=== PATIENT | male | born 1945 | race Caucasian/White ===

== ENCOUNTER 2019-10-07 12:24 | Inpatient (IN) | payer OTHER ==
--- NOTE | 2019-10-07 15:45 | R.PREADM ---
PRE-ADMISSION SCREENING FORM SCREENING DATE AND TIME 10/07/2019 13:30 (CDT) ANTICIPATED REHAB ADMISSION DATE 10/09/2019 REFERRING FACILITY [facility] REFERRAL DATE AND TIME 10/07/2019 13:30 (CDT) REFERRAL OFFICE PHONE [phone] REFERRAL ROOM# [id number] ACUTE ADMIT DATE 10/03/2019 Previous Rehabilitation(s): No. ACUTE COAT AGENT/DC COMMERCIAL FRONT LOAD OPERATOR SHANNA ATTENDING PHYSICIAN REFERRING PHYSICIAN PRIMARY CARE PHYSICIAN REHAB FACILITY [facility] CLINICAL LIAISON Yuliana Mckeon PHYSICIAN REVIEWER Dr. Miguel Angel Frazier M.D. MR# [id number] NAME SHERWIN BANG ADDRESS [address] [place] [address] PHONE [facility] [id number] DATE OF 1945 AGE 74 SSN# [id number] GENDER male MARITAL STATUS RACE unknown race ADMIT FROM 02 - [facility] PRE-HOSPITAL LIVING SETTING 01 - Home (private home/apt. board/care, assisted living, assisted, transitional living) HOME TYPE AND DETAILS Type of home: single family house # of levels in the residence: 1 # of steps within the residence: 3 # of steps to enter the residence: 1 PRE-HOSPITAL LIVING WITH Family/Relatives FAMILY SUPPORT Yes PRIMARY FAMILY CONTACT NAME DC BANG PRIMARY FAMILY CONTACT PHONE PRIMARY FAMILY CONTACT RELATIONSHIP Spouse PHONE PRIMARY FAMILY CONTACT ON ADM.? no IS PRIMARY FAMILY CONTACT AUTH. REP.? no 1ST EMERGENCY CONTACT DC BANG 1ST CONTACT PHONE 1ST CONTACT RELATIONSHIP Spouse PHONE 1ST CONTACT ON ADM. no IS 1ST CONTACT AUTH. REP.? no PHONE 2ND CONTACT ON ADM.? no PATIENT EMPLOYMENT STATUS Retired (for age) PATIENT EMPLOYER No Employer PAYOR INFORMATION: 1ST PAYOR NAME Medicare 1ST PAYOR PHONE 1ST PAYOR INJURY/ILLNESS DUE TO ACCIDENT? No ANOTHER GREEN PARTY RESPONSIBLE? No PRIMARY REHAB/ACUTE DIAGNOSIS: CHRONIC A FIB,CHF,CAD,HTN,HLD,COPD, ONSET DATE 10/03/2019 REHAB IMPAIRMENT CATEGORY (ANNETTE): 14 Cardiac does NOT meet 60% rule PRIMARY DIAGNOSIS-RELATED SURGERIES: No surgeries related to the primary diagnosis were performed. SUMMARY OF ACUTE HOSPITALIZATION: Pt. is a 74 yo Right-handed male of unknown race. On 10/03/2019 he was admitted to [facility] with diagnosis CHRONIC A FIB,CHF,CAD,HTN,HLD,COPD ,. His impairment category is Cardiac 09 - Cardiac Disorders (09). Pre-morbidly, Pt. was independent/mod-I in Locomotion, Transfers Control, Communication, and Sphincte r Control; and he had good Social Cognition, Transfers Control, and Endurance. Currently, he has deficits of Locomotion, Safety Awareness, Transfers Control, Sphincter Control, Stacy f-Care, Communication, and Endurance. Pt. is now referred to [facility] for acute in-patient rehabilitation in order to maximize patient's functional independence in activities of daily living, strength, ROM, and mobi lity. Patient has realistic goal of being discharged at assistance level 3-modA to reside at Home with Fam vanesa/Relatives. PAST MEDICAL HISTORY ESRD ON DIALYSIS COPD ESRD ATRIAL FIBRILLATION ANEMLA DYSPHAGIA,PHARYNGEAL PHASE DIASTOLIC CHF, ACUTE ON CHRONIC CHF CAD HTN HLD ARTHRITIS GOUT PAST SURGICAL HISTORY: HISTORY DIALYSIS CATHETER PLACEMENT PACEMAKER MEDICATION ALLERGIES: No Known Drug Allergies (NKDA) ENVIRONMENTAL ALLERGIES: - Substance Allergies None Known - Other Allergies None Known CODE STATUS: Full code WEIGHT/HEIGHT/BMI: WEIGHT 197 lbs HEIGHT 6 lbs BMI 26.7 DIET: - Diet Type Regular - Diet - Solid Texture Regular - Diet - Liquid Texture Regular - Tube Feed N/A [id number] [id number]].pdf REVIEW OF SYSTEMS: - Gen Alert and awake Lying in bed No apparent distress Oriented to: person, time, and place - Vital Signs Temperature: 98.7 F SBP/DBP: 118/72 Pulse: 87 Resp: 20 Vital signs stable, afebrile - CVS RRR VITAL SIGNS Temperature: 98.7 F SBP/DBP: 118/72 Pulse: 87 Resp: 20 Vital signs stable, afebrile MEDICATIONS/TREATMENT: Other- See attached MAR (Medication Administration Record). CURRENT SPHINCTER CONTROL: Pre-hospital bladder status: continent # of bladder accidents in the last 7 days prior to screenin Pre-hospital bowel status: continent # of bowel accidents in the last 7 days prior to screenin Last Bowel Movement Date: 10/07/2019 CURRENT LOCOMOTION STATUS: distance walked 15 f with rolling walker DETAILED CURRENT FUNCTIONAL STATUS: - Bladder accident frequency: Ind - No accidents in the past 7 days - Bowel accident frequency: Ind - No accidents in the past 7 days - Walking score based on distance walked: 0(N/A) - Wheelchair score based on distance traveled: 0(N/A) QI SCORES: - Self-Care A. Eating 03-Partial/moderate assistance B. Oral hygiene 03-Partial/moderate assistance C. Toileting hygiene 02-Substantial/maximal assistance E. Shower/bathe self 02-Substantial/maximal assistance F. Upper body dressing 03-Partial/moderate assistance G. Lower body dressing 03-Partial/moderate assistance H. Putting on/taking off footwear 88-Not attempted due to medical condition or safety concerns - Mobility A. Roll left and right 03-Partial/moderate assistance B. Sit to lying 03-Partial/moderate assistance C. Lying to sitting on side of bed 03-Partial/moderate assistance D. Sit to stand 02-Substantial/maximal assistance E. Chair/oxh-hd-mnikl transfer 02-Substantial/maximal assistance F. Toilet transfer 02-Substantial/maximal assistance G. Car transfer 88-Not attempted due to medical condition or safety concerns I. Walk 10 feet 02-Substantial/maximal assistance J. Walk 50 feet with two turns 88-Not attempted due to medical condition or safety concerns K. Walk 150 feet 88-Not attempted due to medical condition or safety concerns L. Walking 10 feet on uneven surfaces 88-Not attempted due to medical condition or safety concerns M. 1 step (curb) 88-Not attempted due to medical condition or safety concerns N. 4 steps 88-Not attempted due to medical condition or safety concerns O. 12 steps 88-Not attempted due to medical condition or safety concerns P. Picking up object 88-Not attempted due to medical condition or safety concerns R. Wheel 50 feet with two turns 88-Not attempted due to medical condition or safety concerns S. Wheel 150 feet 88-Not attempted due to medical condition or safety concerns - Bladder and Bowel Bladder continence Bowel continence 0-Always continent - Endurance Poor - Balance Poor - Safety Awareness Poor CURRENT FUNC. DEFICITS: Balance, Safety Awareness, Mobility, Endurance, and Self-Care CURRENT / PREVIOUS ASSISTIVE DEVICES: 3-in-1 [facility] Bed Raised Toilet Rolling Walker HISTORY OF FALLS. HAS THE PATIENT HAD TWO OR MORE FALLS IN THE PAST YEAR OR ANY FALL WITH INJURY IN T HE PAST YEAR?: No PRIOR SURGERY. DID THE PATIENT HAVE MAJOR SURGERY DURING THE 100 DAYS PRIOR TO ADMISSION?: No THERAPY NOTES FROM ACUTE CARE: Attached. SPECIAL NEEDS: - Safety Concerns Skin breakdown precautions needed due to skin breakdown risk PATIENT NEEDS ACTIVE AND ONGOING THERAPEUTIC INTERVENTION OF MULTIPLE THERAPY DISCIPLINES, INCLUDING: - Dietary and Nutrition Adequate Nutrition. Nutritional Education. Nutritional Supplements. PATIENT NEEDS CLOSE MEDICAL SUPERVISION BY A REHABILITATION PHYSICIAN FOR: Coordination of Treatment Team Wound Care PATIENT REQUIRES 24X7 REHAB NURSING FOR MEDICAL AND FUNCTIONAL MGT. OF THE FOLLOWING DEFICITS: Disease Management Medication Management Patient/Family Education Providing Safe Environment Skin Integrity PATIENT REQUIRES INTENSIVE, COORDINATED INTERDISCIPLINARY APPROACH TO REHAB: Arranging Home Equipment/Services Discharge Planning Family Intervention/Training Microfilmer/Case Management PATIENT REHAB POTENTIAL: Cale BANG is able and expected to receive 3 hours of individualized therapy daily on at least 5 o f every 7 days Cale BANG's prognosis for significant practical improvement within a reasonable period of time ap pears Good Expected level of measurable improvement will be of a practical value to Cale BANG's functional c apacity or adaptations to impairments Has a viable Discharge Plan Medically appropriate; condition is sufficiently stable to participate in intensive rehab program DISCHARGE PLAN: - Estimated Length of Stay (days) 10. - Consensus on plan Discharge plan has been discussed with primary caregiver. Patient/Family is in agreement with the nader n. Primary caregiver is in agreement with the plan. - Patient/Family Goals Return home independently. - Planned Living Setting Upon Discharge Home, to live with Family/Relatives. Transitional Living. RECOMMENDED CARE LEVEL: IRF RECOMMENDATION DETAILS: Recommended Admission to Comprehensive Rehabilitation Program to Increase Functional [place] SCREENER'S COMPLETENESS CONFIRMATION: - Screening Confirmation The patient data collection on this preadmission screening form is finished PHYSICIANS REVIEW AND ADMISSION DETERMINATION Admit - Based on my review of the Pre-Admission Screening results, in my medical judgment and experie nce, I concur with the findings and recommend admission to [facility], as this patient requires an IRF level of care. SIGNATURE PANEL: Seismic Prospecting Observer - [electronically] signed by Yuliana Mckeon on 10/07/2019 at 15:37 (CDT) Physician Reviewer - [electronically] signed by Dr. Miguel Angel Frazier M.D. on 10/07/2019 at 15:43 (CDT )
--- OUTSIDE RECORDS SUMMARY | 2019-10-08 20:49 | XMS REPORT | Clinical Summary ---
:1945 Author Organization [facility] Address [address] [place] [address] Care Team Providers Name Role Phone Valdes Otis MUNOZ Primary Care Provider Allergies Active Allergy Reactions Severity Noted Date Comments Heparin 2018 Medications Medication Sig Dispensed Refills Start End Date Status Date warfarin Take 4 mg by 0 Active (COUMADIN) 4 MG mouth daily. tablet metoprolol Take 25 mg by 0 Activ e tartrate mouth 2 (two) (LOPRESSOR) 25 mg times a day. tablet levothyroxine Take 25 mcg by 0 A ctive (SYNTHROID) 25 mcg mouth daily. tablet torsemide Take 20 mg by 0 Active (DEMADEX) 20 MG mouth 2 (two) tablet times a day. latanoprost Administer 1 0 Activ e (XALATAN) 0.005 % drop to both ophthalmic eyes nightly. solution vitamin B complex Take 500 mg by 0 Active (B COMPLEX-VITAMIN mouth. B12 ORAL) digOXIN (LANOXIN) Take 125 mcg by 0 Active 125 mcg (0.125 mg) mouth daily. PRN tablet predniSONE prednisone 10 mg 0 Ac tive (DELTASONE) 10 mg tablet tablet albuterol sulfate Ventolin 0 Ac tive (VENTOLIN HFA INHL) fluticasone/vilant Inhale. 0 A ctive lien (BREO ELLIPTA INHL) warfarin Take 1 tablet 0 05/13/19 Discon tinued (COUMADIN) 2.5 MG (2.5 mg total) 9 20 (Dose tablet by mouth daily. adju stment) Take with 3 mg tablet for total 5.5 mg roflumilast Take 500 mcg by 0 08/26/19 Di scontinued (Daliresp) 500 mcg mouth daily. 20 tablet NON FORMULARY 2 (two) times a 0 10/02/19 Discontinued day. Viteyes 20 AREDS 2 umeclidinium Inhale. 0 08/26/19 Discont inued (Incruse Ellipta) 20 62.5 mcg/actuation blister with device fluticasone Inhale 1 0 08/26/19 Disconti nued furoate-vilanteroL inhalations once 20 (Breo Ellipta) daily. 100-25 mcg/dose blister with device powder for inhalation colchicine 0.6 mg Take 0.6 mg by 0 0 Discontinued tablet mouth daily. PRN 20 albuterol Take 2.5 mg by 0 08/26/19 Disco ntinued (ACCUNEB) 2.5 mg nebulization 20 /3 mL (0.083 %) every 6 (six) nebulizer solution hours as needed for wheezing. PRN acetaminophen-code Take 1 tablet by 20 tablet 0 0503/10 ine (TYLENOL WITH mouth every 6 0 20 CODEINE #3) 300-30 (six) hours as mg per needed for tabletIndications: moderate pain acute pain for up to 5 days .acute pain. fluticasone-umecli Trelegy Ellipta 0 10/01 Discontinued din-vilanter 100 mcg-62.5 20 (TRELEGY ELLIPTA) mcg-25 mcg 100-62.5-25 mcg powder for blister with inhalation device powder for inhalation Active Problems Problem Noted Date Dialysis AV fistula malfunction 10/02/2019 Overview: Added automatically from request for alysia trivedi [id number] Clotted dialysis access 08/26/2019 Overview: Added automatically from request for alysia arnoldy [id number] ESRD (end stage renal disease) 07/01/2019 Overview: Added automatically from request for alysia trivedi [id number] Respiratory failure 2018 Encounters Date Type Specialty Care Team Description 10/07/2019 Hospital Encounter General Surgery Ervin Wilson MD 10/06/2019 Telephone Cardiovascular Luz Page RN 10/03/2019 Anesthesia Event General Surgery Omega Wakefield NP 10/02/2019 Pre-Admit Testing Pre-Admission Testing Ervin Wilson ESRD (end stage renal disease) ([facility]); Appointment MD Gurwinder Malfunction of arteriovenous dialysis fistula, initial encounter ([facility]) 10/02/2019 Office Visit Cardiovascular Ervin Wilson Encounter r egarding vascular access for dialysis for ESRD ([facility]) (Primary Dx); MD Gurwinder Dialysis AV fi stula malfunction, initial encounter ([facility]) 10/02/2019 Telephone Cardiovascular Luz Page RN 10/02/2019 Prep for Surgery Cardiovascular Camilo, ESRD (end stage renal disease) ([facility]) (Primary Dx); CASSIE Escobar Malfunction of arteriovenous dialysis fistula, initial encounter (HCC) 10/02/2019 Travel 09/11/2019 Office Visit Cardiovascular Ervin Wilson Encounter r egarding vascular access for dialysis for ESRD ([facility]) (Primary Dx); MD Gurwinder ESRD (end stag e renal disease) ([facility]) 09/11/2019 Travel 09/01/2019 Travel 08/27/2019 Anesthesia Event General Surgery Adrian Packer MD Gonzalez, Adriana, CRNA 08/27/2019 Surgery General Surgery Ervin Wilson INTRACATHE TER MD Gurwinder INJECTION OF T PA RIGHT TDC ., R IGHT UPPER EXTREMITY SUTURE REMOVAL 08/27/2019 Hospital Encounter General Surgery Ervin Wilson ESRD (end stage renal disease) ([facility]); MD Gurwinder Clotted dialys is access, initial encounter ([facility]) 08/26/2019 Pre-Admit Testing Pre-Admission Testing Ervin Wilson Preop testing (Primary Dx); Appointment MD Gurwinder ESRD (end stag e renal disease) ([facility]); Clotted dialysi s access, initial encounter (HCC) 08/26/2019 Office Visit Cardiovascular Ervin Wilson Encounter r egarding vascular access for dialysis for ESRD ([facility]) (Primary Dx); MD Gurwinder Palpitation 08/26/2019 Prep for Surgery Cardiovascular Page, ESRD (end stage renal disease) ([facility]) (Primary Dx); CASSIE Escobar Clotted dialysi s access, initial encounter ([facility]) 08/26/2019 Telephone Cardiovascular Mary Rollins MA 08/26/2019 Travel 08/19/2019 Travel 08/18/2019 Telephone Cardiovascular Braxton Waite MA 08/07/2019 Office Visit Cardiovascular Ervin Wilson Encounter r suleiman Purdy MD vascular acces s for dialysis for end-stage renal disease (HCC) (Primary Dx) 08/07/2019 Travel 07/17/2019 Office Visit Cardiovascular Ervin Wilson Encounter r suleiman Purdy MD vascular acces s for dialysis for end-stage renal disease (HCC) (Primary Dx) 07/16/2019 Telephone Cardiovascular Luz Page RN 07/15/2019 Anesthesia Event General Surgery Michelle Bajwa MD Sardina, Maydee, NP 07/15/2019 Surgery General Surgery Ervin Wilson RIGHT ARM MD Gurwinder ARTERIOVENOUS FISTULA CREATIO N AND ANY OTHER INDIC ATED PROCEDURES 07/15/2019 Hospital Encounter General Surgery Ervin Wilson ESRD (end stage MD Gurwinder renal disease) (HCC) 07/15/2019 Travel 07/09/2019 Prep for Surgery Cardiovascular Camilo ESRD (end stage CASSIE Escobar renal disease) (HCC) (Primary Dx) 07/01/2019 Prep for Surgery Cardiovascular Camilo ESRD (end stage CASSIE Escobar renal disease) (HCC) (Primary Dx) 05/13/2019 Office Visit Cardiovascular Louisa Yeung Encounter re DELICIA Amanda vascular acce ss for dialysis for end-stage renal disease (HCC) (Primary Dx) 05/13/2019 Telephone Cardiovascular Luz Page RN 05/13/2019 Travel 05/08/2019 Orders Only Cardiovascular Mariann, ESRD (end sta ge renal disease) on dialysis (HCC) (Primary Dx); RIGO Limon 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 Travel 05/07/2019 Telephone Cardiovascular Luz Page RN 04/25/2019 Telephone Cardiovascular Amanda Mueller 04/25/2019 Travel after 10/07/2018 Family History Medical History Relation Name Comments No Known Problems Father No Known Problems Mother Cancer Neg Hx Thrombocytopenia Neg Hx Relation Name Status Comments Father Mother Social History Tobacco Use Types Packs/Day Years Used Date Former Smoker Cigarettes 2 16 Quit: 1980 Smokeless Tobacco: Never Used Tobacco Cessation: Counseling Given: No Alcohol Use Drinks/Week oz/Week Comments Yes 2X WEEK TOTAL 4 Sex Assigned at Date Recorded Not on file Job Start Date Occupation Industry Not on file Not on file Not on file Travel History Travel Start Travel End No recent travel history available. COVID-19 Exposure Response Date Recorded In the last month, have you been in contact with No / Unsure 10/02/2019 8:32 AM CDT someone who was confirmed or suspected to have Coronavirus / COVID-19? Last Filed Vital Signs Vital Sign Reading Time Taken Comments Blood Pressure 120/77 10/02/2019 10:41 AM CDT Pulse 92 10/02/2019 10:41 AM CDT Temperature 36.3 C (97.3 F) 10/02/2019 10:41 AM CDT Respiratory Rate 18 10/02/2019 10:41 AM CDT Oxygen Saturation 100% 10/02/2019 10:41 AM CDT Inhaled Oxygen Concentration - - Weight 90.7 kg (200 lb) 10/02/2019 10:41 AM CDT Height 182.9 cm (6') 10/02/2019 10:41 AM CDT Body Mass Index 27.12 10/02/2019 10:41 AM CDT Plan of Treatment Health Maintenance Due Date Last Done Comments COLONOSCOPY SCREENING 06/01/1995 SHINGLES VACCINES (#1) 06/01/1995 65+ PNEUMOCOCCAL VACCINE (2 of 2 - PPSV23) 05/31/201005/31 INFLUENZA VACCINE 10/21/2019 Implants Implanted Type Area [employer] Device Shelf Model / Identifier Expiration Serial / Date Lot Pacemaker-05/05/2018 Pacemaker Left: Implanted: 05/05/2018 (Quantity not on file) Chest Procedures Procedure Name Priority Date/Time Associated Diagnosis Comme nts ANTIBODY Routine 10/02/2019 11:41 Results for this IDENTIFICATION AM CDT procedure are in the results section. HEPATIC FUNCTION PANEL Routine 10/02/2019 11:41 R esults for this AM CDT procedure are i n the results section. TYPE AND SCREEN Routine 10/02/2019 11:41 ESRD (end stage renal Results for this AM CDT disease) (HCC) procedure are in Malfunction of the results arteriovenous section. dialysis fistula, initial encounter ([facility]) HEMOGLOBIN A1C Routine 10/02/2019 11:41 ESRD (end stage renal Results for this AM CDT disease) (HCC) procedure are in Malfunction of the results arteriovenous section. dialysis fistula, initial encounter ([facility]) ESTIMATED GFR Routine 10/02/2019 11:41 Results fo r this AM CDT procedure are i n the results section. HC COMPLETE BLD COUNT Routine 10/02/2019 11:41 ESRD (end stage renal Results for this W/AUTO DIFF AM CDT disease) ([facility]) procedure are in Malfunction of the results arteriovenous section. dialysis fistula, initial encounter ([facility]) BASIC METABOLIC PANEL Routine 10/02/2019 11:41 ESRD (end stage renal Results for this AM CDT disease) ([facility]) procedure are in Malfunction of the results arteriovenous section. dialysis fistula, initial encounter ([facility]) PROTHROMBIN TIME WITH Routine 10/02/2019 11:41 ESRD (end stage renal Results for this INR AM CDT disease) ([facility]) procedure are in Malfunction of the results arteriovenous section. dialysis fistula, initial encounter ([facility]) PARTIAL THROMBOPLASTIN Routine 10/02/2019 11:41 ESRD (end stag e renal Results for this TIME (PTT) AM CDT disease) ([facility]) procedure are in Malfunction of the results arteriovenous section. dialysis fistula, initial encounter ([facility]) COVID-19 QUALITATIVE Routine 10/02/2019 10:17 ESRD (end stage renal Results for this PCR AM CDT disease) ([facility]) procedure are in Malfunction of the results arteriovenous section. dialysis fistula, initial encounter ([facility]) POC PANEL 4 Routine 08/27/2019 11:03 Results for this AM CDT procedure are i n the results section. PROTHROMBIN TIME WITH STAT 08/27/2019 10:50 Re sults for this INR AM CDT procedure are i n the results section. PARTIAL THROMBOPLASTIN STAT 08/27/2019 10:50 R esults for this TIME (PTT) AM CDT procedure are i n the results section. ESTIMATED GFR STAT 08/27/2019 10:50 Results fo r this AM CDT procedure are i n the results section. COMPREHENSIVE STAT 08/27/2019 10:50 Results fo r this METABOLIC PANEL AM CDT procedure ar e in the results section. ECG PRE/POST OP Routine 08/26/2019 2:56 Preop testing Results for this PM CDT procedure are i n the results section. ESTIMATED GFR Routine 08/26/2019 2:50 Results fo r this PM CDT procedure are i n the results section. HC COMPLETE BLD COUNT Routine 08/26/2019 2:50 ESRD (end stage renal Results for this W/AUTO DIFF PM CDT disease) ([facility]) procedure are in Clotted dialysis the results access, initial section. encounter ([facility]) BASIC METABOLIC PANEL Routine 08/26/2019 2:50 ESRD (end stage renal Results for this PM CDT disease) ([facility]) procedure are in Clotted dialysis the results access, initial section. encounter (HCC) PROTHROMBIN TIME WITH Routine 08/26/2019 2:50 ESRD (end stage renal Results for this INR PM CDT disease) ([facility]) procedure are in Clotted dialysis the results access, initial section. encounter (HCC) PARTIAL THROMBOPLASTIN Routine 08/26/2019 2:50 ESRD (end stag e renal Results for this TIME (PTT) PM CDT disease) ([facility]) procedure are in Clotted dialysis the results access, initial section. encounter ([facility]) ANTIBODY Routine 08/26/2019 2:21 Results for this IDENTIFICATION PM CDT procedure are in the results section. TYPE AND SCREEN Routine 08/26/2019 2:21 Preop testing Results for this PM CDT procedure are i n the results section. COVID-19 QUALITATIVE Routine 08/26/2019 2:21 ESRD (end stage renal Results for this PCR PM CDT disease) ([facility]) procedure are in Clotted dialysis the results access, initial section. encounter ([facility]) XR CHEST 1 VW PORTABLE Routine 07/15/2019 8:48 R esults for this AM CDT procedure are i n the results section. ECG 12-LEAD Routine 07/15/2019 7:31 ESRD (end stage renal Re sults for this AM CDT disease) ([facility]) procedure are in the results section. POC PANEL 4 Routine 07/15/2019 7:31 Results for this AM CDT procedure are i n the results section. ANTIBODY Routine 07/15/2019 7:24 Results for this IDENTIFICATION AM CDT procedure are in the results section. ESTIMATED GFR Routine 07/15/2019 7:24 Results fo r this AM CDT procedure are i n the results section. PARTIAL THROMBOPLASTIN Routine 07/15/2019 7:24 R esults for this TIME (PTT) AM CDT procedure are i n the results section. PROTHROMBIN TIME WITH Routine 07/15/2019 7:24 Re sults for this INR AM CDT procedure are i n the results section. HC COMPLETE BLD COUNT Routine 07/15/2019 7:24 Re sults for this W/AUTO DIFF AM CDT procedure are i n the results section. BASIC METABOLIC PANEL Routine 07/15/2019 7:24 Re sults for this AM CDT procedure are i n the results section. TYPE AND SCREEN Routine 07/15/2019 7:24 Results for this AM CDT procedure are i n the results section. COVID-19 QUALITATIVE STAT 07/15/2019 6:22 Res ults for this PCR AM CDT procedure are i n the results section. US VEIN MAPPING UPPER Routine 05/13/2019 11:50 Arteriovenous R esults for this EXTREMITY RIGHT AM CDT malformation of procedure are in vessel of upper limb the results ESRD (end stage renal sectio n. disease) on dialysis (HCC) after 10/07/2018 Results Estimated GFR (10/02/2019 11:41 AM CDT)Only the most recent of4 resultswithin the time period is included. Estimated GFR 4 (A) mL/min/1.73 [facility] Comment: m2 [place] Catergory Units Interpretation HOS PITAL G1 >=90 Normal or high G2 60-89 Mildly decreased G3a 45-59 Mildly to moderately decreas ed G3b 30-44 Moderately to severely decre ased G4 15-29 Severely decreased G5 <15 Kidney failure The eGFR was calculated using the Chronic Kidney Disea se Epidemiology Collaboration (CKD-EPI) equation. Interpretation is based on recommendations of the National Kidney Foundation-Kidney Disease Outcomes Octavio lity Initiative (NKF-KDOQI) published in 2014. Specimen Performing Organization Address City/State/Zipcode Phone Number [facility] DEPARTMENT OF PATHOLOGY [address] [facility] [address] AND [facility] [id number] [place] [address], [place] [phone] HOSPITAL Antibody identification (10/02/2019 11:41 AM CDT)Only the most recent of3 resultswithin the time period is included. Pathologist Sig nature Antibody ID POS, Anti-D [facility] Specimen Performing Organization Address City/State/Zipcode Phone Number [facility] DEPARTMENT OF PATHOLOGY AND [address] [place], [place] [address] [facility] [address] [place] [address] Partial thromboplastin time, activated (10/02/2019 11:41 AM CDT)Only the most recent of4 resultswithin the time period is included. PTT 64.9 (H) 23.0 - 36.0 [facility] Comment: [facility] PTT therapeutic range for unfractionated heparin is HOSPITAL 61.0-112.0 seconds which corresponds to Anti-Xa 0.3-0.7 U/ml. Specimen Blood Performing Organization Address City/[facility]/Zipcode Phone Number [facility] DEPARTMENT OF PATHOLOGY [id number] [place] [phone] AND [facility] [id number] [place] [address] Prothrombin time with INR (10/02/2019 11:41 AM CDT)Only the most recent of4 resultswithin the time period is included. Prothrombin time 61.8 (H) 11.5 - 14.5 [facility] INR 7.0 (HH) [place] Comment: [facility] International Normalized Ratio (INR) is a therapeu [facility] monitoring tool for patients who are stable on oral anticoagulant therapy. An INR of 2.0-3.0 is suggested for deep vein thrombosis/pulmonary embolism. Final results called to and read back by cassie williamson 10/02/2019 12:47 c.u Specimen Blood Performing Organization Address City/[facility]/Zipcode Phone Number [facility] DEPARTMENT OF PATHOLOGY [address] [place] [address] CBC with platelet and differential (10/02/2019 11:41 AM CDT)Only the most recent of3 resultswithin the time period is included. WBC 9.2 4.5 - 11.0 k/uL [facility] RBC 3.51 (L) 4.40 - 6.00 [facility] m/uL [facility] HGB 11.3 (L) 14.0 - 18.0 [facility] g/dL [facility] HCT 35.4 (L) 41.0 - 51.0 % [facility] MCV 100.9 (H) 82.0 - 100.0 fL [facility] MCH 32.2 27.0 - 34.0 pg [facility] MCHC 31.9 31.0 - 37.0 [facility] g/dL [facility] RDW - SD 63.0 (H) 37.0 - 55.0 fL [facility] MPV 11.4 (H) 6.9 - 11.0 fL [facility] Platelet count 140 (L) 150 - 400 K/uL [facility] Nucleated RBC 0.20 /100 WBC [facility] Neutrophils 89.3 (H) 39.0 - 69.0 % [facility] Lymphocytes 4.2 (L) 25.0 - 45.0 % [facility] Monocytes 5.8 0.0 - 10.0 % [facility] Eosinophils 0.2 0.0 - 5.0 % [facility] Basophils 0.1 0.0 - 1.0 % [facility] Immature granulocytes 0.4 0.0 - 1.0 % [facility] Specimen Blood Performing Organization Address City/State/Zipcode Phone Number [facility] DEPARTMENT OF PATHOLOGY [address] [place] [address] AND [place] [phone] HOSPITAL Type and screen (10/02/2019 11:41 AM CDT)Only the most recent of3 resultswithin the time period is included. ABO grouping A [facility] Rh type NEG [facility] Antibody screen POS [facility] (gel) Comment: [place] Results called to TREVA MORSE RN at 10/02/19 1 3:28 with readback. HOSPITAL Specimen sent to [facility] Blood Bank for anti body identification. Allow 4-6 hours for compatible blood if needed. [facility] Specimen Nasopharyngeal Performing Organization Address City/State/Zipcode Phone Number [facility] DEPARTMENT OF PATHOLOGY [address] [place] [address] Hemoglobin A1c (10/02/2019 11:41 AM CDT) Hemoglobin A1C 4.9 4.0 - 5.6 % [facility] Comment: [place] HbA1c cutoffs for diagnosing diabetes: HO SPITAL 4.0% - 5.6% = normal 5.7% - 6.4% = increased risk for diabetes (prediabetes )9 >=6.5% = diabetes9 Goals for glycemic control (ADA 2016) < 7.0% Target for non adults with diabetes. More or less stringent targets may be appropriate for individual patients. <7.5% Target for Children and adolescents with type 1 diabetes. Specimen Blood Performing Organization Address City/State/Zipcode Phone Number [facility] DEPARTMENT OF PATHOLOGY [phone] [place] [address] Hepatic function panel (10/02/2019 11:41 AM CDT) Pathologist Sig nature Albumin 3.7 3.5 - 5.0 g/dL [facility] Total bilirubin 0.9 0.2 - 1.2 mg/dL [facility] Bilirubin direct 0.5 (H) 0.0 - 0.3 mg/dL [facility] Alkaline phosphatase 108 40 - 129 U/L [facility] Protein 6.7 6.3 - 8.3 g/dL [facility] ALT 19 5 - 50 U/L [facility] AST 14 10 - 50 U/L [facility] Specimen Performing Organization Address City/[facility]/Zipcode Phone Number [facility] DEPARTMENT OF PATHOLOGY [address] [place] [address] Basic metabolic panel (10/02/2019 11:41 AM CDT)Only the most recent of3 results within the time period is included. Pathologist Sig nature Sodium 136 135 - 148 mEq/L [facility] Potassium 4.6 3.5 - 5.0 mEq/L [facility] Chloride 94 (L) 98 - 112 mEq/L [facility] CO2 19 (L) 24 - 31 mEq/L [facility] Anion gap 23@ANIO (H) 7 - 15 mEq/L [facility] BUN 119 (H) 8 - 23 mg/dL [facility] Creatinine 10.24 (H) 0.70 - 1.20 mg/dL [facility] Glucose 119 (H) 65 - 99 mg/dL [facility] Calcium 9.2 8.8 - 10.2 mg/dL [facility] Specimen Blood Performing Organization Address City/[facility]/Zipcode Phone Number [facility] DEPARTMENT OF PATHOLOGY [phone] [place] [phone] [address] [place] [address] [facility] COVID-19 qualitative PCR (10/02/2019 10:17 AM CDT)Only the most recent of3 resultswithin the time period is included. Pathologist [facility] Interpretation Negative results do not prec lude 2019-nCoV infection and should not be used as the sole basis for treatment or other patient management decisions. Negative results must be combined with clinical observations, patient history, and epidemiological [place] information. [facility] COVID19 qualitative Not-Detected Not-Detecte [place] PCR result d [facility] See link below for [place] PCR PDF Lab [facility] ReportComment: Case HOSPITAL Number: [id number] Specimen Nasopharyngeal swab Performing Organization Address City/[facility]/Zipcode Phone Number [facility] DEPARTMENT OF PATHOLOGY AND [address] [place], [place] [address] [address] [facility] POC panel 4 (08/27/2019 11:03 AM CDT)Only the most recent of2 resultswithin the time period is included. POC sodium 140 135 - 148 [facility] mmol/L [facility] POC potassium 4.0 3.5 - 5.0 [facility] mmol/L [facility] POC hematocrit 33 (L) 41 - 51 % [facility] POC glucose 91 65 - 99 mg/dL [facility] Comment: [place] Order Processor Name: [facility] Device ID: [id number] POC hemoglobin 11.2 (L) 14.0 - 18.0 [facility] g/dL [facility] Specimen Blood Performing Organization Address City/[facility]/Zipcode Phone Number [facility] DEPARTMENT OF PATHOLOGY [phone] [place] [phone] AND [facility] [phone] [place] [phone] [facility] Comprehensive metabolic panel (08/27/2019 10:50 AM CDT) Sodium 142 135 - 148 [facility] mEq/L [facility] Potassium 4.2 3.5 - 5.0 [facility] mEq/L [facility] Chloride 105 98 - 112 mEq/L [facility] CO2 20 (L) 24 - 31 mEq/L [facility] Anion gap 17@ANIO (H) 7 - 15 mEq/L [facility] BUN 89 (H) 8 - 23 mg/dL [facility] Creatinine 7.68 (H) 0.70 - 1.20 [facility] mg/dL [facility] Glucose 92 65 - 99 mg/dL [facility] Calcium 8.8 8.8 - 10.2 [facility] mg/dL [facility] Protein 7.0 6.3 - 8.3 g/dL [facility] Albumin 4.0 3.5 - 5.0 g/dL [facility] A/G ratio 1.3 0.7 - 3.8 [facility] Alkaline phosphatase 75 40 - 129 U/L [facility] AST 12 10 - 50 U/L [facility] ALT 18 5 - 50 U/L [facility] Total bilirubin 0.4 0.2 - 1.2 [facility] mg/dL [facility] Specimen Blood Performing Organization Address City/[facility]/Zipcode Phone Number [facility] DEPARTMENT OF PATHOLOGY [address] [facility], [place] [address] AND GENOMIC MEDICINE [facility] [address] [facility] [place] [address] [facility] ECG Pre/Post Op (08/26/2019 2:56 PM CDT) Pathologist Sig nature Ventricular rate 90 [facility] Atrial rate 58 [facility] QRSD interval 176 [facility] QT interval 478 [facility] QTC interval 584 [facility] QRS axis 1 -87 [facility] T wave axis 91 [facility] EKG impression AV sequential or dual [facility] chamber electronic pacemaker-Electronicall y Signed By Junior Natarajan MD ([id number]) on 08/26/2019 3:24:11 PM Specimen Narrative Performed At This result has an attachment that is no t available. Performing Organization Address City/State/[facility] Phone Number [facility] MUSE [address] [place] [address] XR Chest 1 Vw Portable (07/15/2019 8:48 AM CDT) Specimen Narrative Performed At EXAMINATION: XR CHEST 1 VW PORTABLE [facility] CLINICAL HISTORY: Pre-Op COMPARISON: June 26, 2018 IMPRESSION: 1.Prior sternotomy and valve replacement. There is a c ardiac regulating device. 2.Right jugular catheter extends into th e right atrium. 3.Increased density in the right perihilar region is p robably related to some fluid in the fissure on the right s christian. 4.Diffuse interstitial prominence in lungs may be rela jes to fibrosis with or without superimposed edema. [id number] Procedure Note Hm Interface, Radiology Results Incoming - 07/15/2019 9:01 AM CDT EXAMINATION: XR CHEST 1 VW PORTABLE CLINICAL HISTORY: Pre-Op COMPARISON: June 26, 2018 IMPRESSION: 1.Prior sternotomy and valve replacement . There is a cardiac regulating device. 2.Right jugular catheter extends into th e right atrium. 3.Increased density in the right perihil ar region is probably related to some fluid in the fissure on the right side. 4.Diffuse interstitial prominence in fernanda gs may be related to fibrosis with or without superimposed edema. [id number] Performing Organization Address [facility] Phone Number [facility] [address] [place] [address] ECG 12 lead (07/15/2019 7:31 AM CDT) Pathologist Sig nature Ventricular rate 91 [facility] Atrial rate 97 [facility] QRSD interval 170 [facility] QT interval 470 [facility] QTC interval 578 [facility] QRS axis 1 -83 [facility] T wave axis 97 [facility] EKG impression Electronic ventricular [facility] pacemaker-In automated comparison with ECG of 15-JUL-2019 07:29,-Electronic ventricular pacemaker has replaced Wide QRS rhythm- Specimen Narrative Performed At This result has an attachment that is no t available. Performing Organization Address [facility] Phone Number [facility] MUSE [address] [place] [address] Us vein mapping upper extremity (05/13/2019 11:50 AM CDT) Specimen Narrative Performed At [facility] ty Vein Mapping Report [id number] [facility], [address] Office [address], [place] [address], [place] [address] Pat.Name: SHERWIN ALEXANDER Pat.ID: [id number] .Date: 05/13/2019 Refer.MD: ERVIN WILSON MD Exam Time: 11:13:00 AM Study Type:UE Vein Mapping Height: 72in Weight: 166lb BSA: 1.97 m2 Ag e: 1945,73Y Sex: MALE Sonogrphr: Basia Riley, ELPIDIO, RVT Pat. Stat.:Outpatient Room: [facility] Vol: ED, CPT - 4: 43359 Echo Event ID:[id number] Order ID: [id number] Reason for Study:New dialysis access nader nning History / Clinical:Chronic respiratory f ailure, COPD, ESRD/ on HD, Former smoker, Right upper chest dialysi s catheter w/bandage Procedures: Colorflow, Grayscale/2D, Pul sed wave Doppler SUMMARY: DUPLEX SCAN OBSERVATIONS Right IJ Patent Subclavian Not Visualized Axillary Patent Brachial Patent Cephalic, arm Patent Cephalic, forearm Patent Basilic, arm Patent Basilic, forearm Patent RIGHT: There is normal compressibility and no evidence of echogenic material noted within the lumen of the v isualized veins. Colorflow and Doppler signals demonstrate patency. The pinedo of the radial and ulnar arteries are brightly echogenic. PRELIMINARY FINDINGS 1. No evidence of acute venous thrombo sis, right upper extremity. 2. The basilic vein has several branches at the antecubital fossa level. 3. The radial and ulnar arteries are den sely calcified with triphasic Doppler signals in the distal forearm. 4. Patent palmar arch on the right; watkins joel, when the right radial artery is compressed and the ulnar arter y is the source, the PPG waveforms' amplitude is moderately reduc ed (left palmar arch was not evaluated due to the patient's pain wi th compression). 5. See diagram for vein measurements PHYSICIAN INTERPRETATION 1. No evidence of acute venous thrombo sis, right upper extremity. 2. The basilic vein has several branches at the antecubital fossa level. 3. The radial and ulnar arteries are den sely calcified with triphasic Doppler signals in the distal forearm. 4. Patent palmar arch on the right; watkins joel, when the right radial artery is compressed and the ulnar arter y is the source, the PPG waveforms' amplitude is moderately reduc ed . 5. Pulsatile venous waveforms suggest ri ght sided cardiac dysfunction or pulmonary hypertension FINDINGS: MEASUREMENTS: UEVEINS Right Cephalic Upper Arm Prox Cephalic Upper 0.25 cm Cephalic Upper 0.24 cm Right Cephalic Upper Arm Mid Cephalic Upper 0.54 cm Cephalic Upper 0.16 cm Right Cephalic Upper Arm Dist Cephalic Upper 0.45 cm Cephalic Upper 0.18 cm Right Cephalic Antecubital Fossa Cephalic Antecu 0.51 cm Cephalic Antecu 0.27 cm Right Cephalic Forearm Prox Cephalic Forear 0.49 cm Cephalic Forear 0.31 cm Right Cephalic Forearm Mid Cephalic Forear 0.39 cm Cephalic Forear 0.25 cm Right Cephalic Wrist Cephalic Wrist 0.36 cm Cephalic Wrist 0.15 cm Right Basilic Upper Arm Prox Basilic Upper A 0.62 cm Basilic Upper A 0.57 cm Right Basilic Upper Arm Mid Basilic Upper A 0.51 cm Basilic Upper A 0.63 cm Right Basilic Upper Arm Dist Basilic Upper A 0.49 cm Basilic Upper A 0.59 cm Right Drop Hammer Mechanic Drop Hammer Mechanic AP 0.39 cm Drop Hammer Mechanic Dept 0.99 cm Right Basilic Antecubital Fossa Basilic Antecub 0.55 cm Basilic Antecub 0.47 cm Right Basilic Forearm Prox Basilic Forearm 0.22 cm Basilic Forearm 0.4 cm Right Basilic Forearm Mid Basilic Forearm 0.22 cm Basilic Forearm 0.14 cm Right Basilic Wrist Basilic Wrist A 0.21 cm Basilic Wrist D 0.3 cm Right Brachial Vein Antecube Brachial Vein A 0.44 cm Brachial Vein A 1.22 cm Right Brachial Artery Brachial Artery 0.51 cm Brachial Artery 0.81 cm Right Radial Artery Radial Artery A 0.23 cm Radial Artery D 0.25 cm Right Ulnar Artery Ulnar Artery AP 0.19 cm Ulnar Artery De 0.58 cm Signed 05/13/2019 03:43 PM Preez Ventura MD, FACS, RPVI Procedure Note Interface, Radiology Results In - 2019 3:44 PM CDT [facility] Upper Extremity Vein M apping Report [id number] [facility], [address], [place] [id number] Pat.Name: SHERWIN ALEXANDER Pat.I D: [id number] St.Date: 05/13/2019 Refer .MD: ERVIN WILSON MD Exam Time: 11:13:00 AM Study Type:UE Vein Mapping Height: 72in Weigh t: 166lb BSA: 1.97 m2 Age: 4 1945,73Y Sex: MALE Sonogrphr: Basia Riley RDCS, RVT Pat. Stat.:Outpatient Room: [facility] Vol: ED, CPT - 4: 32328 Echo Event ID:[id number] Order ID: [id number] Reason for Study:New dialysis access nader nning History / Clinical:Chronic respiratory f ailure, COPD, ESRD/ on HD, Former smoker, Right upper chest dialysi s catheter w/bandage Procedures: Colorflow, Grayscale/2D, Pul sed wave Doppler SUMMARY: DUPLEX SCAN OBSERVATIONS Right IJ Patent Subclavian Not Visualized Axillary Patent Brachial Patent Cephalic, arm Patent Cephalic, forearm Patent Basilic, arm Patent Basilic, forearm Patent RIGHT: There is normal compressibility and no evidence of echogenic material noted within the lumen of the v isualized veins. Colorflow and Doppler signals demonstrate patency. T he pinedo of the radial and ulnar arteries are brightly echogenic. PRELIMINARY FINDINGS 1. No evidence of acute venous thrombos is, right upper extremity. 2. The basilic vein has several branches at the antecubital fossa level. 3. The radial and ulnar arteries are den sely calcified with triphasic Doppler signals in the distal forearm. 4. Patent palmar arch on the right; watkins joel, when the right radial artery is compressed and the ulnar arter y is the source, the PPG waveforms' amplitude is moderately reduc ed (left palmar arch was not evaluated due to the patient's pain wit h compression). 5. See diagram for vein measurements PHYSICIAN INTERPRETATION 1. No evidence of acute venous thrombos is, right upper extremity. 2. The basilic vein has several branches at the antecubital fossa level. 3. The radial and ulnar arteries are den sely calcified with triphasic Doppler signals in the distal forearm. 4. Patent palmar arch on the right; watkins joel, when the right radial artery is compressed and the ulnar arter y is the source, the PPG waveforms' amplitude is moderately reduc ed . 5. Pulsatile venous waveforms suggest ri ght sided cardiac dysfunction or pulmonary hypertension FINDINGS: MEASUREMENTS: UEVEINS Right Cephalic Upper Arm Prox Cephalic Upper 0.25 cm Ceph alic Upper 0.24 cm Right Cephalic Upper Arm Mid Cephalic Upper 0.54 cm Ceph alic Upper 0.16 cm Right Cephalic Upper Arm Dist Cephalic Upper 0.45 cm Ceph alic Upper 0.18 cm Right Cephalic Antecubital Fossa Cephalic Antecu 0.51 cm Ceph alic Antecu 0.27 cm Right Cephalic Forearm Prox Cephalic Forear 0.49 cm Ceph alic Forear 0.31 cm Right Cephalic Forearm Mid Cephalic Forear 0.39 cm Ceph alic Forear 0.25 cm Right Cephalic Wrist Cephalic Wrist 0.36 cm Ceph alic Wrist 0.15 cm Right Basilic Upper Arm Prox Basilic Upper A 0.62 cm Basi lic Upper A 0.57 cm Right Basilic Upper Arm Mid Basilic Upper A 0.51 cm Basi lic Upper A 0.63 cm Right Basilic Upper Arm Dist Basilic Upper A 0.49 cm Basi lic Upper A 0.59 cm Right Drop Hammer Mechanic Drop Hammer Mechanic AP 0.39 cm Perf orator Dept 0.99 cm Right Basilic Antecubital Fossa Basilic Antecub 0.55 cm Basi lic Antecub 0.47 cm Right Basilic Forearm Prox Basilic Forearm 0.22 cm Basi lic Forearm 0.4 cm Right Basilic Forearm Mid Basilic Forearm 0.22 cm Basi lic Forearm 0.14 cm Right Basilic Wrist Basilic Wrist A 0.21 cm Basi lic Wrist D 0.3 cm Right Brachial Vein Antecube Brachial Vein A 0.44 cm Brac hial Vein A 1.22 cm Right Brachial Artery Brachial Artery 0.51 cm Brac hial Artery 0.81 cm Right Radial Artery Radial Artery A 0.23 cm Radi al Artery D 0.25 cm Right Ulnar Artery Ulnar Artery AP 0.19 cm Ulna r Artery De 0.58 cm Signed 05/13/2019 03:43 PM Perez Ventura MD, FACS, RPVI Performing Organization Address City/State/Zipcode Phone Number [facility] [address] [place] [address] after 10/07/2018 Insurance Payer Benefit Plan / Subscriber ID Effective Dates Phone Addre ss Type Group MEDICARE MEDICARE PART A xxxxxxxxxxx 2010-Present [facility] [place] Medicare AND B AARP AARP SUPPLEMENT xxxxxxxxxxx 2019-Present [id number] (Home) CARI NICKERSON [phone] (Work) Advance Directives For more information, please contact: [phone] Type Date Recorded Patient Oncology Physician Assistant Explanati on Advance Directives, Living Will 08/26/2019 1:34 PM and Medical Power of Thermostat Repairer
--- OUTSIDE RECORDS SUMMARY | 2019-10-08 20:51 | XMS REPORT | Continuity of Care Document ---
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) Medical Center Hypertensive Active Problem 06/02/2018 [place] disorder, Medical systemic Center arterial (disorder) Moderate protein Active Problem 06/02/2018 [facility] energy Medical malnutrition Center (disorder) Respiratory Active Problem 06/02/2018 [place] Medical (disorder) Center Medications Medication Details Route Status Patient Ordering Order Source Instructions Provider Date Insulin Lispro 6 unit, SUB-Q, Active [facility] 100 UNT/ML TID-Before Meals, 2018 Med ical Injectable PRN Blood Glucose Yamil ter Solution Results, 0 Refill(s) Glucagon 1 mg, IM, PRN, Active [place] PRN Blood Glucose 2019 Medica l Results, 0 Center Refill(s) fentaNYL 0.05 25 microgram = Active [place] mg/mL injectable 0.5 mL, IV, Q2H, 2019 Medical solution PRN Pain Score Center 4-6, 0 Refill(s) docusate sodium 100 mg = 10 mL, Active [place] 150 mg/15 mL PO, Q12H, 0 2018 Medical oral liquid Refill(s) Center cyanocobalamin 500 microgram = 1 Active [place] 500 mcg tab, PO, Daily, 0 2018 Medica l sublingual Refill(s) Center tablet ampicillin 2 g 2 gm, IVPB, [place] injection [id number], 0 2018 Medical Refill(s) Center bisacodyl 10 mg 10 mg = 1 supp, Active [facility] rectal DE, Daily, PRN 2019 Medical suppository Constipation, 0 Cent er Refill(s) allopurinol 300 300 mg = 1 tab, Active [facility] mg oral tablet PO, Daily, 0 2018 [facility] tamia Refill(s) [place] Albuterol 0.833 3 mL, NEB, RQ6H, Active [place] MG/ML / PRN as needed for 2019 Medica l Ipratropium shortness of Center [place] 0.167 breath or MG/ML Inhalant wheezing, 0 Solution Refill(s) [DuoNeb] albumin human 12.5 gm = 50 mL, Active H [place] 25% intravenous DIALYSIS, During 2019 Medical solution Dialysis, PRN Center Hypotension, 0 Refill(s) Acetaminophen 100.4 F, 0 Active [place] 325 MG Oral Refill(s) 2019 [facility] Tablet [place] latanoprost 0.05 1 drp, OPTH, Active [facility] MG/ML Ophthalmic Bedtime, 0 2018 [facility] Solution Refill(s) [place] [Xalatan] sodium citrate 2 mL, DIALYSIS, Active H [place] intravenous ONCE, 0 Refill(s) 2019 Ks dical solution [place] sodium citrate 5 mL, DIALYSIS, Active H [place] PRN, PRN 2019 Medical Dialysis, 0 Center Refill(s) Sodium Chloride 0.09 gm = 10 mL, Active [facility] IVP, PRN, PRN 2019 Medical Line Flush, 0 Center Refill(s) sennosides, [facility]CI 8.6 mg = 1 tab, Active [place] 8.6 MG Oral PO, Daily, 0 2018 Medical Tablet Refill(s) [place] roflumilast 500 500 microgram = 1 Active [facility] mcg oral tablet tab, PO, Daily, 0 2019 Medical Refill(s) [place] POLYETHYLENE PO, Daily, 0 Active [place] GLYCOL 3350 Refill(s) 2019 [facility] Oxycodone 5 mg = 5 mL, JT, [place] Hydrochloride 1 Q6H, PRN Pain 2019 Ks dical MG/ML Oral Score 4-6, 0 [place] Solution Refill(s) ocular lubricant 1 appl, BOTH Active [place] EYES, Q6H, PRN 2019 Medical Dry Eyes, 0 Center Refill(s) Mupirocin 0.02 1 appl, TOP, Active [place] MG/MG Topical Q12H, 0 Refill(s) 2019 Medical Ointment Center [Bactroban] multivitamin 1 tab, PO, Daily, Active H [place] with minerals 0 Refill(s) 2019 Medica l [place] levothyroxine 25 25 microgram = 1 Active [place] mcg (0.025 mg) tab, PO, Q630AM, 2019 Medical oral tablet 0 Refill(s) [place] Lanolin 0.157 1 appl, TOP, BID, Active [place] MG/MG / Menthol 0 Refill(s) 2019 [facility] tamia 0.0044 MG/MG / [place] Petrolatum 0.24 MG/MG / Zinc Oxide 0.206 MG/MG Topical Ointment [Calmoseptine] Ipratropium 0.5 mg = 2.5 mL, Active [place] 0.2 NEB, RQ6H, 0 2019 Medical MG/ML Inhalant Refill(s) [place] Solution sodium citrate Notes: (Same as: Inactive [place] Sodium Citrate, 2019 Medical anticoagulant) . Center argatroban 100 Notes: (Same as: Inactive [place] MG/ML Injectable Acova) 2019 Ks dical Solution MEDICATION WASTE Center Product Size: 250 mg Product Wasted: ___ mg WASTE: F/P - Black; E - Municipal Trash Bin bivalirudin Notes: IV only. No Longer [place] Not for IM use. Active 2018 Medical I.V. infusion: Center 250 mg in 500 mL (0.5 mg/mL) or 250 mg in 50 mL (5 mg/mL) of D5W or NS bivalirudin 100 mg, 100 mL, Inactive [place] Rate: Start at 2019 Medical 0.05 mg/kg/hr, Center Dosing Weight 93.636, kg, Route: IV, Total Volume: 100, Start Date: 05/30/18 21:24:00 CDT, Duration: 30 day, Stop date: 06/29/18 21:23:00 CDT, Replace Every: 24 hr Warfarin Notes: Nurse to Inactive 05/29[facility] [place] as ensure 2019 Medical documentation of Center patient education per anticoagulation policy. Avoid large intake of vitamin-K containing foods diet. (Same As: Coumadin) WASTE: F/P - P Waste Black; E - P Waste Black Warfarin Notes: Nurse to Inactive 05/28[facility] [place] as ensure 2019 Medical documentation of Center patient education per anticoagulation policy. Avoid large intake of vitamin-K containing foods diet. (Same As: Coumadin) WASTE: F/P - P Waste Black; E - P Waste Black Mupirocin 0.02 1 appl, Route: No Longer [facility] MG/MG Topical TOP, Q12H, Drug Active 2018 Me dical Ointment form: OINT, Start Cente r [Bactroban] date: 05/28/18 9:00:00 CDT, Duration: 30 day, Stop date: 06/26/18 21:00:00 CDT ampicillin Notes: (Same as: No Longer [facility] Principen) Active 2019 Medical MEDICATION WASTE Center Product Size: 2000 mg Product Wasted: ___ mg sodium citrate Notes: (Same as: Inactive [facility] Sodium Citrate, 2019 Medical anticoagulant) . Center sodium citrate Notes: (Same as: Inactive 05/27[facility] Sodium Citrate, 2019 Medical anticoagulant) . Center Midazolam Notes: (Same as: Inactive [place] Versed) 2019 Medical MEDICATION WASTE Center Product Size: 2 mg Product Wasted: ___ mg Fentanyl Notes: (Same as: Inactive 05/27[facility] [place] Sublimaze) 2019 Medical Preservative Center free. desmopressin Notes: (Same As: Inactive [facility] DDAVP) 2019 Medical MEDICATION WASTE Center Product Size: 4 microgram Product Wasted: ___ microgram fentaNYL (ANES) Route: IV, Drug Inactive [place] form: INJ, ONCE, 2018 Medical Stop date: [place] 05/27/18 8:49:00 CDT vasopressin Route: IV, Drug Inactive 05/27[facility] [place] (ANES) form: INJ, ONCE, 2018 Medical Stop date: [place] 05/27/18 8:49:00 CDT cisatracurium Route: IV, Drug Inactive [place] (ANES) form: INJ, ONCE, 2018 Medical Stop date: Center 05/27/18 8:39:00 CDT propofol (ANES) Route: IV, Drug Inactive [facility] form: INJ, ONCE, 2018 Medical Stop date: [place] 05/27/18 8:39:00 CDT Fentanyl Notes: (Same as: No Longer [facility] exas Sublimaze) Active 2019 Medical Preservative [place] free. Roxicodone Notes: (Same as: No Longer [facility] 'Roxicodone) Active 2019 Medical Center Fentanyl 12.5 microgram, Inactive [place] Route: IV, ONCE, 2019 Medical Dosing Weight Center 93.636, kg, Start date: 05/26/18 2:04:00 CDT, Stop date: 05/26/18 2:04:00 CDT Vancomycin 2001 mg: infuse Inactive [facility] over 2.5 hours 2019 Medical For adult Center patients only: Round to nearest 250 mg per Medical Staff approval MEDICATION WASTE Product Size: 1000 mg Product Wasted: ___ mg acetaminophen-co Notes: Do not No Longer [facility] deine #3 exceed 4gm/day of Active 2019 Medic al acetaminophen. Center (Same as: Tylenol with Codeine # 3) Fentanyl Notes: (Same as: No Longer [place] Sublimaze) Active 2019 [facility] Preservative [place] free. Dextrose 5% in 1,000 mL, Rate: No Longer [facility] Water IV 1,000 75 ml/hr, Infuse Active 2019 Medical mL over: 13.3 hr, Center Route: IV, Dosing Weight 93.636 kg, Total Volume: 1,000, Start date: 05/25/18 9:13:00 CDT, Duration: 30 day, Stop date: 06/24/18 9:12:00 CDT, 2.19, m2 Rocuronium Notes: (Same as: Inactive [place] Zemeron) 2019 Medical Center Etomidate Notes: (Same as: Inactive [place] [facility] Amidate). Per 2019 Medical state nursing law Center etomidate can only be given by a nurse if patient is intubated or being intubated (unless the nurse is a FINISHED GOODS PLANNER). Versed Notes: (Same as: Inactive [place] Versed) 2019 Medical MEDICATION WASTE Center Product Size: 2 mg Product Wasted: ___ mg Fentanyl Notes: (Same as: [place] Sublimaze) 2019 Medical Preservative Center free. chlorhexidine Notes: (Same As: No Longer [place] gluconate 1.2 Peridex) Active 2018 Medical MG/ML Mouthwash Center ocular lubricant Notes: (Same as: No Longer [place] Lacri-Lube, Active 2018 [facility] Puralube, Center Duratears Naturale, Artificial Tears, and Tears Again ) NS (Bolus) IV 500 mL, 500 Inactive [place] ml/hr, Infuse 2019 Medical Over: 1 hr, Center Route: IV, 500, Drug form: INJ, ONCE, Priority: STAT, Dosing Weight 93.636 kg, Start date: 05/22/18 17:01:00 CDT, Stop date: 05/22/18 17:01:00 CDT Versed Notes: (Same as: Inactive [place] Versed) 2019 Medical MEDICATION WASTE Center Product Size: 2 mg Product Wasted: ___ mg Norepinephrine Notes: Not for No Longer [place] direct Active 2018 Medical administration - Center DILUTE. Protect from light. (Same as:Levophed). Administer by either central venous catheter or peripherally-inse rted central catheter (PICC) line. sodium Notes: (sodium Inactive [place] bicarbonate 8.4% bicarb 8.4% (1 2018 Medical mEq/ml) 50 ml VL) Center 10 ML Notes: Luer lock Inactive [place] as Epinephrine 0.1 syringe 2019 Medical MG/ML Prefilled Center Syringe Fentanyl 1,000 microgram, No Longer [place] 20 mL, Rate: Active 2018 Medical Titrate, Start Center Dose: 50 microgram/hr, Titration: 25 microgram/hour every 15 minutes, Goal(s): rass -2, Max Dose: 300 microgram/hr, Route: IV, Dosing Weight 93.636 kg, Total Volume: 20, Start date: 05/22/18 16:02:00 CDTCale.. chlorhexidine Notes: (Same As: No Longer [facility] gluconate 1.2 Peridex) Active 2018 [facility] MG/ML Mouthwash Center Magnesium Notes: WASTE: F/P Inactive [facility] Sulfate - Sink; E - 2019 [facility] Trash Center Bin albumin human 5% Notes: LOT#: Inactive [facility] intravenous 2019 Medica l solution Mfg: Cente r ___ WASTE: F/P - Red; E -Red (Same as: Albuminar) "blood product derivative" albumin human 5% Notes: LOT#: Inactive [facility] intravenous 2019 Medica l solution Mfg: Cente r ___ WASTE: F/P - Red; E -Red (Same as: Albuminar) "blood product derivative" Beneprotein 7 gm Notes: (Same as: No Longer [facility] pkt Beneprotein) Active 2018 Medical Center Versed Notes: (Same as: Inactive [place] Versed) 2019 Medical MEDICATION WASTE Center Product Size: 2 mg Product Wasted: ___ mg albumin human Notes: LOT#: No Longer [facility] 25% intravenous Active 2018 Ks dical solution Mfg: Cente r ___ WASTE: F/P - Red; E -Red (Same as: Albuminar) "blood product derivative" Fentanyl 1,000 microgram, No Longer [place] 20 mL, Rate: Active 2018 Medical Titrate, Start Center Dose: 50 microgram/hr, Titration: 25 microgram/hour every 15 minutes, Goal(s): RASS -1, Max Dose: 300 microgram/hr, Route: IV, Dosing Weight 93.636 kg, Total Volume: 20, Start date: 05/19/18 16:04:00 Cale MARIEE.. ocular lubricant Notes: (Same as: No Longer 04/21 [place] Lacri-Lube, Active 2018 [facility] Puralube, Center Duratears Naturale, Artificial Tears, and Tears Again ) heparin additive Notes: Total No Longer [place] 25,000 unit [14 Concentration = Active 2018 Medical unit/kg/hr] + 50 unit/ ml Center Premix Diluent Total volume = Sodium Chloride 500 ml Send Med 0.45% 500 mL Request 2 hours prior to next bag iodixanol Notes: (Same as: No Longer [place] Visipaque). Active 2019 Medical WASTE: F/P - Center Black; E - Municipal Trash Bin Norvasc Notes: (Same as: No Longer [facility] [place] Norvasc) Active 2019 Medical Center chlorhexidine Notes: (Same As: No Longer [place] gluconate 1.2 Peridex) Active 2018 Medical MG/ML Mouthwash Center Etomidate Notes: (Same as: Inactive [facility] ex[place] Amidate). Per 2019 [facility] state nursing law Center etomidate can only be given by a nurse if patient is intubated or being intubated (unless the nurse is a FINISHED GOODS PLANNER). Fentanyl Notes: (Same as: Inactive [facility] Sublimaze) 2019 Medical Preservative Center free. chlorhexidine Notes: (Same As: No Longer [place] gluconate 1.2 Peridex) Active 2018 Medical MG/ML Mouthwash Center albumin human 5% Notes: LOT#: Inactive [facility] intravenous Mf Ks dical solution Center (Same as: Albuminar) "blood product derivative" WASTE: F/P - Red; E -Red MEDICATION WASTE Product Size: 25 gm Product Wasted: ___ gm Potassium Notes: (Same as: Inactive [facility] [place] Chloride Potassium 2018 [facility] Chloride) Center hydrALAZINE Notes: (Same as: No Longer [facility] Apresoline) June Medical interfere Center w/enteral feedings Take With Food Hydralazine Notes: (Same as: No Longer 05/18/ H [place] Apresoline) Push Active 2019 Medical over 5 minutes Center Norvasc Notes: (Same as: Inactive [place] Norvas) 2019 Medical Center Norvasc Notes: (Same as: Inactive [place] Norvas) 2019 Medical [place] lansoprazole Notes: Take 1 No Longer [facility] hour before or 2 Active 2018 Medical hours after meal; Center Expires in 14 days. Shake well before use. (Same as:Prevacid) Compounded Product - formulation not commercially available Hydralazine Notes: (Same as: Inactive [facility] Apresoline) Push 2019 Medical over 5 minutes Center potassium Notes: (Same as: No Longer [place] phosphate K Phosphate.) Do Active 2019 [facility] tamia not infuse Center phosphorous concurrently in the same line as TPN or IVF that contains calcium. For double lumen central lines, phosphorous may be infused in a separate lumen from TPN. 1 mMol phoshate has 1.47 mEq potassium Infuse over 4 hours Potassium Notes: (Same as: Inactive [place] Chloride Potassium 2018 [facility] Chloride) Center Eliquis Notes: Same as: No Longer [place] as Eliquis Active 2019 [facility] Bisacodyl Notes: (Same As: No Longer [place] Dulcolax, Active 2019 [facility] Bisco-Lax) Center sennosides, FCI Notes: (Same as: No Longer 05/17 [place] 8.6 MG Oral Senokot) Active 2019 Medical Tablet Center Miralax Notes: Dissolve No Longer [place] as in 8 oz of water Active 2019 Medical or juice. (Same Center as: Miralax) albumin human Notes: LOT#: Inactive [place] 25% intravenous 2019 Me dical solution Mfg: Cente r ___ WASTE: F/P - Red; E -Red (Same as: Albuminar) "blood product derivative" Ampicillin Notes: (Same as: No Longer [facility] Principen) Active 2019 Medical MEDICATION WASTE Center Product Size: 2000 mg Product Wasted: ___ mg Furosemide Notes: (Same as: Inactive [facility] Lasix) 2019 Medical MEDICATION WASTE Center Product Size: 40 mg Product Wasted: ___ mg Ampicillin Notes: (Same as: Inactive [facility] Principen) 2019 Medical MEDICATION WASTE Center Product Size: 2000 mg Product Wasted: ___ mg Insulin Lispro Notes: (Same as: No Longer [facility] Humalog ) Roll in Active 2019 Medica l palms of hands Center gently; Do not shake `vigorously. "Single Patient Use Only " WASTE: F/P - Black; E - Municipal Trash Bin Stable for 28 days at room temperature. Expires in days from Dat e Dextrose 50% 25 gm, 50 mL, No Longer [facility] Syringe Route: IVP, Drug Active 2018 Medical Form: INJ, Dosing Center Weight 93.636, kg, PRN, PRN Blood Glucose Results, Start date: 05/15/18 8:16:00 CDT, Duration: 30 day, Stop date: 06/14/18 8:15:00 CDT Glucagon 1 mg, Route: IM, No Longer [place] Drug form: Active 2018 Medical PDR/INJ, PRN, Center Dosing Weight 93.636, kg, PRN Blood Glucose Results, Start date: 05/15/18 8:16:00 CDT, Duration: 30 day, Stop date: 06/14/18 8:15:00 CDT chlorhexidine Notes: (Same As: No Longer [facility] gluconate 1.2 Peridex) Active 2019 Medical MG/ML Mouthwash Center potassium Notes: (Same as: No Longer [facility] phosphate-sodium Phos-NaK) Each Active 2018 Medical phosphate 250 1.5 [address]m pkt has [address] mg-280 mg-160 mg 250mg oral powder for phosphorous. Mix reconstitution w/2.5oz water and stir. sodium phosphate Notes: Infuse No Longer 03/26[facility] over 4 hour. Do Active 2019 Medical not infuse Center phosphorous concurrently in the same line as TPN or IVF that contains calcium. For double lumen central lines, phosphorous may be infused in a separate lumen from TPN. potassium Notes: (Same as: No Longer [place] phosphate K Phosphate.) Do Active 2019 [facility] tamia not infuse Center phosphorous concurrently in the same line as TPN or IVF that contains calcium. For double lumen central lines, phosphorous may be infused in a separate lumen from TPN. 1 mMol phoshate has 1.47 mEq potassium Infuse over 4 hours Calcium Chloride Notes: WASTE: F/P No Longer [place] - Sink; E - [facility] [place] Bin Potassium Notes: (Same as: No Longer [facility] Chloride KCL) Infuse no Active 2018 Medical faster than 10 Center mEq/hr if given peripherally. Magnesium Oxide Notes: (Same as: No Longer 05/14 [facility] Mag-Ox 400) Active 2019 [facility] Magnesium oxide Center [id number] elemental magnesium Dose=____mg magnesium oxide (___mg elemental magnesium) Magnesium Notes: WASTE: F/P No Longer [facility] Sulfate - Sink; E - Active [facility] [place] Bin Fentanyl 1,000 microgram, No Longer [place] 20 mL, Rate: Active 2019 Medical Titrate, Start Center Dose: 50 microgram/hr, Titration: 25 microgram/hour every 15 minutes, Goal(s): rass -2, Max Dose: 300 microgram/hr, Route: IV, Dosing Weight 93.636 kg, Total Volume: 20, Start date: 05/14/18 18:09:00 CDT, D... Sodium Chloride 1,000 mL, 1,000 Inactive [facility] 0.9% (Bolus) IV ml/hr, Infuse 2019 Ks dical Over: 1 hr, Center Route: IV, 1,000, Drug form: INJ, ONCE, Priority: STAT, Dosing Weight 93.636 kg, Start date: 05/14/18 18:07:00 CDT, Stop date: 05/14/18 18:07:00 CDT albumin human 5% Notes: LOT#: Inactive [facility] intravenous 2019 Medica l solution Mfg: Cente r ___ WASTE: F/P - Red; E -Red (Same as: Albuminar) "blood product derivative" sodium Notes: (sodium Inactive [place] bicarbonate 8.4% bicarb 8.4% (2018 Medical mEq/ml) 50 ml VL) Center Vasopressin Notes: (Same As: No Longer [place] (FCI) Vasostrict) Active 2019 [facility] ocular lubricant Notes: (Same as: No Longer 04/20 [place] Lacri-Lube, Active 2019 [facility] Puralube, [place] Duratears Naturale, Artificial Tears, and Tears Again ) NS (Bolus) IV 500 mL, 500 Inactive [place] ml/hr, Infuse 2019 Medical Over: 1 hr, Center Route: IV, 500, Drug form: INJ, ONCE, Priority: STAT, Dosing Weight 93.636 kg, Start date: 05/14/18 17:12:00 CDT, Stop date: 05/14/18 17:12:00 CDT Fentanyl Notes: (Same as: No Longer [place] Sublimaze) Active 2019 [facility] Preservative [place] free. tramadol Notes: Not to [place] Longer [place] hydrochloride 50 exceed 400mg/day. Active 2019 Medical MG Oral Tablet (Same As: Ultram) [place] Mupirocin 0.02 1 appl, Route: No Longer [place] MG/MG Topical NASAL, BID, Drug Active 2018 edical Ointment form: OINT, Start Cente r date: 05/14/18 17:00:00 CDT, Duration: 5 day, Stop date: 05/19/18 9:00:00 CDT Acetaminophen Notes: Infuse Inactive [facility] over 15 minutes 2019 Medical Do not exceed Center 4gm/day of acetaminophen MEDICATION WASTE Product Size: 1000 mg Product Wasted: ___ mg NS (Bolus) IV 1,000 mL, 1,000 Inactive [place] ml/hr, Infuse 2019 Medical Over: 1 hr, Center Route: IV, 1,000, Drug form: INJ, ONCE, Priority: STAT, Dosing Weight 93.636 kg, Start date: 05/14/18 14:09:00 CDT, Stop date: 05/14/18 14:09:00 CDT chlorhexidine Notes: (Same As: No Longer [place] gluconate 1.2 Peridex) Active 2019 Medical MG/ML Mouthwash Center Norepinephrine Notes: Not for No Longer [place] direct Active 2019 Medical administration - Center DILUTE. Protect from light. (Same as:Levophed). Administer by either central venous catheter or peripherally-inse rted central catheter (PICC) line. Epinephrine Notes: [place] Longer [place] MEDICATION WASTE Active 2019 Medical Product Size: Center 1 mg Product Wasted: ___ mg Calcium 1 gm, Route: Inactive [place] Gluconate IVPB, PRN, Dosing 2019 Medi tamia Weight 93.636, Center kg, PRN Abnormal Lab Result, Start date: 05/14/18 13:07:00 CDT, Duration: 30 day, Stop date: 06/13/18 13:06:00 CDT, FOR ICU USE ONLY Magnesium Oxide 800 mg, Route: Inactive [place] PO, PRN, Dosing 2019 Medical Weight 93.636, Center kg, PRN Abnormal Lab Result, FOR ICU USE ONLY, Start date: 05/14/18 13:07:00 CDT, Duration: 30 day, Stop date: 06/13/18 13:06:00 CDT Calcium 1,000 mg, Route: Inactive [place] as Carbonate 500 MG PO, PRN, Dosing 2019 Medical Chewable Tablet Weight 93.636, C enter kg, PRN Abnormal Lab Result, FOR ICU USE ONLY, Start date: 05/14/18 13:07:00 CDT, Duration: 30 day, Stop date: 06/13/18 13:06:00 CDT Magnesium 2 gm, Route: Inactive [place] Sulfate IVPB, PRN, Dosing 2019 Medica l Weight 93.636, Center kg, PRN Abnormal Lab Result, Start date: 05/14/18 13:07:00 CDT, Duration: 30 day, Stop date: 06/13/18 13:06:00 CDT, FOR ICU USE ONLY Insulin regular Notes: Final No Longer 05/14/ [facility] 100 unit + Concentration Active 2019 Medical 1unit/1ml WASTE: Center F/P - Black; E - Municipal Trash Bin Dextrose 50% 25 gm, 50 mL, No Longer [place] Syringe Route: IVP, Drug Active 2018 Medical Form: INJ, Dosing Center Weight 93.636, kg, PRN, PRN Blood Glucose Results, Start date: 05/14/18 13:07:00 CDT, Duration: 30 day, Stop date: 06/13/18 13:06:00 CDT Potassium 20 mEq, Route: Inactive [place] as Chloride PO, Drug form: 2019 Medical ERTAB, PRN, Center Dosing Weight 93.636, kg, PRN Abnormal Lab Result, Start date: 05/14/18 13:07:00 CDT, Duration: 30 day, Stop date: 06/13/18 13:06:00 CDT, FOR ICU USE ONLY sodium phosphate 30 mmol, Route: Inactive [facility] IVPB, PRN, Dosing 2019 Medica l Weight 93.636, Center kg, PRN Abnormal Lab Result, Start date: 05/14/18 13:07:00 CDT, Duration: 30 day, Stop date: 06/13/18 13:06:00 CDT, FOR ICU USE ONLY potassium 30 mmol, Route: Inactive [place] phosphate IVPB, PRN, Dosing 2019 Medi tamia Weight 93.636, Center kg, PRN Abnormal Lab Result, Start date: 05/14/18 13:07:00 CDT, Duration: 30 day, Stop date: 06/13/18 13:06:00 CDT, FOR ICU USE ONLY potassium 2 pkt, Route: PO, Inactive [facility] phosphate-sodium Dosing Weight 2019 M edical phosphate 250 93.636, kg, PRN, C enter mg-280 mg-160 mg PRN Abnormal Lab oral powder for Result, FOR ICU reconstitution USE ONLY, Start date: 05/14/18 13:07:00 CDT, Duration: 30 day, Stop date: 06/13/18 13:06:00 CDT calcium Route: IV, Drug Inactive [place] gluconate (ANES) form: INJ, ONCE, 2019 Medical Stop date: Center 05/14/18 12:13:00 CDT Sodium Chloride Route: IV, Drug Inactive [facility] 0.9% IV (ANES) form: INJ, Start 2018 Medical 70 mL + date: 05/14/18 [place] protamine (ANES) 11:41:00 CDT, 300 mg Stop date: 05/14/18 12:41:00 CDT Sodium Chloride Route: IV, Drug Inactive [facility] 0.9% IV (ANES) form: INJ, Start 2018 Medical 250 mL + date: 05/14/18 [place] EPINEPHrine 11:30:00 CDT, (ANES) 32 Stop date: microgram 05/14/18 12:30:00 CDT Insulin regular Notes: Final Inactive [facility] 100 unit + Concentration 2018 Medical Sodium Chloride 1unit/1ml WASTE: Center 0.9% (titrate) F/P - Black; E - 99 mL Municipal Trash [facility] Norepinephrine Notes: Not for Inactive [facility] direct 2018 Medical administration - Center DILUTE. Protect from light. (Same as:Levophed). Administer by either central venous catheter or peripherally-inse rted central catheter (PICC) line. Epinephrine = 65 mmHg, Max Inactive [place] Dose: 0.5 2018 Medical microgram/kg/min, [place] Route: IV, Dosing Weight 93.636 kg, Total Volume: 250, Start date: 05/14/18 10:29:00 C... heparin (ANES) Route: IV, Drug Inactive [facility] form: INJ, ONCE, 2018 Medical Stop date: [place] 05/14/18 9:43:00 CDT propofol (ANES) Route: IV, Drug Inactive [facility] form: INJ, ONCE, 2018 Medical Stop date: [place] 05/14/18 9:23:00 CDT fentaNYL (ANES) Route: IV, Drug Inactive [facility] form: INJ, ONCE, 2018 Medical Stop date: [place] 05/14/18 9:23:00 CDT lidocaine (ANES) Route: IV, Drug Inactive [facility] form: INJ, ONCE, 2018 Medical Stop date: [place] 05/14/18 9:23:00 CDT rocuronium Route: IV, Drug Inactive [place] (ANES) form: INJ, ONCE, 2018 Medical Stop date: [place] 05/14/18 9:23:00 CDT midazolam (ANES) Route: IV, Drug Inactive [place] form: SOLN, ONCE, 2019 Medica l Stop date: [place] 05/14/18 9:23:00 CDT ceFAZolin (ANES) Route: IV, Drug Inactive [place] form: INJ, ONCE, 2018 Medical Stop date: [place] 05/14/18 9:03:00 CDT vancomycin Route: IV, Drug Inactive [place] (ANES) 1000 mg form: INJ, Start 2018 Medical date: 05/14/18 [place] 8:30:00 CDT, Stop date: 05/14/18 9:30:00 CDT Sodium Chloride Route: IV, Total Inactive [place] 0.9% IV (ANES) Volume: 1,000, 2018 Me dical 1000 mL Start date: [place] 05/14/18 8:30:00 CDT, Stop date: 05/14/18 9:30:00 CDT Sodium Chloride Route: IV, Drug Inactive [place] 0.9% IV (ANES) form: INJ, Start 2018 [facility] 500 mL + date: 05/14/18 [place] tranexamic acid 8:30:00 CDT, Stop (ANES) 2000 mg date: 05/14/18 9:30:00 CDT Isolyte S PH 7.4 Route: IV, Total Inactive 05/14 [place] (ANES) 1000 mL Volume: 1,000, 2018 Me dical Start date: [place] 05/14/18 7:40:00 CDT, Stop date: 05/14/18 8:40:00 CDT hydrALAZINE Notes: (Same as: No Longer H [place] Apresoline) May Active [facility] Center w/enteral feedings Take With Food. Lanolin 0.157 Notes: (Same as: No Longer [place] MG/MG / Menthol Calmoseptine) Active 2018 Ks dical 0.0044 MG/MG / Center Petrolatum 0.24 MG/MG / Zinc Oxide 0.206 MG/MG Topical Ointment [Calmoseptine] Potassium Notes: (Same as: Inactive [facility] [place] Chloride Potassium 2019 Medical Chloride) Center Potassium Notes: (Same as: Inactive [facility] [place] Chloride KCL) Infuse no 2019 Medical faster than 10 Center mEq/hr if given peripherally. Potassium Notes: (Same as: Inactive [facility] [place] Chloride KCL) Infuse no 2018 Medical faster than 10 Center mEq/hr if given peripherally. Hydralazine Notes: (Same as: No Longer [facility] Apresoline) May Active 2018 Medical interfere Center w/enteral feedings Take With Food. Metoprolol Notes: (Same as: No Longer [facility] Lopressor) Push Active 2018 Medical over 2 minutes Center Metoprolol Notes: (Same as: Inactive [facility] Lopressor) Push 2019 Medical over 2 minutes Center Hydralazine Notes: (Same as: No Longer [facility] Apresoline) Push Active 2018 Medical over 5 minutes Center metoprolol Notes: (Same as: Inactive [facility] tartrate Lopressor) 2019 Medical Center Ampicillin Notes: (Same as: No Longer [facility] Principen) Active 2018 Medical MEDICATION WASTE Center Product Size: 2000 mg Product Wasted: ___ mg Rocephin + Notes: (Same As: No Longer [facility] sterile water 20 Rocephin). Use Active 2018 Medical mL with 100 mL NS Center and infuse over 30 min MEDICATION WASTE Product Size: 2000 mg Product Wasted: ___ mg heparin sodium, Notes: porcine No Longer [facility] porcine 2500 heparin Active 2018 Medical UNT/ML Center Injectable Solution Digoxin 0.125 MG Notes: Take on an No Longer [facility] Oral Tablet Empty Stomach Active 2018 Medica l (Same as: [place] Lanoxin) Xalatan 1 drp, Route: No Longer [facility] BOTH EYES, Daily, Active 2018 Medica l Drug form: DROP, Center Start date: 05/08/18 9:00:00 CDT, Duration: 30 day, Stop date: 06/06/18 9:00:00 CDT Allopurinol Notes: (Same as: No Longer 03/20/ [facility] Zyloprim) Active 2019 [facility] Vitamin B12 Notes: (Same As: No Longer [facility] Vitamin B12) Active 2019 [facility] Breo Ellipta 100 Breo Ellipta 100 No Longer 04/20 [place] mcg-25 mcg mcg-25 mcg Active 2019 [facility] inhalation inhalation [place] powder powder, 1 puff, Drug form: MISC, Route: INHALATION, Daily, 05/08/18 9:00:00 CDT, Duration: 30 day, Stop date: 06/06/18 9:00:00 CDT multivitamin Notes: (Same No Longer [place] with minerals as:Thera-M, Active 2019 Medica l Theragran-M) [place] WASTE: F/P - Black; E - [facility] Trash [facility] Give with food. NIFEdipine 60 mg Notes: (Same as: No Longer 04/20 [place] oral tablet, Adalat CC, Active 2019 [facility] extended release Procardia XL) C enter Give on empty stomach. Take 1 hour before or 2 hours after meal; "Avoid grapefruit and grapefruit juice". Do not crush Breo Ellipta 100 1 puff, Route: No Longer [place] mcg-25 mcg INHALATION, Drug Active 2019 [facility] inhalation Form: PWDR, [place] powder Dosing Weight 93.636, kg, RDaily, Start date: 05/08/18 8:00:00 CDT, Duration: 30 day, Stop date: 06/06/18 8:00:00 CDT NS 0.45% IV 1,000 mL, Rate: No Longer [place] 1,000 mL 50 ml/hr, Infuse Active 2019 Medica l over: 20 hr, [place] Route: IV, Dosing Weight 93.636 kg, Total Volume: 1,000, Start date: 05/08/18 0:01:00 CDT, Duration: 30 day, Stop date: 06/07/18 0:00:00 CDT, 2.19, m2 metoprolol Notes: (Same as: No Longer [place] tartrate Lopressor) Active 2019 [facility] latanoprost 0.05 Notes: Keep No Longer [facility] MG/ML Ophthalmic refrigerated. Active 2018 edical Solution (Same as:Xalatan) [place] [Xalatan] Opened bottle may be stored at room temperature for 6 weeks Bumex Notes: (Same As: [place] Longer [place] Bumex) Active 2019 Medical Center Protonix Notes: Tablet [place]er [place] should not be Active 2019 Medical chewed or Center crushed. (Same as: Protonix) Colchicine 0.6 0.6 mg = 1 cap, No Longer [place] MG Oral Capsule PO, PRN, # 30 Active 2019 Ks dical tab, 0 Refill(s) Center Eliquis 2.5 mg, PO, Q12H, No Longer [place] 0 Refill(s) Active 2019 Medical Center Roflumilast 0.5 500 microgram = 1 No Longer 04/19 [place] MG Oral Tablet tab, PO, Daily, 0 Active 2019 Medical [Daliresp] Refill(s) Center Red Yeast Rice 1,200 mg, PO, No Longer H [place] BID, 0 Refill(s) Active 2019 Medical Center NIFEdipine 60 mg 60 mg = 1 tab, No Longer [place] oral tablet, PO, Daily, # 30 Active 2019 Med ical extended release tab, 0 Refill(s) Center olmesartan 40 mg 40 mg = 1 tab, No Longer [place] oral tablet PO, Daily, # 30 Active 2019 Medi tamia tab, 0 Refill(s) Center Breo Ellipta 100 1 puff, [place] mcg-25 mcg INHALATION, Active 2019 Medical inhalation Daily, 0 Center powder Refill(s) allopurinol 300 300 mg = 1 tab, No Longer [place] mg oral tablet PO, Daily, # 90 Active 2019 edical tab, 1 Refill(s) Center Digoxin 125 microgram, [place] PO, Daily, 0 Active 2019 Medical Refill(s) Center levothyroxine 25 25 microgram = 1 No Longer 04/19 [place] mcg (0.025 mg) tab, PO, Daily, # Active 2019 Medical oral tablet 30 tab, 0 Center Refill(s) Clonidine 0.3 mg = 1 tab, No Longer [place] Hydrochloride PO, Q12H, # 60 Active 2019 Med ical 0.3 MG Oral tab, 1 Refill(s) [address] Tablet Incruse Ellipta INHALATION, Q24H, Active [place] 62.5 mcg 0 Refill(s) 2019 [facility] inhalation Center powder Prednisone See Instructions, Active [place] 20 mg PO Daily, 0 2019 Medica l Refill(s) Center Vitamin B12 500 500 microgram = 1 No Longer 04/19 [place] mcg oral tablet tab, PO, Daily, # Active 2018 Medical 30 tab, 0 Center Refill(s) metoprolol 50 mg = 1 tab, No Longer [place] tartrate 50 mg PO, Q12H, # 180 Active 2018 edical oral tablet tab, 0 Refill(s) [address] PreserVision 1 cap, PO, Q12H, No Longer [place] AREDS 2 0 Refill(s) Active 2018 [facility] Ipratropium Notes: SEE RT No Longer [place] 0.2 DOCUMENTATION Active 2018 Medica l MG/ML Inhalant (Same Center Solution as:Atrovent) Roflumilast 500 microgram, 1 No Longer H [place] tab, Route: PO, Active 2018 Medical Drug form: TAB, Center Daily, Dosing Weight 93.636, kg, Priority: NOW, Start date: 05/07/18 12:42:00 CDT, Duration: 30 day, Stop date: 07/06/18 9:00:00 CDT Synthroid Notes: Take 1 No Longer [place] as hour before or 2 Active 2018 Medical hours after meal; Center Enteral feeds may interefere with the absorption of this medication. (Same as:Levothroid) Fentanyl Notes: (Same as: Inactive [place] Sublimaze) 2019 Medical Preservative Center free. Versed Notes: (Same as: Inactive [place] Versed) 2019 Medical MEDICATION WASTE Center Product Size: 2 mg Product Wasted: ___ mg Insulin Lispro Notes: (Same as: No Longer [place] Humalog ) Roll in Active 2018 Medica l palms of hands Center gently; Do not shake `vigorously. "Single Patient Use Only " WASTE: F/P - Black; E - Municipal Trash Bin Stable for 28 days at room temperature. Expires in days from Dat e Glucagon 1 mg, Route: IM, No Longer [place] Drug form: Active 2019 Medical PDR/INJ, PRN, Center Dosing Weight 93.636, kg, PRN Blood Glucose Results, Start date: 05/07/18 9:55:00 CDT, Duration: 30 day, Stop date: 06/06/18 9:54:00 CDT Dextrose 50% 25 gm, 50 mL, No Longer [place] Syringe Route: IVP, Drug Active 2019 Medical Form: INJ, Dosing Center Weight 93.636, kg, PRN, PRN Blood Glucose Results, Start date: 05/07/18 9:55:00 CDT, Duration: 30 day, Stop date: 06/06/18 9:54:00 CDT metoprolol Notes: (Same as: Inactive [facility] tartrate Lopressor) 12.5 2019 Medica l mg=1/2 X 25 mg Center TAB Amiodarone Notes: (Same as: No Longer [facility] Cordarone) Active 2019 Medical [place] Aspirin Notes: Do not Inactive [facility] crush or chew. 2019 Medical (Same As: [place] Ecotrin) Saline Flush Notes: (Same as: No Longer [place] 0.9% BD Posiflush) Active 2019 Medical [place] pantoprazole Notes: For IV Inactive ildefonso push reconstitute 2019 Medica l with 10 ml 0.9% Center sodium chloride and push over 2 minutes. (Same as: Protonix) Docusate Notes: (Same as: No Longer [facility] [place] Colace) Active 2019 Medical [place] Budesonide 0.25 Notes: (Same As: No Longer 05/07 [place] MG/ML Inhalant Pulmicort) Active 2019 Medica l Solution Center cefepime Notes: (Same As: No Longer [facility] [place] Maxipime) Active 2019 Medical MEDICATION WASTE Center Product Size: 1000 mg Product Wasted: ___ mg Albuterol 0.833 Notes: (Same as: No Longer 05/07 [facility] MG/ML / Duoneb) Active 2019 [facility] Ipratropium [place] 0.167 MG/ML Inhalant Solution [DuoNeb] Vancomycin 2001 mg: infuse Inactive [facility] over 2.5 hours 2019 [facility] For adult Center patients only: Round to nearest 250 mg per Medical Staff approval MEDICATION WASTE Product Size: 1000 mg Product Wasted: ___ mg Saline Flush Notes: (Same as: No Longer [facility] 0.9% BD Posiflush) Active 2019 [facility] Acetaminophen Notes: Do not No Longer [place] exceed 4 gm/day. Active 2019 Medical (Same as: [place] Tylenol) Allergies, Adverse Reactions, Alerts Substance Category Reaction Severity Reaction Status Date Comments S ource type Reported heparin Assertion Heparin-induce Drug Active [facility] d allergy [facility] thrombocytopen C enter ia NKFA Assertion Drug Active [place] as allergy [facility] Center Immunizations Immunization Date Given Site Status Last Comments Source Updated pneumococcal 2018 Right completed [place] as 13-valent vaccine deltoid Ks dical Center Results Order Name Results Value Reference Date Interpretation Comments Aury rce Range HEMATOLOGY INR 1.57 0.85 - 05/31 [place] 1.17 [facility] HEMATOLOGY PTT 68.1 22.9 - 05/31 [facility] 35.8 [facility] HEMATOLOGY PT 18.4 12.0 - 05/31 [facility] 14.7 [facility] CHEM PANEL Magnesium Lvl 3.2 1.8 - 2.4 05/31 [place] /2018 [facility] CHEM PANEL Phosphorus 2.4 2.5 - 4.5 05/31 [facility] CHEM PANEL eGFR 17 05/31 Result [facility] Comment: The Medical eGFR is Center calculated using the CKD-EPI formula. In most young, healthy individuals the eGFR will be >90 mL/min/1.73m2 . The eGFR declines with age. An eGFR of 60-89 may be normal in some populations, particularly the elderly, for whom the CKD-EPI formula has not been extensively validated. Use of the eGFR is not recommended in the following populations:< br/>
[place] viduals with unstable creatinine concentration s, including patients and those with serious co-morbid conditions.<b r/>
Patie nts with extremes in muscle mass or diet.

The data above are obtained from the National Kidney Disease Education Program (NKDEP) which additionally recommends that when the eGFR is used in patients with extremes of body mass index for purposes of drug dosing, the eGFR should be multiplied by the estimated BMI. CHEM PANEL Calcium Lvl 9.7 8.5 - 10.5 05/31 [facility] CHEM PANEL CO2 26 24 - 32 05/31 [facility]2018 [facility] CHEM PANEL Glucose Lvl 99 70 - 99 05/31 [facility]2018 [facility] CHEM PANEL Sodium Lvl 135 135 - 145 05/31 [facility]2018 [facility] CHEM PANEL Creatinine 3.34 0.50 - 05/31 [facility] Lvl 1.40 [facility] CHEM PANEL Chloride Lvl 98 95 - 109 05/31 [facility] s [facility] CHEM PANEL Potassium Lvl 3.9 3.5 - 5.1 05/31 [place] [facility] CHEM PANEL BUN 68 7 - 22 05/31 [facility]2018 [facility] CHEM PANEL AGAP 14.9 10.0 - 05/31 [facility] 20.0 [facility] HEMATOLOGY RBC 2.76 4.70 - 05/31 [place] 6.10 [facility] HEMATOLOGY WBC 11.3 3.7 - 10.4 05/31 [facility]2018 [facility] HEMATOLOGY Hct 25.6 42.0 - 05/31 [place] 54.0 [facility] HEMATOLOGY Hgb 8.4 14.0 - 05/31 [place] 18.0 [facility] HEMATOLOGY MCH 30.4 27.0 - 05/31 [place] 31.0 [facility] HEMATOLOGY MCV 92.7 80.0 - 05/31 [place] 94.0 [facility] HEMATOLOGY Platelet 61 133 - 450 05/31 2018 [facility] HEMATOLOGY RDW 21.2 11.5 - 05/31 [facility] 14.5 2019 [facility] HEMATOLOGY MCHC 32.8 32.0 - 05/31 [place] 36.0 2019 [facility] HEMATOLOGY MPV 8.9 7.4 - 10.4 05/[address] HEMATOLOGY Lymphocytes 7.1 20.0 - 05/31 [place] 40.0 2019 [facility] HEMATOLOGY Basophils 0.4 0.0 - 1.0 05/31 [facility] HEMATOLOGY Anisocyte 1+ None Seen 05/31 [facility] *ABN* /2018 Medical (05/31/18 3:51 AM) [place] HEMATOLOGY Eosinophils # 0.3 0.0 - 0.5 05/31 [facility] HEMATOLOGY Monocytes # 0.6 0.0 - 0.8 05/31 [place] [facility] HEMATOLOGY Eosinophils 2.3 0.0 - 4.0 05/31 [place] [facility] HEMATOLOGY Monocytes 5.2 2.0 - 12.0 05/31 [facility] HEMATOLOGY Lymphocytes # 0.8 1.0 - 5.5 05/31 [facility] HEMATOLOGY Neutrophils # 9.6 1.5 - 8.1 05/31 [facility] HEMATOLOGY Segs 85.0 45.0 - 05/31 [place] 75.0 [facility] HEMATOLOGY PT 16.3 12.0 - 05/31 [facility] 14.7 [facility] HEMATOLOGY INR 1.34 0.85 - 05/31 [facility] . [facility] HEMATOLOGY PTT 56.0 22.9 - 05/31 [facility] 35. [facility] HEMATOLOGY Hct 24.2 42.0 - 05/30 [facility] 54.0 [facility] HEMATOLOGY Hgb 8.0 14.0 - 05/30 [facility] 18.0 [facility] HEMATOLOGY Pat Od Value 1.945 05/30 [facility] HEMATOLOGY Pos CO Value 0.400 05/30 [facility] HEMATOLOGY Heparin Positive 2 Negative 05/30 Result [facility] Ab(AMBER) *CRIT* /2018 Comment: Medical (05/30/18 10:27 AM) Critical Cent er Result(s) called to Edwige Rey at 05/30/2018 20:56_ by_[email or web address]. Read back [place]. HEMATOLOGY Platelet 44 133 - 450 05/30 [facility] Count Blue [facility] HEMATOLOGY INR 1.17 0.85 - 05/30 [facility] 1. [facility] HEMATOLOGY PT 14.7 12.0 - 05/30 [place] 14.7 2019 [facility] HEMATOLOGY PTT 57.4 22.9 - 05/30 [place] 35. [facility] BLOOD BANK RBC product Product available 05/30 [facility] RESULTS (05/30/18 3:55 AM) /2019 [facility] CHEM PANEL Magnesium Lvl 2.7 1.8 - 2.4 05/30 [facility] CHEM PANEL eGFR 25 05/30 Result Comment: The Medical eGFR is Center calculated using the CKD-EPI formula. In most young, healthy individuals the eGFR will be >90 mL/min/1.73m2 . The eGFR declines with age. An eGFR of 60-89 may be normal in some populations, particularly the elderly, for whom the CKD-EPI formula has not been extensively validated. Use of the eGFR is not recommended in the following populations:< br/>
Edwina viduals with unstable creatinine concentration s, including patients and those with serious co-morbid conditions.<b r/>
Patie nts with extremes in muscle mass or diet.

The data above are obtained from the National Kidney Disease Education Program (NKDEP) which additionally recommends that when the eGFR is used in patients with extremes of body mass index for purposes of drug dosing, the eGFR should be multiplied by the estimated BMI. CHEM PANEL AGAP 13.8 10.0 - 05/30 [facility] . [facility] CHEM PANEL Calcium Lvl 9.1 8.5 - 10.5 05/30 [facility] CHEM PANEL Potassium Lvl 3.8 3.5 - 5.1 05/30 [facility] CHEM PANEL CO2 28 24 - 32 05/[address] CHEM PANEL Chloride Lvl 99 95 - 109 05/30 [facility] CHEM PANEL BUN 38 7 - 22 05/30 [facility]2018 [facility] CHEM PANEL Glucose Lvl 137 70 - 99 05/[address] CHEM PANEL Sodium Lvl 137 135 - 145 05/30 [facility]2018 [facility] CHEM PANEL Creatinine 2.48 0.50 - 05/30 [facility] Lvl 1.40 [facility] CHEM PANEL Phosphorus 1.7 2.5 - 4.5 05/30 [facility]2018 [facility] HEMATOLOGY Monocytes 3.0 2.0 - 12.0 05/[address] HEMATOLOGY Lymphocytes 3.0 20.0 - 05/30 40.0 [facility] HEMATOLOGY Monocytes # 0.3 0.0 - 0.8 05/30 [place] [facility] HEMATOLOGY Segs 89.0 45.0 - 05/30 [place] 75.0 2019 [facility] HEMATOLOGY Bands 2.0 0.0 - 11.0 05/30 2018 [facility] HEMATOLOGY Atypical 0.0 <=0.0 % 05/30 [facility] Lymph [facility] HEMATOLOGY Myelocytes 2.0 <=0.0 % 05/30 2018 [facility] HEMATOLOGY Metamyelocyte 1.0 0.0 - 1.0 05/30 [facility] [place] [facility] HEMATOLOGY Lymphocytes # 0.3 1.0 - 5.5 05/30 [facility] HEMATOLOGY Neutrophils # 10.2 1.5 - 8.1 05/30 [facility] HEMATOLOGY WBC 11.2 3.7 - 10.4 05/30 [facility] HEMATOLOGY MCHC 32.1 32.0 - 05/30 [place] 36.0 [facility] HEMATOLOGY RDW 22.1 11.5 - 05/30 [place] 14.5 [facility] HEMATOLOGY Platelet 45 133 - 450 05/30 [facility] HEMATOLOGY MPV 9.2 7.4 - 10.4 05/30 2018 [facility] HEMATOLOGY MCH 30.1 27.0 - 05/30 [place] 31.0 2019 [facility] HEMATOLOGY RBC 2.22 4.70 - 05/30 [place] 6.10 [facility] HEMATOLOGY Hgb 6.7 14.0 - 05/30 Result [facility] 18. Comment: Medical Critical Center Result(s) called to Marcela Walters at 05/30/2018 01:41 by MEDHAT. Read back [place]. HEMATOLOGY Hct 20.8 42.0 - 05/30 [place] 54.0 /2019 [facility] HEMATOLOGY MCV 93.7 80.0 - 05/30 [place] 94.0 2019 [facility] CHEM PANEL Procalcitonin 0.82 0.00 - 05/29 [facility] s Lvl 0. [facility] ELECTROLYTE AGAP 12.3 10.0 - 05/29 [facility] S 20.0 2019 [facility] ELECTROLYTE eGFR 32 05/29 Result [facility] Comment: The Medical eGFR is Center calculated using the CKD-EPI formula. In most young, healthy individuals the eGFR will be >90 mL/min/1.73m2 . The eGFR declines with age. An eGFR of 60-89 may be normal in some populations, particularly the elderly, for whom the CKD-EPI formula has not been extensively validated. Use of the eGFR is not recommended in the following populations:< br/>
Edwina viduals with unstable creatinine concentration s, including patients and those with serious co-morbid conditions.<b r/>
Patie nts with extremes in muscle mass or diet.

The data above are obtained from the National Kidney Disease Education Program (NKDEP) which additionally recommends that when the eGFR is used in patients with extremes of body mass index for purposes of drug dosing, the eGFR should be multiplied by the estimated BMI. ELECTROLYTE Sodium Lvl 136 135 - 145 05/29 [facility]2018 [facility] ELECTROLYTE Glucose Lvl 120 70 - 99 05/[address] ELECTROLYTE Creatinine 2.02 0.50 - 05/29 [facility] [place] [facility] Lvl 1.40 [facility] ELECTROLYTE BUN 25 7 - 22 05/[address] ELECTROLYTE Potassium Lvl 4.3 3.5 - 5.1 05/29 [place] [facility]2018 [facility] ELECTROLYTE CO2 28 24 - 32 05/[address] ELECTROLYTE Chloride Lvl 100 95 - 109 05/[address] ELECTROLYTE Calcium Lvl 9.4 8.5 - 10.5 05/[address] HEMATOLOGY Polychrom Moderate None Seen 05/29 [facility] *ABN* [facility] (05/29/18 1:36 PM) [place] HEMATOLOGY Neutrophils # 14.9 1.5 - 8.1 05/[address] HEMATOLOGY Atypical 0.0 <=0.0 % 05/29 [facility] [address] HEMATOLOGY Myelocytes 2.0 <=0.0 % 05/[address] HEMATOLOGY Metamyelocyte 1.0 0.0 - 1.0 05/[address] HEMATOLOGY Monocytes 6.0 2.0 - 12.0 05/[address] HEMATOLOGY Lymphocytes 4.0 20.0 - 05/29 [facility] 40.0 [facility] HEMATOLOGY Segs 79.0 45.0 - 05/29 [place] 75.0 /2018 [facility] HEMATOLOGY Bands 8.0 0.0 - 11.0 05/29 [facility] HEMATOLOGY Monocytes # 1.0 0.0 - 0.8 [place] [facility] HEMATOLOGY Lymphocytes # 0.7 1.0 - 5.5 05/29 [facility] HEMATOLOGY WBC 17.1 3.7 - 10.4 05/29 [facility] HEMATOLOGY Platelet 45 133 - 450 05/29 [facility] HEMATOLOGY MPV 8.0 7.4 - 10.4 05/29 [facility] HEMATOLOGY RDW 21.4 11.5 - 05/29 [place] 14.5 [facility] HEMATOLOGY RBC 2.60 4.70 - 05/29 [place] 6.10 [facility] HEMATOLOGY MCH 30.5 27.0 - 05/29 [place] 31.0 [facility] HEMATOLOGY MCV 92.9 80.0 - 05/29 [place] 94.0 [facility] HEMATOLOGY MCHC 32.8 32.0 - 05/29 [place] 36.0 [facility] BLOOD BANK Antibody Scrn Positive 05/29 [facility] as RESULTS (05/29/18 3:11 AM) /2018 [facility] BLOOD BANK ABO/Rh A NEG 05/29 [facility] RESULTS [facility] CHEM PANEL Magnesium Lvl 2.4 1.8 - 2.4 05/28 [facility] CHEM PANEL Phosphorus 2.7 2.5 - 4.5 05/28 [facility] PARATHYROID Ca Norm WB 1.21 1.05 - 05/28 [place] PROFILE 1. [facility] PARATHYROID Ca Ion WB 1.21 1.05 - 05/28 [facility] PROFILE 1. [facility] HEMATOLOGY Macrocyte 1+ None Seen 05/27 [facility] *ABN* /2018 [facility] (05/27/18 1:06 AM) [place] HEMATOLOGY Eosinophils # 0.1 0.0 - 0.5 05/27 [facility] HEMATOLOGY Anisocyte 1+ None Seen 05/27 [facility] *ABN* /2018 [facility] (05/27/18 1:06 AM) [place] HEMATOLOGY Basophils 0.3 0.0 - 1.0 05/27 [facility] HEMATOLOGY Eosinophils 0.7 0.0 - 4.0 05/27 [facility] PARATHYROID Ca Norm WB 1.07 1.05 - 05/27 [place] PROFILE 03.15 [facility] PARATHYROID Ca Ion WB 1.09 1.05 - 05/27 [place] PROFILE 03.15 [facility] BLOOD BANK FFP product Product available 05/26 [place] RESULTS (05/26/18 11:29 AM) [facility] BLOOD BANK RBC product Product available 05/26 [facility] RESULTS (05/26/18 11:29 AM) [facility] BLOOD BANK Platelet Product available 05/26 [facility] RESULTS product (05/26/18 11:29 AM) /2018 [facility] BLOOD BANK ABO/Rh A NEG 05/26 [facility] RESULTS [facility] BLOOD BANK Antibody Scrn Positive 05/26 [facility] as RESULTS (05/26/18 1:00 AM) [facility] HEMATOLOGY Eosinophils # 0.1 0.0 - 0.5 05/25 [place] [facility] HEMATOLOGY Basophils 0.5 0.0 - 1.0 05/25 [facility] HEMATOLOGY Eosinophils 1.4 0.0 - 4.0 05/25 [facility] PARATHYROID Ca Norm WB 1.10 1.05 - 05/24 [place] PROFILE 03.15 [facility] PARATHYROID Ca Ion WB 1.09 1.05 - 05/24 [place] PROFILE 03.15 [facility] HEMATOLOGY Basophils # 0.1 0.0 - 0.2 05/24 [facility] s [facility] BLOOD BANK Path ISABELLE Blood Bank 05/23 [facility] RESULTS Physician /2018 [facility] The patient is a 72 year old male, presenting for [place] mitral valve endocardit is. 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 The eluate prepared from the RBCs is non-reacti ve. Positive ISABELLE may be seen in up to 16% of hospitaliz ed patients and be idiopathic in nature. It is also associated with various autoimmune disorders, hypergamma globulinem ia, certain malignanci es, and following administra tion of specific medication s. Clinical correlatio n is required. RBC's with a positive ISABELLE can be expected to have decreased in vivo survival. The patients electronic medical record has been reviewed for relevant informatio n. I have reviewed the test results and concur with the resident, Dr. Valderrama's, interpreta tion. CPT: 11617-VS BLOOD BANK Path AB Blood Bank 05/23 [place] RESULTS Physician [facility] An anti-D and a nonspecifi c IgG is detected in this patient's serum. The anti-D is directed against D antigen of the "Rh" blood group system. It is typically IgG in nature and forms in response to RBC sensitizat ion via prior transfusio n. Anti-D is considered a clinically significan t antibody; it has been associated with hemolytic transfusio n reactions. The nonspecifi c IgG does not demonstrat e specificit y to any of the major blood group antigens and likely has limited clinical significan ce. Should RBC transfusio n be necessary, D-negative crossmatch -compatibl e blood will be issued. No difficulty in obtaining compatible blood is expected. The patients electronic medical record has been reviewed for relevant informatio n. The patient is a 72 year old [place]- male, presenting for [place] mitral valve endocardit is. I have reviewed the test results and concur with the resident, Dr. Valderrama's, interpreta tion. CPT: 03580-BE BLOOD BANK Eluate Int See Note 05/23 Result [place] RESULTS Comment: Medical 05/23/2018 [place] 13:38 ATTALUKD
Eluate non reactive with all cells tested. BLOOD BANK C3 Int Negative 05/23 [place] RESULTS (05/23/18 4:07 AM) [facility] BLOOD BANK ISABELLE Gel Int Positive 05/23 [place] RESULTS (05/23/18 4:07 AM) [facility] BLOOD BANK Antibody Scrn Positive 05/23 [place] RESULTS (05/23/18 4:07 AM) [facility] BLOOD BANK ABO/Rh A NEG 05/23 [place] RESULTS [facility] BLOOD BANK AB Int Anti-D 05/23 [place] RESULTS [facility] BLOOD BANK AB Int Non-specif 05/23 [place] RESULTS ic IgG /2018 [facility] BLOOD BANK RBC product Product available 05/23 [place] RESULTS (05/23/18 3:58 AM) [facility] CHEM PANEL Lactic Acid 0.8 0.5 - 2.2 05[place]23 [place] [facility] HEMATOLOGY Anisocyte 1+ None Seen 05/23 [facility] *ABN* /2018 Medical (05/23/18 12:53 AM) [place] HEMATOLOGY Basophils # 0.1 0.0 - 0.2 05/23 [facility] s [facility] CHEM PANEL Lactic Acid 3.1 0.5 - 2.2 05/22 [facility] s [facility] TOXICOLOGY Digoxin Lvl 2.5 0.8 - 2.0 05/21 [facility] s [facility] BODY FLUIDS Macrophage BF xxxxxxx 05/20 [facility] (05/20/18 11:57 AM) [facility] BODY FLUIDS Eos BF xxxxxxx 05/20 [facility] (05/20/18 11:57 AM) [facility] [place] BODY FLUIDS Lymph BF xxxxxxx 05/20 [facility] (05/20/18 11:57 AM) [facility] BODY FLUIDS Neutrophils See Note 1 05/20 [place] (05/20/18 11:57 AM) Comment: Medic al Differential Center not performed on WBC count of less than 5. BODY FLUIDS Color BF Colorless Colorless 05/20 [facility] (05/20/18 11:57 AM) [facility] BODY FLUIDS Clarity BF Clear Clear 05/20 [facility] (05/20/18 11:57 AM) [facility] [place] BODY FLUIDS Nucleated 2 05/20 [facility] Cells BF [facility] BODY FLUIDS RBC BF 0 05/20 [facility] BODY FLUIDS CellCnt BF BAL 05/20 [facility] Type (05/20/18 11:57 AM) /2018 [facility] [place] Gram Stain Gram Stain 05/20 [facility] Report Performed Medical By: Center [facility] [place] Culture: BAL No Growth 05/20 [facility] Quantitative /2018 Medical w/Gram Stain Center CHEM PANEL Alk Phos 148 39 - 136 05/19 [facility] CHEM PANEL Albumin Lvl 2.1 3.5 - 5.0 05/19 [facility] CHEM PANEL ALT 142 0 - 65 05/19 [facility] CHEM PANEL Bili Total 2.3 0.2 - 1.3 05/[address] CHEM PANEL Bili Direct 1.9 0.0 - 0.3 05/[address] CHEM PANEL AST 52 0 - 37 05/[address] CHEM PANEL Total Protein 6.9 6.4 - 8.4 05/[address] CHEM PANEL Bili Indirect 0.4 0.0 - 1.0 05/[address] CHEM PANEL A/G Ratio 0.4 0.7 - 1.6 05/[address] CHEM PANEL Globulin 4.8 2.7 - 4.2 05/[address] CHEM PANEL Alk Phos 182 39 - 136 05/[address] CHEM PANEL Albumin Lvl 2.1 3.5 - 5.0 05/[address] CHEM PANEL Bili Total 1.9 0.2 - 1.3 05/[address] CHEM PANEL ALT 189 0 - 65 05/[address] CHEM PANEL Total Protein 6.4 6.4 - 8.4 05/[address] CHEM PANEL AST 77 0 - 37 05/[address] CHEM PANEL Globulin 4.3 2.7 - 4.2 05/[address] CHEM PANEL A/G Ratio 0.5 0.7 - 1.6 05/[address] CHEM PANEL B/C Ratio 12 6 - 25 05/[address] TOXICOLOGY Digoxin Lvl 1.6 0.8 - 2.0 05/[address] CHEM PANEL Lactic Acid 1.4 0.5 - 2.2 05/15 [facility] CHEM PANEL Bili Direct 0.5 0.0 - 0.3 05/[address] CHEM PANEL Bili Total 1.4 0.2 - 1.3 05/[address] CHEM PANEL Total Protein 5.6 6.4 - 8.4 05/[address] CHEM PANEL AST 92 0 - 37 05/[address] CHEM PANEL Bili Indirect 0.9 0.0 - 1.0 05/14 [facility] CHEM PANEL Albumin Lvl 1.7 3.5 - 5.0 05/14 [facility] CHEM PANEL Alk Phos 90 39 - 136 05/14 [facility] CHEM PANEL ALT 81 0 - 65 05/14 Result Comment: Medical [facility] Center Slightly Hemolyzed. CHEM PANEL Globulin 3.9 2.7 - 4.2 05/14 [facility] CHEM PANEL A/G Ratio 0.4 0.7 - 1.6 05/14 [facility] AMPICILLIN: Gram Stain Many Wbc'S; 05/14 [facility] SUSC:PT:ISO Report Moderate Gram Positive Cocci In Medical LATE:ORDQN: Phone Report Made To: Francy Modi RN at [facility] [place] At: 05/14/2018 16:41 Called By: OA Read Back Ok AMPICILLIN: Culture: Rare 05/14 [facility] SUSC:PT:ISO Aspirate/Body Enterococc /2018 [facility] ical LATE:ORDQN: Fluid/Tissue us Species Cent er [place] AMPICILLIN: Enterococcus Enterococc 05/14 [facility] ildefonso SUSC:PT:ISO Species us Species /2018 Medical LATE:ORDQN: Center [place] Culture: No 05/14 [facility] Anaerobic Anaerobes /2018 [facility] Center After 5 Days CHEM PANEL Bili Direct 0.7 0.0 - 0.3 05/14 [facility] CHEM PANEL Bili Indirect 0.4 0.0 - 1.0 05/14 [facility] BLOOD BANK Platelet Product available 05/13 [facility] RESULTS product (05/13/18 7:25 AM) [facility] BLOOD BANK FFP product Product available 05/13 [facility] RESULTS (05/13/18 7:23 AM) /2018 [facility] TOXICOLOGY Digoxin Lvl 1.7 0.8 - 2.0 05/12 [facility] IMMUNOLOGY Hep Bs Ab <3.1 <=7.4 05/10 [facility] mIU/mL /2018 [facility] IMMUNOLOGY Hep B Core Negative Negative 05/10 [facility] IgM *NA* /2018 [facility] (05/10/18 2:50 PM) [place] IMMUNOLOGY Hep B Core Ab Negative Negative 05/10 [place] *NA* [facility] (05/10/18 2:50 PM) Center IMMUNOLOGY Hep Bs Ag Negative Negative 05/10 [facility] *NA* [facility] (05/10/18 2:50 PM) Center IMMUNOLOGY Hep C Ab Negative 05/10 [facility] *NA* [facility] (05/10/18 2:50 PM) [place] HEMATOLOGY Basophils # 0.1 0.0 - 0.2 05/10 [facility] s /2018 [facility] URINE AND Occult Bld Negative Negative 05/10 [facility] STOOL Stl (05/10/18 1:47 AM) /2018 [facility] TOXICOLOGY Vanco Lvl 23.7 05/09 [facility] TOXICOLOGY Vanco Lvl 23.4 05/08 [facility] Culture: No Growth 05/07 [facility] Urine [facility] CARDIAC Troponin-I 0.10 0.00 - 05/07 [facility] ENZYMES 0.40 [facility] CHEM PANEL Procalcitonin 3.82 0.00 - 05/07 Result [facility] Lvl 0.10 Comment: [facility] Result(s) called to jonathan rainey at 05/07/2018 10:43_ by_loi. Read back OK. BACTERIAL - MRSA by PCR Negative 05/07 [facility] SEROLOGY (05/07/18 3:35 AM) /2018 [facility] CHEM PANEL B/C Ratio 26 6 - 25 05/07 [facility] LIPIDS VLDL 47 05/07 [facility] LIPIDS LDL 54 <=99 mg/dL 05/07 [facility] (Calculated) [facility] LIPIDS HDL 20 >=61 mg/dL 05/07 [facility] LIPIDS Trig 235 <=149 05/07 [facility] mg/dL [facility] LIPIDS CHD Risk 6.05 4.00 - 05/07 [facility] 7.30 [facility] LIPIDS Chol 121 <=199 05/07 [facility] mg/dL [facility] SPECIAL Hgb A1C 5.0 <=5.6 % 05/07 [facility] CHEMISTRY /2018 [facility] URINE AND UA 0.2 0.1 - 1.0 05/07 Result [facility] STOOL Urobilinogen /2018 Comment: [facility] Urobilinogen Center performed on the Clinitek analyzer. URINE AND UA Sq Epi None Seen Few 05/07 [facility] STOOL (05/07/18 3:35 AM) [facility] URINE AND UA WBC 7 0 - 5 05/07 [facility] STOOL [facility] URINE AND UA RBC 28 0 - 2 05/[address] [facility] URINE AND UA Bacteria Occasional None [place]en 05/[place] ST[place]OL /HPF /HPF [facility] URINE AND UA Hyal Cast 1 0 - [address] [facility] URINE AND UA Color Giana Yellow 05/07 [facility] STOOL *ABN* [facility] (05/07/18 3:35 AM) [place] URINE AND UA Turbidity Slight Clear 05/[address] [facility] *ABN* [facility] (05/07/18 3:35 AM) [place] URINE AND UA Mucus Few /LPF None Seen 05/07 [facility] STOOL /LPF [facility] URINE AND UA Spec Grav 1.023 <=1.[address] [facility] URINE AND UA Glucose Negative Negative 05/[address] [facility] *NA* [facility] (05/07/18 3:35 AM) [place] URINE AND UA pH 5.0 5.0 - 8.0 05/[address] [facility] URINE AND UA Protein 30 mg/dL Negative 05/[address] [facility] mg/dL [facility] URINE AND UA Ketones Negative Negative 05/[address] [facility] *NA* /2018 [facility] (05/07/18 3:35 AM) [place] URINE AND UA Blood Moderate Negative 05/[address] [facility] *ABN* [facility] (05/07/18 3:35 AM) [place] URINE AND UA Nitrite Negative Negative 05/[address] [facility] (05/07/18 3:35 AM) [facility] URINE AND UA Leuk Est Trace Negative 05/[address] [facility] *ABN* [facility] (05/07/18 3:35 AM) [place] URINE AND UA Bili Negative Negative 05/[address] [facility] *NA* [facility] (05/07/18 3:35 AM) [place] Pathology Reports No Data Provided for This Section Diagnostic Reports Report Value Date Source Chest 1view DX EXAM: XR CHEST 1 VIEW 05/30/2018 [facility] edical DATE: 05/30/2018 3:00 CDT Center INDICATION: pleural effusion - pleural effusion COMPARISON: Chest x-ray 05/29/2018 TECHNIQUE: AP chest. FINDINGS: Lines, tubes and hardware: S table positioning of life support devices and catheters. Surgical changes of sternotomy and mitral valve replacement are again noted. Lungs and pleura: Moderate l eft and small right pleural effusions appear unchanged. Retrocardiac opacities are n ot significantly changed given difference in projection. Interstitial opacities are unchanged. Lung volumes remain low, with bronchovascular crowding. Heart and mediastinum: Cardi omediastinal silhouette is unchanged. Prominent pulmonary vessels may be due to vascular crowding or pulmonary congestion. Bones: No acute abnormality. IMPRESSION: 1. No significant change from 05/29/2018. 2. Multifocal airspace opac ities representing a combination of atelectasis, pneumonia, or edema. 3. Moderate left and small right pleural effusi ons. Chest 1view DX EXAM: XR CHEST 1 VIEW 05/29/2018 [facility] edical DATE: 05/29/2018 9:29 CDT Center INDICATION: - hypoxic COMPARISON: 05/29/2018 at 5:42 AM TECHNIQUE: AP chest IMPRESSION: 1. Cardiomediastinal silhou ette is enlarged, unchanged. Aortic atherosclerotic disease. 2. Prominent lung reticulat ions again seen with peribronchial cuffing and patchy airspace opacities bilaterally suggestive of pulmonary edema. Superimposed infection cannot be excluded. Findings are stable compared to previous study. 3. Small bilateral pleural effusions. 4. Osseous structures are stable. 5. Lines and tubes are stable. Chest 1view DX EXAM: XR CHEST 1 VIEW 05/29/2018 [facility] edical DATE: 05/29/2018 5:17 AM CDT [facility] er INDICATION: - hypoxemia COMPARISON: 05/28/2018 TECHNIQUE: AP chest. FINDINGS: Stable life support lines an d tubes. Pacemaker remains position. Stable enlarged cardiac mediastinal silhouette and atherosclerotic changes in the aorta. Postsurgical changes following median sternotomy and heart valve replacement. Bilateral pleural effusions, left greater than right. Bilateral retrocardiac opacities are likely bilateral pleural effusions with or without consolidation or atelectasis. Increased patchy opacities wit h lower lobe predominance ma y represent edema or multifocal infection. Bibasilar subsegmental atelectasis. Stable mild biapical capping. IMPRESSION: 1. Stable life support lines and tubes. Pacemak er remains in position. 2. Postsurgical changes following heart valve r eplacement. 3. Increased patchy opaciti es with lower lobe predominance may represent edema or multifocal infection. Bibasilar subsegmental atelectasis. Chest 1view DX EXAM: XR CHEST 1 VIEW 05/28/2018 [facility] edical DATE: 05/28/2018 3:00 T Center INDICATION: Abnormal Lung Sounds - Abnormal Lung Sounds COMPARISON: 05/27/2018 TECHNIQUE: AP chest. FINDINGS: Interval placement of right IJ catheters with its tips projecting over the right atrium. Interval placement of left IJ catheter with its tip projecting over the mid SVC. Feeding tube has been removed. T racheostomy tube and pacemak er remain in position. Stable postsurgical changes following heart valve replacement. Median sternotomy wires are unremarkable. Redemonstration of atherosclerotic changes in the aorta. Bilateral retrocardiac opaci ties are likely bilateral pleural effusions with or without consolidation or atelectasis. Bilateral pleural effusions, left greater than right. No pneumothorax. Stable mild b iapical capping. Stable patc hy opacities bilaterally may represent edema or multifocal infection. Bibasilar subsegmental atelectasis. IMPRESSION: 1. Life support lines and tubes as described ab ove. 2. Postsurgical changes following heart valve r eplacement. 3. Overall cardiopulmonary findings are unchang ed from prior. Chest 1view DX EXAM: XR CHEST 1 VIEW 05/27/2018 [facility] edical DATE: 05/27/2018 3:00 T Center INDICATION: Dyspnea - post op COMPARISON: 05/26/2018 TECHNIQUE: AP chest. FINDINGS: Stable life support lines, t ubes and postsurgical changes. Median sternotomy wires are unremarkable. Stable enlarged cardiomediastinal silhouette. Stable bilateral retrocardiac opacities are likely bila teral pleural effusions with or without consolidation or atelectasis. Stable mild biapical capping. Stable small bilateral pleural effusions, left greater than right. Stable patchy opacities bilaterally may represent edema or mult ifocal infection. Bibasilar subsegmental atelectasis noted again. IMPRESSION: 1. Overall findings are without unchanged since prior chest radiograph. 2. Stable bilateral retrocardiac opacities and mild biapical capping. 3. Stable small bilateral pleural effusions, le ft greater than right. 4. Stable patchy opacities bilaterally may represent edema or multifocal infection. 5. Bibasilar subsegmental atelectasis. Chest 2 views DX EXAM: XR CHEST 2 VIEWS 05/26/2018 [facility] DATE: 05/26/2018 3:00 T Center INDICATION: Line Placement - Status post PPM/ICD Implantation COMPARISON: 05/25/2018 TECHNIQUE: PA and lateral chest radiographs FINDINGS: Stable right subcl tyler approach pacemaker device with the distal leads in the right atrium and right ventricle. Stable tracheostomy and feeding tubes. Stable enlarged postoperative cardiomedi astinal silhouette with pros thetic cardiac valve. The aortic knob is calcified and thoracic aorta is tortuous. Mild interval decrease in diffuse airspace disease likely from pulmonary edema with or with out superimposed infection. Persistent bilateral pleural effusions. There is biapical pleural capping. No pneumothorax. Unchanged skeletal structures. IMPRESSION: 1. Stable right pacemaker device. 2. Mild decrease in diffuse airspace disease. 3. Other findings as described above. Chest 1 v for EXAM: XR CHEST 1 VIEW 05/25/2018 [facility] ed[facility] Pl[facility] DX DATE: 05/25/2018 13:06 T Center INDICATION: Line Placement - Status post PPM/ICD Implantation COMPARISON: Same day at 00:55 TECHNIQUE: AP chest FINDINGS: Interval placement of a right subclavian approach pacemaker device with the distal leads in the right atrium and right ventricle. Stable tracheostomy and feeding tubes. Stable enlarged postope rative cardiomediastinal spenser houette with prosthetic cardiac valve. The aortic knob is calcified and thoracic aorta is tortuous. Persistent diffuse airspace disease likely from pulmonary edema. Small jackie ateral pleural effusions. Th ere is biapical pleural capping. No pneumothorax in this non upright examination. Unchanged skeletal structures. IMPRESSION: 1. Interval placement of a r ight subclavian approach pacemaker device with the distal leads in the right atrium and right ventricle. 2. Otherwise, no significant change compared to earlier in the morning. Chest 1view DX EXAM: [facility]: [facility] 3[facility]00 T Center INDICATION: - crackles COMPARISON: 05/24/2018 TECHNIQUE: AP chest IMPRESSION: 1. New tracheostomy tube ap proximately 6 cm above the nellie. Stable feeding tube coursing to the stomach. The other previously visualized lines and tubes have been removed. 2. Stable enlarged postoper ative cardiomediastinal silhouette with prosthetic cardiac valve. The aortic knob is calcified and thoracic aorta is tortuous. 3. Mild increased pulmonary edema and small bilateral pleural effusions. There is biapical pleural capping. 4. No pneumothorax in this non upright examinat ion. 5. Unchanged skeletal structures. Chest 1view DX EXAM: XR CHEST 1 VIEW 05/24/2018 [facility] DATE: 05/24/[address] INDICATION: - crackles COMPARISON: 05/23/2018 chest radiograph at 0020 hours. TECHNIQUE: AP chest. FINDINGS: Lines, tubes and hardware: S upport lines and tubes as well as postsurgical changes are stable. Lungs and pleura: There are continued bilateral retrocardiac airspace opacities. There is been mild improvement of bilateral pulmonary interstitial edema. Continued bilateral pleural effusions are seen. No pneumothorax is identified. Heart and mediastinum: Cardiomediastinal silhoue tte is unchanged. Bones: Osseous structures are stable. IMPRESSION: 1. Mildly improved interstitial pulmonary edema . 2. Left retrocardiac opacit y may represent atelectasis, infection, or aspiration. 3. Bilateral small pleural effusions. Chest 1view DX EXAM: XR CHEST 1 VIEW 05/23/2018 [facility] DATE: 05/23/2018 3:00 CDT Center INDICATION: - crackles. FINDINGS: Comparison is made to May 22. Cardiomediastinal silhouette and postoperative changes are stable. Life support lines and tubes remain in place. There is a left retrocardiac opacity which may be due to a layering left pleural effusion and/or a left lower lobe airspace opacity such as pneumonia or atelectasis. There is mild interstitial pulmonary edema. Small bilateral pleural effusions, great er on the left. IMPRESSION: 1. Mild interstitial pulmonary edema. 2. Left retrocardiac opacity has increased. 3. Small pleural effusions, mostly on the left. Chest 1view DX EXAM: XR CHEST 1 VIEW 05/22/2018 [facility] DATE: 05/22/2018 15:25 CDT Center INDICATION: - intubaion COMPARISON: 05/22/2018 TECHNIQUE: AP chest. FINDINGS: Interval placement of ET tub e with its tip projecting 6.3 cm above the nellie. Other life support lines, tubes and postsurgical changes are unchanged. There are atherosclerotic changes seen in the aorta . Small bilateral pleural ef fusions are stable. Left retrocardiac opacity may represent left pleural effusion with or without consolidation or atelectasis. Interstitial pulmonary edema is unchanged. Bibasilar subsegmental atelectasis. IMPRESSION: 1. Interval placement of ET tube with its tip projecting 6.3 cm above the nellie. This should be advanced about 1 cm. Other findings are unchanged. Chest 1view DX EXAM: XR CHEST 1 VIEW 05/22/2018 [facility] DATE: 05/22/2018 3:00 CDT Center INDICATION: - crackles. FINDINGS: Comparison is made to May 21. Cardiomediastinal silhouette and postoperative changes are stable. The gastric tube has been removed. Extubated. The left jugular central venous catheter and Dobbhoff feeding tube remain in place. Small bilateral pleural effu sions, greater on the left. There is a left retrocardiac opacity which may be due to a layering left pleural effusion and/or a left lower lobe airspace opacity such as pneumo juan r or atelectasis. Interstitial pulmonary edema has improved. IMPRESSION: 1. Improved interstitial pulmonary edema. 2. Left retrocardiac opacity could be due to ate lectasis or consolidation. 3. Small pleural effusions, left greater than ri ght. Abdomen AP DX EXAM: XR ABDOMEN 1 VIEW 05/21/2018 [facility] DATE: 05/21/2018 12:53 CDT Center INDICATION: - DHT placement COMPARISON: 05/15/2018 TECHNIQUE: Limited AP view of the abdomen for tube placement assessment. Number of images: 1 FINDINGS: Transesophageal feeding tube in the distal stoma ch. Other tubes and lines: Unchanged No other changes. IMPRESSION: Tube positions as above. Chest 1view DX EXAM: XR CHEST 1 VIEW 05/21/2018 [facility] DATE: 05/21/2018 3:00 T Center INDICATION: Dyspnea - post op. FINDINGS: Comparison is made to yesterday. Cardiomediastinal silhouette and postoperative changes are stable. Life support lines and tubes remain in place. There is mild interstitial p ulmonary edema. There is a left retrocardiac opacity which may be due to a layering left pleural effusion and/or a left lower lobe airspace opacity such as pneumonia or atele ctasis. Bilateral pleural ef fusions blunt the costophrenic sulci, greater on the left. IMPRESSION: 1. Mild interstitial pulmona ry edema with persistent left retrocardiac opacity that could be due to atelectasis or consolidation. 2. Bilateral pleural effusions, left greater hailee n right. Chest 1view DX EXAM: XR CHEST 1 VIEW 05/20/2018 [facility] DATE: 05/20/[address] INDICATION: pleural effusion - pleural effusion COMPARISON: 05/19/2018 chest radiograph at 0956 hours. TECHNIQUE: AP chest. FINDINGS: Lines, tubes and hardware: L eft IJ central venous catheter tip, Dobbhoff tube, enteric tube, median sternotomy wires are not significant changed. Lungs and pleura: Bilateral retrocardiac and infrahilar opacities are seen which suggests pulmonary edema although superimposed infection cannot be excluded. Interstitial prominent edema is mildly impro radha.. Small bilateral pleura l effusions are seen not significantly changed. Pneumothorax. Heart and mediastinum: The ediastinal silhouette is enlarged, unchanged. Atherosclerotic calcifications are seen within the aortic knob. Pulmonary vascularity is normal. Bones: Osseous structures are stable. IMPRESSION: 1. Endotracheal tube tip located 5 cm above the level the nellie. 2. Small bilateral pleural effusions. 3. Bilateral interstitial o pacities likely representing pulmonary edema is mildly improved. 4. Other support lines and tubes as described above with left IJ central venous catheter tip overlying the left brachiocephalic vein. Chest 1 v for EXAM: XR CHEST 1 VIEW 05/19/2018 [facility] DATE: 05/19/2018 8:38 AM CDT Cent er INDICATION: Tube placement - intubated COMPARISON: 05/19/2018 at 0746 hours TECHNIQUE: AP chest IMPRESSION: 1. Interval placement of en dotracheal tube with tip terminates 6.5 cm above the nellie and advancement for 2 cm recommended. Left IJV double-lumen catheter again seen with tip terminates in the mid lef t brachiocephalic vein. Plea se correlate with the required clinically position. 2. Feeding tube is stable in position. 3. Cardiomediastinal silhou ette is enlarged, unchanged. Aortic atherosclerotic disease. 4. Prominent lung reticulat ions again seen with peribronchial cuffing and patchy airspace opacities bilaterally suggestive of pulmonary edema. Superimposed infection cannot be excluded. Findings are stable compared to previous study. 5. Small bilateral pleural effusions. 6. Osseous structures are stable. Chest 1view DX EXAM: XR CHEST 1 VIEW 05/19/2018 [facility] DATE: 05/19/2018 7:37 AM CDT [facility] er INDICATION: - respiratory distress COMPARISON: 05/19/2018 at 2:01 AM TECHNIQUE: AP chest IMPRESSION: 1. Left IJV double-lumen ca theter again seen with tip terminates in the mid left brachiocephalic vein. Please correlate with the required clinically position. 2. Feeding tube is stable in position. 3. Cardiomediastinal silhou ette is enlarged, unchanged. Aortic atherosclerotic disease. 4. Prominent lung reticulat ions again seen with peribronchial cuffing and patchy airspace opacities bilaterally suggestive of pulmonary edema. Superimposed infection cannot be excluded. Findings have slightly improved compared to previous study. 5. Small bilateral pleural effusions. 6. Osseous structures are stable. Chest 1view DX EXAM: XR CHEST 1 VIEW 05/19/2018 [facility] DATE: 05/19/2018 3:00 AM CDT [facility] er INDICATION: pleural effusion - pleural effusion COMPARISON: 05/18/2018 TECHNIQUE: AP chest IMPRESSION: 1. Left IJV double-lumen ca theter again seen with tip terminates in the mid left brachiocephalic vein. Please correlate with the required clinical position. 2. Feeding tube is stable in position. 3. Cardiomediastinal silhou ette is enlarged, unchanged. Aortic atherosclerotic disease. 4. Prominent lung reticulat ions again seen with peribronchial cuffing and patchy airspace opacities bilaterally suggestive of pulmonary edema. Superimposed infection cannot be excluded. Findings are stable compared to previous study. 5. Small bilateral pleural effusions. 6. Osseous structures are stable. Chest 1view DX EXAM: XR CHEST 1 VIEW 05/18/2018 [facility]: X-ray chest 1 view Center DATE: 05/18/2018 6:24 AM and 0011 hours CDT INDICATION: - decreased breath sounds left COMPARISON: 05/17/2018 TECHNIQUE: AP chest IMPRESSION: 1. Left IJV double-lumen ca theter again seen with tip terminates in the mid left brachiocephalic vein. Please correlate with the required clinically position. 2. Feeding tube is stable in position. 3. Cardiomediastinal silhou ette is enlarged, unchanged. Aortic atherosclerotic disease. 4. Prominent lung reticulat ions again seen with peribronchial cuffing and patchy airspace opacities bilaterally suggestive of pulmonary edema. Superimposed infection cannot be excluded. Findings have improved compared to previous study. 5. Small bilateral pleural effusions. 6. Osseous structures are stable. Chest 1view DX EXAM: XR CHEST 1 VIEW 05/18/2018 [facility]: X-ray chest 1 view Center DATE: 05/18/2018 6:24 AM and 0011 hours CDT INDICATION: - decreased breath sounds left COMPARISON: 05/17/2018 TECHNIQUE: AP chest IMPRESSION: 1. Left IJV double-lumen ca theter again seen with tip terminates in the mid left brachiocephalic vein. Please correlate with the required clinically position. 2. Feeding tube is stable in position. 3. Cardiomediastinal silhou ette is enlarged, unchanged. Aortic atherosclerotic disease. 4. Prominent lung reticulat ions again seen with peribronchial cuffing and patchy airspace opacities bilaterally suggestive of pulmonary edema. Superimposed infection cannot be excluded. Findings have improved compared to previous study. 5. Small bilateral pleural effusions. 6. Osseous structures are stable. Chest 1view DX EXAM: XR CHEST 1 VIEW 05/16/2018 [facility] DATE: 05/16/2018 17:00 CDT Center INDICATION: dyspnea - eval post chest tube pull for pneumothorax COMPARISON: 05/16/2018 TECHNIQUE: AP chest. FINDINGS: Stable enlarged cardiomedias tinal silhouette and postsurgical changes. Atherosclerotic changes seen the aorta. Mediastinal drainage tubes have been removed. Feeding tube and left IJ catheter remain in p osition. Stable small to mod erate left hydropneumothorax. Stable small right pleural effusion. There is interval improvement of alveolar opacities in the lower lungs and lingula. IMPRESSION: 1. Stable small to moderate left hydropneumothorax and postsurgical changes following heart valve replacement. Stable small right pleural effusion. 2. Interval improvement of alveolar opacities in the lower lungs and lingula which may represent dependent edema, atelectasis and/or pneumonia. 3. Life support lines and tubes as described ab ove. Chest 1view DX EXAM: XR CHEST 1 VIEW 05/16/2018 [facility] DATE: 05/16/2018 at 0056 hours Ce nter INDICATION: - s/p MV replacement COMPARISON: 05/15/2018 chest radiograph at 0426 hours. TECHNIQUE: AP chest. FINDINGS: Lines, tubes and hardware: R ight IJ catheter tip overlies the area of the junction of the superior vena cava and subclavian vein. Dobbhoff tube tip lies below the level of the diaphragm and outside the [id number]. There has bee n interval removal of enteric tube and right IJ Thelma-Tomeka catheter. Mediastinal tube and chest tube is unchanged in location. Postsurgical changes from mitral valve replacement are stable. Lungs and pleura: Left midlu ng zone, left retrocardiac, right perihilar and right infrahilar airspace opacities are seen.. Small left pleural effusion is unchanged. Unchanged small left apical pneumothorax is also seen.. Heart and mediastinum: There is continued mild widening of the superior mediastinum likely postsurgical changes.. Pulmonary vascularity is normal. Bones: No acute abnormality. IMPRESSION: 1. Unchanged small left apical pneumothorax. 2. Support lines and tubes as described above. 3. Small left pleural effusion is unchanged. 4. Continued bilateral lowe r lobe predominant airspace opacities may be due to edema, atelectasis, pneumonia and/or aspiration. Abdomen AP DX EXAM: XR ABDOMEN 1 VIEW 05/15/2018 [facility] DATE: 05/15/2018 17:28 CDT Center INDICATION: - For DHT placement. ADDITIONAL INFORMATION: None. COMPARISON: 05/14/2018 TECHNIQUE: AP view of the abdomen. Number of im ages: 1 FINDINGS: Transesophageal feeding tube tip: In the region of the gastric antrum. Transesophageal suction tube sidehole: Intervall y removed. Other tubes and lines: Unchanged No other changes. IMPRESSION: Feeding tube in the stomach. Chest 1view DX EXAM: XR CHEST 1 VIEW 05/15/[address] [facility] DATE: 05/15/2018 4:23 CDT Center INDICATION: hypoxia - hypoxia. FINDINGS: Comparison is made to May 14. Cardiomediastinal silhouette is prominent but not significantly changed. Postoperative findings are similar to prior. Life support lines and tubes remain in place. There is a persistent small to moderate left hyd ropneumothorax. There are alveolar opacities predominantly in th e lower lungs and lingula. IMPRESSION: 1. Persistent small to moder ate left hydropneumothorax. This should be followed for clearing. 2. Hazy alveolar opacities i n the bilateral lower lobes and lingula could be due to dependent edema, atelectasis and/or pneumonia. Chest 1view DX EXAM: XR CHEST 1 VIEW 05/14/2018 [facility] DATE: 05/14/2018 21:26 T Center INDICATION: - follow up to pneumo from OR COMPARISON: 05/14/2018 chest radiograph at 1810 hours. TECHNIQUE: AP chest. FINDINGS: Lines, tubes and hardware: T he endotracheal tube, mediastinal chest tube, right IJ Thelma-Tomeka catheter, left IJ central venous catheter, and enteric tube, and cardiac valve replacement hardware are not significantly changed relative to comparison. Lungs and pleura: Bilateral subsegmental atelectasis seen. Bilateral perihilar and infrahilar opacities are seen with left retrocardiac airspace opacity. Small left pneumothorax is not significantly ana nged relative to comparison with apex of lung seen between the 3rd and 4th posterior ribs. Blunting of the left hemidiaphragm likely representing small left pleural effusion.. Heart and mediastinum: The c ardiomediastinal silhouette is unchanged. Atherosclerotic calcification are seen within the aortic knob. Pulmonary vascularity is normal. Bones: No acute abnormality. IMPRESSION: 1. Unchanged left apical pneumothorax. 2. Bilateral perihilar, jackie ateral infrahilar, and left retrocardiac opacities may represent aspiration, pneumonia, edema, or ARDS. 3. Bilateral subsegmental atelectasis. 4. Blunting of the left hem idiaphragm likely secondary to small left pleural effusion. Chest 1view DX EXAM: XR CHEST 1 VIEW 05/14/2018 [facility] DATE: 05/14/2018 18:03 T Center INDICATION: - intubated/?PTX on L. Findings: Comparison is made to 05/14/2018 at 1359 hours. Lines and tubes remain uncha nged. Mild interstitial airspace opacities persist in the lungs which may represent pulmonary edema. There is bibasilar subsegmental atelectasis. There is worsening left pneu mothorax with tip of the lung between the 3rd and 4th posterior rib. IMPRESSION: Worsening left-s ided pneumothorax. This finding was discussed with the patient's nurse Hal Orozco at 8:30 PM on 05/14/2018. The patient's team is aware of the pneumotho rax and considering placing a chest tube upon chnog bsequent chest x-ray results. Abdomen AP DX EXAM: XR ABDOMEN 1 VIEW 05/14/2018 [facility] DATE: 05/14/2018 14:08 T Center INDICATION: OGT placement - OGT placement COMPARISON: 05/09/2018 TECHNIQUE: Limited AP view of the abdomen for tube placement assessment. Number of images: 1 FINDINGS: Transesophageal feeding tube has been removed in the interval. Transesophageal suction tube sidehole at the GE junction level and needs to be further advanced. Other tubes and lines: Media stinal, chest drains and a Thelma-Tomeka catheter noted. The stomach is moderately gas distended. IMPRESSION: Tube positions as above. Chest 1 v for FINDINGS: Comparison is made to May 14 at 1:10 AM. 05/14/2018 [facility] Placement DX Interval median sternotomy f or mitral valve replacement. [address]. Aortic calcifications. Ce nter Intubated; tip of the endotr acheal tube is located 5.8 cm above the nellie. A gastric tube has its sideport above the GE junction. A left jugular central venous catheter has been pulled back, now with t he tip over the region of th e left brachiocephalic vein. Dobbhoff feeding tube and bipolar left subclavian pacemaker have been removed. A new right jugular Thelma-Tomeka catheter with tip over the pulmonary trunk. Mild interstitial pulmonary edema has decreased. Bilateral lower lobe subsegmental atelectasis. Small left hydropneumothorax. IMPRESSION: 1. Interval median sternotom y for mitral valve replacement with new lines and tubes in place as above. 2. Side-port of the gastric tube is above the GE junction. Consider advancing it about 5 to 10 cm deeper into the stomach. 3. Interstitial pulmonary edema has improved. 4. There is a new small left hydropneumothorax. This can be monitored for clearing. Chest 1view DX EXAM: X[facility] CHEST [facility]: 05[facility]14/2018 3:00 T Center INDICATION: Dyspnea - post op COMPARISON: 05/10/2017 TECHNIQUE: AP chest. FINDINGS: Stable life support lines an d tubes. Stable enlarged cardiomediastinal silhouette and atherosclerotic changes seen the aorta. Small bilateral pleural effusions. Stable patchy alveolar opacities bilatera lly may represent edema or m ultifocal infection. Bibasilar subsegmental atelectasis. No pneumothorax noted. IMPRESSION: 1. Small bilateral pleural effusions and bilateral patchy alveolar opacities are unchanged. No significant change since prior chest radiograph. Chest 1view DX EXAM: XR CHEST 1 VIEW 05/10/2018 [facility] DATE: 05/10/2018 10:53 AM Center INDICATION: - CENTRAL LINE PLACEMENT COMPARISON: 05/09/2018 chest radiograph TECHNIQUE: AP chest. FINDINGS: Lines, tubes and hardware: U nchanged automatic implantable cardiac defibrillator. There is a new left IJ central catheter whose tip projects over the region of the left brachiocephalic-SVC confluence. A feeding tube enters the sto mach, but the tip is outside the field of view. The right subclavian central venous line has been removed. Lungs and pleura: Unchanged, with diffuse bilateral airspace opacities, left retrocardiac opacity and a small left pleural effusion. Heart and mediastinum: Unchanged. Bones: No acute abnormality. IMPRESSION: 1. Right subclavian central venous line has been removed. The tip of the new left IJ central venous catheter projects over the region of the left brachiocephalic-SVC confluence. 2. Stable cardiomegaly. 3. Stable small left pleura l effusion and left retrocardiac opacity representing layering of pleural fluid with or without consolidation/atelectasis. 4. Stable patchy alveolar o pacities in both lungs representing edema and/or pneumonia. Abdomen 1 v for EXAM: XR ABDOMEN 1 VIEW 05/09/2018 [facility] DX DATE: 05/09/2018 15:39 CDT Center INDICATION: - Dobbhoff tube placement ADDITIONAL INFORMATION: None. COMPARISON: None. TECHNIQUE: Limited AP view of the abdomen for tube placement assessment. Number of images: 1 FINDINGS: Transesophageal feeding tube: Tip overlies the g astric antrum. Transesophageal suction tube: None Other tubes, lines and hardware: None. Retained oral contrast material seen in the colo n. IMPRESSION: 1. Feeding tube tip overlies the gastric antrum . Chest 1view DX EXAM: XR CHEST 1 VIEW 05/09/2018 [facility] DATE: 05/09/2018 3:00 CDT Center INDICATION: Coughing - dyspnea COMPARISON: Yesterday TECHNIQUE: AP chest. FINDINGS: Left subclavian pacemaker an d right upper extremity PICC remain in position. Stable enlarged cardiomediastinal silhouette. Stable small bilateral pleural effusions. Stable left retrocardiac opacity is l ikely pleural effusion with or without consolidation or atelectasis. Stable patchy alveolar opacities bilaterally may represent edema or multifocal infection. IMPRESSION: 1. Stable small bilateral p leural effusions and enlarged cardiac mediastinal silhouette. 2. Stable left retrocardiac opacity may represent effusion with or consolidation atelectasis. 3. Stable patchy alveolar o pacities bilaterally may represent edema or multifocal infection. Chest 1view DX EXAM: XR CHEST 1 VIEW 05/08/2018 [facility] DATE: 05/08/2018 3:00 CDT Center INDICATION: Coughing - dyspnea COMPARISON: 05/07/2018 TECHNIQUE: AP chest IMPRESSION: 1. Left chest wall dual sheeba ds cardiac pacing device and right subclavian central venous line are stable in position. 2. Cardiomediastinal silhou ette is enlarged, unchanged. Aortic atherosclerotic disease. 3. Prominent lung reticulat ions again seen with peribronchial cuffing suggestive of pulmonary edema. Superimposed infection cannot be excluded. 4. Small bilateral pleural effusions. 5. Osseous structures are stable. Pelvis wo IV contrast EXAM: CT PELVIS WITHOUT CONTRAST [address] [facility] [address] DATE: 05/07/2018 19:44 CDT Center INDICATION: - evaluation of hip fracture COMPARISON: 05/07/2018 right femur and hip x-ray s TECHNIQUE: Volumetric CT of the pelvis is acquired without contrast. Axial, coronal and sagittal images are provided. 3D reconstructions are created at the acquisition workstation. IV contrast: None. DLP: 436 mGy-cm FINDINGS: Bones: A right total hip ar throplasty is identified without periarticular lucency, however note the distal aspect of the prosthesis is not visualized included in the study. A chronic appearing right gr eater trochanteric fracture is identified with well-defined cortex along the fracture margins. The largest fragment measures 2.1 x 4.5 x 4.9 cm (AP by transverse by craniocau analia) and contains cerclage w ires and is displaced superiorly and posteriorly. Multiple additional smaller well-corticated fragments and bony remodeling are seen about the fracture site. No acute fractures are ident ified. There is tiny focal sclerosis of the left femoral head without evidence of subchondral collapse, likely representing avascular necrosis. There is diffusely decreased bone mineralization. There is partial ankylosis of the anterior aspect of the right sacroiliac joint and mild degenerative changes of the left sacroiliac joint. Trace marginal osteophytes s een along the superolateral aspects of the left hip joint. Soft tissues: Diffuse atherosclerotic vasc ular calcifications are noted. A trace amount of simple appearing free fluid is seen in the lower pelvis. A Leon catheter seen in the urinary bladder. There is atrophy of the right gluteal musculature. There is bowel wall thickeni ng of the sigmoid colon, which is opacified with enteric contrast, without significant adjacent fat stranding. IMPRESSION: 1. No acute bony abnormality. 2. 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 3. 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 4. Nonspecific sigmoid colo n wall thickening which can be further evaluated with endoscopy. Hip 2/3 views uni w EXAM: RIGHT HIP 2 VIEWS AND AP PELVIS 2018 [facility] pelvis DX EXAM: RIGHT FEMUR 2 VIEWS Center EXAM: RIGHT KNEE 3 VIEWS DATE: 05/07/2018 16:33 CDT INDICATION: Right leg pain COMPARISON: None TECHNIQUE: AP view of the pe lvis with AP and frog-leg lateral views of the right hip. AP and lateral views of the right femur. AP, lateral, and oblique views of the right knee. FINDINGS: No fracture or malalignment of the pelvis identified. Small left hip osteophytes without joint space narrowing. Right total hip arthroplasty without perihilar hardware lucency. Chronic displaced right g reater trochanter fracture w ith cortication along the fracture margins. Fractured cerclage wire is associated with this displaced greater trochanter fragment. Mild medial compartment narr owing of the knee with small tricompartmental osteophytes. No knee joint effusion. Diffuse right thigh soft tissue swelling and mild arterial calcification. IMPRESSION: 1. No acute abnormality identified. 2. Right total hip arthroplasty without complica tion identified. 3. Displaced chronic ununited right greater troc hanter fracture. Femur series DX EXAM: RIGHT HIP 2 VIEWS AND AP PELVIS 05/07/2018 [facility] EXAM: RIGHT FEMUR 2 VIEWS Center EXAM: RIGHT KNEE 3 VIEWS DATE: 05/07/2018 16:33 CDT INDICATION: Right leg pain COMPARISON: None TECHNIQUE: AP view of the pe lvis with AP and frog-leg lateral views of the right hip. AP and lateral views of the right femur. AP, lateral, and oblique views of the right knee. FINDINGS: No fracture or malalignment of the pelvis identified. Small left hip osteophytes without joint space narrowing. Right total hip arthroplasty without perihilar hardware lucency. Chronic displaced right g reater trochanter fracture w ith cortication along the fracture margins. Fractured cerclage wire is associated with this displaced greater trochanter fragment. Mild medial compartment narr owing of the knee with small tricompartmental osteophytes. No knee joint effusion. Diffuse right thigh soft tissue swelling and mild arterial calcification. IMPRESSION: 1. No acute abnormality identified. 2. Right total hip arthroplasty without complica tion identified. 3. Displaced chronic ununited right greater troc hanter fracture. Knee series 3 views EXAM: RIGHT HIP 2 VIEWS AND AP PELVIS 2018 [facility] EXAM: RIGHT FEMUR 2 VIEWS Center EXAM: RIGHT KNEE 3 VIEWS DATE: 05/07/2018 16:33 CDT INDICATION: Right leg pain COMPARISON: None TECHNIQUE: AP view of the pe lvis with AP and frog-leg lateral views of the right hip. AP and lateral views of the right femur. AP, lateral, and oblique views of the right knee. FINDINGS: No fracture or malalignment of the pelvis identified. Small left hip osteophytes without joint space narrowing. Right total hip arthroplasty without perihilar hardware lucency. Chronic displaced right g reater trochanter fracture w ith cortication along the fracture margins. Fractured cerclage wire is associated with this displaced greater trochanter fragment. Mild medial compartment narr owing of the knee with small tricompartmental osteophytes. No knee joint effusion. Diffuse right thigh soft tissue swelling and mild arterial calcification. IMPRESSION: 1. No acute abnormality identified. 2. Right total hip arthroplasty without complica tion identified. 3. Displaced chronic ununited right greater troc hanter fracture. Abdomen complete US EXAM: US ABDOMEN COMPLETE 05/07/2018 [facility] DATE: 05/07/2018 5:57 CDT Center INDICATION: - assess for cirrhosis COMPARISON: None. TECHNIQUE: Multiplanar grayscale and color Doppl er ultrasound of the abdomen. FINDINGS: Liver: Craniocaudal length: 16.8 cm. Echogenicity: Normal. Surface: Normal. Mass (size and location): None. Main portal vein: Caliber: 1.1 cm. Flow: Hepatopetal. Bile ducts: Common bile duct diameter: 0.26 cm. Intrahepatic ducts: Normal. Gallbladder: Gallstones: None. Gallbladder sludge: None. Gallbladder wall: 0.16 cm. Polyps/masses: None. Pericholecystic fluid: None. Sonographic Dumont sign: Absent. Pancreas: Partially obscured. No focal lesions. Spleen: Size: 7.9 x 2.8 x 3.1 cm. Mass or focal lesion (size and location): None. Right kidney: Size: 9.5 x 5.2 x 5.1 cm. Cortical thickness: Normal. Hydronephrosis: None. Echogenicity: Increased. Calculi: None. Cysts/Masses: None. Left kidney: Size: 8.8 x 4.8 x 4.6 cm. Cortical thickness: Normal. Hydronephrosis: None. Echogenicity: Increased. Calculi: None. Cysts/Masses: Simple cyst at the interpolar region measuring 2.1 x 2.5 x 2.1 cm. Bladder: Not well visualized. Abdominal aorta: Visible portions are normal. Inferior vena cava: Visible portions are normal. Free fluid: None. Other: None. IMPRESSION: 1. No evidence of cirrhosis. 2. Increased echogenicity o f the renal parenchyma likely relating to medical renal disease. 3. Simple cyst of the left kidney. Chest 1view DX EXAM: XR CHEST 1 VIEW 05/07/2018 [facility] DATE: 05/07/2018 3:30 CDT Center INDICATION: Abnormal Lung Sounds - Abnormal Lung Sound COMPARISON: 04/18/2011 TECHNIQUE: AP chest. FINDINGS: Interval placement of left s ubclavian dual-lead pacemaker with its leads projecting over the right atrium and right ventricle. A new right upper extremity PICC has its tip projecting over the cavoatrial junction. Stable cardiomedi astinal silhouette. Left retrocardiac opacity may represent atelectasis, aspiration or pneumonia. Small bilateral pleural effusions. Increased patchy alveolar opacities throu ghout the lungs may represen t edema or multifocal infection. No pneumothorax. Residual enteric contrast and in the stomach. IMPRESSION: 1. Interval placement of du al-lead pacemaker and right upper extremity PICC in appropriate position. 2. No pneumothorax. 3. Small bilateral pleural effusions. 4. Increased patchy alveola r opacities throughout the lungs may represent edema or multifocal infection. 5. Left retrocardiac opacit y may represent atelectasis, aspiration or pneumonia, increased from prior. Consultation Notes No Data Provided for This Section Discharge Summaries No Data Provided for This Section History and Physicals No Data Provided for This Section Vital Signs Vital Sign Value Date Comments Source Systolic (mm Hg) 128 2018 [facility] Diastolic (mm Hg) 62 2018 [facility] Respitory Rate 26 2018 [facility] Systolic (mm Hg) 127 2018 [facility] Diastolic (mm Hg) 70 2018 [facility] Respitory Rate 33 2018 [facility] Systolic (mm Hg) 133 2018 [facility] Diastolic (mm Hg) 58 2018 [facility] Respitory Rate 24 2018 [facility] Height 182.88 cm 2018 [facility] Temperature Oral (F) 97 F 2018 [facility] Height 182.88 cm 2018 [facility] Height 182.88 cm 2018 [facility] Temperature Oral (F) 96.3 F 2018 [facility] Temperature Oral (F) 97.9 F 05/30/2018 [facility] Weight 93.636 05/07/2018 [facility] BMI Calculated 28 05/07/2018 [facility] Encounters Location Location Encounter Encounter Reason Attending ADM MS Stat us Source Details Type Number For Provider Date Date Visit [facility] Inpatient [id number] [place] 05/07 05/31 [facility] [place] /2018 [facility] Procedures Procedure Code Date Perfomer Comments Source Intubation, [address]83 [facility] endotracheal, 9 Medical emergency procedure Cente r Blepharoplasty [id number] [address] Appendectomy [id number] [facility] Arthroplasty<sup>1</ [id number] right hip T exas sup> [facility] Arthroplasty<sup>2</ [id number] Re-do of right [facility] sup> hip replacement [facility] Cataract [id number] bilateral [facility] extraction<sup>3</chong cataract [facility] p extraction Center Miscellaneous [id number] right hip [facility] operations<sup>4</chong surgery to [facility] p> rotate ball Center joint Assessment and Plan Assessment and Plan Date Source Extracted from:Title: Infection Admission H&P * 2018 [facility] Author: Janes Griffiths MD Date: 05/31/18 Impression and Plan 72 Y old male with PMH of Afib, COPD, CH F, HTN, HLD and gout who presented to OSH with worsening of SOB and swelling of BLE. Information obtained from records from outside facility. Apparently, patient was recently discharged from same OSH, h e returned to hospital because SOB has progressively worsening since discharge. He was admitted on 04/30/18 for decompensated HF, started on diuretic. Subsequently on 05/02/18, patient had worsening pulmo nary edema requiring intubation and mechanically ventilated. After thoracentesis and diuresis, he was extubated on 05/04/18. Further workup with MARÍA revealed poss ible mitral valve vegetation. He is [facility] for higher level of care and workup up for possible [place] mitral valve endocarditis. Upon evaluation the patient states that he has been feeling dyspneic for the last 6 months. Denies chest pain. Some peripheral edema and occasional palpitations.Reports some chills, denies fevers. He states he had a [employer] dual chambe r device placed about two years ago for "bradycardia" (procedure note not available) and he had his device interrogated within the last year and he was told that is functioning normal. Denies any pocket erythema, warmth, edema or drainage. Blood cultures drawn in OSH are positive for Enterococcus EKG: Afib PPM interrogation: DDDR, placed in 7, longevity 8.6 years, 23% A paced and 23% V paced, alerts for Afib with RVR CXR: leads appropriately positioned, some retraction # Enterococcus bacteremia # Dual chamber ppm # Afib, rate controlled, [id number] on Apixaban (currentl y on hold) Antibiotic RX changed to Ceftriaxone/Amp icillin,dosage adjusted for renal failure 05/14 Surgery Findings of the Procedure : difficult MV exposure, unable to expose through LA, required trans-septal approach. Vegitation on anterior mitral valve resected, chord sparing MV replacement with 31 biopr osthetic valve. RYAN ligration internally , MARÍA unable to identify RYAN, no PVL. Did not perform MAZE due to extended length of the procedure and difficult exposure. 4u pRBC given Vegetation Gram stain gpc in pairs,grew Enterococcus Continue Ceftriaxone/ampicillin Blood cultures no growth and will contin ue 6 weeks IV antibiotics starting date 05/08 Extracted from:Title: PACEMAKER IMPLANTATION PROCEDURE Author: Antonino Alejo MD Date: 05/25/18 PACEMAKER IMPLANTATION PROCEDURE NOTE PROCEDURE DATE: 05/25/2018 PATIENT: Sherwin Alexander CARDIOLOGISTS: Kellen Candelario MD REFERRING: Tasha Butler MD DIAGNOSIS: Tachy-juan manuel syndrome Sinus node dysfunction AV block PROCEDURE: Implantation of a SJM dual chamber pacemaker Right arm venogram HISTORY: 72 yo gentleman with 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 The patient arrived to the EP lab in junctional rhythm. PROCEDURE: The risks, benefits, alterna tives of the device implant with sedation were explained before the procedure. Risks explained include cardiac tamponade, pneumothorax, bleeding, infection, vasc ular injury, VT, CVA, emergent sternotom y, intubation, . Written informed consent was obtained. Patient was deemed appropriate to proceed with conscious sedation. IV antibiotics were given at th e beginning of the procedure as standard protocol. Moderate conscious sedation was provided under my direct supervision by an independent sedation-trained nurse who monitored the patient and vitals throughout the procedure. About 40 minutes were spent directly supervising and monitoring the patient receiving sedation between 11:45 and 12:30pm. A total of 1 mg of IV Versed and 25 mcg of IV Fentanyl was used for sedation. The patient tolerated the se dation well. See nurses sedation sheet that I signed for f luther details. A right sided venogram was performed hailee t showed patency from the axillary vein to the heart. After applying standard sterile precautions, local anesthetic with 2% lidocaine with epinephrine was adminis tered to the right infraclavicular regio n. Following, the skin was incised and the incision was carried down to the prepectoral fascias plane to create a pocket over the pectoralis muscle using electroc autery and blunt dissection. Axillary v enous access was obtained via the modified Seldinger technique under fluoroscopic guidance and a wire was advanced to the inferior vena cava. An additional axilla ry venipuncture was performed under fluo roscopic guidance and wire again advanced to the inferior vena cava. A hemostatic peel-away sheath was insert ed over a wire and a 6F ventricular lead was advanced. Using a slightly curved stylet, this lead was advanced to the right ventricular apex and affixed actively. Adequate pacing and sensing thresholds were confirmed. [place] showed septal position of the lead. Next a hemostatic peel-away sheath was advanced over the remaining wire and a 6F atrial lead was advance d. Using a J stylet, this lead was acti vely fixed to the right atrial appendage and adequate thresholds were confirmed. Pacing at 10V did not cause any chest wall or diaphragmatic stimulation. [place] l lead slack was confirmed. The leads w ere secured to the pectoral muscle with 0-silk. The pocket was irrigated thoroughly with antibiotic solution and adequate hemostasis was confirmed. A generator was brought onto the field and connected to the leads. The generator and leads were intr oduced into the pocket. The generator wa s tied to the muscle with 0-silk, and the pocket was closed in 3-layer standard fashion, 2-0 Vicryl used in the deep and superficial fascial layer, and 4-0 vicryl used for the skin. [place] glue was a pplied for a topdressing, following which the wound was dressed with Micropore. A pressure dressing was applied. At the conclusion of the procedure, fluo roscopy revealed no pneumothorax, lead dislodgment, or retained sponges, and a normal heart border on ZIM[place]WEAN view. The patient tolerated the procedure well and was returned to a telemetry bed in stable condition. Device: Generator: [id number]; Serial # [id number] RA: Model SJM 2088TC/52, Serial # [id number] RV: Model SJM 2988TC/58, Serial # [id number] P wave: 0.3 mV RA pacing impedance: 430 ohms RA threshold: AF R wave: >12 mV RV pacing impedance: 790 ohms RV threshold: 0.75 V @ 0.4 ms Settings: DDD 60/120 Estimated blood loss: 10 cc CONCLUSION 1. Successful implantation of a dual ana mber pacemaker via the right axillary vein. 2. No apparent immediate complications POST PROCEDURE PLAN 1. Observe patient overnight as bedded outpatient with exten ded recovery. 2. Bedrest for 6 hours. 3. Resume cardiac diet. 4. EKG after procedure and in AM. 5. CXR immediately after the procedure and tomorrow morning. 6. Device interrogation tomorrow morning. 7. Patient instructed to keep wound comp letely dry for 3 days and not elevate device-side arm > 90 degrees or lift > 10 lbs for one month. 8. Anticoagulants: resume AC in 12-48h if needed for the pr osthetic valve 9. Pain control: Tylenol and Tylenol #3 as needed. 10. Antibiotics: Continue Vancomycin X 24 hours. 11. Follow-up in [address] Candelario Kellen Candelario M.D. Professor, Cardiac Electrophysiology I was present for the entire procedure o n 05/25/2018 and performed the byrd elements. Date 05/25/2018 Surya Alejo M.D. 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 Initial blood cultures grew Enterococcus. Small vegetation observed on TTE at OSH. Will reassess with MARÍA here to assess size and mobility. N o evidence of septic embolization. Mild MR as per TTE report. ID consulted (Dr. Burnazian) and patient started on empiric Cefepime and Vancomycin. Hold Apixaban pending workup. 2.) AECHF: Previous admission in 2011 wi th intubation for hypoxemia secondary to CHF and pulmonary edema. Likely LV diastolic dysfunction given EF 60% and minimal valvular abnormalities at that time. Ca rdiology consulted ([facility]). No previous coronary cat heterizations. 3.) Hyperbilirubinemia and hypoalbuminem ia: Liver U/S to assess for cirrhosis, however, likely related to this hospitalization for CHF. 4.) DENISE: Has history of CKD, will follow creatinine, currently making a good amount of urine. Lucho Walsh PGY-8 Aortic Surgery Fellow Plan of Care No Data Provided for This Section Social History Social History Date Source Social History TypeResponse 05/07/2018 [facility] Alcohol Current, Type Beer, Wine, Liquor. Frequency: 3-5 times per week. Smoking Status Former smoker; Type: Cigarettes; Exposur e to Tobacco Smoke None; Cigarette Smoking Last 365 Days No; Reg Smoking Cessation Counseling No; Number of years: 10; Started at age: 16.0; entered on: 05/07/18 Family History No Data Provided for This Section Advance Directives No Data Provided for This Section Functional Status No Data Provided for This Section
--- OUTSIDE RECORDS SUMMARY | 2019-10-08 20:54 | XMS REPORT | Continuity of Care Document ---
:[address] [facility] t Address [address] [place] [address] [place] [address] Care Team Providers Name Role Phone PHYSICIANS Primary Care Physician Unavailable Steev DUKES, Gurwinder Attending Clinician Camilo MATTHEWS Attending Clinician Unavailable Ashu LEIVA Attending Clinician Travon Packer MD Attending Clinician Farhan SCHULTZ Attending Clinician Get SIERRA, Miladis Attending Clinician Unavailable Mariann SIERRA Attending Clinician Unavailable Kristin Bajwa MD Attending Clinician Kristin Montero Attending Clinician Ervin Attending Clinician Unavailable Carrie Attending Clinician BABAK Attending Clinician Unavailable STEVE Admitting Clinician Unavailable Carrie Admitting Clinician BABAK Admitting Clinician Unavailable Payers Payer Name Policy Policy Number Effective Expiration Source Type Date Date MEDICAREMEDICARE PART xxxxxxxxxxx 2010 Gibran kelsea A AND 00:00:00 [facility] Jimmiexxxxxxxxxx2010[facility] [place] xxxxxxxxxxx 2019 [place] SUPPLEMENTxxxxxxxxxxx 00:00:00 Met jason 2019-PresentIfrah rcial Problems Condition Condition Condition Status Onset Resolution Last Treating Co mments Source Name Details Category Date Date Treatment Clinician Date Dialysis Dialysis Disease Active Overview: Gibran enamorado AV fistula AV fistula 8-13 Added Me thodi malfunctio malfunctio 00:00: automatic st n n 00 ally from request for surgery [id number] Clotted Clotted Disease Active Overview: [facility] dialysis dialysis 7 Added Method i access access 00:00: automatic st 00 ally from request for surgery [id number] ESRD (end ESRD (end Disease Active Overview: [place] stage stage 5-12 Added Methodi renal renal 00:00: automatic st disease) disease) 00 ally from request for surgery [id number] LEAKY Diagnosis Active 2018-06-04 Mem oria MITRAL 3-18 22:24:00 l VAVLE, LEAKY 00:00: [place] SEPSIS AND MITRAL 00 ATRIAL FI VAVLE, SEPSIS AND ATRIAL FI Active 05/06/2018 [facility] Atrial Problem Active 2018-06-02 Memor ia fibrillati 2-27 21:38:56 l on Atrial 00:00: Mc (disorder) fibrillati 00 on (disorder) Active 04/17/2011 Problem 06/02/2018 [facility] Chronic Problem Active 2018-06-02 Yonathan rob obstructiv 21:38:56 l e Chronic [place] pulmonary obstructiv disease e monitoring pulmonary due disease (finding) monitoring due (finding) Active Problem 06/02/2018 [facility] Cutis laxa Problem Active 2018-06-02 M emoria (disorder) 21:38:56 l Cutis [place] laxa (disorder) Active Problem 06/02/2018 [facility] Hypertensi Problem Active 2018-06-02 M emoria ve 21:38:56 l disorder, Mc systemic Hypertensi arterial ve (disorder) disorder, systemic arterial (disorder) Active Problem 06/02/2018 [facility] 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) Active Problem 06/02/2018 [facility] Respirator Problem Active 2018-06-02 M emoria y failure 21:38:56 l (disorder) Dao n Respirator y failure (disorder) Active Problem 06/02/2018 [facility] Allergies, Adverse Reactions, Alerts Allergy Allergy Status Severity Reaction(s) Onset Inactive Treating Comm ents Source Name Type Date Date Clinician Heparin Propensi Active [place] ty to 4-12 Methodi adverse 00:00: st reaction 00 s to drug heparin heparin Active Memoria l [place] NKFA NKFA Active Memoria l Mc Family History Family Member Diagnosis Comments Start Date Stop Date Source Natural father No Known Problems Carri Bennett Natural mother No Known Problems Carri wu [facility] Family member Cancer [place] [facility] Family member Thrombocytopenia [place] [facility] Social History Social Habit Start Date Stop Date Quantity Comments Source History of tobacco Current smoker Ho kelsea [facility]regational use Sex Assigned At [facility] ethodist Exposure to Not sure [place] Metho dist SARS-CoV-2 (event) Cigarettes smoked 2019-10-02 2019-10-02 Greg Oconnorist current (pack per 00:00:00 00:00:00 day) - Reported Cigarette 2019-10-02 2019-10-02 Greg Method ist pack-years 00:00:00 00:00:00 Alcohol intake 2019-10-02 2019-10-02 Current drinker [place] [facility] 00:00:00 00:00:00 of alcohol (finding) Alcohol Comment 2019-08-26 2019-08-26 2X WEEK TOTAL 4 [place] [facility] 00:00:00 00:00:00 Social History 2018-05-07 2018-05-07 Maykel [place] 09:28:28 09:28:28 Smoking Status Start Date Stop Date Source Former smoker 2019-10-02 00:00:00 2019-10-02 00:00:00 Greg Bennett Medications Ordered Filled Start Stop Current Ordering Indication Dosage Frequency Signature Comments Components Source Medication Medication Date Date Medication? Clinician (SIG) Name Name fluticasone 2020-0 Yes Inhale. Carri ston /vilanterol 8-13 Methodi (BREO 10:50: st ELLIPTA 42 INHL) warfarin 2020-0 Yes 4mg QD Take 4 mg [place] (COUMADIN) 8-13 by mouth Metho di 4 MG tablet 10:48: daily. st 36 metoprolol 2020-0 Yes 25mg Q.5D Take 25 mg [place] tartrate 8-13 by mouth 2 Metho di (LOPRESSOR) 10:48: (two) st 25 mg 36 times a tablet day. levothyroxi 2020-0 Yes 25ug QD Take 25 Carri ston ne 8-13 mcg by Methodi (SYNTHROID) 10:48: mouth st 25 mcg 36 daily. tablet torsemide 2020-0 Yes 20mg Q.5D Take 20 mg [place] (DEMADEX) 8-13 by mouth 2 Meth gladys 20 MG 10:48: (two) st tablet 36 times a day. latanoprost 2020-0 Yes 1[drp] QD Administer Garza (XALATAN) 8- 1 drop to Metho di 0.005 % 10:48: both eyes st ophthalmic 36 nightly. solution vitamin B 2020-0 Yes 500mg Take 500 Carri ston complex (B 8-13 mg by Methodi COMPLEX-VIT 10:48: mouth. st DUMONT B12 36 ORAL) digOXIN 2020-0 Yes 125ug QD Take 125 [place] (LANOXIN) 8-13 mcg by Methodi 125 mcg 10:48: mouth st (0.125 mg) 36 daily. PRN tablet predniSONE 2020-0 Yes prednisone [place] (DELTASONE) 8-13 10 mg Methodi 10 mg 10:48: tablet st tablet 36 albuterol 2020-0 Yes Ventolin [place] sulfate 10-01 Methodi (VENTOLIN 10:48: st HFA INHL) 36 NON 2020-0 2020- No Q.5D 2 (two) [place] FORMULARY 10-01- times a Method i 10:47: 00:[address] 42 :00 Viteyes AREDS 2 fluticasone 2020-0 2020- No Trelegy Gibran enamorado -umeclidin- 10-01 Ellipta Meth gladys vilanter 10:46: 00:[address] (TRELEGY 54 :00 mcg-62.5 ELLIPTA) mcg-25 mcg 100-62.5-25 powder for mcg blister inhalation with device powder for inhalation colchicine 2020-0 2020- No .6mg QD Take 0.6 Gibran enamorado 0.6 mg 10-01- mg by Methodi tablet 10:46: 00:[address] 35 :00 daily. PRN umeclidiniu 2020-0 2020- No Inhale. Gibran enamorado m (Incruse 08-25 07-07 Methodi Ellipta) 14:04: 00:00 st 62.5 05 :00 mcg/actuati on blister with device roflumilast 2019-0 2020- No 500ug QD Take 500 Garza (Daliresp) 08-25 07-07 mcg by Method i 500 mcg 14:00: 00:[address] tablet 25 :00 daily. fluticasone 2020-0 2020- No QD Inhale 1 [place] furoate-oscar 08-25 07-07 inhalation M ethodi anteroL 14:00: 00:[address] (Breo 18 :00 daily. Ellipta) 100-25 mcg/dose blister with device powder for inhalation albuterol 2019-0 2020- No 2.5mg Q6H Take 2.5 Gibran enamorado (ACCUNEB) - 07-07 mg by Methodi 2.5 mg /3 13:59: 00:00 nebulizati s t mL (0.083 49 :00 on every 6 %) (six) nebulizer hours as solution needed for wheezing. PRN acetaminoph 2020-0 2020- No acute pain 1{tbl} Q6H Take 1 Garza en-codeine 5-26 05-31 tablet by Met jeronimo (TYLENOL 00:00: 23:[address] WITH 00 :00 every 6 CODEINE #3) (six) 300-30 mg hours as per tablet needed for moderate pain for up to 5 days .acute pain. colchicine colchicine 2018-02 No colchicine [place] 0.6 mg 0.6 mg 1-13 0.6 mg da capsule capsule 00:00: capsule Medi tamia 00 Group warfarin 2020- No 2.5mg QD Take 1 [place] (COUMADIN) 07-11 tablet Method i 2.5 MG 00:00: 00:00 (2.[address] tablet 00 :00 total) by mouth daily. Take with 3 mg tablet for total 5.5 mg Insulin Yes 6 unit, Memoria Lispro 100 4-12 SUB-Q, l UNT/ML 20:25: TID-Before Eva nn Injectable 00 Meals, PRN Solution Blood Glucose Results, 0 Refill(s) Glucagon Yes 1 mg, IM, Yonathan rob 4-12 PRN, PRN l 20:25: Blood [place] 00 Glucose Results, 0 Refill(s) fentaNYL Yes 25 Memoria 0.05 mg/mL 4-12 microgram l injectable 20:25: = 0.5 mL, He rmann solution 00 IV, Q2H, PRN Pain Score 4-6, 0 Refill(s) docusate Yes 100 mg = Memor ia sodium 150 4-12 10 mL, PO, l mg/15 mL 20:25: Q12H, 0 Dao n oral liquid 00 Refill(s) cyanocobala Yes 500 Memori a min 500 mcg 4-12 microgram l sublingual 20:25: = 1 tab, Her armenta tablet 00 PO, Daily, 0 Refill(s) ampicillin Yes 2 gm, Memori a 2 g 4-12 IVPB, l injection 20:25: ABXQ8H, 0 Her armenta 00 Refill(s) bisacodyl Yes 10 mg = 1 Mem oria 10 mg 4-12 supp, OH, l rectal 20:25: Daily, PRN Eva nn suppository 00 Constipati on, 0 Refill(s) allopurinol Yes 300 mg = 1 Memoria 300 mg oral 4-12 tab, PO, l tablet 20:25: Daily, 0 [place] 00 Refill(s) Albuterol 2019-0 Yes 3 mL, NEB, Me moria 0.833 MG/ML 4-12 RQ6H, PRN l / 20:25: as needed Mc Ipratropium 00 for [place] shortness 0.167 MG/ML of breath Inhalant or Solution wheezing, [DuoNeb] 0 Refill(s) albumin 2018- Yes 12.5 gm = Memor ia human 25% 4-12 50 mL, l intravenous 20:25: DIALYSIS, H ermann solution 00 During Dialysis, PRN Hypotensio n, 0 Refill(s) Acetaminoph Yes 100.4 F, M emoria en 325 MG 4-12 0 l Oral Tablet 20:25: Refill(s) H ermann 00 latanoprost Yes 1 drp, Yonathan rob 0.05 MG/ML 4-12 OPTH, l Ophthalmic 20:25: Bedtime, 0 H ermann Solution 00 Refill(s) [Xalatan] sodium Yes 2 mL, Memoria citrate 4-12 DIALYSIS, l intravenous 20:25: ONCE, 0 Her armenta solution 00 Refill(s) sodium 2018-0 Yes 5 mL, Memoria citrate 4-12 DIALYSIS, l 20:25: PRN, PRN Mc 00 Dialysis, 0 Refill(s) Sodium Yes 0.09 gm = Memori a Chloride -12 10 mL, l 20:25: IVP, PRN, Mc 00 PRN Line Flush, 0 Refill(s) sennosides, Yes 8.6 mg = 1 Memoria NURSING HOME 8.6 MG 4-12 tab, PO, l Oral Tablet 20:25: Daily, 0 He rmann 00 Refill(s) roflumilast 0 Yes 500 Memori a 500 mcg 4-12 microgram l oral tablet 20:25: = 1 tab, He rmann 00 PO, Daily, 0 Refill(s) POLYETHYLEN 2019-0 Yes PO, Daily, Memoria E GLYCOL 4-12 0 l 3350 20:25: Refill(s) [place] 00 Oxycodone 0 Yes 5 mg = 5 Yonathan rob Hydrochlori 4-12 mL, JT, l de 1 MG/ML 20:25: Q6H, PRN Her armenta Oral 00 Pain Score Solution 4-6, 0 Refill(s) ocular Yes 1 appl, Memoria lubricant 4-12 BOTH EYES, l 20:25: Q6H, PRN Mc 00 Dry Eyes, 0 Refill(s) Mupirocin Yes 1 appl, Memor ia 0.02 MG/MG 4-12 TOP, Q12H, l Topical 20:25: 0 [place] Ointment 00 Refill(s) [Bactroban] multivitami Yes 1 tab, PO, Memoria n with 4-12 Daily, 0 l minerals 20:25: Refill(s) Herm willem 00 levothyroxi Yes 25 Memori a ne 25 mcg -12 microgram l (0.025 mg) 20:25: = 1 tab, Her armenta oral tablet 00 PO, Q630AM, 0 Refill(s) Lanolin Yes 1 appl, Memoria 0.157 MG/MG 4-12 TOP, BID, l / Menthol 20:25: 0 [place] 0.0044 00 Refill(s) MG/MG / Petrolatum 0.24 MG/MG / Zinc Oxide 0.206 MG/MG Topical Ointment [Calmosepti ne] Ipratropium Yes 0.5 mg = Me moria [place] 0.2 -12 2.5 mL, l MG/ML 20:25: NEB, RQ6H, Dao n Inhalant 00 0 Solution Refill(s) sodium No Notes: Memoria citrate -12 (Same as: l 19:59: Sodium [place] 00 Citrate, anticoagul ant) . argatroban No Notes: Memor ia 100 MG/ML -12 (Same as: l Injectable 15:39: Acova) Eva nn Solution 00 MEDICATION WASTE Product Size: 250 mg Product Wasted: ___ mg WASTE: F/P - Black; E - Municipal Trash Bin bivalirudin No Notes: IV M emoria -12 only. Not l 02:26: for IM [place] use. I.V. infusion: 250 mg in 500 mL (0.5 mg/mL) or 250 mg in 50 mL (5 mg/mL) of D5W or NS bivalirudin No 100 mg, Mem oria 12 100 mL, l 02:24: Rate: Mc 00 Start at 0.05 mg/kg/hr, Dosing Weight 93.636, kg, Route: IV, Total Volume: 100, Start Date: 05/30/18 21:24:00 CDT, Duration: 30 day, Stop date: 06/29/18 21:23:00 CDT, Replace Every: 24 hr Warfarin No Notes: Pradip 4 Nurse to l 22:00: ensure Mc documentat ion of patient education per anticoagul ation policy. Avoid large intake of vitamin-K containing foods diet. (Same As: Coumadin) WASTE: F/P - P Waste Black; E - P Waste Black Warfarin No Notes: Pradip 05-28 Nurse to l 22:00: ensure Mc documentat ion of patient education per anticoagul ation policy. Avoid large intake of vitamin-K containing foods diet. (Same As: Coumadin) WASTE: F/P - P Waste Black; E - P Waste Black Mupirocin No 1 appl, Memor ia 0.02 MG/MG 05-28 Route: l Topical 14:00: TOP, Q12H, Herm willem Ointment 00 Drug form: [Bactroban] OINT, Start date: 05/28/18 9:00:00 CDT, Duration: 30 day, Stop date: 06/26/18 21:00:00 CDT ampicillin No Notes: Memor ia 05-28 (Same as: l 01:00: Principen) [place] 00 MEDICATION WASTE Product Size: 2000 mg Product Wasted: ___ mg sodium Yes Notes: Memoria citrate 05-27 (Same as: l 21:15: Sodium [place] 00 Citrate, anticoagul ant) . sodium No Notes: Memoria citrate 05-27 (Same as: l 20:44: Sodium Mc 00 Citrate, anticoagul ant) . Midazolam No Notes: Memori a 05-27 (Same as: l 18:36: Versed) [place] 00 MEDICATION WASTE Product Size: 2 mg Product Wasted: ___ mg Fentanyl No Notes: Memoria 4-08 (Same as: l 18:36: Sublimaze) Preservat jessica free. desmopressi No Notes: Yonathan rob n 4-08 (Same As: l 18:36: DDAVP) MEDICATION WASTE Product Size: 4 microgram Product Wasted: ___ microgram fentaNYL No Route: IV, Mem oria (ANES) 05-27 Drug form: l 13:49: INJ, ONCE, Stop date: 05/27/18 8:49:00 CDT vasopressin No Route: IV, Memoria (ANES) 4 Drug form: l 13:49: INJ, ONCE, Stop date: 05/27/18 8:49:00 CDT cisatracuri No Route: IV, Memoria um (ANES) 05-27 Drug form: l 13:39: INJ, ONCE, Stop date: 05/27/18 8:39:00 CDT propofol No Route: IV, Mem oria (ANES) 08 Drug form: l 13:39: INJ, ONCE, Stop date: 05/27/18 8:39:00 CDT Fentanyl No Notes: Memoria 4-07 (Same as: l 19:07: Sublimaze) Preservat jessica free. Roxicodone No Notes: Memor ia -07 (Same as: l 16:28: 'Roxicodon e) Fentanyl No 12.5 Memoria 4-07 microgram, l 07:04: Route: IV, ONCE, Dosing Weight 93.636, kg, Start date: 05/26/18 2:04:00 CDT, Stop date: 05/26/18 2:04:00 CDT Vancomycin No 2001 mg: Me moria 4-07 infuse l 03:00: over 2.5 hours For adult patients only: Round to nearest 250 mg per Medical Staff approval MEDICATION WASTE Product Size: 1000 mg Product Wasted: ___ mg acetaminoph No Notes: Do M emoria en-codeine 05-25 not exceed l #3 18:06: 4gm/day of acetaminop hen. (Same as: Tylenol with Codeine # 3) Fentanyl No Notes: Memoria 05-25 (Same as: l 14:14: Sublimaze) Preservat jessica free. Dextrose 5% No 1,000 mL, M emoria in Water IV 05-25 Rate: 75 l 1,000 mL 14:13: ml/hr, Infuse over: 13.3 hr, Route: IV, Dosing Weight 93.636 kg, Total Volume: 1,000, Start date: 05/25/18 9:13:00 CDT, Duration: 30 day, Stop date: 06/24/18 9:12:00 CDT, 2.19, m2 Rocuronium No Notes: Memor ia 05-24 (Same as: l 19:16: Zemeron) Etomidate No Notes: Memori a 05-24 (Same as: l 19:16: Amidate). Per state nursing law etomidate can only be given by a nurse if patient is intubated or being intubated (unless the nurse is a SUPERVISOR FITTING). Versed No Notes: Memoria 05-24 (Same as: l 19:16: Versed) MEDICATION WASTE Product Size: 2 mg Product Wasted: ___ mg Fentanyl No Notes: Memoria 05-24 (Same as: l 19:16: Sublimaze) Preservat jessica free. chlorhexidi No Notes: Yonathan rob ne 05-23 (Same As: l gluconate 02:00: Peridex) Herm willem 1.2 MG/ML 00 Mouthwash ocular No Notes: Memoria lubricant 03 (Same as: l 23:00: Lacri-Lube Mc 00 , Puralube, Duratears Naturale, Artificial Tears, and Tears Again ) NS (Bolus) 0 No 500 mL, Yonathan rob IV -03 500 ml/hr, l 22:01: Infuse Mc 00 Over: 1 hr, Route: IV, 500, Drug form: INJ, ONCE, Priority: STAT, Dosing Weight 93.636 kg, Start date: 05/22/18 17:01:00 CDT, Stop date: 05/22/18 17:01:00 CDT Versed No Notes: Memoria 05-22 (Same as: l 21:02: Versed) [place] 00 MEDICATION WASTE Product Size: 2 mg Product Wasted: ___ mg Norepinephr No Notes: Not Memoria ine - for direct l 21:02: administra [place] 00 tion - DILUTE. Protect from light. (Same as:Levophe d). Administer by either central venous catheter or peripheral ly-inserte d central catheter (PICC) line. sodium No Notes: Memoria bicarbonate 05-22 (sodium l 8.4% 21:02: bicarb Mc 00 8.4% (1 mEq/ml) 50 ml VL) 10 ML No Notes: Memoria Epinephrine 05-22 Luer lock l 0.1 MG/ML 21:02: syringe Eva nn Prefilled 00 Syringe Fentanyl No 1,000 Memoria - microgram, l 21:02: 20 mL, Mc 00 Rate: Titrate, Start Dose: 50 microgram/ hr, Titration: 25 microgram/ hour every 15 minutes, Goal(s): rass -2, Max Dose: 300 microgram/ hr, Route: IV, Dosing Weight 93.636 kg, Total Volume: 20, Start date: 05/22/18 16:02:00 CDT, [place].. chlorhexidi No Notes: Yonathan rob ne 05-22 (Same As: l gluconate 20:48: Peridex) Herm willem 1.2 MG/ML 00 Mouthwash Magnesium No Notes: Memori a Sulfate 05-22 WASTE: F/P l 20:27: - Sink; E Mc 00 - Municipal Trash Bin albumin No Notes: Memoria human 5% 05-22 LOT#: l intravenous 06:33: [place] solution 00 ___ Mfg: WASTE: F/P - Red; E -Red (Same as: Albuminar) "blood product derivative " albumin No Notes: Memoria human 5% 05-22 LOT#: l intravenous 04:24: [place] solution 00 ___ Mfg: WASTE: F/P - Red; E -Red (Same as: Albuminar) "blood product derivative " Beneprotein No Notes: Yonathan rob 7 gm pkt 05-21 (Same as: l 21:30: Beneprotei Mc 00 n) Versed No Notes: Memoria 05-20 (Same as: l 17:11: Versed) [place] MEDICATION WASTE Product Size: 2 mg Product Wasted: ___ mg albumin No Notes: Memoria human 25% 05-20 LOT#: l intravenous 01:47: [place] solution 00 ___ Mfg: WASTE: F/P - Red; E -Red (Same as: Albuminar) "blood product derivative " Fentanyl No 1,000 Memoria 3-31 microgram, l 21:04: 20 mL, Mc 00 Rate: Titrate, Start Dose: 50 microgram/ hr, Titration: 25 microgram/ hour every 15 minutes, Goal(s): RASS -1, Max Dose: 300 microgram/ hr, Route: IV, Dosing Weight 93.636 kg, Total Volume: 20, Start date: 05/19/18 16:04:00 JAYLENE D... ocular No Notes: Memoria lubricant 3-31 (Same as: l 17:00: Lacri-Lube Mc 00 , Puralube, Duratears Naturale, Artificial Tears, and Tears Again ) heparin No Notes: Memoria additive 3-31 Total l 25,000 unit 15:53: Concentrat [place] [14 00 ion = 50 unit/kg/hr] unit/ ml + Premix Total Diluent volume = Sodium 500 ml Chloride Send Med 0.45% 500 Request 2 mL hours prior to next bag iodixanol No Notes: Memori a - (Same as: l 14:33: Visipaque) [place] 00 . WASTE: F/P - Black; E - Municipal Trash Bin Norvasc No Notes: Memoria 3- (Same as: l 14:00: Norvasc) [place] chlorhexidi No Notes: Yonathan rob ne 05-19 (Same As: l gluconate 14:00: Peridex) Herm willem 1.2 MG/ML Mouthwash Etomidate No Notes: Memori a 05-19 (Same as: l 13:38: Amidate). [place] 00 Per state nursing law etomidate can only be given by a nurse if patient is intubated or being intubated (unless the nurse is a SUPERVISOR FITTING). Fentanyl No Notes: Memoria 05-19 (Same as: l 13:38: Sublimaze) Preservat jessica free. chlorhexidi No Notes: Yonathan rob ne 05-19 (Same As: l gluconate 13:38: Peridex) Herm willem 1.2 MG/ML Mouthwash albumin No Notes: Memoria human 5% 05-19 LOT#: l intravenous 08:21: Mc solution 00 ___Mfg:___ ___ (Same as: Albuminar) "blood product derivative " WASTE: F/P - Red; E -Red MEDICATION WASTE Product Size: 25 gm Product Wasted: ___ gm Potassium No Notes: Memori a Chloride 05-19 (Same as: l 05:52: Potassium Chloride) hydrALAZINE No Notes: Yonathan rob 3-30 (Same as: l 19:00: Apresoline Mc 00 ) May interfere w/enteral feedings Take With Food Hydralazine No Notes: Yonathan rob 3-30 (Same as: l 15:13: Apresoline [place] 00 ) Push over 5 minutes Norvasc No Notes: Memoria 3-30 (Same as: l 15:08: Norvasc) [place] 00 Norvasc No Notes: Memoria 3-30 (Same as: l 14:00: Norvasc) [place] 00 lansoprazol No Notes: Yonathan rob e 3-30 Take 1 l 12:30: hour Mc 00 before or 2 hours after meal; Expires in 14 days. Shake well before use. (Same as:Prevaci d) Compound ed Product - formulatio n not commercial ly available* * Hydralazine No Notes: Yonathan rob 3-30 (Same as: l 06:51: Apresoline ) Push over 5 minutes potassium No Notes: Memori a phosphate 3-30 (Same as: l 04:14: K Phosphate. ) Do not infuse phosphorou s concurrent ly in the same line as TPN or IVF that contains calcium. For double lumen central lines, phosphorou s may be infused in a separate lumen from TPN. 1 mMol phoshate has 1.47 mEq potassium Infuse over 4 hours Potassium No Notes: Memori a Chloride 3-30 (Same as: l 04:14: Potassium Chloride) Eliquis No Notes: Memoria 3-30 Same as: l 02:00: Eliquis Bisacodyl No Notes: Memori a 3-29 (Same As: l 15:34: Dulcolax, Bisco-Lax) sennosides, No Notes: Yonathan rob NURSING HOME 8.6 MG 3-29 (Same as: l Oral Tablet 14:00: Senokot) He rm Miralax No Notes: Memoria 3-29 Dissolve l 14:00: in 8 oz of water or juice. (Same as: Miralax) albumin No Notes: Memoria human 25% -28 LOT#: l intravenous 19:59: Mc solution 00 ___ Mfg: WASTE: F/P - Red; E -Red (Same as: Albuminar) "blood product derivative " Ampicillin No Notes: Memor ia - (Same as: l 05:00: [place]) 00 MEDICATION WASTE Product Size: 2000 mg Product Wasted: ___ mg Furosemide No Notes: Memor ia 05-15 (Same as: l 21:26: Lasix) [place] 00 MEDICATION WASTE Product Size: 40 mg Product Wasted: ___ mg Ampicillin No Notes: Memor ia 05-15 (Same as: l 19:00: [place]en) Mc 00 MEDICATION WASTE Product Size: 2000 mg Product Wasted: ___ mg Insulin No Notes: Memoria Lispro 05-15 (Same as: l 13:16: Humalog ) Roll in palms of hands gently; Do not shake `vigorousl y. "Single Patient Use Only " WASTE: F/P - Black; E - Municipal Trash Bin Stable for 28 days at room temperatur e. Expires in days from ____Date Dextrose No 25 gm, 50 Yonathan rob 50% Syringe 27 mL, Route: l 13:16: IVP, Drug Form: INJ, Dosing Weight 93.636, kg, PRN, PRN Blood Glucose Results, Start date: 05/15/18 8:16:00 CDT, Duration: 30 day, Stop date: 06/14/18 8:15:00 CDT Glucagon No 1 mg, Memoria 05-15 Route: IM, l 13:16: Drug form: [place] 00 PDR/INJ, PRN, Dosing Weight 93.636, kg, PRN Blood Glucose Results, Start date: 05/15/18 8:16:00 CDT, Duration: 30 day, Stop date: 06/14/18 8:15:00 CDT chlorhexidi 0 No Notes: Yonathan rob ne 05-15 (Same As: l gluconate 02:00: Peridex) Herm willem 1.2 MG/ML Mouthwash potassium No Notes: Memori a phosphate-s 05-14 (Same as: l odium 23:10: Phos-NaK) [place] phosphate 00 Each 1.5 250 mg-280 gm pkt has mg-160 mg 250mg oral powder phosphorou for s. Mix reconstitut w/2.5oz ion water and stir. sodium No Notes: Memoria phosphate 3-26 Infuse l 23:10: over 4 [place] 00 hour. Do not infuse phosphorou s concurrent ly in the same line as TPN or IVF that contains calcium. For double lumen central lines, phosphorou s may be infused in a separate lumen from TPN. potassium No Notes: Memori a phosphate 3-26 (Same as: l 23:10: K [place] Phosphate. ) Do not infuse phosphorou s concurrent ly in the same line as TPN or IVF that contains calcium. For double lumen central lines, phosphorou s may be infused in a separate lumen from TPN. 1 mMol phoshate has 1.47 mEq potassium Infuse over 4 hours Calcium No Notes: Memoria Chloride 3-26 WASTE: F/P l 23:10: - Sink; E [place] 00 - Municipal Trash Bin Potassium No Notes: Memori a Chloride 3-26 (Same as: l 23:10: KCL) Mc Infuse no faster than 10 mEq/hr if given peripheral ly. Magnesium No Notes: Memori a Oxide 3-26 (Same as: l 23:10: Mag-Ox Mc 00 400) Magnesium oxide [id number] g elemental magnesium Dose=____m g magnesium oxide (___mg elemental magnesium) Magnesium No Notes: Memori a Sulfate 3-26 WASTE: F/P l 23:10: - Sink; E - Municipal Trash Bin Fentanyl 2018-0 No 1,000 Memoria 3-26 microgram, l 23:09: 20 mL, Mc 00 Rate: Titrate, Start Dose: 50 microgram/ hr, Titration: 25 microgram/ hour every 15 minutes, Goal(s): rass -2, Max Dose: 300 microgram/ hr, Route: IV, Dosing Weight 93.636 kg, Total Volume: 20, Start date: 05/14/18 18:09:00 Sascha MARIEE. Sodium 2019-0 No 1,000 mL, Memori a Chloride 3-26 1,000 l 0.9% 23:07: ml/hr, Mc (Bolus) IV 00 Infuse Over: 1 hr, Route: IV, 1,000, Drug form: INJ, ONCE, Priority: STAT, Dosing Weight 93.636 kg, Start date: 05/14/18 18:07:00 CDT, Stop date: 05/14/18 18:07:00 CDT albumin No Notes: Memoria human 5% 05-14 LOT#: l intravenous 23:07: [place] solution 00 ___ Mfg: WASTE: F/P - Red; E -Red (Same as: Albuminar) "blood product derivative " sodium No Notes: Memoria bicarbonate 05-14 (sodium l 8.4% 23:04: bicarb [place] 00 8.4% (1 mEq/ml) 50 ml VL) Vasopressin No Notes: Yonathan rob (NURSING HOME) 05-14 (Same As: l 23:03: Vasostrict Mc 00 ) ocular No Notes: Memoria lubricant 05-14 (Same as: l 23:00: Lacri-Lube Mc 00 , Puralube, Duratears Naturale, Artificial Tears, and Tears Again ) NS (Bolus) No 500 mL, Yonathan rob IV 05-14 500 ml/hr, l 22:12: Infuse Mc 00 Over: 1 hr, Route: IV, 500, Drug form: INJ, ONCE, Priority: STAT, Dosing Weight 93.636 kg, Start date: 05/14/18 17:12:00 CDT, Stop date: 05/14/18 17:12:00 CDT Fentanyl No Notes: Memoria 05-14 (Same as: l 22:11: Sublimaze) [place] 00 Preservat jessica free. tramadol No Notes: Not Mem oria hydrochlori 05-14 to exceed l de 50 MG 22:11: 400mg/day. Her armenta Oral Tablet 00 (Same As: Ultram) Mupirocin No 1 appl, Memor ia 0.02 MG/MG 05-14 Route: l Topical 22:00: NASAL, [place] Ointment 00 BID, Drug form: OINT, Start date: 05/14/18 17:00:00 CDT, Duration: 5 day, Stop date: 05/19/18 9:00:00 CDT Acetaminoph No Notes: Yonathan rob en 05-14 Infuse l 19:26: over 15 minutes Do not exceed 4gm/day of acetaminop hen MEDICATION WASTE Product Size: 1000 mg Product Wasted: ___ mg NS (Bolus) No 1,000 mL, Me moria IV 05-14 1,000 l 19:09: ml/hr, Infuse Over: 1 hr, Route: IV, 1,000, Drug form: INJ, ONCE, Priority: STAT, Dosing Weight 93.636 kg, Start date: 05/14/18 14:09:00 CDT, Stop date: 05/14/18 14:09:00 CDT chlorhexidi No Notes: Yonathna rob ne 05-14 (Same As: l gluconate 18:50: Peridex) Herm willem 1.2 MG/ML 00 Mouthwash Norepinephr No Notes: Not Memoria ine 05-14 for direct l 18:44: administra tion - DILUTE. Protect from light. (Same as:Levophe d). Administer by either central venous catheter or peripheral ly-inserte d central catheter (PICC) line. Epinephrine No Notes: Memoria -26 MEDICATION l 18:44: WASTE Product Size: 1 mg Product Wasted: ___ mg Calcium No 1 gm, Memoria Gluconate 05-14 Route: l 18:07: IVPB, PRN, Dosing Weight 93.636, kg, PRN Abnormal Lab Result, Start date: 05/14/18 13:07:00 CDT, Duration: 30 day, Stop date: 06/13/18 13:06:00 CDT, FOR ICU USE ONLY Magnesium No 800 mg, Memor ia Oxide 05-14 Route: PO, l 18:07: PRN, Dosing Weight 93.636, kg, PRN Abnormal Lab Result, FOR ICU USE ONLY, Start date: 05/14/18 13:07:00 CDT, Duration: 30 day, Stop date: 06/13/18 13:06:00 CDT Calcium 2019-0 No 1,000 mg, Memor ia Carbonate 05-14 Route: PO, l 500 MG 18:07: PRN, Mc Chewable 00 Dosing Tablet Weight 93.636, kg, PRN Abnormal Lab Result, FOR ICU USE ONLY, Start date: 05/14/18 13:07:00 CDT, Duration: 30 day, Stop date: 06/13/18 13:06:00 CDT Magnesium 2019-0 No 2 gm, Memoria Sulfate 05-14 Route: l 18:07: IVPB, PRN, [place] 00 Dosing Weight 93.636, kg, PRN Abnormal Lab Result, Start date: 05/14/18 13:07:00 CDT, Duration: 30 day, Stop date: 06/13/18 13:06:00 CDT, FOR ICU USE ONLY Insulin 2019-0 No Notes: Memoria regular 100 3- Final l unit + 18:07: Concentrat Eva nn 00 ion 1unit/1ml WASTE: F/P - Black; E - Municipal Trash Bin Dextrose 2019-0 No 25 gm, 50 Yonathan rob 50% Syringe 3-26 mL, Route: l 18:07: IVP, Drug [place] 00 Form: INJ, Dosing Weight 93.636, kg, PRN, PRN Blood Glucose Results, Start date: 05/14/18 13:07:00 CDT, Duration: 30 day, Stop date: 06/13/18 13:06:00 CDT Potassium 2019-0 No 20 mEq, Memor ia Chloride 05-14 Route: PO, l 18:07: Drug form: Mc 00 ERTAB, PRN, Dosing Weight 93.636, kg, PRN Abnormal Lab Result, Start date: 05/14/18 13:07:00 CDT, Duration: 30 day, Stop date: 06/13/18 13:06:00 CDT, FOR ICU USE ONLY sodium 2019-0 No 30 mmol, Memoria phosphate 05-14 Route: l 18:07: IVPB, PRN, [place] 00 Dosing Weight 93.636, kg, PRN Abnormal Lab Result, Start date: 05/14/18 13:07:00 CDT, Duration: 30 day, Stop date: 06/13/18 13:06:00 CDT, FOR ICU USE ONLY potassium No 30 mmol, Yonathan rob phosphate 05-14 Route: l 18:07: IVPB, PRN, [place] 00 Dosing Weight 93.636, kg, PRN Abnormal Lab Result, Start date: 05/14/18 13:07:00 CDT, Duration: 30 day, Stop date: 06/13/18 13:06:00 CDT, FOR ICU USE ONLY potassium No 2 pkt, Memori a phosphate-s 05-14 Route: PO, l odium 18:07: Dosing Mc phosphate 00 Weight 250 mg-280 93.636, mg-160 mg kg, PRN, oral powder PRN for Abnormal reconstitut Lab ion Result, FOR ICU USE ONLY, Start date: 05/14/18 13:07:00 CDT, Duration: 30 day, Stop date: 06/13/18 13:06:00 CDT calcium No Route: IV, Yonathan rob gluconate 05-14 Drug form: l (ANES) 17:13: INJ, ONCE, Eva nn 00 Stop date: 05/14/18 12:13:00 CDT Sodium No Route: IV, Memor ia Chloride 05-14 Drug form: l 0.9% IV 16:41: INJ, Start Herm willem (ANES) 70 00 date: mL + 05/14/18 protamine 11:41:00 (ANES) 300 CDT, Stop mg date: 05/14/18 12:41:00 CDT Sodium No Route: IV, Memor ia Chloride 05-14 Drug form: l 0.9% IV 16:30: INJ, Start Herm willem (ANES) 250 00 date: mL + 05/14/18 EPINEPHrine 11:30:00 (ANES) 32 CDT, Stop microgram date: 05/14/18 12:30:00 CDT Insulin 2018-0 No Notes: Memoria regular 100 3-26 Final l unit + 15:30: Concentrat Eva nn Sodium 00 ion Chloride 1unit/1ml 0.9% WASTE: F/P (titrate) - Black; E 99 mL - Municipal Trash Bin Norepinephr No Notes: Not Memoria ine 3-26 for direct l 15:29: administra Mc 00 tion - DILUTE. Protect from light. (Same as:Levophe d). Administer by either central venous catheter or peripheral ly-inserte d central catheter (PICC) line. Epinephrine No = 65 mmHg, Memoria 05-14 Max Dose: l 15:29: 0.5 microgram/ kg/min, Route: IV, Dosing Weight 93.636 kg, Total Volume: 250, Start date: 05/14/18 10:29:00 C... heparin No Route: IV, Yonathan rob (ANES) 05-14 Drug form: l 14:43: INJ, ONCE, Stop date: 05/14/18 9:43:00 CDT propofol No Route: IV, Mem oria (ANES) 05-14 Drug form: l 14:23: INJ, ONCE, Stop date: 05/14/18 9:23:00 CDT fentaNYL No Route: IV, Mem oria (ANES) 05-14 Drug form: l 14:23: INJ, ONCE, Stop date: 05/14/18 9:23:00 CDT lidocaine No Route: IV, Me moria (ANES) 05-14 Drug form: l 14:23: INJ, ONCE, Stop date: 05/14/18 9:23:00 CDT rocuronium No Route: IV, M emoria (ANES) 05-14 Drug form: l 14:23: INJ, ONCE, Stop date: 05/14/18 9:23:00 CDT midazolam No Route: IV, Me moria (ANES) 05-14 Drug form: l 14:23: SOLN, 00 ONCE, Stop date: 05/14/18 9:23:00 CDT ceFAZolin No Route: IV, Me moria (ANES) 05-14 Drug form: l 14:03: INJ, ONCE, Stop date: 05/14/18 9:03:00 CDT vancomycin No Route: IV, M emoria (ANES) 1000 05-14 Drug form: l mg 13:30: INJ, Start date: 05/14/18 8:30:00 CDT, Stop date: 05/14/18 9:30:00 CDT Sodium No Route: IV, Memor ia Chloride 3-26 Total l 0.9% IV 13:30: Volume: Mc (ANES) 1000 00 1,000, mL Start date: 05/14/18 8:30:00 CDT, Stop date: 05/14/18 9:30:00 CDT Sodium No Route: IV, Memor ia Chloride 3-26 Drug form: l 0.9% IV 13:30: INJ, Start Herm willem (ANES) 500 00 date: mL + 05/14/18 tranexamic 8:30:00 acid (ANES) CDT, Stop 2000 mg date: 05/14/18 9:30:00 CDT Isolyte S No Route: IV, Me moria PH 7.4 3-26 Total l (ANES) 1000 12:40: Volume: Her armenta mL 00 1,000, Start date: 05/14/18 7:40:00 CDT, Stop date: 05/14/18 8:40:00 CDT hydrALAZINE No Notes: Yonathan rob 3-26 (Same as: l 01:00: Apresoline ) May interfere w/enteral feedings Take With Food. Lanolin No Notes: Memoria 0.157 MG/MG 3-24 (Same as: l / Menthol 22:00: Calmosepti He rmann 0.0044 00 ne) MG/MG / Petrolatum 0.24 MG/MG / Zinc Oxide 0.206 MG/MG Topical Ointment [Calmosepti ne] Potassium No Notes: Memori a Chloride 3-24 (Same as: l 14:25: Potassium Chloride) Potassium No Notes: Memori a Chloride 3-23 (Same as: l 14:34: KCL) Infuse no faster than 10 mEq/hr if given peripheral ly. Potassium No Notes: Memori a Chloride 3-23 (Same as: l 14:23: KCL) Infuse no faster than 10 mEq/hr if given peripheral ly. Hydralazine No Notes: Yonathan rob 3-22 (Same as: l 03:00: Apresoline [place] 00 ) May interfere w/enteral feedings Take With Food. Metoprolol No Notes: Memor ia 3-21 (Same as: l 15:30: Lopressor) [place] 00 Push over 2 minutes Metoprolol No Notes: Memor ia 3-21 (Same as: l 05:00: Lopressor) Mc 00 Push over 2 minutes Hydralazine No Notes: Yonathan rob 3-21 (Same as: l 04:19: Apresoline Mc 00 ) Push over 5 minutes metoprolol No Notes: Memor ia tartrate 3-21 (Same as: l 02:50: Lopressor) Ampicillin No Notes: Memor ia 3-20 (Same as: l 23:00: [place]) MEDICATION WASTE Product Size: 2000 mg Product Wasted: ___ mg Rocephin + No Notes: Memor ia sterile 3-20 (Same As: l water 20 mL 23:00: Rocephin). Use with 100 mL NS and infuse over 30 min MEDICATION WASTE Product Size: 2000 mg Product Wasted: ___ mg heparin No Notes: Memoria sodium, 3-20 porcine l porcine 21:00: heparin [place] 2500 UNT/ML 00 Injectable Solution Digoxin No Notes: Memoria 0.125 MG 3-20 Take on an l Oral Tablet 14:00: Empty Vea nn 00 Stomach (Same as: Lanoxin) Xalatan No 1 drp, Memoria 3-20 Route: l 14:00: BOTH EYES, [place] Daily, Drug form: DROP, Start date: 05/08/18 9:00:00 CDT, Duration: 30 day, Stop date: 06/06/18 9:00:00 CDT Allopurinol No Notes: Yonathan rob 3-20 (Same as: l 14:00: Zyloprim) Mc 00 Vitamin B12 No Notes: Yonathan rob 3-20 (Same As: l 14:00: Vitamin Mc 00 B12) Breo No Breo Memoria Ellipta 100 3-20 Ellipta l mcg-25 mcg 14:00: 100 mcg-25 H ermann inhalation 00 mcg powder inhalation powder, 1 puff, Drug form: MISC, Route: INHALATION , Daily, 05/08/18 9:00:00 CDT, Duration: 30 day, Stop date: 06/06/18 9:00:00 CDT multivitami No Notes: Yonathan rob n with 3-20 (Same l minerals 14:00: as:Thera-M Her armenta 00 , Theragran- M) WASTE: F/P - Black; E - [place] Trash Bin Give with food. NIFEdipine No Notes: Memor ia 60 mg oral 3-20 (Same as: l tablet, 14:00: Adalat CC, Herm willem extended 00 Procardia release XL) Give on empty stomach. Take 1 hour before or 2 hours after meal; "Avoid grapefruit and grapefruit juice". Do not crush Breo No 1 puff, Memoria Ellipta 100 3-20 Route: l mcg-25 mcg 13:00: INHALATION H [place] inhalation 00 , Drug powder Form: PWDR, Dosing Weight 93.636, kg, RDaily, Start date: 05/08/18 8:00:00 CDT, Duration: 30 day, Stop date: 06/06/18 8:00:00 CDT NS 0.45% IV No 1,000 mL, M emoria 1,000 mL 3-20 Rate: 50 l 05:01: ml/hr, Infuse over: 20 hr, Route: IV, Dosing Weight 93.636 kg, Total Volume: 1,000, Start date: 05/08/18 0:01:00 CDT, Duration: 30 day, Stop date: 06/07/18 0:00:00 CDT, 2.19, m2 metoprolol No Notes: Memor ia tartrate 3-20 (Same as: l 02:00: Lopressor) [place] 00 latanoprost No Notes: Yonathan rob 0.05 MG/ML 3-20 Keep l Ophthalmic 02:00: refrigerat H [place] Solution 00 ed. (Same [Xalatan] as:Xalatan ) Opened bottle may be stored at room temperatur e for 6 weeks Bumex No Notes: Memoria 3-19 (Same As: l 22:00: Bumex) [place] 00 Protonix No Notes: Memoria 3-19 Tablet l 21:30: should not [place] 00 be chewed or crushed. (Same as: Protonix) Colchicine No 0.6 mg = 1 M emoria 0.6 MG Oral 3-19 cap, PO, l Capsule 19:35: PRN, # 30 Eva nn 00 tab, 0 Refill(s) Eliquis No 2.5 mg, Memoria 3-19 PO, Q12H, l 19:35: 0 Mc 00 Refill(s) Roflumilast No 500 Memori a 0.5 MG Oral 3-19 microgram l Tablet 19:35: = 1 tab, Mc [Daliresp] 00 PO, Daily, 0 Refill(s) Red Yeast No 1,200 mg, Mem oria Rice 3-19 PO, BID, 0 l 19:35: Refill(s) Mc 00 NIFEdipine No 60 mg = 1 Me moria 60 mg oral 3-19 tab, PO, l tablet, 19:35: Daily, # Dao n extended 00 30 tab, 0 release Refill(s) olmesartan No 40 mg = 1 Me moria 40 mg oral 3-19 tab, PO, l tablet 19:35: Daily, # Mc 00 30 tab, 0 Refill(s) Breo No 1 puff, Memoria Ellipta 100 3-19 INHALATION l mcg-25 mcg 19:35: , Daily, 0 H ermann inhalation 00 Refill(s) powder allopurinol No 300 mg = 1 Memoria 300 mg oral 3-19 tab, PO, l tablet 19:35: Daily, # Mc 00 90 tab, 1 Refill(s) Digoxin No 125 Memoria 3-19 microgram, l 19:35: PO, Daily, Mc 00 0 Refill(s) levothyroxi No 25 Memori a ne 25 mcg 3-19 microgram l (0.025 mg) 19:35: = 1 tab, Her armenta oral tablet 00 PO, Daily, # 30 tab, 0 Refill(s) Clonidine No 0.3 mg = 1 Me moria Hydrochlori 3-19 tab, PO, l de 0.3 MG 19:35: Q12H, # 60 He rmann Oral Tablet 00 tab, 1 Refill(s) Incruse Yes INHALATION Yonathan rob Ellipta 3-19 , Q24H, 0 l 62.5 mcg 19:35: Refill(s) Herm willem inhalation 00 powder Prednisone Yes See Memoria 3-19 Instructio l 19:35: ns, 20 mg Mc 00 PO Daily, 0 Refill(s) Vitamin B12 No 500 Memori a 500 mcg 3-19 microgram l oral tablet 19:35: = 1 tab, He rmann 00 PO, Daily, # 30 tab, 0 Refill(s) metoprolol No 50 mg = 1 Me moria tartrate 50 3-19 tab, PO, l mg oral 19:35: Q12H, # Mc tablet 00 180 tab, 0 Refill(s) PreserVisio No 1 cap, PO, Memoria n AREDS 2 3-19 Q12H, 0 l 19:35: Refill(s) Mc 00 Ipratropium No Notes: SEE Memoria [place] 0.2 3-19 RT l MG/ML 19:00: DOCUMENTAT Dao n Inhalant 00 ION (Same Solution as:At[place] t) Roflumilast No 500 Memori a 3-19 microgram, l 17:42: 1 tab, Mc 00 Route: PO, Drug form: TAB, Daily, Dosing Weight 93.636, kg, Priority: NOW, Start date: 05/07/18 12:42:00 CDT, Duration: 30 day, Stop date: 07/06/18 9:00:00 CDT Synthroid No Notes: Memori a 3-19 Take 1 l 17:42: hour Mc 00 before or 2 hours after meal; Enteral feeds may interefere with the absorption of this medication . (Same as:Levothr oid) Fentanyl No Notes: Memoria 3-19 (Same as: l 15:57: Sublimaze) Cm 00 Preservat jessica free. Versed No Notes: Memoria 3-19 (Same as: l 15:57: Versed) MEDICATION WASTE Product Size: 2 mg Product Wasted: ___ mg Insulin No Notes: Memoria Lispro -19 (Same as: l 14:55: Humalog ) Roll in palms of hands gently; Do not shake `vigorousl y. "Single Patient Use Only " WASTE: F/P - Black; E - Municipal Trash Bin Stable for 28 days at room temperatur e. Expires in days from ____Date Glucagon No 1 mg, Memoria 3-19 Route: IM, l 14:55: Drug form: PDR/INJ, PRN, Dosing Weight 93.636, kg, PRN Blood Glucose Results, Start date: 05/07/18 9:55:00 CDT, Duration: 30 day, Stop date: 06/06/18 9:54:00 CDT Dextrose No 25 gm, 50 Yonathan rob 50% Syringe 3-19 mL, Route: l 14:55: IVP, Drug Form: INJ, Dosing Weight 93.636, kg, PRN, PRN Blood Glucose Results, Start date: 05/07/18 9:55:00 CDT, Duration: 30 day, Stop date: 06/06/18 9:54:00 CDT metoprolol No Notes: Memor ia tartrate - (Same as: l 14:00: Lopressor) 12.5 mg=1/2 X 25 mg TAB Amiodarone No Notes: Memor ia 3-19 (Same as: l 14:00: Cordarone) Aspirin No Notes: Do Memor ia 3-19 not crush l 14:00: or chew. (Same As: Ecotrin) Saline No Notes: Memoria Flush 0.9% -19 (Same as: l 14:00: BD Posiflush) pantoprazol No Notes: For Memoria e 3-19 IV push l 14:00: reconstitu te with 10 ml 0.9% sodium chloride and push over 2 minutes. (Same as: Protonix) Docusate No Notes: Memoria - (Same as: l 14:00: Colace) Budesonide No Notes: Memor ia 0.25 MG/ML 05-07 (Same As: l Inhalant 13:18: Pulmicort) Her armenta Solution 00 cefepime No Notes: Memoria - (Same As: l 10:00: Maxipime) MEDICATION WASTE Product Size: 1000 mg Product Wasted: ___ mg Albuterol No Notes: Memori a 0.833 MG/ML 05-07 (Same as: l / 09:33: Duoneb) Ipratropium 00 [place] 0.167 MG/ML Inhalant Solution [DuoNeb] Vancomycin No 2001 mg: Me moria 05-07 infuse l 09:24: over 2.5 hours For adult patients only: Round to nearest 250 mg per Medical Staff approval MEDICATION WASTE Product Size: 1000 mg Product Wasted: ___ mg Saline No Notes: Memoria Flush 0.9% 05-07 (Same as: l 08:30: BD Posiflush) Acetaminoph No Notes: Do M emoria en 05-07 not exceed l 08:30: 4 gm/day. (Same as: Tylenol) Breo Breo No Breo [place] Ellipta 100 Ellipta 100 Ellipta da mcg-25 mcg-25 100 mcg-25 Medic al mcg/dose mcg/dose mcg/dose Jorge Luis up powder for powder for powder for inhalation inhalation inhalation Daliresp Daliresp No Daliresp [place] 500 mcg 500 mcg 500 mcg da tablet tablet tablet [facility] Digox 125 Digox 125 No Digox 125 [place] mcg (0.125 mcg (0.125 mcg (0.125 da mg) tablet mg) tablet mg) tablet [facility] hydrocodone hydrocodone No hydrocodon [place] 7.5 7.5 e 7.5 da mg-acetamin mg-acetamin mg-acetami Medical ophen 325 ophen 325 nophen 325 Group mg tablet mg tablet mg tablet ipratropium ipratropium No ipratropiu [place] -albuterol -albuterol m-albutero da 0.5 mg-3 0.5 mg-3 l 0.5 mg-3 M edical mg(2.5 mg mg(2.5 mg mg(2.5 mg Group base)/3 mL base)/3 mL base)/3 mL nebulizatio nebulizatio nebulizati n soln n soln on soln levothyroxi levothyroxi No levothyrox [place] ne 25 mcg ne 25 mcg ine 25 mcg da tablet tablet tablet [facility] metoprolol metoprolol No metoprolol [place] tartrate 25 tartrate 25 tartrate da mg tablet mg tablet 25 mg Medi tamia tablet Group ondansetron ondansetron No ondansetro [place] 4 mg 4 mg n 4 mg da disintegrat disintegrat disintegra Medical ing tablet ing tablet ting Jorge Luis up tablet potassium potassium No potassium [place] chloride 20 chloride 20 chloride da mEq/15 mL mEq/15 mL 20 mEq/15 Medical oral liquid oral liquid mL oral Group liquid prednisone prednisone No prednisone [place] 10 mg 10 mg 10 mg da tablet tablet tablet [facility] Santyl 250 Santyl 250 No Santyl 250 [place] unit/gram unit/gram unit/gram da topical topical topical Medica l ointment ointment ointment Jorge Luis up torsemide torsemide No torsemide [place] 20 mg 20 mg 20 mg da tablet tablet tablet [facility] warfarin warfarin No warfarin [place] 2.5 mg 2.5 mg 2.5 mg da tablet tablet tablet [facility] warfarin 3 warfarin 3 No warfarin 3 [place] mg tablet mg tablet mg tablet [facility] warfarin 4 warfarin 4 No warfarin 4 [place] mg tablet mg tablet mg tablet [facility] warfarin 5 warfarin 5 No warfarin 5 [place] mg tablet mg tablet mg tablet [facility] Vital Signs Vital Name Observation Time Observation Value Comments Source BP Diastolic 2019-01-07 00:00:00 70 mm[facility]Hg[facility] Height 2019-01-07 00:00:00 72 [in_i] [facility] BMI (Body Mass 2019-01-07 00:00:00 23.1 kg/m2 [facility] product Medical Index) Group BP Systolic 2019-01-07 00:00:00 126 mm[Hg] [facility] Body Weight 2019-01-07 00:00:00 170 [lb_av] [facility] BP Diastolic 2019-01-01 00:00:00 76 mm[Hg] [facility] Height 2019-01-01 00:00:00 72 [in_i] [facility] BMI (Body Mass 2019-01-01 00:00:00 23.2 kg/m2 [facility] Medical Index) Group BP Systolic 2019-01-01 00:00:00 120 mm[Hg] [facility] Body Weight 2019-01-01 00:00:00 171 [lb_av] [facility] BP Diastolic 2018-09-12 00:00:00 81 mm[Hg] [facility] Height 2018-09-12 00:00:00 72 [in_i] [facility] BMI (Body Mass 2018-09-12 00:00:00 23.2 kg/m2 [facility] Medical Index) Group BP Systolic 2018-09-12 00:00:00 117 mm[Hg] [facility] Body Weight 2018-09-12 00:00:00 171 [lb_av] [facility] Systolic blood 2019-10-02 10:41:00 120 mm[Hg] [facility]ito n [facility] Diastolic blood 2019-10-02 10:41:00 77 mm[Hg] Rikit on [facility] Heart rate 2019-10-02 10:41:00 92 /min Greg [facility] Body temperature 2019-10-02 10:41:00 36.28 Meche [place] [facility] Respiratory rate 2019-10-02 10:41:00 18 /min [place] [facility] Body height 2019-10-02 10:41:00 182.9 cm [facility] Body weight 2019-10-02 10:41:00 90.719 kg [facility] BMI 2019-10-02 10:41:00 27.12 kg/m2 [facility] Oxygen saturation in 2019-10-02 10:41:00 100 /min [facility] Arterial blood by Pulse oximetry Systolic (mm Hg) 2018 23:00:00 Yonathan Bentley Diastolic (mm Hg) 2018 23:00:00 Mem orial [place] Respitory Rate 2018 23:00:00 Memori al [place] Systolic (mm Hg) 2018 22:30:00 Yonathan rial Mc Diastolic (mm Hg) 2018 22:30:00 Mem orial Mc Respitory Rate 2018 22:30:00 Memori al Mc Systolic (mm Hg) 2018 22:00:00 Yonathan rial [place] Diastolic (mm Hg) 2018 22:00:00 Mem orial [place] Respitory Rate 2018 22:00:00 Memori al Mc Height 2018 21:01:00 182.88 cm Memorial [place] Temperature Oral (F) 2018 21:00:00 97 F Memorial [place] Height 2018 18:08:00 182.88 cm Memorial Mc Height 2018 14:58:00 182.88 cm Memorial Mc Temperature Oral (F) 2018 14:00:00 96.3 F Memorial [place] Temperature Oral (F) 2018-05-30 17:00:00 97.9 F Memorial Mc Weight 2018-05-07 09:17:00 [facility] [place] BMI Calculated 2018-05-07 09:17:00 Memori al [place] Procedures Procedure Date / Time Performing Clinician Source Performed PARTIAL THROMBOPLASTIN 2019-10-02 11:41:00 Ervin Wilson [facility] TIME (PTT) Steve-Hsi PROTHROMBIN TIME WITH INR 2019-10-02 11:41:00 Ervin WilsonHsi BASIC METABOLIC PANEL 2019-10-02 11:41:00 Ervin WilsonHsi HC COMPLETE BLD COUNT 2019-10-02 11:41:00 Ervin Wilson W/AUTO DIFF Steve-Hsi ESTIMATED GFR 2019-10-02 11:41:00 Ervin Wilson-Hsi HEMOGLOBIN A1C 2019-10-02 11:41:00 Greg Villanueva TYPE AND SCREEN 2019-10-02 11:41:00 RichGreg somers HEPATIC FUNCTION PANEL 2019-10-02 11:41:00 Ervin Wilson [facility] Wilson-Hsi ANTIBODY IDENTIFICATION 2019-10-02 11:41:00 Riki Villanueva COVID-19 QUALITATIVE PCR 2019-10-02 10:17:00 Ervin Wilson Wilson-Hsi POC PANEL 4 2019-08-27 11:03:00 Ervin Wilson Meth odemanuel Wilson-Hsi COMPREHENSIVE METABOLIC 2019-08-27 10:50:00 Riki Villanueva [facility] PANEL Favio Burkett ESTIMATED GFR 2019-08-27 10:50:00 Greg Villanueva PARTIAL THROMBOPLASTIN 2019-08-27 10:50:00 Mary Villanueva [facility] TIME (PTT) Favio Burkett PROTHROMBIN TIME WITH INR 2019-08-27 10:50:00 Gibran Villanueva ECG PRE/POST OP 2019-08-26 14:56:55 Greg Villanueva PARTIAL THROMBOPLASTIN 2019-08-26 14:50:00 Ervin Wilson on [facility] TIME (PTT) Wilson-Hsi PROTHROMBIN TIME WITH INR 2019-08-26 14:50:00 Ervin Wilson Wilson-Hsi BASIC METABOLIC PANEL 2019-08-26 14:50:00 Ervin Wilsonist Wilson-Hsi HC COMPLETE BLD COUNT 2019-08-26 14:50:00 Ervin Wilson [facility] W/AUTO DIFF Wilson-Hsi ESTIMATED GFR 2019-08-26 14:50:00 Ervin Wilson Meth odemanuel Wilson-Hsi COVID-19 QUALITATIVE PCR 2019-08-26 14:21:00 Ervin Wilson [facility] Wilson-Hsi TYPE AND SCREEN 2019-08-26 14:21:00 Greg Villanueva ANTIBODY IDENTIFICATION 2019-08-26 14:21:00 Riki Villanueva XR CHEST 1 VW PORTABLE 2019-07-15 08:48:04 Mary Villanueva ECG 12-LEAD 2019-07-15 07:31:14 Ervin Wilson-Hsi POC PANEL 4 2019-07-15 07:31:00 Ervin Wilson-Hsi TYPE AND SCREEN 2019-07-15 07:24:00 Greg Villanueva BASIC METABOLIC PANEL 2019-07-15 07:24:00 Dena Villanueva HC COMPLETE BLD COUNT 2019-07-15 07:24:00 Dena Villanueva W/AUTO DIFF Favio Burkett PROTHROMBIN TIME WITH INR 2019-07-15 07:24:00 Gibran Villanueva PARTIAL THROMBOPLASTIN 2019-07-15 07:24:00 Mary Villanueva TIME (PTT) Favio Burkett ESTIMATED GFR 2019-07-15 07:24:00 Greg Villanueva ANTIBODY IDENTIFICATION 2019-07-15 07:24:00 Riki Villanueva COVID-19 QUALITATIVE PCR 2019-07-15 06:22:00 Carri Villanueva US VEIN MAPPING UPPER 2019-05-13 11:50:00 Louisa Yeung EXTREMITY RIGHT Kristin Intubation, endotracheal, 2018-05-19 20:41:00 [facility] emergency procedure Heart Valve Replacement 2018-05-14 00:00:00 [facility] Cardiac Pacemaker 2016-04-06 00:00:00 [facility] Blepharoplasty 2012-03-18 06:00:00 [facility] Cataract Surgery 2009-09-20 00:00:00 [facility] Cataract Surgery 2009-08-09 00:00:00 [facility] Revision of Total Hip 2005-09-19 00:00:00 [facility] Total Replacement of Hip 1985-02-19 00:00:00 [facility] Appendectomy 1968-02-20 00:00:00 [facility] Appendectomy [facility] Arthroplasty<sup>1</sup> [facility] Cataract [facility] extraction<sup>3</sup> [facility]sup[facility] Plan of Care Planned Activity Planned Date Details Comments Source Future Scheduled 2019-10-21 INFLUENZA VACCINE [facility] 00:00:00 [code = INFLUENZA VACCINE] Future Scheduled 2010 65+ PNEUMOCOCCAL [facility] 00:00:00 VACCINE (2 of 2 - PPSV23) [code = 65+ PNEUMOCOCCAL VACCINE (2 of 2 - PPSV23)] Future Scheduled 1995-06-01 COLONOSCOPY SCREENING [facility] [facility] 00:00:00 [code = COLONOSCOPY SCREENING] Future Scheduled 1995-06-01 SHINGLES VACCINES (#1) [place] [facility] 00:00:00 [code = SHINGLES VACCINES (#1)] Encounters Start End Encounter Admission Attending Care Care Encounter Source Date/Time Date/Time Type Type Clinicians Facility Department ID 2018-05-07 Inpatient [facility] 9077 [facility] 03:02:00 2019-10-02 2019-10-02 [facility] [id number] 219 [place] 00:00:00 00:00:00 ERVIN [address] 2019-10-02 2019-10-02 [facility] [id number] 107 [place] 00:00:00 00:00:00 ERVIN [address] 2019-09-11 2019-09-11 [facility] [id number] 506 [place] 00:00:00 00:00:00 ERVIN [address] 2019-08-27 2019-08-27 [id number] 224 [place] 00:00:00 00:00:00 ERVIN [address] 2019-08-26 2019-08-26 [facility] [id number] 241 [place] 00:00:00 00:00:00 ERVIN [address] 2019-08-26 2019-08-26 Outpatient STEVE, [facility] [id number] [place] 00:00:00 00:00:00 ERVIN [address] 2019-08-07 2019-08-07 Outpatient STEVE, [facility] [id number] 177 [place] 00:00:00 00:00:00 ERVIN [address] 2019-07-17 2019-07-17 Outpatient STEVE, [facility] [id number] 121 [place] 00:00:00 00:00:00 ERVIN [address] 2019-07-15 2019-07-15 Outpatient STEVE, [place] [id number] [place] 00:00:00 00:00:00 ERVIN [address] 2019-05-13 2019-05-13 Outpatient [facility] [id number] [place] 00:00:00 00:00:[address] 2019-05-13 2019-05-13 Outpatient [facility] [id number] 559 [place] 00:00:00 00:00:[address] 2019-01-07 2019-01-07 [place] - [id number] [place] 00:00:00 00:00:00 Mundo Miller MD: [facility] [address], [place] [address] , Ph. [phone] 2019-01-01 2019-01-01 [place] - [id number] M [place] 00:00:00 00:00:00 Mundo Miller MD: [facility] [address], [place] [address] , Ph. [phone] 2018-09-12 2018-09-12 Connor GRANT [place] - [id number] M [place] 00:00:00 00:00:00 DO Rubin: [facility] jeremie willoughby [address] [place] [address] [address], [facility], [facility] [address] , Ph. [phone] 2018-05-07 2018 Outpatient [facility] [id number] 03:02:00 18:30:00 Tasha 77 2017-02-09 2017-02-09 Outpatient C BABAK, [facility] [id number] [facility] 16:57:00 16:57:00 [facility] Results Test Description Test Time Test Comments Results Result Comments Source COVID-19 qualitative PCR 2019-10-02 19:21:17 Test Item Value Reference Range Interpretation Comme nts Interpretation (test code = Negative results do not 8983530) preclude 2019-nCoV infection and should not be used as the sole basis for treatment or other patient management decisions. Negative results must be combined with clinical observations, patient history, and epidemiological information. COVID-19 qualitative PCR Not-Detected Not-Detected result (test code = 84595-8) COVID-19 qualitative PCR See link below for PDF Lab Case Number: (test code = 7070) Report [id number] [place] MethodistAntibody mqjuqfkzxtigmi6584-92-27 17:16:00 Test Item Value Reference Range Interpretation Comments Antibody ID (test code = 62439-2) POS, Anti-D [place] MethodistType and neoikl1822-24-10 13:28:00 Test Item Value Reference Range Interpretation Comments ABO grouping (test code A = 883-9) Rh type (test code = NEG 61671-3) Antibody screen (gel) POS Result s called to TREVA (test code = 890-4) Andrew MORSE at 10/02/19 13:28 with readback.Specim en sent to [facility] for antibo dy identification. Allow 4-6 hours for jonas tible blood if needed . [facility] DallasistProthrombin time with [id number] 12:47:44 Test Item Value Reference Range Interpretation Comments Prothrombin time (test 61.8 11.5- 14.5 sec H code = 5902-2) INR (test code = 7.0 [facility] [address]-7) Normalized Rati o (INR) is a therapeuti c monitoring tool for patients who ar e stable on oral anticoagulant t herapy. An INR of 2.0-3 .0 is suggested for d eep vein thrombosis/pulm onary embolism.Final results called to johnson ortiz back by cherelle williamson 10/01 12:47 c.u Lab Interpretation Abnormal (test code = 82852-1) [place] MethodistPartial thromboplastin time, jobdgljwr7213-29-92 12:47:44 Test Item Value Reference Range Interpretation Comments PTT (test code = 64.9 23.0- 36.0 sec H PTT thera peutic range 3173-2) for unfractiona jes heparin is61.0- 112.0 seconds which corresponds to Anti-Xa0.3-0.7 U/ml. Lab Interpretation Abnormal (test code = 13303-2) [place] MethodistBasic metabolic wwxte8547-20-39 12:39:24 Test Item Value Reference Range Interpretation Comments Sodium (test code = 2951-2) 136 135- 148 mEq/L Potassium (test code = 2823-3) 4.6 3.5- 5.0 mEq/L Chloride (test code = 2075-0) 94 98- 112 mEq/L L CO2 (test code = 2027-9) 19 24- 31 mEq/L L Anion gap (test code = 98000-6) 23@ANIO 7- 15 mEq/L H BUN (test code = 3094-0) 119 mg/dL 8-23 H Creatinine (test code = 2160-0) 10.24 mg/dL 0.7-1.2 H Glucose (test code = 2345-7) 119 mg/dL 65-99 H Calcium (test code = 30312-0) 9.2 mg/dL 8.8-10.2 Lab Interpretation (test code = Abnormal 85648-2) [place] MethodistHepatic function tfykx1353-58-38 12:32:41 Test Item Value Reference Range Interpretation Comments Albumin (test code = 1751-7) 3.7 g/dL 3.5-5 Total bilirubin (test code = 0.9 mg/dL 0.2-1.2 1974-2) Bilirubin direct (test code = 0.5 mg/dL 0-0.3 H 1967-7) Alkaline phosphatase (test code = 108 U/L 40-129 68-6) Protein (test code = 2885-2) 6.7 g/dL 6.3-8.3 ALT (test code = 1742-6) 19 U/L 5-50 AST (test code = 1920-8) 14 U/L 10-50 Lab Interpretation (test code = Abnormal 44126-5) [place] MethodistEstimated [id number] 12:32:41 Test Item Value Reference Range Interpretation Comments Estimated GFR (test 4 mL/min/1.73 m2 Miladis galeana Units code = 5488) InterpretationG 1 >=90 Rosa l or highG2 60-89 Mildly decrease dG3a 45-59 Mil dly to moderately decr deyjjR7h 30-44 Moderately to s everely decreasedG4 15-29 Severe ly decreasedG5 <15 Kidney vaishali lureThe eGFR was calcul ated using the [facility] Kidney Disease Epidemiology Collaboration ( CKD-EPI) equation. Interpretation is based on recommendati ons of the National Ki dney Foundation-Kidn ey Disease Outcome s Quality Initiat jessica (NKF-KDOQI) pub lished in 2013. Lab Interpretation Abnormal (test code = 77356-5) [facility] MethodistHemoglobin [id number] 12:28:40 Test Item Value Reference Range Interpretation Comments Hemoglobin A1C (test 4.9 % 4-5.6 HbA1c c utoffs for code = 40251-9) diagnosing d iabetes:4.0% - 5.6% = normal 5.7% - 6.4% = increase d risk for diabetes (prediabetes)9> =6.5% = gxwajugf0Zseck for glycemic contro l (ADA 2016)< 7.0% Ta rget for non alok lts with diabetes. More or less stringent targe ts may be appropriate for individual leonel ents. <7.5% Target for Children and ad olescents with type 1 joan betes. [facility] MethodistCBC with platelet and wxasxlclsenr3365-61-68 12:24:30 Test Item Value Reference Range Interpretation Comments WBC (test code = 10904-0) 9.2 4.5- 11.0 k/uL RBC (test code = 07724-0) 3.51 m/uL 4.4-6 L HGB (test code = 718-7) 11.3 g/dL 14-18 L HCT (test code = 4544-3) 35.4 % 41-51 L MCV (test code = 787-2) 100.9 fL 82-100 H MCH (test code = 785-6) 32.2 pg 27-34 MCHC (test code = 786-4) 31.9 g/dL 31-37 RDW - SD (test code = 75482-4) 63.0 fL 37-55 H MPV (test code = 51156-9) 11.4 fL 6.9-11 H Platelet count (test code = 140 K/uL 150-400 L 28616-6) Nucleated RBC (test code = 45415-4) 0.20 /100 WBC Neutrophils (test code = 04892-4) 89.3 % 39-69 H Lymphocytes (test code = 77581-8) 4.2 % 25-45 L Monocytes (test code = 58861-5) 5.8 % 0-10 Eosinophils (test code = 70243-5) 0.2 % 0-5 Basophils (test code = 19825-9) 0.1 % 0-1 Immature granulocytes (test code = 0.4 % 0-1 91029-8) Lab Interpretation (test code = Abnormal 60036-3) [place] MethodistComprehensive metabolic wdlej0900-27-90 11:48:56 Test Item Value Reference Range Interpretation Comments Sodium (test code = 2951-2) 142 135- 148 mEq/L Potassium (test code = 2823-3) 4.2 3.5- 5.0 mEq/L Chloride (test code = 2075-0) 105 98- 112 mEq/L CO2 (test code = 8-9) 20 24- 31 mEq/L L Anion gap (test code = 55728-4) 17@ANIO 7- 15 mEq/L H BUN (test code = 3094-0) 89 mg/dL 8-23 H Creatinine (test code = 2160-0) 7.68 mg/dL 0.7-1.2 H Glucose (test code = 2345-7) 92 mg/dL 65-99 Calcium (test code = 30086-2) 8.8 mg/dL 8.8-10.2 Protein (test code = 2885-2) 7.0 g/dL 6.3-8.3 Albumin (test code = 1751-7) 4.0 g/dL 3.5-5 A/G ratio (test code = 1759-0) 1.3 0.7-3.8 Alkaline phosphatase (test code = 75 U/L 40-129 6768-6) AST (test code = 1920-8) 12 U/L 10-50 ALT (test code = 1742-6) 18 U/L 5-50 Total bilirubin (test code = 0.4 mg/dL 0.2-1.2 1974-) Lab Interpretation (test code = Abnormal 41301-7) [facility] [id number] 11:07:25 Test Item Value Reference Range Interpretation Comments POC sodium (test code = 140 mmol/L 207-163 1036-0) POC potassium (test 4.0 mmol/L 3.5-5 code = 6298-4) POC hematocrit (test 33 % 41-51 L code = 4544-3) POC glucose (test code 91 mg/dL 65-99 Opera tor Name: = 2339-0) Armand Jimenez ID : [id number] POC hemoglobin (test 11.2 g/dL 14-18 L code = 718-7) Lab Interpretation Abnormal (test code = 66714-8) [facility] Pre/Post [id number] 15:24:17 Test Item Value Reference Range Interpretation Comments Ventricular rate (test 90 code = 253) Atrial rate (test code 58 = 255) QRSD interval (test 176 code = 260) QT interval (test code 478 = 264) QTC interval (test code 584 = 265) QRS axis 1 (test code = -87 268) T wave axis (test code 91 = 270) EKG impression (test AV sequential or dual code = 273) chamber electronic pacemaker-Electronical ly Signed By Junior Natarajan MD ([id number]) on 08/26/2019 3:24:11 PM Greg Nguyen 12 jvci7610-78-18 12:28:48 Test Item Value Reference Range Interpretation Comments Ventricular rate (test 91 code = 253) Atrial rate (test code 97 = 255) QRSD interval (test 170 code = 260) QT interval (test code 470 = 264) QTC interval (test code 578 = 265) QRS axis 1 (test code = -83 268) T wave axis (test code 97 = 270) EKG impression (test Electronic ventricular code = 273) pacemaker-In automated comparison with ECG of 15-JUL-2019 07:29,-Electronic ventricular pacemaker has replaced Wide QRS rhythm- [facility] MethodistXR Chest 1 Vw Omwniiwr6058-46-18 08:58:50Hm Interface, Radiology Results 07/15/2019 9:01 AM CDTEXAMINATION: XR CHEST 1 PORTABLECLINICAL HISTORY: Pre-OpCOMPARISON: June 26, 2018IMPRESSION:1.Prior sternotomy and valve replacement. There is a cardiac regulating device.2.Right jugular catheter extends into the right atrium.3.Increased density in the right perihilar region is probably related to some fluid in the fissure on the right side.4.Diffuse interstitial prominence in lungs may be related to fibrosis with or without superimposed edema.HMTW-8NL3687GRXUmypkjo MethodistHEMATOLOGY 2018 11:30:00 Test Item Value Reference Range Interpretation Comments INR (test code = INR) 1.57 1 0.85-1.17 [facility] HospitalObtinodFESFAUFLEH9716-31-97 11:30:00 Test Item Value Reference Range Interpretation Comments PTT (test code = PTT) 68.1 s 22.9-35.8 [facility] HospitalKozexgqMZYSSVHGLZ3188-36-16 11:30:00 Test Item Value Reference Range Interpretation Comments PT (test code = PT) 18.4 s 12.0-14.7 [facility] HermannCHEM GVLGI0596-56-71 08:51:003.2[facility] HermannCHEM PANEL 2018 08:51:002.4[facility] HermannCHEM ZXMJX6794-66-94 08:51:0017[facility] HermannCHEM JWPEZ0306-77-70 08:51:009.7[facility] HermannCHEM CCPFA8574-25-44 08:51:0026[facility] HermannCHEM GGYID1202-40-65 08:51:0099[facility] HermannCHEM BEHPD7033-11-46 08:51:21805Xfwllutz HermannCHEM PNQGB7858-01-17 08:51:003.34 [facility] HermannCHEM MKTCL2712-69-96 08:51:0098[facility] HermannCHEM PANEL 2018 08:51:003.9[facility] HermannCHEM QRYJA1495-84-02 08:51:0068[facility] HermannCHEM OOBTS0536-81-16 08:51:0014.9[facility] EnxyjozCAICOXPXOK6371-19-91 08:51:002.76[facility] PavntsjSKOYORAAZT7797-76-17 08:51:0011.3[facility] [place] AWLABBLNDQ1323-43-21 08:51:0025.6[facility] JkwioejANSQEQTFDL5740-97-98 08:51:00 8.4[facility] LtzyziwUDDUOQWIGY0056-82-70 08:51:00 Test Item Value Reference Range Interpretation Comments MCH (test code = MCH) 30.4 pg 27.0-31.0 [facility] GhrlhujCWUKNIRGWJ5645-61-32 08:51:0092.7[facility] HermannHEMATOLOGY 2018 08:51:0061[facility] CspllthQOQBHTRKXT7376-97-10 08:51:0021.2[facility] LgwjdhhPZPIZZYRCG2808-07-82 08:51:0032.8[facility] SxqwowlGTWXLMDLKE8556-94-74 08:51:008.9[facility] UjtmyfxLPUIJTBGEG1262-49-08 08:51:007.1[facility] [place] WNCKSOWSBM3134-65-92 08:51:000.4[facility] MmxkxchILGHBVTPJN3689-09-01 08:51:001+ *ABN*(05/31/18 3:51 AM)[facility] RtgmibwCYZUWDLJXT9145-74-87 08:51:000.3[facility] BxmdtdbNVIVPZDXFV7350-58-68 08:51:000.6[facility] JckjgphVZREPNJAOV1733-43-13 08:51:002.3[facility] AvykcjgLHMHMUIVVH5612-34-62 08:51:005.2[facility] Mc YLPQPSQGVR1170-06-01 08:51:000.8[facility] TnwahwnNGYVGCGAPG9493-28-51 08:51:009.6 [facility] PmvdhxdERCPXYDYAB2126-20-19 08:51:0085.0[facility] HermannHEMATOLOGY 2018 07:05:00 Test Item Value Reference Range Interpretation Comments PT (test code = PT) 16.3 s 12.0-14.7 [facility] HospitalWjjrkbnRHIXOYSJUT4550-71-94 07:05:00 Test Item Value Reference Range Interpretation Comments INR (test code = INR) 1.34 1 0.85-1.17 [facility] HospitalOsdlvnpTXURIEDOXK6022-65-41 07:05:00 Test Item Value Reference Range Interpretation Comments PTT (test code = PTT) 56.0 s 22.9-35.8 [facility] HospitalLqwlcnmHBHSYSRKNI2143-09-34 19:08:0024.2[facility] HermannHEMATOLOGY 2018-05-30 19:08:008.0[facility] CenterFuwbvwpWVZEFQSMWU0694-25-59 15:27:00 Test Item Value Reference Range Interpretation Comments Pat Od Value (test code = Pat Od 1.945 1 Value) [facility] CenterPrdhnwdNVMUPXADHY5911-51-95 15:27:00 Test Item Value Reference Range Interpretation Comments Pos CO Value (test code = Pos CO 0.400 1 Value) [facility] CenterFmozghyIHGMYWQQSM1765-33-00 15:27:00Positive 2*CRIT*(05/30/18 10:27 AM) [facility] CenterIaeajnsVDUXCGSZKK4978-24-17 15:27:0044[facility]HE[facility] 2018-05-30 11:01:00 Test Item Value Reference Range Interpretation Comments INR (test code = INR) 1.17 1 0.85-1.17 [facility] CenterInhgrayQGNRTPVLGC3606-55-25 11:01:00 Test Item Value Reference Range Interpretation Comments PT (test code = PT) 14.7 s 12.0-14.7 [facility] HospitalJwlgjmeEJELOBCBIA5758-47-18 11:01:00 Test Item Value Reference Range Interpretation Comments PTT (test code = PTT) 57.4 s 22.9-35.8 [facility] BANK AKPEYAK5287-47-89 08:55:00Product available (05/30/18 3:55 AM)[facility] HospitalannCHEM FMOGF7200-54-42 05:16:002.7[facility] HermannCHEM DIQOS4372-00-57 05:16:0025[facility] HermannCHEM STAKL7219-07-36 05:16:0013.8 [facility]annCHE[facility] FBCQG8179-47-22 05:16:009.1[facility] HermannCHEM PANEL 2018-05-30 05:16:003.8[facility] HermannCHEM SEOXH4081-67-43 05:16:0028[facility] HermannCHEM ERKTF8842-68-89 05:16:0099[facility] HermannCHEM WQPCG9154-21-95 05:16:0038[facility] HermannCHEM LMHSD9156-97-91 05:16:96244Iqyputgw HermannCHEM QPBDS2561-57-19 05:16:17101Epluascw HermannCHEM VZJHE4609-84-22 05:16:002.48 [facility] HermannCHEM HQNCM9529-07-95 05:16:001.7[facility] HermannHEMATOLOGY 2018-05-30 05:16:003.0[facility] LyrlrnfLRZNLBOBIJ4882-97-08 05:16:003.0[facility] KtduhqmRSMKIEANWW5046-02-98 05:16:000.3[facility] PlzhtjdUSVUQBDDSE0286-48-98 05:16:0089.0[facility] LbdnryeUKAXXBHLOF4667-98-01 05:16:002.0[facility] Mc EWKUGBKOHA1309-54-96 05:16:000.0[facility] UyddpupUGQDGHDSMI5254-62-31 05:16:002.0 [facility] LfcbhwsIASEZDJHXZ6895-49-31 05:16:001.0[facility] HermannHEMATOLOGY 2018-05-30 05:16:000.3[facility] SnhyukiJTBDJDDING7293-65-48 05:16:0010.2[facility] RhxgkpqZHNXWSNMPY9024-46-34 05:16:0011.2[facility] WummxntQXEYDQMJZY0276-72-84 05:16:0032.1[facility] GnofbjrZBSJZIGZRY6337-30-84 05:16:0022.1[facility] Mc ETAWXLEJXT0474-76-31 05:16:0045[facility] VyiumixIJXGTXYFWZ1548-96-59 05:16:009.2 Memorial PsvyrjzKTXFEKTVHJ0897-17-45 05:16:00 Test Item Value Reference Range Interpretation Comments MCH (test code = MCH) 30.1 pg 27.0-31.0 [facility] RkxzzsvSJOUPNBEKM2548-70-02 05:16:002.22[facility] HermannHEMATOLOGY 2018-05-30 05:16:006.7[facility] RzkzhvmQASUCVNVHA1628-83-29 05:16:0020.8[facility] QhjeqyhVKIKKRTASX2693-56-81 05:16:0093.7[facility] HermannCHEM RLXAK4815-82-39 18:36:000.82[facility] HmfidlnVDEQJZVQKPGA5566-51-20 18:36:0012.3[facility] [place] JZYNVNWEBLPR1981-81-67 18:36:0032Mem[facility] KtrkegyGYQHDVNWXMDR3803-30-92 18:36:00 136[facility] JqbsldwFDJOADOMMBOV1338-69-10 18:36:16337Lwpytqea Mc GYVNOPNLKBPU2793-26-63 18:36:002.02[facility] NkzbxqbFNOIVWCKDCRI7983-88-36 18:36:0025Mem[facility] IwpnjcpJUDRZUAIWEWG8633-43-17 18:36:004.3[facility] Mc MXHCTIESEUFF6910-24-75 18:36:0028[facility] HolemrqTGUIPNMPRAUU2871-50-07 18:36:00 100[facility] DwxqepkQVJESKPKMEIQ8045-74-07 18:36:009.4[facility] HermannHEMATOLOGY 2018-05-29 18:36:00Moderate *ABN*(05/29/18 1:36 PM)[facility] HermannHEMATOLOGY 2018-05-29 18:36:0014.9[facility] RrntxwxYNIJOJSUFU7285-35-56 18:36:000.0[facility] ZbqnesxHHIFHJMNWG6655-31-12 18:36:002.0[facility] JhqiwgiXTEBKIOCRH6075-36-24 18:36:001.0[facility] OwspqzwFOXSGIGNLW4069-35-80 18:36:006.0[facility] [place] DAXEZWFXSY2355-13-07 18:36:004.0[facility] JrtfybsSDFGBFZBSZ8210-25-08 18:36:00 79.0[facility] LkvjlcoODJHAQGIMF7528-46-22 18:36:008.0[facility] HermannHEMATOLOGY 2018-05-29 18:36:001.0[facility] JnycidkZPZLZPWTNM5659-67-20 18:36:000.7[facility] JbmigtdXHKDWVXMCE5957-55-17 18:36:0017.1[facility] LnemvpuPHAKIMXDSO1149-02-56 18:36:0045[facility] WfxgwoiYGUEIJVVCI5725-23-96 18:36:008.0[facility] Mc JNTUBCXILI3565-72-81 18:36:0021.4[facility] CeujczcSHEZXJSVCQ9813-81-22 18:36:00 2.60[facility] SavyybkCZHCHUIPFD9986-01-87 18:36:00 Test Item Value Reference Range Interpretation Comments MCH (test code = MCH) 30.5 pg 27.0-31.0 Memorial CjyustzMJXJRXZZWD4415-42-17 18:36:0092.9[facility] HermannHEMATOLOGY 2018-05-29 18:36:0032.8[facility] HermannBLOOD BANK LSCDASW7228-98-02 08:11:00 Positive (05/29/18 3:11 AM)[facility] HermannCHEM BPFIO5794-04-47 05:35:002.4 [facility] HermannCHEM FSNOB8173-35-17 05:35:002.7[facility] HermannPARATHYROID FFWXBNR2550-17-78 05:35:001.21[facility] HermannPARATHYROID JNUAEYQ0452-76-24 05:35:001.21[facility] WtuizrgKQCMKHBHML7460-55-79 06:06:001+ *ABN*(05/27/18 1:06 AM)[facility] XpgovtsAURZWFSRZY0124-14-13 06:06:000.1[facility] HermannHEMATOLOGY 2018-05-27 06:06:001+ *ABN*(05/27/18 1:06 AM)[facility] HkowihkMWMAKEZAEE8419-38-88 06:06:000.3[facility] DsfjreeFOJRAAUIFR8876-33-85 06:06:000.7[facility] Mc PARATHYROID LYTWYUE5025-10-01 06:06:001.07[facility] HermannPARATHYROID PROFILE 2018-05-27 06:06:001.09[facility] HermannBLOOD BANK JGYWVGQ2301-70-27 16:29:00 Product available (05/26/18 11:29 AM)[facility]annBLOOD BANK JVUIUTW2149-55-22 16:29:00Product available (05/26/18 11:29 AM)[facility]annBLOOD BANK RESULTS 2018-05-26 16:29:00Product available (05/26/18 11:29 AM)[facility]annBLOOD BANK OPEVPAK9607-77-05 06:00:00Positive (05/26/18 1:00 AM)[facility] HermannHEMATOLOGY 2018-05-25 06:30:000.1[facility] EghmjrwDYHGUXVNMK6348-95-28 06:30:000.5[facility] RwrnfobBTHXCOXDZA0903-27-93 06:30:001.4[facility] HermannPARATHYROID PROFILE 2018-05-24 08:00:001.10[facility] HermannPARATHYROID QQOIKWT6954-49-11 08:00:00 1.09[facility] WcmrhpoUCKSCDTHMK8848-27-79 05:43:000.1[facility] HermannBLOOD BANK YTAVQLE4457-81-77 09:07:00Negative (05/23/18 4:07 AM)[facility]annBLOOD BANK NBUTEIW7803-41-25 09:07:00Positive (05/23/18 4:07 AM)[facility]annBL[facility]OD BANK SSJEGUP7297-52-83 09:07:00Positive (05/23/18 4:07 AM)[facility]BL[facility] BANK XCMPVBI3865-11-71 08:58:00Product available (05/23/18 3:58 AM)[facility] HermannCHEM EJMWG0579-58-38 05:53:000.8[facility] IptrsvzSAMWLNEZMV8214-56-38 05:53:001+ *ABN*(05/23/18 12:53 AM)[facility] IxziucjDCKSLUILVQ0213-38-84 05:53:000.1[facility] HermannCHEM NGCUA6619-60-36 20:32:003.1[facility] BcpaiioRHHICIVUCF0110-70-81 08:33:002.5[facility] HermannBODY IAOQRS4203-98-80 16:57:00xxxxxxx (05/20/18 11:57 AM)[facility] HermannBODY JSORIK8745-66-39 16:57:00xxxxxxx (05/20/18 11:57 AM) [facility] HermannBODY UZLQLF8109-77-72 16:57:00xxxxxxx (05/20/18 11:57 AM)[facility] HermannBODY IOFZPQ8652-27-53 16:57:00See Note 1(05/20/18 11:57 AM)[facility] [place] BODY VUWYRN8507-44-46 16:57:00Colorless (05/20/18 11:57 AM)[facility] HermannBODY HCOJNG6109-10-97 16:57:00Clear (05/20/18 11:57 AM)[facility] HermannBODY FLUIDS 2018-05-20 16:57:002[facility] HermannBODY UAIVKV9638-60-74 16:57:000[facility] HermannBODY YQXCZG0680-79-64 16:57:00BAL (05/20/18 11:57 AM)[facility]annCHEM CHENY7382-04-38 03:22:04405Llwrrkov HermannCHEM JHFMZ7061-41-97 03:22:002.1 [facility] EIJAO4889-22-95 03:22:36400Cmadoqtg HermannCHEM PANEL 2018-05-19 03:22:002.3[facility]annCHE[facility] [id number] 03:22:001.9[facility]annCHE[facility] IUOGM2779-88-03 03:22:0052[facility]annCHE[facility] MGCOL3350-17-92 03:22:006.9[facility]annCHE[facility] FDBUM6463-57-89 03:22:000.4[facility]annCHEM SVDKS3794-36-36 03:22:00 Test Item Value Reference Range Interpretation Comments A/G Ratio (test code = A/G Ratio) 0.4 1 0.7-1.6 [facility]CHE[facility] [id number] 03:22:004.8[facility]annCHEM PANEL 2018-05-18 02:12:03940Pqbfhwku HermannCHEM AYTPG2273-05-24 02:12:002.1[facility]annCHE[facility] MISGD6451-10-27 02:12:001.9[facility]annCHE[facility] VLFZX1132-82-77 02:12:39589Udqfopgs HermannCHEM LJCPT6961-36-32 02:12:006.4[facility]annCHE[facility] ZBAUX0727-16-23 02:12:0077[facility]CHE[facility] YDMLT1688-56-95 02:12:004.3 [facility]annCHE[facility] [id number] 02:12:00 Test Item Value Reference Range Interpretation Comments A/G Ratio (test code = A/G Ratio) 0.5 1 0.7-1.6 [facility] [id number] 02:12:00 Test Item Value Reference Range Interpretation Comments B/C Ratio (test code = B/C Ratio) 12 1 - [facility] TawvskxMGHZHGOIGX1498-35-22 23:26:001.6[facility]annCHEM PANEL 2018-05-15 07:16:001.4[facility]annCHEM OIBIK4732-24-87 19:28:000.5[facility]annCHE[facility] NMXWP9924-93-07 19:28:001.4[facility]annCHEM WYYFG2726-54-18 19:28:005.6[facility]annCHE[facility] QDRPY9890-08-37 19:28:0092[facility]annCHEM DZTAZ4064-06-96 19:28:000.9[facility]annCHEM JJCVK8849-94-56 19:28:001.7 [facility] XCMZX7292-26-61 19:28:0090[facility]annCHEM PANEL 2018-05-14 19:28:0081[facility]annCHE[facility] DFDFY6572-95-13 19:28:003.9[facility]annCHEM [id number] 19:28:00 Test Item Value Reference Range Interpretation Comments A/G Ratio (test code = A/G Ratio) 0.4 1 0.7-1.6 [facility]AMPIC[facility]IN:SUSC:PT:ISOLATE:ORDQN:[id number] 17:51:00 Enterococcus SpeciesMemorial HermannCHEM SVKVB9530-70-61 08:28:000.7[facility]annCHEM [id number] 08:28:000.4[facility]annBLOOD BANK RESULTS 2018-05-13 12:25:00Product available (05/13/18 7:25 AM)[facility]annBL[facility]OD BANK [id number] 12:23:00Product available (05/13/18 7:23 AM)[facility] ZFJRRPJDMO5161-07-13 20:31:001.7[facility] BgkzfrxEJEZLLSOXF9284-81-99 19:50:00 <3.1[facility] JuqosthMLNDXFGJSH2874-33-22 19:50:00Negative *NA*(05/10/18 2:50 PM)[facility] XuhiyioISLPAYLNRV5202-23-00 19:50:00Negative *NA*(05/10/18 2:50 PM) [facility] LqjfezuDVDWLNZGAR0824-00-74 19:50:00Negative *NA*(05/10/18 2:50 PM) [facility] PizyfbdRVJRJMJMLS1322-35-24 19:50:00Negative *NA*(05/10/18 2:50 PM) [facility] CbjmewcGDOQXZODFA0402-91-74 06:47:000.1[facility]annURINE AND STOOL 2018-05-10 06:47:00Negative (05/10/18 1:47 AM)[facility]annTOXICOLOGY 2018-05-09 08:55:0023.7[facility] UxrzfnuRZFNJZIIBO8802-76-12 15:36:0023.4[facility] HermannCARDIAC KODHXSV3729-07-02 12:52:000.10[facility]annCHEM PANEL 2018-05-07 12:52:003.82[facility] HermannBACTERIAL - [id number] 08:35:00 Negative (05/07/18 3:35 AM)[facility] [id number] 08:35:00 Test Item Value Reference Range Interpretation Comments B/C Ratio (test code = B/C Ratio) 26 02 24- [facility] [id number] 08:35:00 Test Item Value Reference Range Interpretation Comments VLDL (test code = VLDL) 47 1 [facility] [id number] 08:35:0054[facility] LuqnsgfRVZCYF0592-84-09 08:35:0020[facility] [id number] 08:35:26121Xjwgtubo HermannLIPIDS 2018-05-07 08:35:00 Test Item Value Reference Range Interpretation Comments CHD Risk (test code = CHD Risk) 6.05 1 4.00-7.30 [facility] [id number] 08:35:18659Ezmsvzke HermannSPECIAL CHEMISTRY 2018-05-07 08:35:005.0[facility] [id number] 08:35:000.2 [facility] [id number] 08:35:00None Seen (05/07/18 3:35 AM) [facility] [id number] 08:35:007[facility] [id number] 08:35:0028[facility] [id number] 08:35:001 [facility] [id number] 08:35:00Amber *ABN*(05/07/18 3:35 AM) [facility] [id number] 08:35:00Slight *ABN*(05/07/18 3:35 AM) [facility] [id number] 08:35:00 Test Item Value Reference Range Interpretation Comments UA Spec Grav (test code = UA Spec 1.023 1 Grav) [facility] [id number] 08:35:00Negative *NA*(05/07/18 3:35 AM) [facility] [id number] 08:35:00 Test Item Value Reference Range Interpretation Comments UA pH (test code = UA pH) 5.0 1 5.0-8.0 [facility] [id number] 08:35:00Negative *NA*(05/07/18 3:35 AM) [facility] [id number] 08:35:00Moderate *ABN*(05/07/18 3:35 AM)[facility] [id number] 08:35:00Negative (05/07/18 3:35 AM) [facility] [id number] 08:35:00Trace *ABN*(05/07/18 3:35 AM) [facility] [id number] 08:35:00Negative *NA*(05/07/18 3:35 AM) [facility]dc[facility]sg-Sbt1727-12-22 21:30:00 Test Item Value Reference Range Interpretation Comments NT ProBnp (test code = PBNP) 8373 pg/mL 0-124 H Comprehensive Metabolic [id number] 21:30:00 Test Item Value Reference Range Interpretation Comments Sodium (test code = 143 mmol/L 135-145 N NA) Potassium (test 3.7 mmol/L 3.5-5.1 N code = K) Chloride (test code 109 mmol/L 98-105 H = CL) Carbon Dioxide 24 mmol/L 22-29 N (test code = CO2) Glucose (test code 115 mg/dL 70-115 N = GLU) Blood Urea Nitrogen 34 mg/dL 8-23 H (test code = BUN) Creatinine (test 1.5 mg/dL 0.7-1.2 H code = CREAT) Calcium (test code 8.8 mg/dL 8.3-10.5 N = CA) Prot Total (test 6.4 g/dL 6.4-8.3 N code = TP) Albumin (test code 3.8 g/dL 3.5-5.2 N = ALB) A/G Ratio (test 1.5 Ratio code = AGRATIO) Globulin (test code 2.6 2.9-3.1 L = GLOB) Bili Total (test 0.7 mg/dL 0.1-0.9 N code = TBIL) Alk Phos (test code 52 U/L 40-129 N = APHOS) AST (test code = 8 U/L 1-40 N AST) ALT (test code = 30 U/L 1-41 N ALT) BUN/Creatinine 22.7 Ratio (test code = BCRATIO) Anion Gap (test 10 mmol/L 7-16 N code = AGAP) Estimated GFR (test 49 eGFR (es timated code = GFR) mL/min/1.73m2 Glomerular Trey tration Rate) is an est imated value,calculate d from the patient's s lalito creatinine usin g the MDRD equation.I t is NOT the patient 's actual GFR. The eGFR provides a more clinicallyusefu l measure of kidn ey disease than se rum creatinine alone.This calculation raf es sex and race into account, if the informationis provided. If th e race is not provided , and the patient isAfrican-Ameri can, multiply by 1.2 12. If sex is not prov ided, and thepatient is female, multipl y by 0.742. Results for patients <18 ye ars ofage have not been validated by th e MDRD study and shoul d be interpretedwith caution.eGFR Re sult Interpretation: eGFR > or = 60 is in t he Normal RangeeGF R < 60 may mean kidney diseaseeGFR < 1 5 may mean kidney failureRange s recommended by the National Kidney Foundation,http ://nkd ep.nih.gov Lipid [id number] 21:30:00 Test Item Value Reference Range Interpretation Comments Cholesterol (test 146 mg/dL 0-200 N code = CHOL) Triglycerides (test 60 mg/dL 9-200 N code = TRIG) HDL (test code = 48 mg/dL 40-60 N HDL) Chol/HDL (test code 3.0 Ratio 0.0-5.0 N = CHOLPHDL) LDL, Calculated 86 mg/dL 0-130 N (NOTE)RISK O F HEART (test code = LDLC) DISEASEPu blished by Israeli Heart AssociationAnal yte Optim al Boderline Increased RiskC HOL <200 200-239 >240TRI G <150 150-199 >200HDL Male: >60 <40HDL Female: >60 <50 LDL < 100 130-15 9 >160 LDL NEAR OPTIMAL IS 100- 129 VLDL (test code = 12 mg/dL 5-40 N VLDL) LDL/HDL (test code = 2 LDLPHDL) CBC with [id number] 21:24:00 Test Item Value Reference Range Interpretation Comments WBC (test code = WBC) 8.7 K/cumm 4.4-10.5 N RBC (test code = RBC) 3.60 M/cumm 4.10-5.70 L Hemoglobin (test code = HGB) 10.9 gm/dL 13.4-17.4 L Hematocrit (test code = HCT) 31.9 % 38.7-52.0 L MCV (test code = MCV) 88.7 fL 80-100 N MCH (test code = MCH) 30.3 pg 27.0-32.5 N MCHC (test code = MCHC) 34.2 g/dL 32.0-37.5 N RDW (test code = RDW) 15.4 % 11.5-14.5 H Platelet Count (test code = 123 K/cumm 140-440 L PLTCT) MPV (test code = MPV) 11.1 fL Diff Method (test code = DIFFM) Auto Neutrophil (test code = NEUT) 78.7 % 36-70 H Lymphocyte (test code = LYMPH) 13.4 % 12-44 N Monocyte (test code = MONO) 7.0 % 0-11 N Eosinophil (test code = EOS) 0.7 % 0-7 N Basophil (test code = BASO) 0.3 % 0-2 N Neutro Abs (test code = ANEUT) 6.8 K/cumm 1.6-7.4 N Lymph Abs (test code = ALYMPH) 1.2 K/cumm 0.5-4.6 N Door Abs (test code = AMONO) 0.6 K/cumm 0.0-1.2 N Eos Abs (test code = AEOS) 0.06 K/cumm 0.00-0.74 N Baso Abs (test code = ABASO) 0.0 K/cumm 0.00-0.21 N CBC with [id number] 20:23:00 Test Item Value Reference Range Interpretation Comments WBC (test code = WBC) 9.0 K/cumm 4.4-10.5 N RBC (test code = RBC) 3.67 M/cumm 4.10-5.70 L Hemoglobin (test code = HGB) 10.4 gm/dL 13.4-17.4 L Hematocrit (test code = HCT) 32.8 % 38.7-52.0 L MCV (test code = MCV) 89.5 fL 80-100 N MCH (test code = MCH) 28.4 pg 27.0-32.5 N MCHC (test code = MCHC) 31.7 g/dL 32.0-37.5 L RDW (test code = RDW) 15.2 % 11.5-14.5 H Platelet Count (test code = 156 K/cumm 140-440 N PLTCT) MPV (test code = MPV) 8.5 fL Diff Method (test code = DIFFM) Auto Neutrophil (test code = NEUT) 80.9 % 36-70 H Lymphocyte (test code = LYMPH) 9.3 % 12-44 L Monocyte (test code = MONO) 6.3 % 0-11 N Eosinophil (test code = EOS) 3.3 % 0-7 N Basophil (test code = BASO) 0.3 % 0-2 N Neutro Abs (test code = ANEUT) 7.2 K/cumm 1.6-7.4 N Lymph Abs (test code = ALYMPH) 0.8 K/cumm 0.5-4.6 N Door Abs (test code = AMONO) 0.6 K/cumm 0.0-1.2 N Eos Abs (test code = AEOS) 0.29 K/cumm 0.00-0.74 N Baso Abs (test code = ABASO) 0.0 K/cumm 0.00-0.21 N RBC Morphology (test code = Not Indicated RBCMRPH) Platelet Est (test code = Not Indicated PLTEST) Lipid [id number] 20:05:00 Test Item Value Reference Range Interpretation Comments Cholesterol (test 138 mg/dL 0-200 N code = CHOL) Triglycerides (test 58 mg/dL 9-200 N code = TRIG) HDL (test code = 45 mg/dL 40-60 N HDL) Chol/HDL (test code 3.1 Ratio 0.0-5.0 N = CHOLPHDL) LDL, Calculated 81 mg/dL 0-130 N (NOTE)RISK O F HEART (test code = LDLC) DISEASEPu blished by [place] Heart AssociationAnal yte Optim al Boderline Increased RiskC HOL <200 200-239 >240TRI G <150 150-199 >200HDL Male: >60 <40HDL Female: >60 <50 LDL < 100 130-15 9 >160 LDL NEAR OPTIMAL IS 100- 129 VLDL (test code = 12 mg/dL 5-40 N VLDL) LDL/HDL (test code = 2 LDLPHDL) Comprehensive Metabolic [id number] 20:05:00 Test Item Value Reference Range Interpretation Comments Sodium (test code = 140 mmol/L 135-145 N NA) Potassium (test 4.2 mmol/L 3.5-5.1 N code = K) Chloride (test code 108 mmol/L 98-105 H = CL) Carbon Dioxide 21 mmol/L 22-29 L (test code = CO2) Glucose (test code 117 mg/dL 70-115 H = GLU) Blood Urea Nitrogen 41 mg/dL 8-23 H (test code = BUN) Creatinine (test 1.6 mg/dL 0.7-1.2 H code = CREAT) Calcium (test code 9.1 mg/dL 8.3-10.5 N = CA) Prot Total (test 6.7 g/dL 6.4-8.3 N code = TP) Albumin (test code 4.1 g/dL 3.5-5.2 N = ALB) A/G Ratio (test 1.6 Ratio code = AGRATIO) Globulin (test code 2.6 2.9-3.1 L = GLOB) Bili Total (test 0.8 mg/dL 0.1-0.9 N code = TBIL) Alk Phos (test code 52 U/L 40-129 N = APHOS) AST (test code = 5 U/L 1-40 N AST) ALT (test code = 10 U/L 1-41 N ALT) BUN/Creatinine 25.6 Ratio (test code = BCRATIO) Anion Gap (test 11 mmol/L 7-16 N code = AGAP) Estimated GFR (test 46 eGFR (es timated code = GFR) mL/min/1.73m2 Glomerular Trey tration Rate) is an est imated value,calculate d from the patient's s lalito creatinine usin g the MDRD equation.I t is NOT the patient 's actual GFR. The eGFR provides a more clinicallyusefu l measure of kidn ey disease than se rum creatinine alone.This calculation raf es sex and race into account, if the informationis provided. If th e race is not provided , and the patient isAfrican-Amkris can, multiply by 1.2 12. If sex is not prov ided, and thepatient is female, multipl y by 0.742. Results for patients <18 ye ars ofage have not been validated by jasper trujillo MDRD study and claudine chao be interpretedwith caution.eGFR Re sult Interpretation: eGFR > or = 60 is in t he Normal RangeeGF R < 60 may mean kidney diseaseeGFR < 1 5 may mean kidney failureRange s recommended by the National Kidney Foundation,http ://nkd ep.nih.gov
--- OUTSIDE RECORDS SUMMARY | 2019-10-08 20:54 | XMS REPORT | Continuity of Care Document ---
:1945 Author Organization [facility] Address [address] [place] [address] Care Team Providers Name Role Phone DO JUAN R HDEZ Primary Care Physician Allergies, Adverse Reactions, Alerts Allergen Type Severity Reaction Last Updated Verified Status Heparin Allergy Severe October 02, Yes Active ([id number]) 2019 Medications Medication Status Dose Units Route Sig Qty Days Start End Instruct ions Date Date Albuterol Active 2 ORAL Four Sulfate Times Daily as needed for Shortn ess Of Breath Cyanocobalamin Active 1 ORAL Once Daily Digoxin Active 1 ORAL Twice 8 September A Week , for 2019 Afib 3:53pm Fluticasone Active 1 RESPIRAT Daily 1 30 Furoate-Vilant ORY lien (INHALAT ION) Latanoprost Active 1 OPHTHALM Every 7.5 IC Mornin g Levothyroxine Active 1 ORAL Daily 30 30 Sodium Metoprolol Active 1 ORAL Twice 60 30 Tartrate A Day Multiple Active 1 ORAL Twice Vitamins W/ A Day Minerals Torsemide Active 1 ORAL Twice 30 30 A Day Umeclidinium Active 1 RESPIRAT Daily 1 [place] ORY (INHALAT ION) Warfarin Active 2.5 ORAL As 18 October coumadin per Sodium Direct , protocol for ed for 2019 INR goal of A-Fib 3:53pm 2-3, check daily pt/inr Acetamin/Codei Discontin 1 ORAL Every 15 23 November Augus t Do not combine with other products that contain Tylenol ne 300/30 Mg * ued 6 , (acet aminophen). Hours 2018 2019 As 7:52pm Needed as needed for Pain Allopurinol Discontin 300 ORAL Once 30 30 September ued Daily 2019 Allopurinol Discontin 1 ORAL Daily 30 30 April ued 2018 Amiodarone Hcl Discontin 200 ORAL Twice Februar ued A Day y 2018 Apixaban Discontin 2.5 ORAL Twice 60 30 September ued A Day 2019 Aspirin Discontin 81 ORAL Daily Februar ued y 2018 Bacitracin Discontin 1 TOPICAL Twice 15 November apply to (Topical) ued A Day , , affected for 2018 2019 area(s) Infect 7:52pm ion Carvedilol Discontin 1 ORAL Twice 180 Februar ued A Day y 2018 Carvedilol Discontin 12.5 ORAL Twice April ued Daily , 2016 Meals Carvedilol Discontin 1 ORAL Twice 60 March ued A Day , for 2016 2017 Hypert 8:46am ension Cefuroxime Discontin 500 ORAL Twice 14 March Axetil ued A Day , for 2016 2016 Resp 8:46am Inf Clonidine Hcl Discontin 0.3 ORAL Three September ued Times 2019 Clonidine Hcl Discontin 0.3 ORAL Twice April ued A Day 2018 Clonidine Hcl Discontin 1 TOPICAL April ued 2016 Cyanocobalamin Discontin 500 ORAL Once September ued Daily 2019 Digoxin Discontin 0.125 ORAL Once September ued Daily 2019 Digoxin Discontin 0.25 ORAL Once uar ued Daily y 2018 Fluticasone Discontin 1 RESPIRAT Daily 1 30 April Furoate-Vilant ued ORY , lien (INHALAT 2019 ION) Furosemide Discontin 40 ORAL Twice 60 30 September ued A Day 2019 Furosemide Discontin 40 ORAL Twice 60 Marchuar ued A Day , 2016 Chf 8:51am Ibuprofen Discontin 1 ORAL Every 20 5 November ued 6 , , Hours 2018 2019 As 7:52pm Needed as needed for Pain Latanoprost Discontin 1 OPHTHALM Daily September ued IC 2019 Levothyroxine Discontin 0.025 ORAL Daily September Sodium ued 2019 Losartan Discontin 100 ORAL Daily Februar Potassium ued y 2018 Losartan Discontin 100 ORAL Daily April Potassium ued 2016 Metoprolol Discontin 1 ORAL Twice 60 30 September Tartrate ued A Day 2019 Mometasone/For Discontin 1 RESPIRAT Rt-Twi Feb ruar moterol 100 ued ORY ce y , Mcg * (INHALAT Daily 2019 ION) Nifedipine Discontin 1 ORAL Daily 30 30 September ued 2019 Nifedipine Discontin 90 ORAL Daily April ued 2016 Olmesartan Discontin 40 ORAL Daily September ued 2019 Ondansetron Discontin 1 ORAL Every 15 November P LACE IN Hcl ued , MOUTH AND Hours 2018 2019 ALLOW TABLET As 7:52pm TO DISSOLVE Needed as needed for Nausea Potassium Discontin 20 ORAL Once April Chloride Er * ued Daily 2016 Prednisone Discontin 10 ORAL Daily March ued for , Copd 2016 2016 8:51am Red Yeast Rice Discontin March Extract ued 2018 Red Yeast Rice Discontin 1 ORAL Twice September Extract (Bulk) ued A Day 2019 Rivaroxaban Discontin 20 ORAL Once April ued Daily 2016 Roflumilast * Discontin 500 ORAL Once September ued Daily 2019 Roflumilast * Discontin 500 ORAL Once March ued Daily 2018 Spironolactone Discontin 50 ORAL Twice uar ued A Day y 2018 Torsemide Discontin 1 ORAL Daily 30 18 May ued 2018 Torsemide Discontin 40 ORAL Once March ued Daily 2016 Problems Active Problems Medical Problem Onset Date Status Sick sinus syndrome Active Tachy-juan manuel syndrome Active Acute congestive heart failure with Acti ve left ventricular diastolic dysfunction Diastolic CHF, acute on chronic Active Atrial fibrillation with rapid Active ventricular response Acute bronchitis Active Hypertension Active COPD (chronic obstructive pulmonary Acti ve disease) COPD with acute exacerbation Active Dysphagia, pharyngeal phase Active COPD (chronic obstructive pulmonary Acti ve disease) Hypercoagulable state Active Advanced care planning/counseling Active discussion Supratherapeutic INR Active Inactive/Resolved Problems Medical Problem Onset Date Status Atrial fibrillation Resolved Acute exacerbation of CHF Resolved (congestive heart failure) Anasarca Resolved Atrial fibrillation Resolved Renal insufficiency Resolved CHF exacerbation Resolved Dysphagia Resolved ESRD (end stage renal disease) Resolved Anticoagulant adverse reaction Resolved Elevated INR Resolved Skin tear of left hand without Resolved complication Skin tear of right elbow without Resolve d complication Skin tear of right hand without Resolved complication Skin tear of right lower leg Resolved without complication Skin tear of right forearm without Resol radha complication Accidental medication overdose Resolved Anemia Resolved Atrial fibrillation Resolved ESRD (end stage renal disease) on Resolv ed dialysis Procedures Procedure Date Performed Status X-ray left knee, AP/lateral October 03, 2019 completed XR knee right, 2 views October 03, 2019 completed X-ray of chest, single view October 03, 2019 completed XR hip, oblique view October 06, 2019 completed Intraoperative ultrasound October 06, 2019 completed Special treatment procedure October 06, [address] thorax wo contrast October 06, 2019 completed Relevant Diagnostic Tests and/or Laboratory Data Laboratory Results Test Date/Time Result Interpretation Reference Result Comment Performing Range Site White Blood Count September 16.8 4.0-12.3 [facility], [address] [place] [id number] 7:30am Red Blood Count September 3.66 3.80-5.80 [facility] , [address] [place] [id number] 7:30am Hemoglobin September 11.5 11.7-17.2 [facility], [address] [facility] [address] 7:30am Hematocrit September 36.0 35.0-51.0 [facility], [address] [facility] [address] 7:30am Mean Corpuscular September 98.4 83-100 [facility], 104 Volume 2019 [facility] [address] 7:30am Mean Corpuscular September 31.4 26.8-33.4 [facility], 104 Hemoglobin 2019 [facility] [address] 7:30am Mean Corpuscular September 31.9 30-35 [facility], 104 Hemoglobin 2019 [facility] [address] Concent 7:30am Red Cell September 18.2 12.0-14.0 [facility], 104 Distribution 2019 [facility] [address] Width 7:30am Platelet Count September 123 175-450 [facility], [address] [place] 19295414 7:30am Mean Platelet September 10.8 9.4-12.6 [facility], [address] Volume 2019 [place] 19295414 7:30am Neutrophils (%) [place] 89.4 44.7-82.4 [facility] , [address] (Auto) 2019 [place] [address] 7:30am Immature [place] 1.0 0.0-0.4 [facility], [address] Granulocyte % 2019 [place] [address] (Auto) 7:30am Lymphocytes (%) [place] 1.9 10.0-50.0 [facility] , [address] (Auto) 2019 [place] [address] 7:30am Monocytes (%) [place] 7.5 3.9-13.4 [facility], 104 (Auto) 2019 [place] [address] 7:30am Eosinophils (%) [place] 0 0.0-6.4 [facility] , 104 (Auto) 2019 [place] [address] 7:30am Basophils (%) [place] 0.2 0.2-1.2 [facility], 104 (Auto) 2019 [place] [address] 7:30am Neutrophils # [place] 15.03 1.78-5.38 [facility], [address] ST (Auto) 2019 [place] [address] 7:30am Absolute Immature [place] 0.2 0.0-0.03 [facility], [address] ST Granulocyte (auto 2019 [place] [address] 7:30am Lymphocytes # [place] 0.3 1.32-3.57 [facility], 104 (Auto) 2019 [place] [address] 7:30am Monocytes # [place] 1.26 0.30-0.82 [facility], [address] (Auto) 2019 [place] [address] 7:30am Eosinophils # [place] 0.00 0.04-0.54 [facility], 104 (Auto) 2019 [place] [address] 7:30am Basophils # [place] 0.03 0.01-0.08 [facility], [address] (Auto) 2019 [place] [address] 7:30am Nucleated Red [place] 0 0-0.2 [facility], [address] Blood Cells % 2019 [place] [address] 7:30am Nucleated Red [place] 0 0 [facility], [address] Blood Cells # 2019 [facility] [place] [address] 7:30am Prothrombin Time September 24.2 10.3-12.3 THERAPEUTIC M [facility], 104 2019 LEVEL: 1.5 to [facility] [address] 7:30am 1.9 times normal range of PT Prothromb Time September 2.37 Recommended [facility], [address] International 2019 therapeutic [facility] [id number] Ratio 7:30am range for patients receiving warfarin (coumadin) therapy: INR is 2.0 to 3.0Recommended range for patients with mechanical prosthetic heart valves: INR is 2.5 to 3.5 Activated Partial [place] 73.9 22.5-37.0 [facility], [address] Thromboplast Time 2019 [facility] [address] 3:38am Random Glucose September 95 82-115 [facility], [address] 2019 [facility] [address] 7:30am Blood Urea September 74 8-23 [facility], [address] Nitrogen 2019 [facility] [address] 7:30am Serum Osmolality September 288 280-300 [facility], [address] 2019 [facility] [address] 7:30am Creatinine September 7.1 0.70-1.20 Results have [facility], [address] 2019 been [facility] [address] 7:30am broadcasted to patient's location and called to (Chad GRAJEDA By ANDREZ PINEDA 10/08/19 @0815Results read back for confirmation. Glomerular September 7.61 GFR RESULTS ARE [facility], [address] Filtration Rate 2019 REPORTED IN [facility] [address] Calc 7:30am mL/min/1.73m2.N ormal GFR: >60mL/minModera tely decreased GFR: 30-59 mL/minSeverely decreased GFR: 15-29 mL/minKidney Failure (or Dialysis): <15 mL/minThe calculated eGFR is not valid for patients younger than 18 years or older than 75 years. BUN/Creatinine September 10.4 12-20 [facility], [address] Ratio 2019 [facility] [address] 7:30am Sodium Level September 133 135-145 [facility], 1 04 2019 [facility] [address] 7:30am Potassium Level [place] 4.0 3.5-5.2 [facility] , 104 2019 [facility] [address] 7:30am Chloride Level September 94 98-108 [facility], [address] [place] [address] 7:30am Carbon Dioxide [place] 20 21-32 [facility], 104 [facility] 2019 [facility] [address] 7:30am Anion Gap September 23.0 12-20 [facility], [address] [place] 19295414 7:30am Calcium Level September 9.1 8.8-10.2 [facility], [address] [place] [address] 7:30am Phosphorus Level September 7.7 2.5-4.5 Results have [facility], [address] [place] [address] 3:38am broadcasted to patient's location and called to (YULIYA). By YULIYA AGUILAR 10/06/19 @0437Results read back for confirmation. Magnesium Level [place] 2.1 1.6-2.4 [facility] , [address] [facility] [address] 7:30am Total Protein [place] 5.9 6.6-8.7 [facility], [address] [place] 1929[address]14 3:38am Albumin [place] 3.0 3.5-5.2 [facility], [address] [place] 19295414 3:38am Globulin [place] 2.9 [facility], [address] [place] [address] 3:38am Albumin/Globulin [place] 1.0 >1.0 [facility], 104 Ratio 2019 [place] 19295414 3:38am Total Bilirubin [place] 1.0 0.0-1.2 [facility] , [address] [place] [address]14 3:38am Aspartate Amino [place] 9 15-40 [facility] , [address] Transf (AST/SGOT) 2019 [facility] [address] 3:38am Alanine [place] 15 0-41 [facility], 104 Aminotransferase 2019 [facility] [address] (ALT/SGPT) 3:38am DC-Wjc-H-Type [place] > 648[address] 0-125 [facility], [address] Natriuretic 2019 [facility] [address] Peptide 8:11am Total Alkaline September 89 40-130 [facility], [address] Phosphatase 2019 [facility] [address] 3:38am Creatine Kinase September 92 20-200 [facility] , [address] 2019 [facility] 18968 7:00pm Troponin I September < 0.30 0.0-0.5 Published [facility], [address] 2019 clinical [facility] [address] 7:00pm studies have shown elevations of cTnI in patients with myocardial injury, as seen in unstable angina pectoris, cardiac contusions, and heart transplants. Elevations have also been seen in patients with rhabdomyolysis and polymyositis.El evated troponin levels point to myocardial injury, but are not necessarily indicative of an ischemic mechanism. The term CA should be used when there is evidence of cardiac damage, as detected by marker proteins in a clinical setting consistent with myocardial ischemia. If the clinical circumstance suggests that an ischemic mechanism is unlikely, other causes of cardiac injury should be considered.For diagnostic purposes, the results should always be assessed in conjunction with the patient's medical history, clinical examination and other findings. Creatine Kinase September 5.3 0.0-3.6 DIAGNOSTIC [facility], [address] MB 2019 CITERIA: [facility] [address] 7:00pm CKMB CKMB RELATIVE INDEX -----SUGGESTIVE OF NON-AMI < or = 5 N/AGRAY ZONE (INCONCLUSIVE) > 5 < or = 4SUGGESTIVE OF AMI >5 > 4 Diagnostic Imaging Reports Report Dictated Date/Time Dictated By Status October 03, 2019 NELY OMER MD completed 4:19pm Patient: SHERWIN ALEXANDER EMR#: [id number] : 1945 Ordering DrRichie: MONI CHILDRESS MD Pt Status: [facility] ER Pt Location: ER Date/Time: 10/03/19 1543 Primary Care Physician: ADDY HDEZ DO Technologist(s): BAILEE BARRERA Procedure(s): [id number] RAD/KNEE RIGHT 2V Signed EXAM DESCRIPTION: KNEE LEFT 2V (accessi on [id number]), KNEE RIGHT 2V (accession [id number]) CLINICAL HISTORY: 74 years Male FALL COMPARISON: None TECHNIQUE: AP and lateral views of the right knee as well as AP and lateral views of the left knee are obtained. FINDINGS: OSSEOUS: There is no evidence of acute fracture or osteolytic/osteoblastic lesions. There is no evidence of subluxation/dis location. There is moderate narrowing of the medi al compartment of the right knee. There is moderate to severe narrowing of the p atellofemoral compartment of the left knee. The other compartments of the knee s are maintained bilaterally. Enthesopathy is noted along the anterio r aspect of the patella, bilaterally There is no evidence of degenerative os teophytosis or sclerosis. There is no evidence of marginal erosiv e changes to suggest an inflammatory arthritis. SOFT TISSUE: There is no significant soft tissue swe lling or mass. No evidence of significant soft tissue calcifications with the exception of extensive atherosclerotic vascular calci fications bilaterally. No radiopaque foreign bodies. There is no evidence of a suprapatellar effusion. IMPRESSION: No acute osseous abnormalities. Moderate narrowing of the medial compar tment of the right knee and of the pa tellofemoral compartment of the left kne e consistent with primary osteoarthritis. Remainder of findings as described abov e. Electronically signed by: Nely kim MD 10/03/2019 4:19 PM CDT Wor kstation: [id number] Transcribed By: [employer] SIGNED < electronically signed by NELY OMER MD> [id number] NELY OMER MD October 03, 2019 NELY OMER MD completed 4:19pm Patient: SHERWIN ALEXANDER EMR#: [id number] : 1945 Ordering DrRichie: MONI CHILDRESS MD Pt Status: REG ER Pt Location: ER Date/Time: 10/03/19 1543 Primary Care Physician: ADDY HDEZ DO Technologist(s): BAILEE BARRERA Procedure(s): [id number] RAD/KNEE LEFT 2V Signed EXAM DESCRIPTION: KNEE LEFT 2V (accessi on [id number]), KNEE RIGHT 2V (accession [id number]) CLINICAL HISTORY: 74 years Male FALL COMPARISON: None TECHNIQUE: AP and lateral views of the right knee as well as AP and lateral views of the left knee are obtained. FINDINGS: OSSEOUS: There is no evidence of acute fracture or osteolytic/osteoblastic lesions. There is no evidence of subluxation/dis location. There is moderate narrowing of the medi al compartment of the right knee. There is moderate to severe narrowing of the p atellofemoral compartment of the left knee. The other compartments of the knee s are maintained bilaterally. Enthesopathy is noted along the anterio r aspect of the patella, bilaterally There is no evidence of degenerative os teophytosis or sclerosis. There is no evidence of marginal erosiv e changes to suggest an inflammatory arthritis. SOFT TISSUE: There is no significant soft tissue swe lling or mass. No evidence of significant soft tissue calcifications with the exception of extensive atherosclerotic vascular calci fications bilaterally. No radiopaque foreign bodies. There is no evidence of a suprapatellar effusion. IMPRESSION: No acute osseous abnormalities. Moderate narrowing of the medial compar tment of the right knee and of the pat ellofemoral compartment of the left knee consistent with primary osteoarthritis. Remainder of findings as described deepti friedman Electronically signed by: Nely kim MD 10/03/2019 4:19 PM CDT Work station: [id number] Transcribed By: [employer] SIGNED < electronically signed by NELY OMER MD> 19 NELY OMER MD October 03, 2019 VELIA HUGHES MD complete d 4:20pm Patient: SHERWIN ALEXANDER EMR#: [id number] : 1945 Ordering DrRichie: MONI CHILDRESS MD Pt Status: REG ER Pt Location: ER Date/Time: 10/03/19 1550 Primary Care Physician: ADDY HDEZ DO Technologist(s): BAILEE BARRERA Procedure(s): [id number] RAD/CHEST 1 VIEW Signed EXAM: XR Chest, 1 View CLINICAL HISTORY: The patient is 74 ye ars old and is Male; SOB TECHNIQUE: Single view of the chest. COMPARISON: CXR September 24, 2018. FINDINGS: Lungs: Airspace opacification in the medial right lung base, new infiltrate, atelectasis or mass. No pulmonary vascular congestion. Pleural space: No pleural effusion o r pneumothorax. Heart: The cardiac silhouette is enl arged versus artifact of AP technique. Previous cardiac surgery. Mediastinum: Unremarkable. Bones/joints: Sternal closure wires. No acute fracture visualized. Tubes, lines and devices: Right-side d cardiac pacer. Dual-lumen right IJ catheter again noted terminating in the right atrium. Upper abdomen: No free air in the vi sualized upper abdomen. IMPRESSION: 1. Airspace opacification in the media l right lung base, new infiltrate, atelectasis or mass. Clinical correlatio n suggested. CT chest follow-up may be of further utility. 2. Right-sided cardiac pacer. Dual-lum en right IJ catheter again noted terminating in the right atrium. Electronically signed by: Velia desai MD 10/03/2019 4:20 PM CDT Transcribed By: LORI PARTNERS SIGNED < electronically signed by VELIA LAL MD> 19 162 VELIA HUGHES MD October 06, 2019 AUGUSTINE SARMIENTO MD completed 8:33pm Patient: SHERWIN ALEXANDER EMR#: [id number] : 1945 Pt Location: M Date/Time: 10/03/19 1541 Primary Care Physician: ADDY HDEZ DO Signed [facility] Test Date: 2019-10-03 Pat Name: SHERWIN Brito epartment: YANELIS R oom: Gender: Male T echnician: AMALIA : 1945 R equested By: MD CHILDRESS Order Number: [id number] R komal MD: Augustine Sarmiento M.D. F.A.A.C Measurements Intervals A xis Rate: 125 P : WA: Q RS: 114 QRSD: 94 T : -90 QT: 338 QTc: 488 Interpretive Statements Atrial fibrillation Left posterior fascicular block Consider left ventricular hypertrophy Repol abnrm suggests ischemia, diffuse l genesis Electronically Signed On 10-06-2019 20:33 :44 CDT by Madison Atkinson Transcribed By: [place] SIGNED <electronically signed by AUGUSTINE SARMIENTO MD> 32 32 AUGUSTINE SARMIENTO MD October 06, 2019 JOSSY ERWIN MD completed 11:32am Patient: SHERWIN ALEXANDER EMR#: [id number] : [address] AUGUSTINE SARMIENTO MD Pt Status: ADM IN Pt Location: [facility] Date/Time: 10/06/19726 Primary Care Physician: ADDY HDEZ DO Technologist(s): LEO MOODY Procedure(s): [id number] RAD/HIP JOINT RIGHT W/OBLIQUE Signed EXAMINATION: Right hip radiograph, two v iews. INDICATION: 74-year-old male with right hip pain. COMPARISON: Right hip radiograph dated 05/06/2018. FINDINGS: Postsurgical changes status post total right hip arthroplasty; hardware is intact without significant periprostheti c lucency. Unchanged greater trochanteric fracture fragment with asso ciated fractured cerclage wires. Heterotopic calcification is noted along the right acetabulum. No osseous erosions. No aggressive osseous lesions. Bone mineralization is decreased. Diffuse calcified atherosclerotic diseas e. IMPRESSION: 1. Postsurgical changes status post to lois right hip arthroplasty with unchanged greater trochanteric fracture fragment and fractured cerclage wires. 2. Osteopenia. Electronically signed by: Jossy Erwin MD 10/06/2019 11:32 AM CDT Transcribed By: [employer] SIGNED < electronically signed by JOSSY ERWIN MD> 1132 JOSSY ERWIN MD October 06, 2019 JOSSY ERWIN MD completed 4:54pm Patient: SHERWIN ALEXANDER EMR#: [id number] : 1945 Ordering DrRichie: JOSSY ERWIN MD Pt Status: ADM IN Pt Location: M M2 Date/Time: 10/06/19 1445 Primary Care Physician: ADDY HDEZ DO Technologist(s): YULIYA MILLS Procedure(s): [id number] US/ULTRASOUND GUIDANCE OR Signed Title of Procedure: Image-guided tunnele d dialysis catheter placement. Date of Procedure: 10/06/2019. Attending Physician: Jossy Erwin MD H. Sld Inclusion Teacher: None. Pre-Procedure Diagnosis: Need for dialy sis access. Post-Procedure Diagnosis: Unchanged. Indication: 74-year-old male with histo ry of end-stage renal disease on hemodialysis via a right internal jugula r approach tunneled dialysis catheter placed at an outside hospital; the dialy sis catheter was displaced while the patient was sleeping. Request for new tu nneled dialysis catheter. Of note, patient has an immature arm fistula. Procedures Performed: 1. Percutaneous image-guided placement of a tunneled dual-lumen dialysis ca theter in the right internal jugular vei n. Consent: The procedure, potential benef its, potential risks, and alternatives were explained to the patient. All quest ions were answered and informed consent was obtained. Prophylactic Antibiotics: None. Sedation/ Anesthesia: None. Procedure in Detail: A time-out was performed prior to the s tart of the procedure and the correct patient, procedure, and site were confir med with all members of the team. All elements of maximal sterile barrier tech nique (including cap, mask, sterile gown, sterile gloves, and sterile full b rebecca drape), hand hygiene, skin preparation, and sterile mri technologist niques (using sterile gel and sterile probe covers) were followed. The patient was placed in the supine po sition. The patient's right neck was pre pped and draped in the normal sterile fa shion. Local anesthesia was achieved with subcutaneous 1% lidocaine. Under fluoroscopic image-guidance, an 0 .035" hydrophilic guidewire was inserted through the existing skin tract and adva nced to the cavoatrial junction. The distance from the skin entry site to the cavoatrial junction was measured. The appropriate length dialysis catheter was then selected (28 cm). Serial dilatation was performed up to 17 Fr. Th e catheter was then over the guidewire up to the cavoatrial junction. The martha ter aspirated and flushed well; each lumen was locked with sterile saline. Th e catheter was secured to the skin with suture. The skin entry site was closed w ith a sterile dressing. A sterile dressing was applied. Additional Comments: None. Specimens Removed: None. Estimated Blood Loss: Minimal. Immediate Complications: None. Disposition: Inpatient floor. Impression: 1. Successful percutaneous image-guide d placement of a tunneled dual-lumen dialysis catheter in the right internal jugular vein. Plan: 1. The dialysis catheter is locked wit h sterile saline and ready for immediate use. 2. No follow-up with Interventional Ra diology is required. Electronically signed by: Jossy Erwin MD 10/06/2019 4:54 PM CDT [id number] Transcribed By: LORI PARTNERS SIGNED < electronically signed by JOSSY ERWIN MD> [phone] JOSSY ERWIN MD October 06, 2019 JOSSY ERWIN MD completed 4:54pm Patient: SHERWIN ALEXANDER EMR#: [id number] : 1945 Ordering DrRichie: SHERRILL MULLINS JR, MD Pt Status: ADM IN Pt Location: M M2 Date/Time: 10/06/19 1629 Primary Care Physician: ADDY HDEZ DO Technologist(s): LEO MOODY Procedure(s): [id number] RAD/SPECIAL PROCEDURE IN RAD Signed Title of Procedure: Image-guided tunnele d dialysis catheter placement. Date of Procedure: 10/06/2019. Attending Physician: Jossy Erwin MD H. Sld Inclusion Teacher: None. Pre-Procedure Diagnosis: Need for dialy sis access. Post-Procedure Diagnosis: Unchanged. Indication: 74-year-old male with histo ry of end-stage renal disease on hemodialysis via a right internal jugula r approach tunneled dialysis catheter placed at an outside hospital; the dialy sis catheter was displaced while the patient was sleeping. Request for new tu nneled dialysis catheter. Of note, patient has an immature arm fistula. Procedures Performed: 1. Percutaneous image-guided placement of a tunneled dual-lumen dialysis catheter in the right internal jugular v ein. Consent: The procedure, potential benef its, potential risks, and alternatives were explained to the patient. All quest ions were answered and informed consent was obtained. Prophylactic Antibiotics: None. Sedation/ Anesthesia: None. Procedure in Detail: A time-out was performed prior to the s tart of the procedure and the correct patient, procedure, and site were confir med with all members of the team. All elements of maximal sterile barrier tech nique (including cap, mask, sterile gown, sterile gloves, and sterile full b rebecca drape), hand hygiene, skin preparation, and sterile mri technologist niques (using sterile gel and sterile probe covers) were followed. The patient was placed in the supine po sition. The patient's right neck was prepped and draped in the normal sterile fashion. Local anesthesia was achieved with subcutaneous 1% lidocaine. Under fluoroscopic image-guidance, an 0 .035" hydrophilic guidewire was inserted through the existing skin tract and adva nced to the cavoatrial junction. The distance from the skin entry site to the cavoatrial junction was measured. The appropriate length dialysis catheter was then selected (28 cm). Serial dilatation was performed up to 17 Fr. Th e catheter was then over the guidewire up to the cavoatrial junction. The martha ter aspirated and flushed well; each lumen was locked with sterile saline. Th e catheter was secured to the skin with suture. The skin entry site was closed w ith a sterile dressing. A sterile dressing was applied. Additional Comments: None. Specimens Removed: None. Estimated Blood Loss: Minimal. Immediate Complications: None. Disposition: Inpatient floor. Impression: 1. Successful percutaneous image-guide d placement of a tunneled dual-lumen dialysis catheter in the right internal jugular vein. Plan: 1. The dialysis catheter is locked wit h sterile saline and ready for immediate use. 2. No follow-up with Interventional Ra diology is required. Electronically signed by: Jossy Erwin MD 10/06/2019 4:54 PM CDT Transcribed By: LORI OWEN SIGNED < electronically signed by JOSSY ERWIN MD> [phone] JOSSY ERWIN MD October 06, 2019 PEERZ CERVANTES MD completed 9:22pm Patient: SHERWIN ALEXANDER EMR#: [id number] : [address] [facility] Pt Status: ADM IN Pt Location: M M2 Date/Time: 10/06/192015 Primary Care Physician: ADDY HDEZ DO Technologist(s): CHAPARRO MALDONADO Procedure(s): [id number] CT/CT CHEST WO CONTRAST Signed EXAM: CT CHEST WO CONTRAST HISTORY: evaluate for RLL infiltrate vs mass COMPARISON: 10/03/2019 TECHNIQUE: Contiguous axial images of the chest we re obtained from the thoracic inlet to the upper abdomen without intravenous co ntrast followed by multiplanar reformats. This exam was performed accor ding to our departmental dose- optimization program, which includes aut omated exposure control, adjustment of the mA and/or kV according to patient si ze and/or use of iterative reconstruc tion technique. FINDINGS: Small bilateral pleural effusions with fluid tracking into the fissures. Dependent by lateral lower lobe atelecta sis. Multiple small benign calcified granulomas also noted at the bases. Biap ical pleural parenchymal scarring No pneumothorax. Cardiomegaly. No pericardi al effusion. No mediastinal adenopathy. The central airways are patent. There is aortic arch atherosclerosis extending into the great vessels. The pulmonary tr unk is enlarged indicative of pulmonary hypertension. Limited visualization of u pper abdominal contents is unremarkable for an acute process. No destructive oss eous lesion. IMPRESSION: 1. Bilateral lower lobe atelectasis an d adjacent small pleural pleural effusions. No evidence of active infecti on. Cardiomegaly. Electronically signed by: Perez prince MD 10/06/2019 9:22 PM CDT Transcribed By: LORI OWEN SIGNED < electronically signed by PEREZ CERVANTES MD> 21 [phone] PEREZ CERVANTES MD Health Concerns Health Concerns may be documented in an alternate section. Advance Directives Advance Directive Response Recorded Date/Time Advance Directive on File No October 05 8:17pm Patient/Family Given No October 06, 2019 8 :17pm Education Material R/T Directives? Chief Complaint and Reason for Visit Chief Complaint ACCIDENTAL MEDICATION OD,A-F IB,ESRD ON DIALYSIS,AN Reason for Visit Diastolic CHF, acute on avid editor lupillo Hypertension COPD (chronic obstructive pu lmonary disease) Dysphagia, pharyngeal phase Acute exacerbation of CHF (c ongestive heart failure) Anasarca Atrial fibrillation Renal insufficiency COPD (chronic obstructive pu lmonary disease) Hypercoagulable state Advanced care planning/couns ilia discussion Supratherapeutic INR Encounters Encounter Location(s) Arrival/Admit Date Discharge/Depart Date Provider(s) Discharged [place] October 03, 2019 October 08, 2019 HARPREET QUEEN, [facility] 6:08pm 7:20pm SHERRILL Medina MD Ctr Recent Diagnosis Onset Date Diastolic CHF, acute on chronic Hypertension COPD (chronic obstructive pulmonary disease) Dysphagia, pharyngeal phase Acute exacerbation of CHF (congestive heart failure) Anasarca Atrial fibrillation Renal insufficiency COPD (chronic obstructive pulmonary disease) Hypercoagulable state Advanced care planning/counseling discussion Supratherapeutic INR Assessments Diagnosis Onset Date Resolution Status Diastolic CHF, acute on Active chronic Hypertension Active COPD (chronic obstructive Active pulmonary disease) Dysphagia, pharyngeal phase Acti ve Acute exacerbation of CHF Resolv ed (congestive heart failure) Anasarca Resolved Atrial fibrillation Resolved Renal insufficiency Resolved COPD (chronic obstructive Active pulmonary disease) Hypercoagulable state Active Advanced care Active planning/counseling discussion Supratherapeutic INR Active Functional Status No Functional Status information available Goals Goals may be documented in an alternate section. Immunizations No Immunization Information Available Mental Status No Mental Status Information Available Medical Equipment No Medical Equipment Information available Insurance Providers Guarantor Sherwin Alexander Address [address] [place] [address] Contact Info. Home Phone: Payer Policy Id Coverage Subscriber's Subscriber Id Effective Exp iration Id Name Date Date [facility] [id number] Benjamin [id number] September 19, Sherwin Medina 2019 Claims Medicare [id number] Benjamin [id number] Sherwin Medina Social History Smoking Status Status Date of Observation Ex-smoker (finding) October 03, 2019 9:30pm Observation Status Observation Response Date of Response Hx Alcohol Use Y - 3X A WEEK October 03, 2019 9: 09pm Hx Physical Abuse No October 03, 2019 3: 20pm Assigned Sex Male Vital Signs Vital Reading Result Collection Date/Time Weight 197.19 [lb_av] October 07, 2019 5: 41am BMI (Body Mass Index) 26.7 kg/m2 October 07, 2019 5:41am Hospital Discharge Instructions Additional Instructions Instructions Physician Documentation Tierney follow up instructions * If you have any questions or concerns, please contact [phone] and ask for the hospitalist on duty. If you are having a medical emergency, please report to the nearest emergency room in your area. * Access your patient portal or follow up with your PCP regarding any procedures or tests that have not yet been resulted. Follow up with: drop count associate, construction grip, PCP Follow up appointment in: 7 days Activity on discharge: fall precautions, per PT Diet on discharge: renal Condition on discharge: stable
[2019-10-08] MEDS ORDERED: DIGOXIN 0.125 MG TABLET PO PRN (20:59)
[2019-10-08] MEDS ORDERED: ALBUTEROL INHALER 60 PUFF/8 GM IH PRN (21:00)
[2019-10-08] MEDS ORDERED: DOCUSATE NA/SENNA CONC 1 TAB PO PRN (21:07)
[2019-10-08] MEDS: ACETAMINOPHEN 325 MG TABLET PO PRN (23:13)
[2019-10-09 06:52] LABS: Absolute Lymphocytes (CBC) 0.4 K/uL (0.7-4.9); Basophils % 0.1 % (0-1.3); Hematocrit 33.8 % (39.6-49.0); Lymphocytes % 3.3 % (15.3-44.8); MPV 9.5 fL (7.6-11.3); RBC Red Blood Cell Count 3.45 M/uL (4.33-5.43)
[2019-10-09 06:53] LABS: Protime INR 1.98
[2019-10-09 07:21] LABS: Albumin 2.2 g/dL (3.4-5.0); Magnesium 2.3 mg/dL (1.8-2.4); Potassium 3.6 mmol/L (3.5-5.1); Prealbumin 4.4 mg/dL (20-40)
[2019-10-09] MEDS: LEVOTHYROXINE SOD 0.025 MG TAB PO SCH (07:47)
[2019-10-09] MEDS: METOPROLOL TAR 50 MG TAB PO SCH ×2 (08:00→20:05)
[2019-10-09] MEDS: FLUTICASONE 110 MCG/PUFF 12 GM INH IH SCH (08:00)
[2019-10-09] MEDS: CYANOCOBALAMIN 1,000 MCG TAB PO SCH (08:00)
[2019-10-09] MEDS ORDERED: LATANOPROST 0.005% 2.5ML OPTH OPTH SCH (08:00)
[2019-10-09] MEDS: TORSEMIDE 20 MG TAB PO SCH ×2 (08:00→20:05)
[2019-10-09 08:35] LABS: Platelet Estimate ADEQ
[2019-10-09 08:36] LABS: Blood Morphology Comment NOT SEEN (NOT SEEN)
[2019-10-09] MEDS: MULTIVITAMIN TAB PO SCH (09:03)
[2019-10-09] MEDS: ACETAMINOPHEN 325 MG TABLET PO PRN (09:05)
[2019-10-09] MEDS: WARFARIN SODIUM 2.5 MG TAB PO SCH (16:47)
[2019-10-09] MEDS ORDERED: WARFARIN SODIUM 2.5 MG TAB PO SCH (17:00)
--- NOTE | 2019-10-09 17:33 | R.HP ---
HISTORY AND PHYSICAL FACILITY: [facility] ENCOUNTER DATE AND TIME: 10/09/2019 17:23 (CDT) MR#: [id number] NAME SHERWIN BANG ADDRESS: [address] [place] [address] CITY: [place] [address]IP [address] PHONE: DATE OF : 1945 AGE: 74 SSN# [id number] GENDER: Male DEXTERITY Right-handed MARITAL STATUS RACE Unknown race PRE-HOSPITAL LIVING SETTING 01 - Home (private home/apt. board/care, assisted living, shelter, transitional living) PRE-HOSPITAL LIVING WITH Family/Relatives ENCOUNTER PHYSICIAN: Dr. Miguel Angel Frazier M.D. REFERRING DOCTOR: DATE OF ADMISSION: 10/08/2019 18:46 (CDT) REFERRING FACILITY [facility] PRIMARY CARE PHYSICIAN HOME TYPE AND DETAILS: Type of home: single family house # of levels in the residence: 1 # of steps within the residence: 3 # of steps to enter the residence: 1 ONSET DATE: 10/03/2019 PRIMARY DIAGNOSIS-RELATED SURGERIES: No surgeries related to the primary diagnosis were performed. HISTORY OF PRESENT ILLNESS (HPI): Pt. is a 74 yo Right-handed male of unknown race. On 10/03/2019 he was admitted to [facility] with diagnosis CHRONIC A FIB,CHF,CAD,HTN,HLD,COPD ,. His impairment category is Cardiac 09 - Cardiac Disorders (09). Pre-morbidly, Pt. was independent/mod-I in Locomotion, Transfers Control, Communication, and Sphincte r Control; and he had good Social Cognition, Transfers Control, and Endurance. Currently, he has deficits of Locomotion, Safety Awareness, Transfers Control, Sphincter Control, Stacy f-Care, Communication, and Endurance. Pt. is now referred to [facility] for acute in-patient rehabilitation in order to maximize patient's functional independence in activities of daily living, strength, ROM, and mobi lity. Patient has realistic goal of being discharged at assistance level 3-modA to reside at Home with Fam vanesa/Relatives. MEDICATION ALLERGIES: No Known Drug Allergies (NKDA) ENVIRONMENTAL ALLERGIES: - Substance Allergies None Known - Other Allergies None Known PAST MEDICAL HISTORY: ESRD ON DIALYSIS COPD ESRD ATRIAL FIBRILLATION ANEMLA DYSPHAGIA,PHARYNGEAL PHASE DIASTOLIC CHF, ACUTE ON CHRONIC CHF CAD HTN HLD ARTHRITIS GOUT PAST SURGICAL HISTORY: HISTORY DIALYSIS CATHETER PLACEMENT PACEMAKER SOCIAL HISTORY: - Home Living Family/Relatives REVIEW OF SYSTEMS: - Gen No Chills Fatigue No Fever - Eyes No Double Vision No itchiness - ENMT No Difficulty Swallowing - CVS No Chest Discomfort No Chest Pain No Fatigue No Weight Gain - Resp No Cough Shortness of Breath - GI Continent No Abdominal Pain No Constipation No Diarrhea - Continent No Kidney Pain No Painful Urination No Urinary Urgency - MSK No Joint Pain Muscle Cramps Stiffness - Skin No Itching No Rash No Suspicious Lesions - Neuro Coordination Difficulty No Difficulty with Concentration No Memory Loss No Seizures Weakness - Psych No Anxiety No Depression No HIV Exposure No Persistent Infections No Seasonal Allergies - Endo No Cold/Heat Intolerance No Excessive Hunger No Excessive Thirst No Excessive Urination PHYSICAL EXAM - Gen Alert and awake Lying in bed No apparent distress Oriented to: person, time, and place - Skin Bruising on the dorsal right and left hand and forearm No abnormalities - Eyes No abnormalities - ENMT No abnormalities - Neck No abnormalities No cervical adenopathy - CVS IRIR - Chest Mildly decreased breath sounds bilaterally. - Resp No wheezing - Abd Soft - GI Non distended Deferred - Does not produce urine, on hemodialysis - Ext Mild bilateral lower extremity edema. - MSK 4+/5 weakness in both lower extremities. - Neuro No focal deficits - Psych No abnormalities VITAL SIGNS Temperature: 98.4 F SBP/DBP: 116/72 Pulse: 86 Resp: 16 NURSING: - Shower allowing shower ACTIVITIES OOB only with supervision QI SCORES: - Self-Care A. Eating 03-Partial/moderate assistance B. Oral hygiene 03-Partial/moderate assistance C. Toileting hygiene 02-Substantial/maximal assistance E. Shower/bathe self 02-Substantial/maximal assistance F. Upper body dressing 03-Partial/moderate assistance G. Lower body dressing 03-Partial/moderate assistance H. Putting on/taking off footwear 88-Not attempted due to medical condition or safety concerns - Mobility A. Roll left and right 03-Partial/moderate assistance B. Sit to lying 03-Partial/moderate assistance C. Lying to sitting on side of bed 03-Partial/moderate assistance D. Sit to stand 02-Substantial/maximal assistance E. Chair/qlf-sd-ntiln transfer 02-Substantial/maximal assistance F. Toilet transfer 02-Substantial/maximal assistance G. Car transfer 88-Not attempted due to medical condition or safety concerns I. Walk 10 feet 02-Substantial/maximal assistance J. Walk 50 feet with two turns 88-Not attempted due to medical condition or safety concerns K. Walk 150 feet 88-Not attempted due to medical condition or safety concerns L. Walking 10 feet on uneven surfaces 88-Not attempted due to medical condition or safety concerns M. 1 step (curb) 88-Not attempted due to medical condition or safety concerns N. 4 steps 88-Not attempted due to medical condition or safety concerns O. 12 steps 88-Not attempted due to medical condition or safety concerns P. Picking up object 88-Not attempted due to medical condition or safety concerns R. Wheel 50 feet with two turns 88-Not attempted due to medical condition or safety concerns S. Wheel 150 feet 88-Not attempted due to medical condition or safety concerns - Bladder and Bowel Bladder continence Bowel continence 0-Always continent - Endurance Poor - Balance Poor - Safety Awareness Poor CURRENT FUNC. DEFICITS: Balance, Safety Awareness, Mobility, Endurance, and Self-Care MEDICATIONS: - Other See attached MAR (Medication Administration Record) ASSESSMENT: Pt. is a 74 yo Right-handed male of unknown race.On 10/03/2019 he was admitted to [facility] with diagnosis CHRONIC A FIB,CHF,CAD,HTN,HLD,COPD,.His impairment category is Cardiac 09 - Cardiac D isorders (09).Pre-morbidly, Pt. was independent/mod-I in Locomotion, Transfers Control, Communication , and Sphincter Control; and he had good Social Cognition, Transfers Control, and Endurance.Currently , he has deficits of Locomotion, Safety Awareness, Transfers Control, Sphincter Control, Self-Care, C ommunication, and Endurance.Pt. is now referred to [facility] for acute in-pat ient rehabilitation in order to maximize patient's functional independence in activities of daily chapito ing, strength, ROM, and mobility.- Rehab Goal Patient has realistic goal of being discharged at assistance level 3-modA to reside at Home with Fam vanesa/Relatives. - Physical Therapy Gait dysfunction - to improve, our physical therapists will perform initial evaluation of pt's status upon admission and devise an individualized program for Gait Training, and Wheel Chair mobility Inability to transfer - to improve, our physical therapists will perform initial evaluation of pt's s tatus upon admission and devise an individualized program for Bed mobility Need for home safety evaluation - to improve, our physical therapists will perform initial evaluation of pt's status upon admission and devise an individualized program for Home Evaluation Need in caregiver upon discharge - to improve, our physical therapists will perform initial evaluatio n of pt's status upon admission and devise an individualized program for Caregiver Training Edema - to improve, our physical therapists will perform initial evaluation of pt's status upon admi ssion and devise an individualized program for Elevation Training, and Lymphedema Therapy New precaution - to improve, our physical therapists will perform initial evaluation of pt's status u jose admission and devise an individualized program for Patient precaution education Poor endurance - to improve, our physical therapists will perform initial evaluation of pt's status u jose admission and devise an individualized program for Endurance Training Weakness - to improve, our physical therapists will perform initial evaluation of pt's status upon ad mission and devise an individualized program for Aquatic Therapy, Neuromuscular Reeducation, and Stre ngthening Achieving independence - to improve, our physical therapists will perform initial evaluation of pt's status upon admission and devise an individualized program for Community Reintegration Activities - Occupational Therapy ADL deficits - to improve, our occupation therapists will perform initial evaluation of pt's status u jose admission and devise an individualized program for Bathing, Bed mobility, Community Reintegration , Cooking, Dressing, Eating, Fine Motor Skills, Grooming, Homemaking, Kitchen Mobility, Laundry, Michelle ent Education, Safety Awareness, Splinting - Positioning, Transfers(Toilet, Tub, Shower), and Wheel C hair Management Need for hospice patient care secretary - to improve, our occupation therapists will perform initial evaluation of pt's s tatus upon admission and devise an individualized program for Caregiver Training Weakness - to improve, our occupation therapists will perform initial evaluation of pt's status upon admission and devise an individualized program for Aquatic Therapy, Balance, Endurance, UE ROM, and U E strengthening MEDICAL PLAN: - Diet Type Start Regular - Diet - Liquid Texture Start Regular - Tube Feed Start N/A - Other See attached MAR (Medication Administration Record) - Diet - Solid Texture Regular - Shower shower DISCHARGE PLAN: - Estimated Length of Stay (days) 10. - Consensus on plan Discharge plan has been discussed with primary caregiver. Patient/Family is in agreement with the nader n. Primary caregiver is in agreement with the plan. - Patient/Family Goals Return home independently. - Planned Living Setting Upon Discharge Home, to live with Family/Relatives. Transitional Living. SIGNATURE PANEL: (CDT)
--- NOTE | 2019-10-09 17:36 | PAPE ---
POST ADMISSION PHYSICIAN EVALUATION PATIENT: [facility] MR# [id number] REFERRING DOCTOR PRIMARY CARE PHYSICIAN EVALUATION DATE AND TIME 10/09/2019 17:33 (CDT) NAME SHERWIN BANG DATE OF 1945 AGE 74 PHONE SSN# [id number] GENDER male EVALUATING PHYSICIAN Dr. Miguel Angel Frazier M.D. ADMISSION DIAGNOSIS: CHRONIC A FIB,CHF,CAD,HTN,HLD,COPD, ONSET DATE 10/03/2019 POST-ADMISSION FUNCTIONAL/MEDICAL STATUS: - Bladder Same accident frequency: Ind - No accidents in the past 7 days - Bowel Same accident frequency: Ind - No accidents in the past 7 days - Walking Same score based on distance walked: 0(N/A) - Wheelchair Same score based on distance traveled: 0(N/A) STATUS CHANGE EVALUATION: No change in Functional or Medical Status is identified compared with Pre-Admission screening. PATIENT NEEDS CLOSE MEDICAL SUPERVISION BY A REHABILITATION PHYSICIAN FOR: Coordination of Treatment Team Wound Care PATIENT REQUIRES 24X7 REHAB NURSING FOR MEDICAL AND FUNCTIONAL MGT. OF THE FOLLOWING DEFICITS: Disease Management Medication Management Patient/Family Education Providing Safe Environment Skin Integrity PATIENT REQUIRES INTENSIVE, COORDINATED INTERDISCIPLINARY APPROACH TO REHAB: Arranging Home Equipment/Services Discharge Planning Family Intervention/Training Software Configuration Analyst/Case Management LIST OF IDENTIFIED AND POTENTIAL PROBLEMS: Alteration in leisure activities Bladder, Incontinence Bowel, Incontinence Infection, Actual or Potential Mobility Impaired Pain, Alteration in Comfort Self Care Deficit Skin Integrity, Actual or Potential Urinary Tract Infection (UTI), Actual or Potential PATIENT COULD BE AT RISK FOR COMPLICATIONS FROM ADVERSE MEDICAL CONDITIONS DUE TO HIS/HER COMORBIDITI ES AND THE RIGORS OF THE INTENSIVE REHABILLITATION PROGRAM. METHODS OR INTERVENTIONS TO AVOID COMPLIC ATIONS INCLUDE: - Bleeding Assess lab values and manage abnormalities. Nursing to teach precautions for anti-coagulation therapy . Wound to be assessed every shift. - Infection Clinical staff to assess and manage the signs and symptoms of infection including fever, redness, war mth, etc. - Urinary Tract Infection - Falls Patient will be evaluated for Fall Precautions and will be placed on Fall Precautions as indicated pe r protocol. - Skin Breakdown Nursing will assess skin daily using assessment tool and will place on Skin Breakdown Precautions as indicated per protocol. - Pain Clinical staff may employ non-medication methods such as massage, distraction, decrease stimulus, etc . as needed. Clinical staff will assess patient's pain level every shift per protocol to assess and e nsure pain management effectiveness. Medications will be given and the pain level re-assessed. PRELIMINARY PLAN OF CARE: - Physical Therapy Patient needs Physical Therapy for a daily minimum of 1.5 hours at least 5 out of 7 days, to improve: Mobility, Strengthening, Transfers, Stretching, ROM, Endurance, Ability to manage stairs, Gait, and Balance. - Speech Therapy Patient needs Speech Therapy for a daily minimum of 0.5 hours at least 5 out of 7 days, to improve: S wallowing, Cognition, Language Skills, and Compensatory Strategies. - Rehabilitation Nursing Patient requires 24x7 Rehabilitation Nursing for: Pain Issues, Identifying and preventing risk factor s, Monitoring and reporting current medical conditions, Assisting with ambulation and transfer, Lluvia ting with all ADL-s, Teaching patients about disease process and medications, Family teaching, Provid ing safe environment, Bowel and Bladder Issues, Skin Integrity, and Medication Management. Patient needs Software Configuration Analyst and/or Case Management for: Discharge Planning, Arranging Home Equipmen t or Services, and Family Interventions. - Dietary and Nutrition Services Patient needs Dietary and Nutrition Services for: Adequate Nutrition, Nutritional Supplements, and Nu tritional Education. - Occupational Therapy Patient needs Occupational Therapy for a daily minimum of 1.5 hours at least 5 out of 7 days, to impr ove Activities of Daily Living, including: Eating, Grooming, Bathing, Dressing, Toileting, Toilet Tra nsfers, Community Reintegration, Higher functional activities, Adaptive Equipment, Splinting, Househo ld Tasks, and Other activities as determined. QI SCORES: - Self-Care A. Eating 03-Partial/moderate assistance B. Oral hygiene 03-Partial/moderate assistance C. Toileting hygiene 02-Substantial/maximal assistance E. Shower/bathe self 02-Substantial/maximal assistance F. Upper body dressing 03-Partial/moderate assistance G. Lower body dressing 03-Partial/moderate assistance H. Putting on/taking off footwear 88-Not attempted due to medical condition or safety concerns - Mobility A. Roll left and right 03-Partial/moderate assistance B. Sit to lying 03-Partial/moderate assistance C. Lying to sitting on side of bed 03-Partial/moderate assistance D. Sit to stand 02-Substantial/maximal assistance E. Chair/[id number] transfer 02-Substantial/maximal assistance F. Toilet transfer 02-Substantial/maximal assistance G. Car transfer 88-Not attempted due to medical condition or safety concerns I. Walk 10 feet 02-Substantial/maximal assistance J. Walk 50 feet with two turns 88-Not attempted due to medical condition or safety concerns K. Walk 150 feet 88-Not attempted due to medical condition or safety concerns L. Walking 10 feet on uneven surfaces 88-Not attempted due to medical condition or safety concerns M. 1 step (curb) 88-Not attempted due to medical condition or safety concerns N. 4 steps 88-Not attempted due to medical condition or safety concerns O. 12 steps 88-Not attempted due to medical condition or safety concerns P. Picking up object 88-Not attempted due to medical condition or safety concerns R. Wheel 50 feet with two turns 88-Not attempted due to medical condition or safety concerns S. Wheel 150 feet 88-Not attempted due to medical condition or safety concerns - Bladder and Bowel Bladder continence Bowel continence 0-Always continent - Endurance Poor - Balance Poor - Safety Awareness Poor POTENTIAL FUNCTIONAL GOALS FOR PATIENT TO ACHIEVE BY DISCHARGE: - Safety Precaution Patient will remain free from falls or injury at time of discharge. - Bed Mobility Patient will perform bed mobility at 4-Milo level of assistance. - Transfers Patient will complete transfers from bed to chair at 4-Milo level of assistance. - Mobility Patient will ambulate 150 ft with 4-Milo level of assistance with RW. PATIENT REHAB POTENTIAL Cale BANG is able and expected to receive 3 hours of individualized therapy daily on at least 5 o f every 7 days Cale BANG's prognosis for significant practical improvement within a reasonable period of time ap pears Good Expected level of measurable improvement will be of a practical value to Cale BANG's functional c apacity or adaptations to impairments Has a viable Discharge Plan Medically appropriate; condition is sufficiently stable to participate in intensive rehab program DISCHARGE PLAN: - Estimated Length of Stay (days) 10. - Consensus on plan Discharge plan has been discussed with primary caregiver. Patient/Family is in agreement with the nader n. Primary caregiver is in agreement with the plan. - Patient/Family Goals Return home independently. - Planned Living Setting Upon Discharge Home, to live with Family/Relatives. Transitional Living. CONCLUSION ON REHABILITATION NECESSITY: I have evaluated patient's pre-admission functional status and, comparing it to the patient's post-ad mission functional status now, I conclude that the pre-admission assessment was accurate. Patient's c ondition on admission supports the medical necessity of admission to IRF. It is safe to proceed with patient's therapy program. SIGNATURE PANEL: (CDT)
[2019-10-09] MEDS: PROMOD 30 ML DOSE PO SCH (20:06)
[2019-10-09] MEDS: LATANOPROST 0.005% 2.5ML OPTH OPTH SCH (20:07)
[2019-10-09] MEDS: MELATONIN 3 MG TABLET PO PRN (20:08)
[2019-10-09] MEDS ORDERED: NA CHLORIDE 0.9% 1,000 ML IV PRN (22:41)
[2019-10-09] MEDS ORDERED: MANNITOL 25% 12.5 GM/50 ML VIAL IV PRN (22:41)
--- NOTE | 2019-10-09 22:53 | P.CNS ---
Date of Consult: 10/09/19 Reason for Consult: ESRD Requesting Physician: Miguel Angel Frazier Chief Complaint: Weakness History of Present Illness: 74 yo WM CKD, HTN presents to the [facility] for PT in the setting of weakness. Allergies heparin Allergy (Verified 10/08/19 21:54) Shortness of breath Home medications list reviewed: Yes Home Medications: Latanoprost Ophth [Xalatan 0.005%*] 1 drop OU DAILY 03/20/13 Albuterol Inhaler [Ventolin Inhaler] 2 puff IH Q6H PRN 10/09/19 Cyanocobalamin (Vitamin B-12) [Vitamin B-12] 5,000 mcg PO DAILY 10/09/19 Digoxin [Lanoxin*] 0.125 mg PO DIRECTED 10/09/19 Fluticasone/Vilanterol [Breo Ellipta 100-25 Mcg INH] 1 each IH DAILY 10/09/19 Levothyroxine [Synthroid] 25 mcg PO DAILY 10/09/19 Metoprolol Tartrate 25 mg PO BID 10/09/19 Multivitamin [Multiple Vitamins] 1 each PO BID 10/09/19 Torsemide [Demadex*] 1 tab PO BID 10/09/19 Warfarin Sodium [Coumadin] 2.5 mg PO DAILY 5 PM 10/09/19 - Past Medical/Surgical History Diabetic: No -: CHF -: COPD/ asthma -: Atrial fibrillation -: HTN -: hyperlipidemia -: Rt hip surgery -: Bilateral cataract sx -: Appendectomy - Social History Smoking Status: Former smoker Alcohol use: No CD- Drugs: No Caffeine use: Yes Place of Residence: Home Review of Systems 10-point ROS is otherwise unremarkable General: Weakness, Malaise Respiratory: SOB with Excertion Cardiovascular: Edema Neurological: Weakness Physical Examination Temp Pulse Resp BP Pulse Ox 97.1 F 116 H 18 128/78 100 10/09/19 20:00 10/09/19 20:05 10/09/19 20:00 10/09/19 20:05 10/09/19 20:00 General: In no apparent distress, Oriented x3, Cooperative HEENT: Atraumatic Neck: Supple Respiratory: Diminished Cardiovascular: Regular rate/rhythm Gastrointestinal: Soft and benign, Non-distended Musculoskeletal: No clubbing, No contractures Integumentary: No rashes, No cyanosis Neurological: Normal speech Laboratory Data (last 24 hrs) 10/09/19 06:35: PT 23.0 H, INR 1.98 10/09/19 06:35: Sodium 140, Potassium 3.6, BUN 56 H, Creatinine 5.42 H*, Glucose 94, Magnesium 2.3 10/09/19 06:35: WBC 13.6 H, Hgb 11.0 L, Hct 33.8 L, Plt Count 126 L Imagings Data: EXAM DESCRIPTION: Ana Single View10/10/2019 3:50 pm CLINICAL HISTORY: Shortness breath COMPARISON: 1999 FINDINGS: Mild bilateral pulmonary opacities. . The heart is mildly enlarged. Pacemaker leads are in place. Postsurgical changes involve the chest IMPRESSION: These findings probably indicate mild CHF Conclusions/Impression: A/ ESRD on HD HTN with CKD/ CHF. Diastolic CHF, chronic. Anemia in chronic disease. Moderate malnutrition. ANGUS/ Secondary HyperPTH. Hypocalcemia. Gout P/ Continue current POC and Medications. Arrange for acute HD. Restart home medications as indicated. Start Vitamin D. May need PO4 binder. PT as tolerated. Encourage nutrition. Low sodium diet. No heparin due to allergy. No NSAIDS. AM labs. Daily weight. Thank you kindly for the consultation.
[2019-10-10] MEDS: ACETAMINOPHEN 325 MG TABLET PO PRN ×3 (02:22→18:15)
[2019-10-10 05:46] VITALS: BMI 27.0
[2019-10-10] MEDS: LEVOTHYROXINE SOD 0.025 MG TAB PO SCH (06:36)
[2019-10-10] MEDS: TRELEGY ELLIPTA IH SCH (06:49)
[2019-10-10] MEDS: FLUTICASONE 110 MCG/PUFF 12 GM INH IH SCH (06:49)
[2019-10-10 07:03] LABS: Protime INR 2.17
[2019-10-10] MEDS: CYANOCOBALAMIN 1,000 MCG TAB PO SCH (07:30)
[2019-10-10] MEDS: TORSEMIDE 20 MG TAB PO SCH ×2 (07:31→20:00)
[2019-10-10] MEDS: MULTIVITAMIN TAB PO SCH (07:31)
[2019-10-10] MEDS: ROFLUMILAST 500 MCG TABLET PO SCH (07:31)
[2019-10-10] MEDS: METOPROLOL TAR 50 MG TAB PO SCH ×2 (07:32→20:00)
[2019-10-10] MEDS: PROMOD 30 ML DOSE PO SCH ×2 (07:33→20:48)
--- NOTE | 2019-10-10 09:35 | P.RH.PN ---
Estimated Length of Stay: 15 Expected Discharge Date: 10/22/19 Discharge Disposition Plan: Home Family Support: Yes [facility] Goal: Mobility, Transfers, Self Care Vital Signs: Last Vital Signs Temp 97 F 10/10/19 07:59 Pulse 88 10/10/19 07:59 Resp 18 10/10/19 07:59 BP 115/69 10/10/19 07:59 Pulse Ox 99 10/10/19 07:59 Laboratory: Laboratory Last Values WBC 13.6 K/uL (4.3-10.9) H 10/09/19 06:35 RBC 3.45 M/uL (4.33-5.43) L 10/09/19 06:35 Hgb 11.0 g/dL (13.6-17.9) L 10/09/19 06:35 Hct 33.8 % (39.6-49.0) L 10/09/19 06:35 MCV 97.9 fL (80-100) D 10/09/19 06:35 MCH 31.9 pg (27.0-35.0) D 10/09/19 06:35 MCHC 32.6 g/dL (32.0-36.0) 10/09/19 06:35 RDW 18.6 % (12.1-15.2) H 10/09/19 06:35 Plt Count 126 K/uL (152-406) L 10/09/19 06:35 MPV 9.5 fL (7.6-11.3) 10/09/19 06:35 Neutrophils % 86.9 % (41.7-73.7) H 10/09/19 06:35 Lymphocytes % 3.3 % (15.3-44.8) L 10/09/19 06:35 Monocytes % 9.4 % (3.3-12.3) 10/09/19 06:35 Eosinophils % 0.3 % (0-4.4) 10/09/19 06:35 Basophils % 0.1 % (0-1.3) 10/09/19 06:35 Absolute Neutrophils 11.8 K/uL (1.8-8.0) H 10/09/19 06:35 Segmented Neutrophils 89 % (40-80) H 10/09/19 06:35 Absolute Lymphocytes 0.4 K/uL (0.7-4.9) L 10/09/19 06:35 Lymphocytes 5 % (15-42) L 10/09/19 06:35 Monocytes 6 % (0-10) 10/09/19 06:35 Absolute Monocytes 1.3 K/uL (0.1-1.3) 10/09/19 06:35 Absolute Eosinophils 0.0 K/uL (0-0.5) 10/09/19 06:35 Absolute Basophils 0.0 K/uL (0-0.5) 10/09/19 06:35 Morphology Comment Not seen (NOT SEEN) 10/09/19 06:35 PT 25.2 SECONDS (9.5-12.5) H 10/10/19 06:52 INR 2.17 10/10/19 06:52 Sodium 140 mmol/L (136-145) 10/09/19 06:35 Potassium 3.6 mmol/L (3.5-5.1) 10/09/19 06:35 Chloride 104 mmol/L (98-107) 10/09/19 06:35 Carbon Dioxide 26 mmol/L (21-32) 10/09/19 06:35 BUN 56 mg/dL (7-18) H 10/09/19 06:35 Creatinine 5.42 mg/dL (0.55-1.3) H* 10/09/19 06:35 Estimated GFR 10 mL/min (=/>90) L 10/09/19 06:35 Glucose 94 mg/dL (74-106) 10/09/19 06:35 Calcium 8.3 mg/dL (8.5-10.1) L 10/09/19 06:35 Magnesium 2.3 mg/dL (1.8-2.4) 10/09/19 06:35 Albumin 2.2 g/dL (3.4-5.0) L 10/09/19 06:35 Prealbumin 4.4 mg/dL (20-40) L 10/09/19 06:35 SARS-CoV-2 RNA (RT-PCR) Negative (NEGATIVE) 10/09/19 06:25 Weight: 199 lb 3 oz Wound Present: No Closed Surgical Incision Present: No Negative Pressure Wound Therapy Present: No Physician Update: He reports a lot of bilateral hip pain. Will start gabapentin 100 mg twice daily. His O2 sat was 93 on room air. He may require O3 with ambulation. He will have dialysis today. Comment: multiple bruses, scabs, abrasions to BUE and BLE Functional Improvement: pt presents with severe generalized weakness. pt exhibits poor trunk strength. pt lacks balance and stability during ambulation and functional transfers. pt experiences poor tolerance for functional activity due to weakness, fatigue and SoB. Skilled PT services are necessary to address the above mentioned impairments and functional limitations. Summary: Patient's care plan and correction goals have been reviewed and revised as necessary. Please see the Rehabilitation Signature page for all necessary signatures.
[2019-10-10] MEDS: LIDOCAINE 4% PATCH TOP SCH (14:37)
--- NOTE | 2019-10-10 16:12 | RAD REPORT ---
EXAM DESCRIPTION: Ana Single View10/10/2019 3:50 pm CLINICAL HISTORY: Shortness breath COMPARISON: 1999 FINDINGS: Mild bilateral pulmonary opacities. . The heart is mildly enlarged. Pacemaker leads are in place. Postsurgical changes involve the chest IMPRESSION: These findings probably indicate mild CHF
[2019-10-10] MEDS: WARFARIN SODIUM 2.5 MG TAB PO SCH (16:47)
--- NOTE | 2019-10-10 17:09 | FAST ---
[employer] FORM SHIFT START DATE/TIME: 10/10/2019 07:00 (CDT) SHIFT END DATE/TIME: 10/10/2019 19:00 (CDT) NAME SHERWIN BANG DATE OF : 1945 DATE OF ADMISSION: 10/08/2019 18:46 (CDT) PHONE: AGE: 74 N# [id number] GENDER: Male ENCOUNTER PHYSICIAN: Dr. Miguel Angel Frazier M.D. ADMISSION DIAGNOSIS: - Cardiac 09 - Cardiac Disorders (09) CHRONIC A FIB,CHF,CAD,HTN,HLD,COPD,. EATING: EATING - STEP 1: Does the patient complete the activity by him/herself with no assistance (physical, verbal/nonverbal cueing, setup/clean-up)? No. EATING - STEP 2: Does the patient need only setup/clean-up assistance from one helper? No. EATING - STEP 3: Does the patient need only verbal/nonverbal cueing or touching/steadying/contact guard assistance fro m one helper? Yes. 1. [id number] ADMISSION PERFORMANCE: Supervision or touching assistance CODE: 04 ORAL HYGIENE: ORAL HYGIENE - STEP 1: Does the patient complete the activity by him/herself with no assistance (physical, verbal/nonverbal cueing, setup/clean-up)? No. ORAL HYGIENE - STEP 2: Does the patient need only setup/clean-up assistance from one helper? No. ORAL HYGIENE - STEP 3: Does the patient need only verbal/nonverbal cueing or touching/steadying/contact guard assistance fro m one helper? No. ORAL HYGIENE - STEP 4: Does the patient need physical assistance - for example lifting or trunk support from one helper - wi th the helper providing less than half of the effort? Yes. 1. [id number] ADMISSION PERFORMANCE: Partial/moderate assistance CODE: 03 TOILETING HYGIENE: TOILETING HYGIENE - STEP 1: Does the patient complete the activity by him/herself with no assistance (physical, verbal/nonverbal cueing, setup/clean-up)? No. TOILETING HYGIENE - STEP 2: Does the patient need only setup/clean-up assistance from one helper? Yes. 1. [id number] ADMISSION PERFORMANCE: Setup or clean-up assistance CODE: 05 BATHING: Not assessed/no information CODE: - DRESSING - UPPER BODY: Not assessed/no information CODE: - DRESSING - LOWER BODY: Not assessed/no information CODE: - PUTTING ON/TAKING OFF FOOTWEAR: Not assessed/no information CODE: - ROLL LEFT AND RIGHT: Not assessed/no information CODE: - SIT TO LYING: Not assessed/no information CODE: - LYING TO SITTING: Not assessed/no information CODE: - SIT TO STAND: SIT TO STAND - STEP 1: Does the patient complete the activity by him/herself with no assistance (physical, verbal/nonverbal cueing, setup/clean-up)? Yes. 1. [id number] ADMISSION PERFORMANCE: Independent CODE: 06 TRANSFERS: BED, CHAIR: Not assessed/no information CODE: - TRANSFER TOILET: TOILET TRANSFER - STEP 1: Does the patient complete the activity by him/herself with no assistance (physical, verbal/nonverbal cueing, setup/clean-up)? No. TOILET TRANSFER - STEP 2: Does the patient need only setup/clean-up assistance from one helper? No. TOILET TRANSFER - STEP 3: Does the patient need only verbal/nonverbal cueing or touching/steadying/contact guard assistance fro m one helper? Yes. 1. [id number] ADMISSION PERFORMANCE: Supervision or touching assistance CODE: 04 TRANSFERS: CAR: Not assessed/no information CODE: - WALK 10 FEET: Not assessed/no information CODE: - 1 STEP (CURB): Not assessed/no information CODE: - PICKING UP OBJECT: Not assessed/no information CODE: - DOES THE PATIENT USE A WHEELCHAIR/SCOOTER? CODE: EXPR WHEEL 50 FEET WITH TWO TURNS: Not assessed/no information CODE: - INDICATE THE TYPE OF WHEELCHAIR/SCOOTER USED: CODE: EXPR WHEEL 150 FEET: Not assessed/no information CODE: - INDICATE THE TYPE OF WHEELCHAIR/SCOOTER USED: CODE: EXPR BLADDER AND BOWEL: H350. BLADDER CONTINENCE (3-DAY ASSESSMENT PERIOD): No urine output (e.g., renal failure) CODE: 5 H400. BOWEL CONTINENCE (3-DAY ASSESSMENT PERIOD): Always continent CODE: 0 SIGNATURE PANEL: The following modified sections: 1. [id number] Admission Performance, 1. [id number] Admission Performance, 1. [id number] Admission Performance, 1. [id number] Admission Performance, 1. [id number] Admission Performance, Code, H350. Bladder Continence (3-day assessment period), H400. Bowel Continence (3-day assessment p eriod) were [electronically] signed by Joshua Barnett on SunOct 10 2019 17:08:42 GMT-0500 ([place] ght Time)
[2019-10-10] MEDS: NYSTATIN PWDR 100000 UNIT/GM TOP SCH (20:46)
[2019-10-10] MEDS: GABAPENTIN 100 MG CAP PO SCH (20:46)
[2019-10-10] MEDS: LATANOPROST 0.005% 2.5ML OPTH OPTH SCH (21:00)
[2019-10-10] MEDS: ASCORBIC ACID 500 MG TABLET PO SCH (22:45)
--- NOTE | 2019-10-10 22:57 | P.PN ---
Date of Service: 10/10/19 Vital Signs Temp Pulse Resp BP Pulse Ox 97.6 F 93 H 16 112/69 93 10/10/19 19:19 10/10/19 20:00 10/10/19 19:19 10/10/19 20:00 10/10/19 19:19 Medications Acetaminophen (Tylenol -Tablet) 650 mg PO Q6H PRN PRN Reason: Pain scale 2-4 (Mild) Stop: 11/07/19 21:56 Last Admin: 10/10/19 18:15 Dose: 650 mg Documented by: Albuterol Sulfate (Ventolin Inhaler) 2 puff IH Q6H PRN PRN Reason: SHORTNESS OF BREATH Stop: 11/07/19 21:01 Ascorbic Acid (Vitamin C) 500 mg PO Q12H [facility] Stop: 11/09/19 22:46 Calcitriol (Rocaltrol) 0.5 mcg PO DAILY EPI Stop: 11/10/19 08:01 Cholecalciferol (Vitamin D 5,000 Iu Cap) 5,000 unit PO DAILY [facility] Stop: 11/10/19 08:01 Coenzyme Q10 (Coenzyme Q10) 200 mg PO DAILY EPI Stop: 11/10/19 08:01 Cyanocobalamin (Vitamin B-12) 500 mcg PO DAILY EPI Stop: 11/08/19 08:01 Last Admin: 10/10/19 07:30 Dose: 500 mcg Documented by: Digoxin (Lanoxin) 0.125 mg PO DAILY PRN PRN Reason: afib Stop: 11/08/19 08:01 Fluticasone Propionate (Flovent Hfa 110) 110 mcg IH DAILY [facility] Stop: 11/08/19 08:01 Last Admin: 10/10/19 06:49 Dose: 1 inh Documented by: Gabapentin (Neurontin) 100 mg PO BID [facility] Stop: 11/09/19 20:01 Last Admin: 10/10/19 20:46 Dose: 100 mg Documented by: Home Med (Trelegy Ellipta) 1 puff IH DAILY [facility] Stop: 11/09/19 08:01 Last Admin: 10/10/19 06:49 Dose: 1 puff Documented by: Albumin Human (Albumin 25%) 50 mls @ 100 mls/hr IV EVERY HD [facility] Stop: 11/08/19 23:01 Latanoprost (Xalatan 0.005% Ophth Yasemin) 1 drops OPTH BEDTIME EPI Stop: 11/08/19 08:01 Last Admin: 10/10/19 21:00 Dose: Not Given Documented by: Levothyroxine Sodium (Synthroid) 0.025 mg PO DAILYAC EPI Stop: 11/08/19 06:31 Last Admin: 10/10/19 06:36 Dose: 0.025 mg Documented by: Lidocaine (Aspercreme 4% Patch) 1 patch TOP DAILY EPI Stop: 11/09/19 15:01 Last Admin: 10/10/19 14:37 Dose: 1 patch Documented by: Mannitol (Mannitol 12.5 Gm/50 Ml Vial) 12.5 gm IV EVERY HD PRN PRN Reason: Titrate to SBP (MUST DEFINE) Stop: 11/08/19 22:42 Melatonin (Melatonin) 3 mg PO BEDTIME PRN PRN PRN Reason: INSOMNIA Stop: 11/07/19 21:09 Last Admin: 10/09/19 20:08 Dose: 3 mg Documented by: Metoprolol Tartrate (Lopressor) 25 mg PO BID EPI Stop: 11/08/19 08:01 Last Admin: 10/10/19 20:00 Dose: Not Given Documented by: Multivitamins/Minerals (Centrum Tablet) 1 tab PO DAILY EPI Stop: 11/08/19 08:01 Last Admin: 10/10/19 07:31 Dose: 1 tab Documented by: Nutritional Formula (Promod Liquid Protein) 30 ml PO BID EPI Stop: 11/08/19 20:01 Last Admin: 10/10/19 20:48 Dose: 30 ml Documented by: Nystatin (Mycostatin (Powder)) 1 appl TOP BID EPI Stop: 11/09/19 20:01 Last Admin: 10/10/19 20:46 Dose: 1 appl Documented by: Roflumilast (Daliresp) 500 mcg PO DAILY EPI Stop: 11/09/19 08:01 Last Admin: 10/10/19 07:31 Dose: 500 mcg Documented by: Senna/Docusate Sodium (Senokot-S) 2 tab PO BEDTIME PRN PRN Reason: CONSTIPATION Stop: 11/07/19 21:08 Last Admin: 10/10/19 20:46 Dose: 2 tab Documented by: Torsemide (Demadex) 20 mg PO BID EPI Stop: 11/08/19 08:01 Last Admin: 10/10/19 07:31 Dose: 20 mg Documented by: Warfarin Sodium (Coumadin) 2.5 mg PO DAILY 5 PM EPI Stop: 11/08/19 17:01 Last Admin: 10/10/19 16:47 Dose: 2.5 mg Documented by: Lab Results (last 24 hrs) 10/10/19 06:52: PT 25.2 H, INR 2.17 Assessment/ Plan: Nephrology CPS stable without CP or SOB. +KENDRICK Persistent edema. Bruising and skin weeping. No acute events overnight. Vitals, medications, blood work and imaging reviewed in the chart. General: In no apparent distress, Oriented x3, Cooperative HEENT: Atraumatic Neck: Supple Respiratory: Diminished Cardiovascular: Regular rate/rhythm Gastrointestinal: Soft and benign, Non-distended Musculoskeletal: No clubbing, No contractures Integumentary: No rashes, No cyanosis. +Ecchymoses Neurological: Normal speech Laboratory Data (last 24 hrs) 10/09/19 06:35: PT 23.0 H, INR 1.98 10/09/19 06:35: Sodium 140, Potassium 3.6, BUN 56 H, Creatinine 5.42 H*, Glucose 94, Magnesium 2.3 10/09/19 06:35: WBC 13.6 H, Hgb 11.0 L, Hct 33.8 L, Plt Count 126 L Imagings Data: EXAM DESCRIPTION: Ana Single View10/10/2019 3:50 pm CLINICAL HISTORY: Shortness breath COMPARISON: 1999 FINDINGS: Mild bilateral pulmonary opacities. . The heart is mildly enlarged. Pacemaker leads are in place. Postsurgical changes involve the chest IMPRESSION: These findings probably indicate mild CHF Conclusions/Impression: A/ ESRD on HD HTN with CKD/ CHF. Diastolic CHF, chronic. Anemia in chronic disease. Moderate malnutrition. ANGUS/ Secondary HyperPTH. Hypocalcemia. Gout P/ Continue current POC and Medications. Arrange for acute HD. Draw blood cultures due to leukocytosis. Restart home medications as indicated. Start Vitamin D. May need PO4 binder. PT as tolerated. Encourage nutrition. Low sodium diet. No heparin due to allergy. No NSAIDS. AM labs. Daily weight.
[2019-10-11] MEDS ORDERED: MANNITOL 25% 50 ML IV ONE (00:35)
[2019-10-11] MEDS: ACETAMINOPHEN 325 MG TABLET PO PRN ×3 (00:45→09:19)
[2019-10-11 06:37] LABS: Absolute Lymphocytes (CBC) 0.4 K/uL (0.7-4.9); Basophils % 0.3 % (0-1.3); Hematocrit 29.6 % (39.6-49.0); Lymphocytes % 4.7 % (15.3-44.8); MPV 9.6 fL (7.6-11.3); RBC Red Blood Cell Count 3.01 M/uL (4.33-5.43)
[2019-10-11 06:46] LABS: Protime INR 2.81
[2019-10-11] MEDS: LEVOTHYROXINE SOD 0.025 MG TAB PO SCH (07:03)
[2019-10-11 07:14] LABS: ALT/SGPT 24 U/L (12-78); AST/SGOT 18 U/L (15-37); Alkaline Phosphatase 152 U/L (45-117); BUN Blood Urea Nitrogen 53 mg/dL (7-18); Bicarbonate 27 mmol/L (21-32); Glucose Level 82 mg/dL (74-106); NT PRO-BNP > 175000 pg/mL (<125); Phosphorus 4.3 mg/dL (2.5-4.9); Potassium 3.6 mmol/L (3.5-5.1); Protein, Total 5.5 g/dL (6.4-8.2); Sodium Level 141 mmol/L (136-145)
[2019-10-11] MEDS: ASCORBIC ACID 500 MG TABLET PO SCH ×2 (07:26→19:54)
[2019-10-11] MEDS: VITAMIN D 5,000 UNIT CAP PO SCH (07:26)
[2019-10-11] MEDS: CYANOCOBALAMIN 1,000 MCG TAB PO SCH (07:27)
[2019-10-11] MEDS: GABAPENTIN 100 MG CAP PO SCH (07:27)
[2019-10-11] MEDS: ROFLUMILAST 500 MCG TABLET PO SCH (07:28)
[2019-10-11] MEDS: MULTIVITAMIN TAB PO SCH (07:28)
[2019-10-11] MEDS: CALCITROL 0.25 MCG CAP PO SCH (07:28)
[2019-10-11] MEDS: LIDOCAINE 4% PATCH TOP SCH (07:29)
[2019-10-11] MEDS: TRELEGY ELLIPTA IH SCH (07:36)
[2019-10-11] MEDS: TORSEMIDE 20 MG TAB PO SCH ×2 (07:48→19:50)
[2019-10-11] MEDS: NYSTATIN PWDR 100000 UNIT/GM TOP SCH ×2 (08:00→19:51)
[2019-10-11] MEDS ORDERED: MULTIVITAMINS,THERAPEUT 1 TAB PO SCH (08:00)
[2019-10-11] MEDS: METOPROLOL TAR 50 MG TAB PO SCH ×2 (08:00→19:51)
[2019-10-11] MEDS ORDERED: DOCUSATE NA 100 MG CAP PO SCH (08:00)
[2019-10-11] MEDS: FLUTICASONE 110 MCG/PUFF 12 GM INH IH SCH (09:18)
[2019-10-11] MEDS: PROMOD 30 ML DOSE PO SCH ×2 (09:19→19:51)
[2019-10-11] MEDS: COENZYME Q10- 200 MG CAP PO SCH (10:44)
[2019-10-11] MEDS ORDERED: GABAPENTIN 100 MG CAP PO SCH (11:03)
--- NOTE | 2019-10-11 11:33 | P.PN ---
Subjective Date of Service: 10/11/19 Chief Complaint: Weakness patient seen/examined. alert currently. has had some "groginess" and fall with weakness. denies pain. sob is at baseline/improved overall. hx of copd. vs stable. o2 sat at 97 percent on room air. patient is alert and answers questions comfortably. sitting in chair. lungs decreased air entry/few basal crackles. seems better than past. cvs irregular. hr around 90s abd soft, nt, nd. bs + ext edema stable labs reviewed a/p: esrd/copd/respirtaroy chronic failure (copd): diet/volume restriction/salt restriction reviewed. fall precautions. s/p hd last night. oxygen prn to keep o2 sats greater than 92. has started back digoxin just today. check digoxin level tomorrow. d/c gabapentin to see if that will help him stay more alert and mitigate fall risk. patient denies any aches in legs currently. Physical Examination - Vital Signs Temperature: 98.6 F Blood Pressure: 96/53 Pulse: 103 Respirations: 16 Pulse Ox (%): 96 - Studies Laboratory Data (last 24 hrs) 10/11/19 06:26: Sodium 141, Potassium 3.6, BUN 53 H, Creatinine 4.84 H, Glucose 82, Uric Acid 5.0, Phosphorus 4.3, Total Bilirubin 1.0, AST 18, ALT 24, Alkaline Phosphatase 152 H 10/11/19 06:26: WBC 9.1 D, Hgb 9.7 L, Hct 29.6 L, Plt Count 132 L 10/11/19 06:26: PT 32.5 H, INR 2.81
[2019-10-11] MEDS: WARFARIN SODIUM 2.5 MG TAB PO SCH (16:50)
[2019-10-11] MEDS: MELATONIN 3 MG TABLET PO PRN (19:50)
[2019-10-11] MEDS: LATANOPROST 0.005% 2.5ML OPTH OPTH SCH (19:51)
[2019-10-12 06:49] LABS: Protime INR 3.12
[2019-10-12] MEDS: LEVOTHYROXINE SOD 0.025 MG TAB PO SCH (06:50)
[2019-10-12 07:21] LABS: Digoxin Level 0.1 ng/mL (0.80-2.00); Potassium 3.9 mmol/L (3.5-5.1)
[2019-10-12] MEDS: NYSTATIN PWDR 100000 UNIT/GM TOP SCH ×2 (08:00→20:00)
[2019-10-12] MEDS: METOPROLOL TAR 50 MG TAB PO SCH ×2 (08:00→21:51)
[2019-10-12] MEDS: TORSEMIDE 20 MG TAB PO SCH ×2 (08:00→21:51)
[2019-10-12] MEDS: TRELEGY ELLIPTA IH SCH (08:00)
[2019-10-12] MEDS: PROMOD 30 ML DOSE PO SCH ×2 (08:30→21:52)
[2019-10-12] MEDS: COENZYME Q10- 200 MG CAP PO SCH (09:03)
[2019-10-12] MEDS: LIDOCAINE 4% PATCH TOP SCH (09:03)
[2019-10-12] MEDS: FLUTICASONE 110 MCG/PUFF 12 GM INH IH SCH (09:04)
[2019-10-12] MEDS: MULTIVITAMIN TAB PO SCH (09:06)
[2019-10-12] MEDS: ROFLUMILAST 500 MCG TABLET PO SCH (09:06)
[2019-10-12] MEDS: CALCITROL 0.25 MCG CAP PO SCH (09:06)
[2019-10-12] MEDS: VITAMIN D 5,000 UNIT CAP PO SCH (09:06)
[2019-10-12] MEDS: CYANOCOBALAMIN 1,000 MCG TAB PO SCH (09:07)
[2019-10-12] MEDS: DIGOXIN 0.125 MG TABLET PO SCH (11:29)
[2019-10-12] MEDS: ASCORBIC ACID 500 MG TABLET PO SCH ×2 (11:30→21:51)
[2019-10-12] MEDS: ACETAMINOPHEN 325 MG TABLET PO PRN ×2 (12:06→21:50)
[2019-10-12] MEDS: WARFARIN SODIUM 2.5 MG TAB PO SCH (17:41)
[2019-10-12] MEDS: LATANOPROST 0.005% 2.5ML OPTH OPTH SCH (21:00)
[2019-10-12] MEDS: MELATONIN 3 MG TABLET PO PRN (21:51)
[2019-10-13] MEDS: ACETAMINOPHEN 325 MG TABLET PO PRN ×2 (03:01→08:06)
[2019-10-13] MEDS: FLUTICASONE 110 MCG/PUFF 12 GM INH IH SCH (06:28)
[2019-10-13] MEDS: LEVOTHYROXINE SOD 0.025 MG TAB PO SCH (06:28)
[2019-10-13] MEDS: TRELEGY ELLIPTA IH SCH ×2 (06:29→06:37)
[2019-10-13 06:38] LABS: Protime INR 3.41
[2019-10-13] MEDS: METOPROLOL TAR 50 MG TAB PO SCH ×2 (08:00→22:41)
[2019-10-13] MEDS: TORSEMIDE 20 MG TAB PO SCH ×2 (08:00→22:41)
[2019-10-13] MEDS: CALCITROL 0.25 MCG CAP PO SCH (08:05)
[2019-10-13] MEDS: COENZYME Q10- 200 MG CAP PO SCH (08:06)
[2019-10-13] MEDS: CYANOCOBALAMIN 1,000 MCG TAB PO SCH (08:07)
[2019-10-13] MEDS: VITAMIN D 5,000 UNIT CAP PO SCH (08:08)
[2019-10-13] MEDS: MULTIVITAMIN TAB PO SCH (08:08)
[2019-10-13] MEDS: DIGOXIN 0.125 MG TABLET PO SCH (08:08)
[2019-10-13] MEDS: PROMOD 30 ML DOSE PO SCH ×2 (08:08→22:42)
[2019-10-13] MEDS: ROFLUMILAST 500 MCG TABLET PO SCH (08:08)
[2019-10-13] MEDS: ASCORBIC ACID 500 MG TABLET PO SCH ×2 (10:32→22:40)
[2019-10-13] MEDS: LIDOCAINE 4% PATCH TOP SCH (10:33)
[2019-10-13] MEDS: NYSTATIN PWDR 100000 UNIT/GM TOP SCH ×2 (10:34→20:00)
[2019-10-13] MEDS: WARFARIN SODIUM 2.5 MG TAB PO SCH (16:40)
--- NOTE | 2019-10-13 17:48 | R.PN ---
PROGRESS NOTES ENCOUNTER DATE AND TIME: 10/13/2019 17:38 (CDT) NAME SHERWIN BANG DATE OF : 1945 DATE OF ADMISSION: 10/08/2019 18:46 (CDT) CHRONIC A FIB,CHF,CAD,HTN,HLD,COPD,CHIEF COMPLAINT: Cardiac debility. SUBJECTIVE: Pt denied any Shortness of Breath. Pt denied any depression. WBC 9.1, Hgb 9.7, INR 3.41, Grease Maker 5.92, Digoxin level 0.1. Functional transfers done with maximum assistance. Bathing done with minimum assistance. VITAL SIGNS Temperature: 97.5 F SBP/DBP: 104/62 Pulse: 89 Resp: 16 MEDICATION ALLERGIES: No Known Drug Allergies (NKDA) ENVIRONMENTAL ALLERGIES: - Substance Allergies None Known - Other Allergies None Known NURSING: - Shower allowing shower ACTIVITIES OOB only with supervision THERAPIES: - Dietary and Nutrition Adequate Nutrition. Nutritional Education. Nutritional Supplements. PHYSICAL EXAM - Gen Alert and awake Lying in bed No apparent distress Oriented to: person, time, and place - Skin Bruising on the dorsal right and left hand and forearm No abnormalities - Eyes No abnormalities - ENMT No abnormalities - Neck No abnormalities No cervical adenopathy - CVS IRIR - Chest Mildly decreased breath sounds bilaterally. - Resp No wheezing - Abd Soft - GI Non distended Deferred - Does not produce urine, on hemodialysis - Ext Mild bilateral lower extremity edema. - MSK 4+/5 weakness in both lower extremities. - Neuro No focal deficits - Psych No abnormalities ASSESSMENT: Pt. is a 74 yo Right-handed male of unknown race.On 10/03/2019 he was admitted to [facility] with diagnosis CHRONIC A FIB,CHF,CAD,HTN,HLD,COPD,.His impairment category is Cardiac 09 - Cardiac D isorders (09).Pre-morbidly, Pt. was independent/mod-I in Locomotion, Transfers Control, Communication , and Sphincter Control; and he had good Social Cognition, Transfers Control, and Endurance.Currently , he has deficits of Locomotion, Safety Awareness, Transfers Control, Sphincter Control, Self-Care, C ommunication, and Endurance.Pt. is now referred to [facility] for acute in-pat ient rehabilitation in order to maximize patient's functional independence in activities of daily chapito ing, strength, ROM, and mobility.- Rehab Goal Patient has realistic goal of being discharged at assistance level 3-modA to reside at Home with Fam vanesa/Relatives. MDM/PLAN: - Physical Therapy Gait dysfunction - to improve, our physical therapists will perform initial evaluation of pt's statu s upon admission and devise an individualized program for Gait Training, and Wheel Chair mobility Inability to transfer - to improve, our physical therapists will perform initial evaluation of pt's status upon admission and devise an individualized program for Bed mobility Need for home safety evaluation - to improve, our physical therapists will perform initial evaluatio n of pt's status upon admission and devise an individualized program for Home Evaluation Need in caregiver upon discharge - to improve, our physical therapists will perform initial evaluati on of pt's status upon admission and devise an individualized program for Caregiver Training Edema - to improve, our physical therapists will perform initial evaluation of pt's status upon admis anastacia and devise an individualized program for Elevation Training, and Lymphedema Therapy New precaution - to improve, our physical therapists will perform initial evaluation of pt's status upon admission and devise an individualized program for Patient precaution education Poor endurance - to improve, our physical therapists will perform initial evaluation of pt's status upon admission and devise an individualized program for Endurance Training Weakness - to improve, our physical therapists will perform initial evaluation of pt's status upon a dmission and devise an individualized program for Aquatic Therapy, Neuromuscular Reeducation, and Str engthening Achieving independence - to improve, our physical therapists will perform initial evaluation of pt's status upon admission and devise an individualized program for Community Reintegration Activities - Occupational Therapy ADL deficits - to improve, our occupation therapists will perform initial evaluation of pt's status upon admission and devise an individualized program for Bathing, Bed mobility, Community Reintegratio n, Cooking, Dressing, Eating, Fine Motor Skills, Grooming, Homemaking, Kitchen Mobility, Laundry, Pat ient Education, Safety Awareness, Splinting - Positioning, Transfers(Toilet, Tub, Shower), and Wheel Chair Management Need for childcare center director - to improve, our occupation therapists will perform initial evaluation of pt's status upon admission and devise an individualized program for Caregiver Training Weakness - to improve, our occupation therapists will perform initial evaluation of pt's status upon admission and devise an individualized program for Aquatic Therapy, Balance, Endurance, UE ROM, and UE strengthening - Other See attached MAR (Medication Administration Record) - Diet Type Continue Regular - Diet - Liquid Texture Continue Regular - Tube Feed Continue N/A - Diet - Solid Texture Continue Regular - Shower allowing shower FUNCTIONAL STATUS: UPDATED AT WEEKLY TEAM CONFERENCE - Bladder Same accident frequency: 7-Ind - No accidents in the past 7 days - Bowel Same accident frequency: 7-Ind - No accidents in the past 7 days - Walking Same score based on distance walked: 0(N/A) - Wheelchair Same score based on distance traveled: 0(N/A) FUNCTIONAL STATUS: - Self-Care A. Eating Ind B. Grooming Feliciano C. Bathing modA D. Dressing - Upper modA E. Dressing - Lower modA F. Toileting sup - Sphincter Control G. Bladder control Milo H. Bowel control Milo - Transfers Control I. Bed/Chair/Wheelchair Milo J. Toilet Milo K. Tub/Shower modA - Locomotion L. Walk/Wheelchair (B) modA M. Stairs maxA - Communication N. Comprehension (B) Feliciano O. Expression (B) Feliciano - Social Cognition P. Social Interaction Feliciano Q. Problem Solving Feliciano R. Memory Feliciano - Endurance Fair - Balance Poor - Safety Awareness Fair QI SCORES: - Self-Care A. Eating 03-Partial/moderate assistance B. Oral hygiene 03-Partial/moderate assistance C. Toileting hygiene 02-Substantial/maximal assistance E. Shower/bathe self 02-Substantial/maximal assistance F. Upper body dressing 03-Partial/moderate assistance G. Lower body dressing 03-Partial/moderate assistance H. Putting on/taking off footwear 88-Not attempted due to medical condition or safety concerns - Mobility A. Roll left and right 03-Partial/moderate assistance B. Sit to lying 03-Partial/moderate assistance C. Lying to sitting on side of bed 03-Partial/moderate assistance D. Sit to stand 02-Substantial/maximal assistance E. Chair/hek-kx-lacbl transfer 02-Substantial/maximal assistance F. Toilet transfer 02-Substantial/maximal assistance G. Car transfer 88-Not attempted due to medical condition or safety concerns I. Walk 10 feet 02-Substantial/maximal assistance J. Walk 50 feet with two turns 88-Not attempted due to medical condition or safety concerns K. Walk 150 feet 88-Not attempted due to medical condition or safety concerns L. Walking 10 feet on uneven surfaces 88-Not attempted due to medical condition or safety concerns M. 1 step (curb) 88-Not attempted due to medical condition or safety concerns N. 4 steps 88-Not attempted due to medical condition or safety concerns O. 12 steps 88-Not attempted due to medical condition or safety concerns P. Picking up object 88-Not attempted due to medical condition or safety concerns R. Wheel 50 feet with two turns 88-Not attempted due to medical condition or safety concerns S. Wheel 150 feet 88-Not attempted due to medical condition or safety concerns - Bladder and Bowel Bladder continence Bowel continence 0-Always continent - Endurance Poor - Balance Poor - Safety Awareness Poor CURRENT FUNC. DEFICITS: Balance, Safety Awareness, Mobility, Endurance, and Self-Care SIGNATURE PANEL: (CDT)
[2019-10-13] MEDS ORDERED: GABAPENTIN 100 MG CAP PO SCH (20:00)
[2019-10-13] MEDS: ALBUMIN HUMAN 25% 50 ML IV SCH (20:15)
[2019-10-13] MEDS ORDERED: ALBUMIN HUMAN 25% 50 ML IV ONE (20:37)
[2019-10-13] MEDS: LATANOPROST 0.005% 2.5ML OPTH OPTH SCH (21:00)
--- NOTE | 2019-10-13 21:35 | P.PN ---
Date of Service: 10/13/19 Vital Signs Temp Pulse Resp BP Pulse Ox 97.5 F 89 18 104/62 94 10/13/19 07:11 10/13/19 08:00 10/13/19 07:11 10/13/19 08:00 10/13/19 07:11 Medications Acetaminophen (Tylenol -Tablet) 650 mg PO Q6H PRN PRN Reason: Pain scale 2-4 (Mild) Stop: 11/07/19 21:56 Last Admin: 10/13/19 08:06 Dose: 650 mg Documented by: Albuterol Sulfate (Ventolin Inhaler) 2 puff IH Q6H PRN PRN Reason: SHORTNESS OF BREATH Stop: 11/07/19 21:01 Ascorbic Acid (Vitamin C) 500 mg PO Q12H EPI Stop: 11/09/19 22:46 Last Admin: 10/13/19 10:32 Dose: 500 mg Documented by: Calcitriol (Rocaltrol) 0.5 mcg PO DAILY EPI Stop: 11/10/19 08:01 Last Admin: 10/13/19 08:05 Dose: 0.5 mcg Documented by: Cholecalciferol (Vitamin D 5,000 Iu Cap) 5,000 unit PO DAILY EPI Stop: 11/10/19 08:01 Last Admin: 10/13/19 08:08 Dose: 5,000 unit Documented by: Coenzyme Q10 (Coenzyme Q10) 200 mg PO DAILY EPI Stop: 11/10/19 08:01 Last Admin: 10/13/19 08:06 Dose: 200 mg Documented by: Cyanocobalamin (Vitamin B-12) 500 mcg PO DAILY EPI Stop: 11/08/19 08:01 Last Admin: 10/13/19 08:07 Dose: 500 mcg Documented by: Digoxin (Lanoxin) 0.125 mg PO DAILY EPI Stop: 11/11/19 08:01 Last Admin: 10/13/19 08:08 Dose: 0.125 mg Documented by: Fluticasone Propionate (Flovent Hfa 110) 110 mcg IH DAILY EPI Stop: 11/08/19 08:01 Last Admin: 10/13/19 06:28 Dose: 1 inh Documented by: Gabapentin (Neurontin) 100 mg PO BID EPI Stop: 11/12/19 20:01 Albumin Human (Albumin 25%) 50 mls @ 100 mls/hr IV EVERY HD EPI Stop: 11/08/19 23:01 Last Admin: 10/13/19 20:15 Dose: 50 mls Documented by: Latanoprost (Xalatan 0.005% Ophth Yasemin) 1 drops OPTH BEDTIME EPI Stop: 11/08/19 08:01 Last Admin: 10/12/19 21:00 Dose: Not Given Documented by: Levothyroxine Sodium (Synthroid) 0.025 mg PO DAILYAC EPI Stop: 11/08/19 06:31 Last Admin: 10/13/19 06:28 Dose: 0.025 mg Documented by: Lidocaine (Aspercreme 4% Patch) 2 patch TOP DAILY EPI Stop: 11/11/19 08:01 Last Admin: 10/13/19 10:33 Dose: 2 patch Documented by: Mannitol (Mannitol 12.5 Gm/50 Ml Vial) 12.5 gm IV EVERY HD PRN PRN Reason: Titrate to SBP (MUST DEFINE) Stop: 11/08/19 22:42 Last Admin: 10/13/19 20:48 Dose: 12.5 gm Documented by: Melatonin (Melatonin) 3 mg PO BEDTIME PRN PRN PRN Reason: INSOMNIA Stop: 11/07/19 21:09 Last Admin: 10/12/19 21:51 Dose: 3 mg Documented by: Metoprolol Tartrate (Lopressor) 25 mg PO BID EIP Stop: 11/08/19 08:01 Last Admin: 10/13/19 08:00 Dose: Not Given Documented by: Multivitamins/Minerals (Centrum Tablet) 1 tab PO DAILY EPI Stop: 11/08/19 08:01 Last Admin: 10/13/19 08:08 Dose: 1 tab Documented by: Nutritional Formula (Promod Liquid Protein) 30 ml PO BID EPI Stop: 11/08/19 20:01 Last Admin: 10/13/19 08:08 Dose: 30 ml Documented by: Nystatin (Mycostatin (Powder)) 1 appl TOP BID EPI Stop: 11/09/19 20:01 Last Admin: 10/13/19 10:34 Dose: 1 appl Documented by: Roflumilast (Daliresp) 500 mcg PO DAILY EPI Stop: 11/09/19 08:01 Last Admin: 10/13/19 08:08 Dose: 500 mcg Documented by: Senna/Docusate Sodium (Senokot-S) 2 tab PO BEDTIME PRN PRN Reason: CONSTIPATION Stop: 11/07/19 21:08 Last Admin: 10/10/19 20:46 Dose: 2 tab Documented by: Torsemide (Demadex) [address] [facility] Stop: 11/08/19 08:01 Last Admin: 10/13/19 08:00 Dose: Not Given Documented by: Warfarin Sodium (Coumadin) 2.5 mg PO DAILY [address] [facility] Stop: 11/08/19 17:01 Last Admin: 10/13/19 16:40 Dose: 2.5 mg Documented by: Lab Results (last 24 hrs) 10/13/19 06:10: PT 39.3 H, INR 3.41 Microbiology Results 10/10/19 23:30 Blood - Blood Aerobic Blood Culture - Preliminary No growth in 24 hours. 10/10/19 23:30 Blood - Blood Anaerobic Blood Culture - Preliminary No growth in 24 hours. 10/10/19 14:35 Blood - Blood Aerobic Blood Culture - Preliminary No growth in 24 hours. 10/10/19 14:35 Blood - Blood Anaerobic Blood Culture - Preliminary No growth in 24 hours. Assessment/ Plan: Nephrology CPS stable without CP or SOB. +KENDRICK Persistent edema. Bruising and skin weeping. No acute events overnight. Vitals, medications, blood work and imaging reviewed in the chart. General: In no apparent distress, Oriented x3, Cooperative HEENT: Atraumatic Neck: Supple Respiratory: Diminished Cardiovascular: Regular rate/rhythm Gastrointestinal: Soft and benign, Non-distended Musculoskeletal: No clubbing, No contractures Integumentary: No rashes, No cyanosis. +Ecchymoses Neurological: Normal speech Laboratory Data (last 24 hrs) 10/09/19 06:35: PT 23.0 H, INR 1.98 10/09/19 06:35: Sodium 140, Potassium 3.6, BUN 56 H, Creatinine 5.42 H*, Glucose 94, Magnesium 2.3 10/09/19 06:35: WBC 13.6 H, Hgb 11.0 L, Hct 33.8 L, Plt Count 126 L Imagings Data: EXAM DESCRIPTION: Ana Single View10/10/2019 3:50 pm CLINICAL HISTORY: Shortness breath COMPARISON: 2000 FINDINGS: Mild bilateral pulmonary opacities. . The heart is mildly enlarged. Pacemaker leads are in place. Postsurgical changes involve the chest IMPRESSION: These findings probably indicate mild CHF Conclusions/Impression: A/ ESRD on HD HTN with CKD/ CHF. Diastolic CHF, chronic. Anemia in chronic disease. Moderate malnutrition. ANGUS/ Secondary HyperPTH. Hypocalcemia. Gout P/ Continue current POC and Medications. HD TIW. Arrange for an extra HD tomorrow. PT as tolerated. Encourage nutrition. Low sodium diet. No heparin due to allergy. No NSAIDS. AM labs. Daily weight.
[2019-10-13] MEDS: MELATONIN 3 MG TABLET PO PRN (23:49)
--- NOTE | 2019-10-14 02:33 | FAST ---
[employer] FORM SHIFT START DATE/TIME: 10/13/2019 19:00 (CDT) SHIFT END DATE/TIME: 10/14/2019 07:00 (CDT) NAME SHERWIN BANG DATE OF : 1945 DATE OF ADMISSION: 10/08/2019 18:46 (CDT) PHONE: AGE: 74 N# [id number] GENDER: Male ENCOUNTER PHYSICIAN: Dr. Miguel Angel Frazier M.D. ADMISSION DIAGNOSIS: - Cardiac 09 - Cardiac Disorders () CHRONIC A FIB,CHF,CAD,HTN,HLD,COPD,. EATING: Not assessed/no information CODE: - ORAL HYGIENE: Not assessed/no information CODE: - TOILETING HYGIENE: TOILETING HYGIENE - STEP 1: Does the patient complete the activity by him/herself with no assistance (physical, verbal/nonverbal cueing, setup/clean-up)? No. TOILETING HYGIENE - STEP 2: Does the patient need only setup/clean-up assistance from one helper? No. TOILETING HYGIENE - STEP 3: Does the patient need only verbal/nonverbal cueing or touching/steadying/contact guard assistance fro m one helper? No. TOILETING HYGIENE - STEP 4: Does the patient need physical assistance - for example lifting or trunk support from one helper - wi th the helper providing less than half of the effort? Yes. 1. [id number] ADMISSION PERFORMANCE: Partial/moderate assistance CODE: 03 BATHING: Not assessed/no information CODE: - DRESSING - UPPER BODY: Not assessed/no information CODE: - DRESSING - LOWER BODY: Not assessed/no information CODE: - PUTTING ON/TAKING OFF FOOTWEAR: Not assessed/no information CODE: - ROLL LEFT AND RIGHT: ROLL LEFT AND RIGHT - STEP 1: Does the patient complete the activity by him/herself with no assistance (physical, verbal/nonverbal cueing, setup/clean-up)? No. ROLL LEFT AND RIGHT - STEP 2: Does the patient need only setup/clean-up assistance from one helper? No. ROLL LEFT AND RIGHT - STEP 3: Does the patient need only verbal/nonverbal cueing or touching/steadying/contact guard assistance fro m one helper? No. ROLL LEFT AND RIGHT - STEP 4: Does the patient need physical assistance - for example lifting or trunk support from one helper - wi th the helper providing less than half of the effort? Yes. 1. [id number] ADMISSION PERFORMANCE: Partial/moderate assistance CODE: 03 SIT TO LYING: Not assessed/no information CODE: - LYING TO SITTING: Not assessed/no information CODE: - SIT TO STAND: Not assessed/no information CODE: - TRANSFERS: BED, CHAIR: Not assessed/no information CODE: - TRANSFER TOILET: Not assessed/no information CODE: - TRANSFERS: CAR: Not assessed/no information CODE: - WALK 10 FEET: Not assessed/no information CODE: - 1 STEP (CURB): Not assessed/no information CODE: - PICKING UP OBJECT: Not assessed/no information CODE: - DOES THE PATIENT USE A WHEELCHAIR/SCOOTER? CODE: EXPR WHEEL 50 FEET WITH TWO TURNS: Not assessed/no information CODE: - INDICATE THE TYPE OF WHEELCHAIR/SCOOTER USED: CODE: EXPR WHEEL 150 FEET: Not assessed/no information CODE: - INDICATE THE TYPE OF WHEELCHAIR/SCOOTER USED: CODE: EXPR BLADDER AND BOWEL: H350. BLADDER CONTINENCE (3-DAY ASSESSMENT PERIOD): No urine output (e.g., renal failure) CODE: 5 H400. BOWEL CONTINENCE (3-DAY ASSESSMENT PERIOD): Always continent CODE: 0
[2019-10-14 06:26] LABS: Protime INR 3.86
[2019-10-14] MEDS: LEVOTHYROXINE SOD 0.025 MG TAB PO SCH (06:53)
[2019-10-14 07:53] LABS: Absolute Lymphocytes (CBC) 0.3 K/uL (0.7-4.9); Basophils % 0.1 % (0-1.3); Hematocrit 28.2 % (39.6-49.0); Lymphocytes % 2.7 % (15.3-44.8); MPV 9.3 fL (7.6-11.3); RBC Red Blood Cell Count 2.87 M/uL (4.33-5.43)
[2019-10-14] MEDS: TORSEMIDE 20 MG TAB PO SCH ×2 (08:00→21:58)
[2019-10-14] MEDS: METOPROLOL TAR 50 MG TAB PO SCH ×2 (08:00→21:59)
[2019-10-14] MEDS: NYSTATIN PWDR 100000 UNIT/GM TOP SCH ×2 (08:00→20:00)
[2019-10-14 08:10] LABS: Potassium 3.8 mmol/L (3.5-5.1)
[2019-10-14] MEDS: DIGOXIN 0.125 MG TABLET PO SCH (08:48)
[2019-10-14] MEDS: CALCITROL 0.25 MCG CAP PO SCH (08:48)
[2019-10-14] MEDS: LIDOCAINE 4% PATCH TOP SCH (08:48)
[2019-10-14] MEDS: VITAMIN D 5,000 UNIT CAP PO SCH (08:48)
[2019-10-14] MEDS: ASCORBIC ACID 500 MG TABLET PO SCH ×2 (08:48→21:58)
[2019-10-14] MEDS: FLUTICASONE 110 MCG/PUFF 12 GM INH IH SCH (08:49)
[2019-10-14] MEDS: ROFLUMILAST 500 MCG TABLET PO SCH (08:51)
[2019-10-14] MEDS: PROMOD 30 ML DOSE PO SCH ×2 (08:52→20:00)
[2019-10-14] MEDS: ACETAMINOPHEN 325 MG TABLET PO PRN ×2 (08:52→22:46)
[2019-10-14] MEDS: CYANOCOBALAMIN 1,000 MCG TAB PO SCH (08:53)
[2019-10-14] MEDS ORDERED: IPRATROPIUM BROM 0.5MG/2.5ML NEB PRN (09:03)
[2019-10-14] MEDS: COENZYME Q10- 200 MG CAP PO SCH (12:18)
[2019-10-14] MEDS: MULTIVITAMIN TAB PO SCH (12:18)
--- NOTE | 2019-10-14 13:08 | P.CNS ---
Date of Consult: 10/14/19 Reason for Consult: COPD Chief Complaint: Weakness History of Present Illness: Patient is 74 years of age well known to me is been declining steadily in the last a year recently had an extensive bout of impaction rehabilitation including renal failure patient is on dialysis apparently he fell became weak was transferred from [place] to the rehab center he has a history of severe COPD and takes bronchodilators at home will complaining of shortness of breath Allergies heparin Allergy (Verified 10/08/19 21:54) Shortness of breath Home Medications: Latanoprost Ophth [Xalatan 0.005%*] 1 drop OU DAILY 03/20/13 Albuterol Inhaler [Ventolin Inhaler] 2 puff IH Q6H PRN 10/09/19 Cyanocobalamin (Vitamin B-12) [Vitamin B-12] 5,000 mcg PO DAILY 10/09/19 Digoxin [Lanoxin*] 0.125 mg PO DIRECTED 10/09/19 Fluticasone/Vilanterol [Breo Ellipta 100-25 Mcg INH] 1 each IH DAILY 10/09/19 Levothyroxine [Synthroid] 25 mcg PO DAILY 10/09/19 Metoprolol Tartrate 25 mg PO BID 10/09/19 Multivitamin [Multiple Vitamins] 1 each PO BID 10/09/19 Torsemide [Demadex*] 1 tab PO BID 10/09/19 Warfarin Sodium [Coumadin] 2.5 mg PO DAILY 5 PM 10/09/19 - Past Medical/Surgical History Diabetic: No -: CHF -: COPD/ asthma -: Atrial fibrillation -: HTN -: hyperlipidemia -: Rt hip surgery -: Bilateral cataract sx -: Appendectomy - Social History Smoking Status: Former smoker Alcohol use: No CD- Drugs: No Caffeine use: Yes Place of Residence: Home Review of Systems General: Weakness Respiratory: Shortness of Breath Cardiovascular: Edema Physical Examination Temp Pulse Resp BP Pulse Ox 97.6 F 90 18 113/61 97 10/14/19 08:37 10/14/19 08:37 10/14/19 08:37 10/14/19 08:37 10/14/19 08:37 General: Alert, Oriented x3, Mild distress Respiratory: Clear to auscultation bilaterally Cardiovascular: Normal S1 S2, Edema Gastrointestinal: Normal bowel sounds, Soft and benign Laboratory Data (last 24 hrs) 10/14/19 07:44: Sodium 138, Potassium 3.8, BUN 48 H D, Creatinine 4.32 H D, Glucose 87 10/14/19 07:44: WBC 12.7 H D, Hgb 9.1 L, Hct 28.2 L, Plt Count 146 L 10/14/19 05:50: PT 44.4 H, INR 3.86 - Problems (1) COPD (chronic obstructive pulmonary disease) Current Visit: Yes Status: Acute Plan: Patient is 74 years of age admitted with weakness falling he has been progressively declining in the past year after also had an extensive about to be less where he was sent to an LTAC placed developed renal disease is on dialysis patient is anti coagulated no evidence of sepsis patient refuse arterial blood gases continue with Breo and in cruise interstitial changes on the chest x-ray saturation satisfactory on room air for all prognosis very poor Qualifiers: COPD type: unspecified COPD Qualified Code(s): J44.9 - Chronic obstructive pulmonary disease, unspecified
[2019-10-14 13:26] LABS: Platelet Estimate DECR; White Blood Cell Scan OK
[2019-10-14 13:27] LABS: Blood Morphology Comment NOT SEEN (NOT SEEN)
[2019-10-14] MEDS: WARFARIN SODIUM 2.5 MG TAB PO SCH (16:37)
--- NOTE | 2019-10-14 18:40 | R.PN ---
PROGRESS NOTES ENCOUNTER DATE AND TIME: 10/14/2019 18:35 (CDT) NAME SHERWIN BANG DATE OF : 1945 DATE OF ADMISSION: 10/08/2019 18:46 (CDT) CHRONIC A FIB,CHF,CAD,HTN,HLD,COPD,CHIEF COMPLAINT: Cardiac debility. SUBJECTIVE: Pt denied any Shortness of Breath. Pt denied any depression. WBC 12.7, Hgb 9.1, INR 3.86, Mass Spec 4.32, Ca 8.2, Digoxin level 0.1. Functional transfers done with maximum assistance. Bathing done with minimum assistance. Ambulated 80' with contact guard assistance using a rolling walker. VITAL SIGNS Temperature: 97.6 F SBP/DBP: 113/61 Pulse: 90 Resp: 16 MEDICATION ALLERGIES: No Known Drug Allergies (NKDA) ENVIRONMENTAL ALLERGIES: - Substance Allergies None Known - Other Allergies None Known NURSING: - Shower allowing shower ACTIVITIES OOB only with supervision THERAPIES: - Dietary and Nutrition Adequate Nutrition. Nutritional Education. Nutritional Supplements. PHYSICAL EXAM - Gen Alert and awake Lying in bed No apparent distress Oriented to: person, time, and place - Skin Bruising on the dorsal right and left hand and forearm No abnormalities - Eyes No abnormalities - ENMT No abnormalities - Neck No abnormalities No cervical adenopathy - CVS IRIR - Chest Mildly decreased breath sounds bilaterally. - Resp No wheezing - Abd Soft - GI Non distended Deferred - Does not produce urine, on hemodialysis - Ext Mild bilateral lower extremity edema. - MSK 4+/5 weakness in both lower extremities. - Neuro No focal deficits - Psych No abnormalities ASSESSMENT: Pt. is a 74 yo Right-handed male of unknown race.On 10/03/2019 he was admitted to [facility] with diagnosis CHRONIC A FIB,CHF,CAD,HTN,HLD,COPD,.His impairment category is Cardiac 09 - Cardiac D isorders (09).Pre-morbidly, Pt. was independent/mod-I in Locomotion, Transfers Control, Communication , and Sphincter Control; and he had good Social Cognition, Transfers Control, and Endurance.Currently , he has deficits of Locomotion, Safety Awareness, Transfers Control, Sphincter Control, Self-Care, C ommunication, and Endurance.Pt. is now referred to [facility] for acute in-pat ient rehabilitation in order to maximize patient's functional independence in activities of daily chapito ing, strength, ROM, and mobility.- Rehab Goal Patient has realistic goal of being discharged at assistance level 3-modA to reside at Home with Fam vanesa/Relatives. MDM/PLAN: - Physical Therapy Gait dysfunction - to improve, our physical therapists will perform initial evaluation of pt's statu s upon admission and devise an individualized program for Gait Training, and Wheel Chair mobility Inability to transfer - to improve, our physical therapists will perform initial evaluation of pt's status upon admission and devise an individualized program for Bed mobility Need for home safety evaluation - to improve, our physical therapists will perform initial evaluatio n of pt's status upon admission and devise an individualized program for Home Evaluation Need in caregiver upon discharge - to improve, our physical therapists will perform initial evaluati on of pt's status upon admission and devise an individualized program for Caregiver Training Edema - to improve, our physical therapists will perform initial evaluation of pt's status upon admi ssion and devise an individualized program for Elevation Training, and Lymphedema Therapy New precaution - to improve, our physical therapists will perform initial evaluation of pt's status upon admission and devise an individualized program for Patient precaution education Poor endurance - to improve, our physical therapists will perform initial evaluation of pt's status upon admission and devise an individualized program for Endurance Training Weakness - to improve, our physical therapists will perform initial evaluation of pt's status upon a dmission and devise an individualized program for Aquatic Therapy, Neuromuscular Reeducation, and Str engthening Achieving independence - to improve, our physical therapists will perform initial evaluation of pt's status upon admission and devise an individualized program for Community Reintegration Activities - Occupational Therapy ADL deficits - to improve, our occupation therapists will perform initial evaluation of pt's status upon admission and devise an individualized program for Bathing, Bed mobility, Community Reintegratio n, Cooking, Dressing, Eating, Fine Motor Skills, Grooming, Homemaking, Kitchen Mobility, Laundry, Pat ient Education, Safety Awareness, Splinting - Positioning, Transfers(Toilet, Tub, Shower), and Wheel Chair Management Need for healthcare educator - to improve, our occupation therapists will perform initial evaluation of pt's status upon admission and devise an individualized program for Caregiver Training Weakness - to improve, our occupation therapists will perform initial evaluation of pt's status upon admission and devise an individualized program for Aquatic Therapy, Balance, Endurance, UE ROM, and UE strengthening - Other See attached MAR (Medication Administration Record) - Diet Type Continue Regular - Diet - Liquid Texture Continue Regular - Tube Feed Continue N/A - Diet - Solid Texture Continue Regular - Shower allowing shower FUNCTIONAL STATUS: UPDATED AT WEEKLY TEAM CONFERENCE - Bladder Same accident frequency: 7-Ind - No accidents in the past 7 days - Bowel Same accident frequency: 7-Ind - No accidents in the past 7 days - Walking Same score based on distance walked: 0(N/A) - Wheelchair Same score based on distance traveled: 0(N/A) FUNCTIONAL STATUS: - Self-Care A. Eating Ind B. Grooming Feliciano C. Bathing modA D. Dressing - Upper modA E. Dressing - Lower modA F. Toileting sup - Sphincter Control G. Bladder control Milo H. Bowel control Milo - Transfers Control I. Bed/Chair/Wheelchair Milo J. Toilet Milo K. Tub/Shower modA - Locomotion L. Walk/Wheelchair (B) modA M. Stairs maxA - Communication N. Comprehension (B) Feliciano O. Expression (B) Feliciano - Social Cognition P. Social Interaction eFliciano Q. Problem Solving Feliciano R. Memory Felicaino - Endurance Fair - Balance Poor - Safety Awareness Fair QI SCORES: - Self-Care A. Eating 03-Partial/moderate assistance B. Oral hygiene 03-Partial/moderate assistance C. Toileting hygiene 02-Substantial/maximal assistance E. Shower/bathe self 02-Substantial/maximal assistance F. Upper body dressing 03-Partial/moderate assistance G. Lower body dressing 03-Partial/moderate assistance H. Putting on/taking off footwear 88-Not attempted due to medical condition or safety concerns - Mobility A. Roll left and right 03-Partial/moderate assistance B. Sit to lying 03-Partial/moderate assistance C. Lying to sitting on side of bed 03-Partial/moderate assistance D. Sit to stand 02-Substantial/maximal assistance E. Chair/[id number] transfer 02-Substantial/maximal assistance F. Toilet transfer 02-Substantial/maximal assistance G. Car transfer 88-Not attempted due to medical condition or safety concerns I. Walk 10 feet 02-Substantial/maximal assistance J. Walk 50 feet with two turns 88-Not attempted due to medical condition or safety concerns K. Walk 150 feet 88-Not attempted due to medical condition or safety concerns L. Walking 10 feet on uneven surfaces 88-Not attempted due to medical condition or safety concerns M. 1 step (curb) 88-Not attempted due to medical condition or safety concerns N. 4 steps 88-Not attempted due to medical condition or safety concerns O. 12 steps 88-Not attempted due to medical condition or safety concerns P. Picking up object 88-Not attempted due to medical condition or safety concerns R. Wheel 50 feet with two turns 88-Not attempted due to medical condition or safety concerns S. Wheel 150 feet 88-Not attempted due to medical condition or safety concerns - Bladder and Bowel Bladder continence Bowel continence 0-Always continent - Endurance Poor - Balance Poor - Safety Awareness Poor CURRENT FUNC. DEFICITS: Balance, Safety Awareness, Mobility, Endurance, and Self-Care SIGNATURE PANEL: (CDT)
[2019-10-14] MEDS: LATANOPROST 0.005% 2.5ML OPTH OPTH SCH (21:00)
[2019-10-14 21:05] LABS: HBsAG Nonreactive (Nonreactive)
[2019-10-14] MEDS: MELATONIN 3 MG TABLET PO PRN (22:00)
--- NOTE | 2019-10-14 22:14 | P.PN ---
Date of Service: 10/14/19 Vital Signs Temp Pulse Resp BP Pulse Ox 97.4 F 112 H 18 147/72 H 97 10/14/19 22:08 10/14/19 22:08 10/14/19 22:08 10/14/19 22:08 10/14/19 22:08 Medications Acetaminophen (Tylenol -Tablet) 650 mg PO Q6H PRN PRN Reason: Pain scale 2-4 (Mild) Stop: 11/07/19 21:56 Last Admin: 10/14/19 08:52 Dose: 650 mg Documented by: Albuterol Sulfate (Ventolin Inhaler) 2 puff IH Q6H PRN PRN Reason: SHORTNESS OF BREATH Stop: 11/07/19 21:01 Ascorbic Acid (Vitamin C) 500 mg PO Q12H EPI Stop: 11/09/19 22:46 Last Admin: 10/14/19 21:58 Dose: 500 mg Documented by: Calcitriol (Rocaltrol) 0.5 mcg PO DAILY EPI Stop: 11/10/19 08:01 Last Admin: 10/14/19 08:48 Dose: 0.5 mcg Documented by: Cholecalciferol (Vitamin D 5,000 Iu Cap) 5,000 unit PO DAILY EPI Stop: 11/10/19 08:01 Last Admin: 10/14/19 08:48 Dose: 5,000 unit Documented by: Coenzyme Q10 (Coenzyme Q10) 200 mg PO DAILY EPI Stop: 11/10/19 08:01 Last Admin: 10/14/19 12:18 Dose: 200 mg Documented by: Cyanocobalamin (Vitamin B-12) 500 mcg PO DAILY EPI Stop: 11/08/19 08:01 Last Admin: 10/14/19 08:53 Dose: 500 mcg Documented by: Digoxin (Lanoxin) 0.125 mg PO DAILY EPI Stop: 11/11/19 08:01 Last Admin: 10/14/19 08:48 Dose: 0.125 mg Documented by: Home Med (Breo Ellipta) 1 puff IH DAILY EPI Stop: 11/14/19 08:01 Home Med (Incruse Ellipta) 1 puff IH DAILY EPI Stop: 11/14/19 08:01 Albumin Human (Albumin 25%) 50 mls @ 100 mls/hr IV EVERY HD EPI Stop: 11/08/19 23:01 Last Admin: 10/13/19 20:15 Dose: 50 mls Documented by: Ipratropium [place] (Atrovent Neb) 0.5 mg NEB Q6HP PRN PRN Reason: sob Stop: 11/13/19 09:04 Latanoprost (Xalatan 0.005% Ophth Yasemin) 1 drops OPTH BEDTIME EPI Stop: 11/08/19 08:01 Last Admin: 10/14/19 21:00 Dose: Not Given Documented by: Levothyroxine Sodium (Synthroid) 0.025 mg PO DAILYAC EPI Stop: 11/08/19 06:31 Last Admin: 10/14/19 06:53 Dose: 0.025 mg Documented by: Lidocaine (Aspercreme 4% Patch) 2 patch TOP DAILY EPI Stop: 11/11/19 08:01 Last Admin: 10/14/19 08:48 Dose: 2 patch Documented by: Mannitol (Mannitol 12.5 Gm/50 Ml Vial) 12.5 gm IV EVERY HD PRN PRN Reason: Titrate to SBP (MUST DEFINE) Stop: 11/08/19 22:42 Last Admin: 10/13/19 20:48 Dose: 12.5 gm Documented by: Melatonin (Melatonin) 3 mg PO BEDTIME PRN PRN PRN Reason: INSOMNIA Stop: 11/07/19 21:09 Last Admin: 10/14/19 22:00 Dose: 3 mg Documented by: Metoprolol Tartrate (Lopressor) 25 mg PO BID EPI Stop: 11/08/19 08:01 Last Admin: 10/14/19 21:59 Dose: 25 mg Documented by: Multivitamins/Minerals (Centrum Tablet) 1 tab PO DAILY EPI Stop: 11/08/19 08:01 Last Admin: 10/14/19 12:18 Dose: 1 tab Documented by: Nutritional Formula (Promod Liquid Protein) 30 ml PO BID EPI Stop: 11/08/19 20:01 Last Admin: 10/14/19 20:00 Dose: Not Given Documented by: Nystatin (Mycostatin (Powder)) 1 appl TOP BID EPI Stop: 11/09/19 20:01 Last Admin: 10/14/19 20:00 Dose: 1 appl Documented by: Roflumilast (Daliresp) 500 mcg PO DAILY EPI Stop: 11/09/19 08:01 Last Admin: 10/14/19 08:51 Dose: 500 mcg Documented by: Senna/Docusate Sodium (Senokot-S) 2 tab PO BEDTIME PRN PRN Reason: CONSTIPATION Stop: 11/07/19 21:08 Last Admin: 10/10/19 20:46 Dose: 2 tab Documented by: Torsemide (Demadex) 20 mg PO BID [facility] Stop: 11/08/19 08:01 Last Admin: 10/14/19 21:58 Dose: 20 mg Documented by: Warfarin Sodium (Coumadin) 2.5 mg PO DAILY 5 PM EPI Stop: 11/08/19 17:01 Last Admin: 10/14/19 16:37 Dose: Not Given Documented by: Lab Results (last 24 hrs) 10/14/19 : pH Cancelled, pCO2 Cancelled, pO2 Cancelled, HCO3 Cancelled, Base Excess Cancelled, Oxyhemoglobin Cancelled, ABG O2 Sat (Measured) Cancelled, ABG Carboxyhemoglobin Cancelled, ABG Methemoglobin Cancelled, Other Total Hgb Cancelled, Inspired O2 Cancelled 10/14/19 : pH Cancelled, pCO2 Cancelled, pO2 Cancelled, HCO3 Cancelled, Base Excess Cancelled, Oxyhemoglobin Cancelled, ABG O2 Sat (Measured) Cancelled, ABG Carboxyhemoglobin Cancelled, ABG Methemoglobin Cancelled, Other Total Hgb Cancelled, Inspired O2 Cancelled 10/14/19 07:44: Sodium 138, Potassium 3.8, Chloride 103, Carbon Dioxide 28, BUN 48 H D, Creatinine 4.32 H D, Estimated GFR 13 L, Glucose 87, Calcium 8.2 L 10/14/19 07:44: WBC 12.7 H D, RBC 2.87 L, Hgb 9.1 L, Hct 28.2 L, MCV 98.1, MCH 31.6, MCHC 32.2, RDW 18.0 H, Plt Count 146 L, MPV 9.3, Neutrophils % 91.4 H, Lymphocytes % 2.7 L, Monocytes % 5.1, Eosinophils % 0.7, Basophils % 0.1, Absolute Neutrophils 11.6 H, Absolute Lymphocytes 0.3 L, Absolute Monocytes 0.7, Absolute Eosinophils 0.1, Absolute Basophils 0.0, Morphology Comment Not seen 10/14/19 05:50: PT 44.4 H, INR 3.86 10/10/19 07:18: Hep Bs Antigen Nonreactive, Hep Bs Antibody Nonreactive, Hep B Core Total Ab Nonreactive Microbiology Results 10/10/19 23:30 Blood - Blood Aerobic Blood Culture - Preliminary No growth in 24 hours. 10/10/19 23:30 Blood - Blood Anaerobic Blood Culture - Preliminary No growth in 24 hours. 10/10/19 14:35 Blood - Blood Aerobic Blood Culture - Preliminary No growth in 24 hours. 10/10/19 14:35 Blood - Blood Anaerobic Blood Culture - Preliminary No growth in 24 hours. Assessment/ Plan: Nephrology CPS stable without CP or SOB. +KENDRICK Persistent edema. Bruising and skin weeping. No acute events overnight. Vitals, medications, blood work and imaging reviewed in the chart. General: In no apparent distress, Oriented x3, Cooperative HEENT: Atraumatic Neck: Supple Respiratory: Diminished Cardiovascular: Regular rate/rhythm Gastrointestinal: Soft and benign, Non-distended Musculoskeletal: No clubbing, No contractures Integumentary: No rashes, No cyanosis. +Ecchymoses Neurological: Normal speech Laboratory Data (last 24 hrs) 10/09/19 06:35: PT 23.0 H, INR 1.98 10/09/19 06:35: Sodium 140, Potassium 3.6, BUN 56 H, Creatinine 5.42 H*, Glucose 94, Magnesium 2.3 10/09/19 06:35: WBC 13.6 H, Hgb 11.0 L, Hct 33.8 L, Plt Count 126 L Imagings Data: EXAM DESCRIPTION: Ana Single View10/10/2019 3:50 pm CLINICAL HISTORY: Shortness breath COMPARISON: 1999 FINDINGS: Mild bilateral pulmonary opacities. . The heart is mildly enlarged. Pacemaker leads are in place. Postsurgical changes involve the chest IMPRESSION: These findings probably indicate mild CHF Conclusions/Impression: A/ ESRD on HD HTN with CKD/ CHF. Diastolic CHF, chronic. Anemia in chronic disease. Moderate malnutrition. ANGUS/ Secondary HyperPTH. Hypocalcemia. Gout P/ Continue current POC and Medications. HD TIW. Arrange for an extra HD today; give IV Albumin. PT as tolerated. Encourage nutrition. Low sodium diet. No heparin due to allergy. No NSAIDS. AM labs. Daily weight.
[2019-10-15 05:53] LABS: Protime INR 3.01
[2019-10-15] MEDS: LEVOTHYROXINE SOD 0.025 MG TAB PO SCH (06:45)
[2019-10-15] MEDS: METOPROLOL TAR 50 MG TAB PO SCH ×2 (08:00→22:24)
[2019-10-15] MEDS: ACETAMINOPHEN 325 MG TABLET PO PRN (08:24)
[2019-10-15] MEDS: COENZYME Q10- 200 MG CAP PO SCH (08:25)
[2019-10-15] MEDS: DIGOXIN 0.125 MG TABLET PO SCH (08:25)
[2019-10-15] MEDS: TORSEMIDE 20 MG TAB PO SCH ×2 (08:25→22:23)
[2019-10-15] MEDS: ROFLUMILAST 500 MCG TABLET PO SCH (08:26)
[2019-10-15] MEDS: MULTIVITAMIN TAB PO SCH (08:26)
[2019-10-15] MEDS: PROMOD 30 ML DOSE PO SCH ×2 (08:26→20:00)
[2019-10-15] MEDS: CYANOCOBALAMIN 1,000 MCG TAB PO SCH (08:26)
[2019-10-15] MEDS: CALCITROL 0.25 MCG CAP PO SCH (08:26)
[2019-10-15] MEDS: VITAMIN D 5,000 UNIT CAP PO SCH (08:26)
[2019-10-15] MEDS: LIDOCAINE 4% PATCH TOP SCH (10:44)
[2019-10-15] MEDS: ASCORBIC ACID 500 MG TABLET PO SCH ×2 (10:44→22:24)
[2019-10-15] MEDS: NYSTATIN PWDR 100000 UNIT/GM TOP SCH ×2 (10:46→20:00)
--- NOTE | 2019-10-15 15:27 | FAST ---
OT QI REPORT FORM ENCOUNTER DATE AND TIME: 10/15/2019 08:00 (CDT) NAME SHERWIN BANG DATE OF : 1945 DATE OF ADMISSION: 10/08/2019 18:46 (CDT) PHONE: AGE: 74 N# [id number] GENDER: Male ENCOUNTER PHYSICIAN: Dr. Miguel Angel Frazier M.D. ADMISSION DIAGNOSIS: - Cardiac 09 - Cardiac Disorders (09) CHRONIC A FIB,CHF,CAD,HTN,HLD,COPD,. EATING: Not assessed/no information CODE: - ORAL HYGIENE: ORAL HYGIENE - STEP 1: Does the patient complete the activity by him/herself with no assistance (physical, verbal/nonverbal cueing, setup/clean-up)? Yes. 1. [id number] ADMISSION PERFORMANCE: Independent CODE: 06 TOILETING HYGIENE: Not assessed/no information CODE: - BATHING: SHOWER/BATHE SELF - STEP 1: Does the patient complete the activity by him/herself with no assistance (physical, verbal/nonverbal cueing, setup/clean-up)? No. SHOWER/BATHE SELF - STEP 2: Does the patient need only setup/clean-up assistance from one helper? No. SHOWER/BATHE SELF - STEP 3: Does the patient need only verbal/nonverbal cueing or touching/steadying/contact guard assistance fro m one helper? Yes. 1. [id number] ADMISSION PERFORMANCE: Supervision or touching assistance CODE: 04 DRESSING - UPPER BODY: DRESSING - UPPER BODY - STEP 1: Does the patient complete the activity by him/herself with no assistance (physical, verbal/nonverbal cueing, setup/clean-up)? No. DRESSING - UPPER BODY - STEP 2: Does the patient need only setup/clean-up assistance from one helper? Yes. 1. [id number] ADMISSION PERFORMANCE: Setup or clean-up assistance CODE: 05 DRESSING - LOWER BODY: DRESSING - LOWER BODY - STEP 1: Does the patient complete the activity by him/herself with no assistance (physical, verbal/nonverbal cueing, setup/clean-up)? No. DRESSING - LOWER BODY - STEP 2: Does the patient need only setup/clean-up assistance from one helper? No. DRESSING - LOWER BODY - STEP 3: Does the patient need only verbal/nonverbal cueing or touching/steadying/contact guard assistance fro m one helper? No. DRESSING - LOWER BODY - STEP 4: Does the patient need physical assistance - for example lifting or trunk support from one helper - wi th the helper providing less than half of the effort? No. DRESSING - LOWER BODY - STEP 5: Does the patient need physical assistance - for example lifting or trunk support from one helper - wi th the helper providing more than half of the effort? Yes. 1. [id number] ADMISSION PERFORMANCE: Substantial/maximal assistance CODE: 02 PUTTING ON/TAKING OFF FOOTWEAR: FOOTWEAR - STEP 1: Does the patient complete the activity by him/herself with no assistance (physical, verbal/nonverbal cueing, setup/clean-up)? No. FOOTWEAR - STEP 2: Does the patient need only setup/clean-up assistance from one helper? No. FOOTWEAR - STEP 3: Does the patient need only verbal/nonverbal cueing or touching/steadying/contact guard assistance fro m one helper? No. FOOTWEAR - STEP 4: Does the patient need physical assistance - for example lifting or trunk support from one helper - wi th the helper providing less than half of the effort? No. FOOTWEAR - STEP 5: Does the patient need physical assistance - for example lifting or trunk support from one helper - wi th the helper providing more than half of the effort? Yes. 1. [id number] ADMISSION PERFORMANCE: Substantial/maximal assistance CODE: 02 DOES THE PATIENT USE A WHEELCHAIR/SCOOTER? CODE: EXPR INDICATE THE TYPE OF WHEELCHAIR/SCOOTER USED: CODE: EXPR INDICATE THE TYPE OF WHEELCHAIR/SCOOTER USED: CODE: EXPR BLADDER AND BOWEL: CODE: EXPR CODE: EXPR SIGNATURE PANEL: The following modified sections: 1. [id number] Admission Performance, 1. [id number] Admission Performance, 1. [id number] Admission Performance, 1. [id number] Admission Performance, 1. [id number] Admission Performance, 1. [id number] Admission Performance were [electronically] signed by BELKIS Berry on SunOct 15 2019 15:26:16 GMT-0500 (Central Daylight Time)
[2019-10-15] MEDS: WARFARIN SODIUM 2.5 MG TAB PO SCH (17:05)
--- NOTE | 2019-10-15 19:43 | P.PN ---
Date of Service: 10/15/19 Vital Signs Temp Pulse Resp BP Pulse Ox 97.3 F 96 H 18 119/63 97 10/15/19 07:44 10/15/19 08:25 10/15/19 07:44 10/15/19 08:25 10/15/19 07:44 Medications Acetaminophen (Tylenol -Tablet) 650 mg PO Q6H PRN PRN Reason: Pain scale 2-4 (Mild) Stop: 11/07/19 21:56 Last Admin: 10/15/19 08:24 Dose: 650 mg Documented by: Albuterol Sulfate (Ventolin Inhaler) 2 puff IH Q6H PRN PRN Reason: SHORTNESS OF BREATH Stop: 11/07/19 21:01 Ascorbic Acid (Vitamin C) 500 mg PO Q12H [facility] Stop: 11/09/19 22:46 Last Admin: 10/15/19 10:44 Dose: 500 mg Documented by: Baclofen (Lioresal) 5 mg PO BEDTIME PRN PRN Reason: MUSCLE SPASMS Stop: 11/14/19 21:01 Calcitriol (Rocaltrol) 0.5 mcg PO DAILY [facility] Stop: 11/10/19 08:01 Last Admin: 10/15/19 08:26 Dose: 0.5 mcg Documented by: Cholecalciferol (Vitamin D 5,000 Iu Cap) 5,000 unit PO DAILY [facility] Stop: 11/10/19 08:01 Last Admin: 10/15/19 08:26 Dose: 5,000 unit Documented by: Coenzyme Q10 (Coenzyme Q10) 200 mg PO DAILY EPI Stop: 11/10/19 08:01 Last Admin: 10/15/19 08:25 Dose: 200 mg Documented by: Cyanocobalamin (Vitamin B-12) 500 mcg PO DAILY [facility] Stop: 11/08/19 08:01 Last Admin: 10/15/19 08:26 Dose: 500 mcg Documented by: Digoxin (Lanoxin) 0.125 mg PO DAILY [facility] Stop: 11/11/19 08:01 Last Admin: 10/15/19 08:25 Dose: 0.125 mg Documented by: Home Med (Breo Ellipta) 1 puff IH DAILY [facility] Stop: 11/14/19 08:01 Last Admin: 10/15/19 07:11 Dose: 1 puff Documented by: Home Med (Incruse Ellipta) 1 puff IH DAILY EPI Stop: 11/14/19 08:01 Last Admin: 10/15/19 07:11 Dose: 1 puff Documented by: Albumin Human (Albumin 25%) 50 mls @ 100 mls/hr IV EVERY HD EPI Stop: 11/08/19 23:01 Last Admin: 10/13/19 20:15 Dose: 50 mls Documented by: Ipratropium [place] (Atrovent Neb) 0.5 mg NEB Q6HP PRN PRN Reason: sob Stop: 11/13/19 09:04 Latanoprost (Xalatan 0.005% Ophth Yasemin) 1 drops OPTH BEDTIME EPI Stop: 11/08/19 08:01 Last Admin: 10/14/19 21:00 Dose: Not Given Documented by: Levothyroxine Sodium (Synthroid) 0.025 mg PO DAILYAC EPI Stop: 11/08/19 06:31 Last Admin: 10/15/19 06:45 Dose: 0.025 mg Documented by: Lidocaine (Aspercreme 4% Patch) 2 patch TOP DAILY EPI Stop: 11/11/19 08:01 Last Admin: 10/15/19 10:44 Dose: 2 patch Documented by: Mannitol (Mannitol 12.5 Gm/50 Ml Vial) 12.5 gm IV EVERY HD PRN PRN Reason: Titrate to SBP (MUST DEFINE) Stop: 11/08/19 22:42 Last Admin: 10/13/19 20:48 Dose: 12.5 gm Documented by: Melatonin (Melatonin) 3 mg PO BEDTIME PRN PRN PRN Reason: INSOMNIA Stop: 11/07/19 21:09 Last Admin: 10/14/19 22:00 Dose: 3 mg Documented by: Metoprolol Tartrate (Lopressor) 25 mg PO BID EPI Stop: 11/08/19 08:01 Last Admin: 10/15/19 08:00 Dose: Not Given Documented by: Multivitamins/Minerals (Centrum Tablet) 1 tab PO DAILY EPI Stop: 11/08/19 08:01 Last Admin: 10/15/19 08:26 Dose: 1 tab Documented by: Nutritional Formula (Promod Liquid Protein) 30 ml PO BID EPI Stop: 11/08/19 20:01 Last Admin: 10/15/19 08:26 Dose: 30 ml Documented by: Nystatin (Mycostatin (Powder)) 1 appl TOP BID EPI Stop: 11/09/19 20:01 Last Admin: 10/15/19 10:46 Dose: 1 appl Documented by: Roflumilast (Daliresp) 500 mcg PO DAILY EPI Stop: 11/09/19 08:01 Last Admin: 10/15/19 08:26 Dose: 500 mcg Documented by: Senna/Docusate Sodium (Senokot-S) 2 tab PO BEDTIME PRN PRN Reason: CONSTIPATION Stop: 11/07/19 21:08 Last Admin: 10/10/19 20:46 Dose: 2 tab Documented by: Torsemide (Demadex) 20 mg PO BID [facility] Stop: 11/08/19 08:01 Last Admin: 10/15/19 08:25 Dose: 20 mg Documented by: Tramadol HCl (Ultram) 50 mg PO Q4H PRN PRN Reason: Pain scale 5-7 (Moderate) Stop: 11/14/19 14:51 Warfarin Sodium (Coumadin) 2.5 mg PO DAILY 5 PM [facility] Stop: 11/08/19 17:01 Last Admin: 10/15/19 17:05 Dose: 2.5 mg Documented by: Lab Results (last 24 hrs) 10/15/19 05:40: PT 34.8 H, INR 3.01 10/10/19 07:18: Hep Bs Antigen Nonreactive, Hep Bs Antibody Nonreactive, Hep B Core Total Ab Nonreactive Microbiology Results 10/10/19 14:35 Blood - Blood Aerobic Blood Culture - Final No growth in 5 days. 10/10/19 14:35 Blood - Blood Anaerobic Blood Culture - Final No growth in 5 days. 10/10/19 23:30 Blood - Blood Aerobic Blood Culture - Preliminary No growth in 24 hours. 10/10/19 23:30 Blood - Blood Anaerobic Blood Culture - Preliminary No growth in 24 hours. Assessment/ Plan: Nephrology CPS stable without CP or SOB. +KENDRICK Feeling better. Persistent edema. No acute events overnight. Vitals, medications, blood work and imaging reviewed in the chart. General: In no apparent distress, Oriented x3, Cooperative HEENT: Atraumatic Neck: Supple Respiratory: Diminished Cardiovascular: Regular rate/rhythm Gastrointestinal: Soft and benign, Non-distended Musculoskeletal: No clubbing, No contractures Integumentary: No rashes, No cyanosis. +Ecchymoses Neurological: Normal speech Laboratory Data (last 24 hrs) 10/09/19 06:35: PT 23.0 H, INR 1.98 10/09/19 06:35: Sodium 140, Potassium 3.6, BUN 56 H, Creatinine 5.42 H*, Glucose 94, Magnesium 2.3 10/09/19 06:35: WBC 13.6 H, Hgb 11.0 L, Hct 33.8 L, Plt Count 126 L Imagings Data: EXAM DESCRIPTION: Ana Single View10/10/2019 3:50 pm CLINICAL HISTORY: Shortness breath COMPARISON: 1999 FINDINGS: Mild bilateral pulmonary opacities. . The heart is mildly enlarged. Pacemaker leads are in place. Postsurgical changes involve the chest IMPRESSION: These findings probably indicate mild CHF Conclusions/Impression: A/ ESRD on HD HTN with CKD/ CHF. Diastolic CHF, chronic. Anemia in chronic disease. Moderate malnutrition. ANGUS/ Secondary HyperPTH. Hypocalcemia. Gout P/ Continue current POC and Medications. HD TIW. Extra HD as tolerated. Start Retacrit TIW. PT as tolerated. Encourage nutrition. Low sodium diet. No heparin due to allergy. No NSAIDS. AM labs. Daily weight.
--- NOTE | 2019-10-15 19:43 | R.PN ---
PROGRESS NOTES ENCOUNTER DATE AND TIME: 10/15/2019 19:41 (CDT) NAME SHERWIN BANG DATE OF : 1945 DATE OF ADMISSION: 10/08/2019 18:46 (CDT) CHRONIC A FIB,CHF,CAD,HTN,HLD,COPD,CHIEF COMPLAINT: Cardiac debility. SUBJECTIVE: Pt denied any Shortness of Breath. Pt denied any depression. WBC 12.7, Hgb 9.1, INR 3.01, Dianetic Counselor 4.32, Ca 8.2, Digoxin level 0.1. Functional transfers done with maximum assistance. Bathing done with minimum assistance. Ambulated 110' with contact guard assistance using a rolling walker. VITAL SIGNS Temperature: 97.8 F SBP/DBP: 119/63 Pulse: 96 Resp: 16 MEDICATION ALLERGIES: No Known Drug Allergies (NKDA) ENVIRONMENTAL ALLERGIES: - Substance Allergies None Known - Other Allergies None Known NURSING: - Shower allowing shower ACTIVITIES OOB only with supervision THERAPIES: - Dietary and Nutrition Adequate Nutrition. Nutritional Education. Nutritional Supplements. PHYSICAL EXAM - Gen Alert and awake Lying in bed No apparent distress Oriented to: person, time, and place - Skin Bruising on the dorsal right and left hand and forearm No abnormalities - Eyes No abnormalities - ENMT No abnormalities - Neck No abnormalities No cervical adenopathy - CVS IRIR - Chest Mildly decreased breath sounds bilaterally. - Resp No wheezing - Abd Soft - GI Non distended Deferred - Does not produce urine, on hemodialysis - Ext Mild bilateral lower extremity edema. - MSK 4+/5 weakness in both lower extremities. - Neuro No focal deficits - Psych No abnormalities ASSESSMENT: Pt. is a 74 yo Right-handed male of unknown race.On 10/03/2019 he was admitted to [facility] with diagnosis CHRONIC A FIB,CHF,CAD,HTN,HLD,COPD,.His impairment category is Cardiac 09 - Cardiac D isorders (09).Pre-morbidly, Pt. was independent/mod-I in Locomotion, Transfers Control, Communication , and Sphincter Control; and he had good Social Cognition, Transfers Control, and Endurance.Currently , he has deficits of Locomotion, Safety Awareness, Transfers Control, Sphincter Control, Self-Care, C ommunication, and Endurance.Pt. is now referred to [facility] for acute in-pat ient rehabilitation in order to maximize patient's functional independence in activities of daily chapito ing, strength, ROM, and mobility.- Rehab Goal Patient has realistic goal of being discharged at assistance level 3-modA to reside at Home with Fam vanesa/Relatives. MDM/PLAN: - Physical Therapy Gait dysfunction - to improve, our physical therapists will perform initial evaluation of pt's statu s upon admission and devise an individualized program for Gait Training, and Wheel Chair mobility Inability to transfer - to improve, our physical therapists will perform initial evaluation of pt's status upon admission and devise an individualized program for Bed mobility Need for home safety evaluation - to improve, our physical therapists will perform initial evaluatio n of pt's status upon admission and devise an individualized program for Home Evaluation Need in caregiver upon discharge - to improve, our physical therapists will perform initial evaluati on of pt's status upon admission and devise an individualized program for Caregiver Training Edema - to improve, our physical therapists will perform initial evaluation of pt's status upon admi ssion and devise an individualized program for Elevation Training, and Lymphedema Therapy New precaution - to improve, our physical therapists will perform initial evaluation of pt's status upon admission and devise an individualized program for Patient precaution education Poor endurance - to improve, our physical therapists will perform initial evaluation of pt's status upon admission and devise an individualized program for Endurance Training Weakness - to improve, our physical therapists will perform initial evaluation of pt's status upon a dmission and devise an individualized program for Aquatic Therapy, Neuromuscular Reeducation, and Str engthening Achieving independence - to improve, our physical therapists will perform initial evaluation of pt's status upon admission and devise an individualized program for Community Reintegration Activities - Occupational Therapy ADL deficits - to improve, our occupation therapists will perform initial evaluation of pt's status upon admission and devise an individualized program for Bathing, Bed mobility, Community Reintegratio n, Cooking, Dressing, Eating, Fine Motor Skills, Grooming, Homemaking, Kitchen Mobility, Laundry, Pat ient Education, Safety Awareness, Splinting - Positioning, Transfers(Toilet, Tub, Shower), and Wheel Chair Management Need for manager care management - to improve, our occupation therapists will perform initial evaluation of pt's status upon admission and devise an individualized program for Caregiver Training Weakness - to improve, our occupation therapists will perform initial evaluation of pt's status upon admission and devise an individualized program for Aquatic Therapy, Balance, Endurance, UE ROM, and UE strengthening - Other See attached MAR (Medication Administration Record) - Diet Type Continue Regular - Diet - Liquid Texture Continue Regular - Tube Feed Continue N/A - Diet - Solid Texture Continue Regular - Shower allowing shower FUNCTIONAL STATUS: UPDATED AT WEEKLY TEAM CONFERENCE - Bladder Same accident frequency: 7-Ind - No accidents in the past 7 days - Bowel Same accident frequency: 7-Ind - No accidents in the past 7 days - Walking Same score based on distance walked: 0(N/A) - Wheelchair Same score based on distance traveled: 0(N/A) FUNCTIONAL STATUS: - Self-Care A. Eating Ind B. Grooming Feliciano C. Bathing modA D. Dressing - Upper modA E. Dressing - Lower modA F. Toileting sup - Sphincter Control G. Bladder control Milo H. Bowel control Milo - Transfers Control I. Bed/Chair/Wheelchair Milo J. Toilet Milo K. Tub/Shower modA - Locomotion L. Walk/Wheelchair (B) modA M. Stairs maxA - Communication N. Comprehension (B) Feliciano O. Expression (B) Feliciano - Social Cognition P. Social Interaction Feliciano Q. Problem Solving Feliciano R. Memory Feliciano - Endurance Fair - Balance Poor - Safety Awareness Fair QI SCORES: - Self-Care A. Eating 03-Partial/moderate assistance B. Oral hygiene 03-Partial/moderate assistance C. Toileting hygiene 02-Substantial/maximal assistance E. Shower/bathe self 02-Substantial/maximal assistance F. Upper body dressing 03-Partial/moderate assistance G. Lower body dressing 03-Partial/moderate assistance H. Putting on/taking off footwear 88-Not attempted due to medical condition or safety concerns - Mobility A. Roll left and right 03-Partial/moderate assistance B. Sit to lying 03-Partial/moderate assistance C. Lying to sitting on side of bed 03-Partial/moderate assistance D. Sit to stand 02-Substantial/maximal assistance E. Chair/[id number] transfer 02-Substantial/maximal assistance F. Toilet transfer 02-Substantial/maximal assistance G. Car transfer 88-Not attempted due to medical condition or safety concerns I. Walk 10 feet 02-Substantial/maximal assistance J. Walk 50 feet with two turns 88-Not attempted due to medical condition or safety concerns K. Walk 150 feet 88-Not attempted due to medical condition or safety concerns L. Walking 10 feet on uneven surfaces 88-Not attempted due to medical condition or safety concerns M. 1 step (curb) 88-Not attempted due to medical condition or safety concerns N. 4 steps 88-Not attempted due to medical condition or safety concerns O. 12 steps 88-Not attempted due to medical condition or safety concerns P. Picking up object 88-Not attempted due to medical condition or safety concerns R. Wheel 50 feet with two turns 88-Not attempted due to medical condition or safety concerns S. Wheel 150 feet 88-Not attempted due to medical condition or safety concerns - Bladder and Bowel Bladder continence Bowel continence 0-Always continent - Endurance Poor - Balance Poor - Safety Awareness Poor CURRENT FUNC. DEFICITS: Balance, Safety Awareness, Mobility, Endurance, and Self-Care SIGNATURE PANEL: (CDT)
[2019-10-15] MEDS: EPOETIN 4,000 UNIT/ML VIAL SQ SCH (20:00)
[2019-10-15] MEDS: LATANOPROST 0.005% 2.5ML OPTH OPTH SCH (21:00)
[2019-10-15] MEDS ORDERED: EPOETIN ALFA 10,000 UNIT/ML VIAL ONE (22:30)
[2019-10-16] MEDS: TRAMADOL HCL 50 MG TAB PO PRN ×2 (03:15→08:03)
[2019-10-16] MEDS: LEVOTHYROXINE SOD 0.025 MG TAB PO SCH (05:31)
[2019-10-16 06:19] LABS: Absolute Lymphocytes (CBC) 0.4 K/uL (0.7-4.9); Basophils % 0.2 % (0-1.3); Hematocrit 25.4 % (39.6-49.0); Lymphocytes % 3.7 % (15.3-44.8); MPV 9.6 fL (7.6-11.3)
[2019-10-16 06:26] LABS: Protime INR 2.36
[2019-10-16] MEDS: LIDOCAINE 4% PATCH TOP SCH (06:32)
[2019-10-16] MEDS: NYSTATIN PWDR 100000 UNIT/GM TOP SCH ×2 (06:32→20:00)
[2019-10-16 06:46] LABS: Albumin 2.3 g/dL (3.4-5.0); Potassium 4.5 mmol/L (3.5-5.1); Prealbumin 10.4 mg/dL (20-40)
[2019-10-16] MEDS: METOPROLOL TAR 50 MG TAB PO SCH ×2 (08:00→20:00)
[2019-10-16] MEDS: DIGOXIN 0.125 MG TABLET PO SCH (08:04)
[2019-10-16] MEDS: COENZYME Q10- 200 MG CAP PO SCH (08:04)
[2019-10-16] MEDS: VITAMIN D 5,000 UNIT CAP PO SCH (08:04)
[2019-10-16] MEDS: ROFLUMILAST 500 MCG TABLET PO SCH (08:04)
[2019-10-16] MEDS: MULTIVITAMIN TAB PO SCH (08:04)
[2019-10-16] MEDS: CALCITROL 0.25 MCG CAP PO SCH (08:04)
[2019-10-16] MEDS: TORSEMIDE 20 MG TAB PO SCH ×2 (08:05→20:00)
[2019-10-16] MEDS: PROMOD 30 ML DOSE PO SCH ×2 (08:06→20:50)
[2019-10-16] MEDS: CYANOCOBALAMIN 1,000 MCG TAB PO SCH (08:07)
[2019-10-16] MEDS: ASCORBIC ACID 500 MG TABLET PO SCH ×2 (10:33→20:51)
[2019-10-16] MEDS: ALBUMIN HUMAN 25% 50 ML IV SCH (10:46)
[2019-10-16] MEDS: EPOETIN 4,000 UNIT/ML VIAL SQ SCH (11:44)
[2019-10-16] MEDS: WARFARIN SODIUM 2.5 MG TAB PO SCH (16:23)
[2019-10-16] MEDS: MELATONIN 3 MG TABLET PO PRN (20:26)
[2019-10-16] MEDS: BACLOFEN 10 MG TAB PO PRN (20:27)
[2019-10-16] MEDS: ACETAMINOPHEN 325 MG TABLET PO PRN (20:27)
[2019-10-16] MEDS: LATANOPROST 0.005% 2.5ML OPTH OPTH SCH (20:50)
--- NOTE | 2019-10-16 21:18 | P.PN ---
Date of Service: 10/16/19 Vital Signs Temp Pulse Resp BP Pulse Ox 96.4 F L 103 H 18 129/48 L 95 10/16/19 20:26 10/16/19 20:26 10/16/19 20:26 10/16/19 20:26 10/16/19 20:26 Medications Acetaminophen (Tylenol -Tablet) 650 mg PO Q6H PRN PRN Reason: Pain scale 2-4 (Mild) Stop: 11/07/19 21:56 Last Admin: 10/16/19 20:27 Dose: 650 mg Documented by: Albuterol Sulfate (Ventolin Inhaler) 2 puff IH Q6H PRN PRN Reason: SHORTNESS OF BREATH Stop: 11/07/19 21:01 Ascorbic Acid (Vitamin C) 500 mg PO Q12H [facility] Stop: 11/09/19 22:46 Last Admin: 10/16/19 20:51 Dose: 500 mg Documented by: Baclofen (Lioresal) 5 mg PO BEDTIME PRN PRN Reason: MUSCLE SPASMS Stop: 11/14/19 21:01 Last Admin: 10/16/19 20:27 Dose: 5 mg Documented by: Calcitriol (Rocaltrol) 0.5 mcg PO DAILY [facility] Stop: 11/10/19 08:01 Last Admin: 10/16/19 08:04 Dose: 0.5 mcg Documented by: Cholecalciferol (Vitamin D 5,000 Iu Cap) 5,000 unit PO DAILY [facility] Stop: 11/10/19 08:01 Last Admin: 10/16/19 08:04 Dose: 5,000 unit Documented by: Coenzyme Q10 (Coenzyme Q10) 200 mg PO DAILY [facility] Stop: 11/10/19 08:01 Last Admin: 10/16/19 08:04 Dose: 200 mg Documented by: Cyanocobalamin (Vitamin B-12) 500 mcg PO DAILY [facility] Stop: 11/08/19 08:01 Last Admin: 10/16/19 08:07 Dose: 500 mcg Documented by: Digoxin (Lanoxin) 0.125 mg PO DAILY [facility] Stop: 11/11/19 08:01 Last Admin: 10/16/19 08:04 Dose: 0.125 mg Documented by: Epoetin Michael (Retacrit) 4,000 unit SQ M,W,F@2000 [facility] Stop: 11/14/19 20:01 Last Admin: 10/16/19 11:44 Dose: 4,000 unit Documented by: Home Med (Breo Ellipta) 1 puff IH DAILY EPI Stop: 11/14/19 08:01 Last Admin: 10/16/19 06:30 Dose: 1 puff Documented by: Home Med (Incruse Ellipta) 1 puff IH DAILY EPI Stop: 11/14/19 08:01 Last Admin: 10/16/19 06:31 Dose: 1 puff Documented by: Albumin Human (Albumin 25%) 50 mls @ 100 mls/hr IV EVERY HD EPI Stop: 11/08/19 23:01 Last Admin: 10/16/19 10:46 Dose: 50 mls Documented by: Ipratropium [place] (Atrovent Neb) 0.5 mg NEB Q6HP PRN PRN Reason: sob Stop: 11/13/19 09:04 Latanoprost (Xalatan 0.005% Ophth Yasemin) 1 drops OPTH BEDTIME EPI Stop: 11/08/19 08:01 Last Admin: 10/16/19 20:50 Dose: Not Given Documented by: Levothyroxine Sodium (Synthroid) 0.025 mg PO DAILYAC EPI Stop: 11/08/19 06:31 Last Admin: 10/16/19 05:31 Dose: 0.025 mg Documented by: Lidocaine (Aspercreme 4% Patch) 2 patch TOP DAILY EPI Stop: 11/11/19 08:01 Last Admin: 10/16/19 06:32 Dose: 2 patch Documented by: Mannitol (Mannitol 12.5 Gm/50 Ml Vial) 12.5 gm IV EVERY HD PRN PRN Reason: Titrate to SBP (MUST DEFINE) Stop: 11/08/19 22:42 Last Admin: 10/13/19 20:48 Dose: 12.5 gm Documented by: Melatonin (Melatonin) 3 mg PO BEDTIME PRN PRN PRN Reason: INSOMNIA Stop: 11/07/19 21:09 Last Admin: 10/14/19 22:00 Dose: 3 mg Documented by: Metoprolol Tartrate (Lopressor) 25 mg PO BID EPI Stop: 11/08/19 08:01 Last Admin: 10/16/19 20:00 Dose: Not Given Documented by: Multivitamins/Minerals (Centrum Tablet) 1 tab PO DAILY EPI Stop: 11/08/19 08:01 Last Admin: 10/16/19 08:04 Dose: 1 tab Documented by: Nutritional Formula (Promod Liquid Protein) 30 ml PO BID [facility] Stop: 11/08/19 20:01 Last Admin: 10/16/19 20:50 Dose: 30 ml Documented by: Nystatin (Mycostatin (Powder)) 1 appl TOP BID [facility] Stop: 11/09/19 20:01 Last Admin: 10/16/19 20:00 Dose: 1 appl Documented by: Roflumilast (Daliresp) 500 mcg PO DAILY EPI Stop: 11/09/19 08:01 Last Admin: 10/16/19 08:04 Dose: 500 mcg Documented by: Senna/Docusate Sodium (Senokot-S) 2 tab PO BEDTIME PRN PRN Reason: CONSTIPATION Stop: 11/07/19 21:08 Last Admin: 10/10/19 20:46 Dose: 2 tab Documented by: Torsemide (Demadex) 20 mg PO BID [facility] Stop: 11/08/19 08:01 Last Admin: 10/16/19 20:00 Dose: Not Given Documented by: Tramadol HCl (Ultram) 50 mg PO Q4H PRN PRN Reason: Pain scale 5-7 (Moderate) Stop: 11/14/19 14:51 Last Admin: 10/16/19 08:03 Dose: 50 mg Documented by: Warfarin Sodium (Coumadin) 2.5 mg PO DAILY 5 PM [facility] Stop: 11/08/19 17:01 Last Admin: 10/16/19 16:23 Dose: 2.5 mg Documented by: Lab Results (last 24 hrs) 10/16/19 05:58: Sodium 134 L, Potassium 4.5, Chloride 100, Carbon Dioxide 24, BUN 57 H, Creatinine 4.70 H, Estimated GFR 12 L, Glucose 75, Calcium 7.9 L, Albumin 2.3 L, Prealbumin 10.4 L 10/16/19 05:58: WBC 10.1 D, RBC 2.60 L, Hgb 8.3 L, Hct 25.4 L, MCV 97.6, MCH 32.1, MCHC 32.9, RDW 17.4 H, Plt Count 183 D, MPV 9.6, Neutrophils % 88.5 H, Lymphocytes % 3.7 L, Monocytes % 7.0, Eosinophils % 0.6, Basophils % 0.2, Absolute Neutrophils 9.0 H, Absolute Lymphocytes 0.4 L, Absolute Monocytes 0.7, Absolute Eosinophils 0.1, Absolute Basophils 0.0 10/16/19 05:58: PT 27.4 H, INR 2.36 Microbiology Results 10/16/19 07:05 Nasopharnyx Coronavirus COVID-19 PCR - Final 10/10/19 23:30 Blood - Blood Aerobic Blood Culture - Final No growth in 5 days. 10/10/19 23:30 Blood - Blood Anaerobic Blood Culture - Final No growth in 5 days. 10/10/19 14:35 Blood - Blood Aerobic Blood Culture - Final No growth in 5 days. 10/10/19 14:35 Blood - Blood Anaerobic Blood Culture - Final No growth in 5 days. Assessment/ Plan: Nephrology CPS stable without CP or SOB. +KENDRICK Feeling better. Edema improving without dialysis. No acute events overnight. Vitals, medications, blood work and imaging reviewed in the chart. General: In no apparent distress, Oriented x3, Cooperative HEENT: Atraumatic Neck: Supple Respiratory: Diminished Cardiovascular: Regular rate/rhythm Gastrointestinal: Soft and benign, Non-distended Musculoskeletal: No clubbing, No contractures Integumentary: No rashes, No cyanosis. +Ecchymoses Neurological: Normal speech Laboratory Data (last 24 hrs) 10/09/19 06:35: PT 23.0 H, INR 1.98 10/09/19 06:35: Sodium 140, Potassium 3.6, BUN 56 H, Creatinine 5.42 H*, Glucose 94, Magnesium 2.3 10/09/19 06:35: WBC 13.6 H, Hgb 11.0 L, Hct 33.8 L, Plt Count 126 L Imagings Data: EXAM DESCRIPTION: Ana Single View10/10/2019 3:50 pm CLINICAL HISTORY: Shortness breath COMPARISON: 1999 FINDINGS: Mild bilateral pulmonary opacities. . The heart is mildly enlarged. Pacemaker leads are in place. Postsurgical changes involve the chest IMPRESSION: These findings probably indicate mild CHF Conclusions/Impression: A/ ESRD on HD HTN with CKD/ CHF. Diastolic CHF, chronic. Anemia in chronic disease. Moderate malnutrition. ANGUS/ Secondary HyperPTH. Hypocalcemia. Gout P/ Continue current POC and Medications. HD TIW. Extra HD as tolerated. Continue Retacrit TIW. PT as tolerated. Encourage nutrition. Low sodium diet. No heparin due to allergy. No NSAIDS. AM labs. Daily weight.
[2019-10-17] MEDS: LEVOTHYROXINE SOD 0.025 MG TAB PO SCH (05:37)
[2019-10-17 06:25] LABS: Protime INR 2.38
[2019-10-17 06:40] LABS: Albumin 2.5 g/dL (3.4-5.0); Bilirubin Total 0.9 mg/dL (0.2-1.0); Potassium 3.9 mmol/L (3.5-5.1); Protein, Total 6.1 g/dL (6.4-8.2)
[2019-10-17] MEDS: METOPROLOL TAR 50 MG TAB PO SCH ×2 (08:00→21:44)
[2019-10-17] MEDS: NYSTATIN PWDR 100000 UNIT/GM TOP SCH ×2 (08:00→20:00)
[2019-10-17] MEDS: TORSEMIDE 20 MG TAB PO SCH ×2 (08:00→21:43)
[2019-10-17] MEDS: VITAMIN D 5,000 UNIT CAP PO SCH (09:40)
[2019-10-17] MEDS: CALCITROL 0.25 MCG CAP PO SCH (09:40)
[2019-10-17] MEDS: DIGOXIN 0.125 MG TABLET PO SCH (09:40)
[2019-10-17] MEDS: ROFLUMILAST 500 MCG TABLET PO SCH (09:41)
[2019-10-17] MEDS: ASCORBIC ACID 500 MG TABLET PO SCH ×2 (09:41→21:41)
[2019-10-17] MEDS: CYANOCOBALAMIN 1,000 MCG TAB PO SCH (09:41)
[2019-10-17] MEDS: MULTIVITAMIN TAB PO SCH (09:41)
[2019-10-17] MEDS: LIDOCAINE 4% PATCH TOP SCH (09:42)
[2019-10-17] MEDS: COENZYME Q10- 200 MG CAP PO SCH (09:42)
[2019-10-17] MEDS: PROMOD 30 ML DOSE PO SCH ×2 (09:43→20:00)
--- NOTE | 2019-10-17 10:12 | P.RH.PN ---
Estimated Length of Stay: 15 Expected Discharge Date: 10/22/19 Discharge Disposition Plan: [facility] Facility Family Support: Yes [facility] Goal: Mobility, Transfers, Self Care Vital Signs: Last Vital Signs Temp 97.8 F 10/17/19 08:23 Pulse 101 H 10/17/19 08:23 Resp 18 10/17/19 08:23 BP 121/70 10/17/19 08:23 Pulse Ox 95 10/17/19 08:23 Laboratory: Laboratory Last Values WBC 10.1 K/uL (4.3-10.9) D 10/16/19 05:58 RBC 2.60 M/uL (4.33-5.43) L 10/16/19 05:58 Hgb 8.3 g/dL (13.6-17.9) L 10/16/19 05:58 Hct 25.4 % (39.6-49.0) L 10/16/19 05:58 MCV 97.6 fL (80-100) 10/16/19 05:58 MCH 32.1 pg (27.0-35.0) 10/16/19 05:58 MCHC 32.9 g/dL (32.0-36.0) 10/16/19 05:58 RDW 17.4 % (12.1-15.2) H 10/16/19 05:58 Plt Count 183 K/uL (152-406) D 10/16/19 05:58 MPV 9.6 fL (7.6-11.3) 10/16/19 05:58 Neutrophils % 88.5 % (41.7-73.7) H 10/16/19 05:58 Lymphocytes % 3.7 % (15.3-44.8) L 10/16/19 05:58 Monocytes % 7.0 % (3.3-12.3) 10/16/19 05:58 Eosinophils % 0.6 % (0-4.4) 10/16/19 05:58 Basophils % 0.2 % (0-1.3) 10/16/19 05:58 Absolute Neutrophils 9.0 K/uL (1.8-8.0) H 10/16/19 05:58 Segmented Neutrophils 89 % (40-80) H 10/09/19 06:35 Absolute Lymphocytes 0.4 K/uL (0.7-4.9) L 10/16/19 05:58 Lymphocytes 5 % (15-42) L 10/09/19 06:35 Monocytes 6 % (0-10) 10/09/19 06:35 Absolute Monocytes 0.7 K/uL (0.1-1.3) 10/16/19 05:58 Absolute Eosinophils 0.1 K/uL (0-0.5) 10/16/19 05:58 Absolute Basophils 0.0 K/uL (0-0.5) 10/16/19 05:58 Morphology Comment Not seen (NOT SEEN) 10/14/19 07:44 PT 27.6 SECONDS (9.5-12.5) H 10/17/19 06:01 INR 2.38 10/17/19 06:01 pH Cancelled 10/14/19 Unknown pH Cancelled 10/14/19 Unknown pCO2 Cancelled 10/14/19 Unknown pCO2 Cancelled 10/14/19 Unknown pO2 Cancelled 10/14/19 Unknown pO2 Cancelled 10/14/19 Unknown HCO3 Cancelled 10/14/19 Unknown HCO3 Cancelled 10/14/19 Unknown Base Excess Cancelled 10/14/19 Unknown Base Excess Cancelled 10/14/19 Unknown Oxyhemoglobin Cancelled 10/14/19 Unknown Oxyhemoglobin Cancelled 10/14/19 Unknown ABG O2 Sat (Measured) Cancelled 10/14/19 Unknown ABG O2 Sat (Measured) Cancelled 10/14/19 Unknown ABG Carboxyhemoglobin Cancelled 10/14/19 Unknown ABG Carboxyhemoglobin Cancelled 10/14/19 Unknown ABG Methemoglobin Cancelled 10/14/19 Unknown ABG Methemoglobin Cancelled 10/14/19 Unknown Other Total Hgb Cancelled 10/14/19 Unknown Other Total Hgb Cancelled 10/14/19 Unknown Inspired O2 Cancelled 10/14/19 Unknown Inspired O2 Cancelled 10/14/19 Unknown Sodium 140 mmol/L (136-145) 10/17/19 06:01 Potassium 3.9 mmol/L (3.5-5.1) 10/17/19 06:01 Chloride 106 mmol/L (98-107) 10/17/19 06:01 Carbon Dioxide 26 mmol/L (21-32) 10/17/19 06:01 BUN 35 mg/dL (7-18) H D 10/17/19 06:01 Creatinine 3.38 mg/dL (0.55-1.3) H D 10/17/19 06:01 Estimated GFR 18 mL/min (=/>90) L 10/17/19 06:01 Glucose 91 mg/dL (74-106) 10/17/19 06:01 Uric Acid 5.0 mg/dL (3.5-7.2) 10/11/19 06:26 Calcium 8.5 mg/dL (8.5-10.1) 10/17/19 06:01 Phosphorus 4.3 mg/dL (2.5-4.9) 10/11/19 06:26 Magnesium 2.3 mg/dL (1.8-2.4) 10/09/19 06:35 Total Bilirubin 0.9 mg/dL (0.2-1.0) 10/17/19 06:01 AST 13 U/L (15-37) L 10/17/19 06:01 ALT 25 U/L (12-78) 10/17/19 06:01 Alkaline Phosphatase 164 U/L (45-117) H 10/17/19 06:01 NT-Pro-B Natriuret Pep > [id number] pg/mL (<125) H 10/11/19 06:26 Serum Total Protein 6.1 g/dL (6.4-8.2) L 10/17/19 06:01 Albumin 2.5 g/dL (3.4-5.0) L 10/17/19 06:01 Globulin 3.6 g/dL (2.3-3.5) H 10/17/19 06:01 Albumin/Globulin Ratio 0.7 (1.1-1.8) L 10/17/19 06:01 Prealbumin 10.4 mg/dL (20-40) L 10/16/19 05:58 Digoxin 0.10 ng/mL (0.80-2.00) L 10/12/19 06:38 Hep Bs Antigen Nonreactive (Nonreactive) 10/10/19 07:18 Hep Bs Antibody Nonreactive (Nonreactive) 10/10/19 07:18 Hep B Core Total Ab Nonreactive (Nonreactive) 10/10/19 07:18 SARS-CoV-2 RNA (RT-PCR) Negative (NEGATIVE) 10/09/19 06:25 Weight: 200 lb Wound Present: No Closed Surgical Incision Present: No Negative Pressure Wound Therapy Present: No Physician Update: His Hgb is low at 8.3 and prealbumin is 10.4, will do guiac x 3 and repeat Hgb in the AM. Ambulated 25' with contact guard assistance. He is moderate assistance with ADLs. Comment: multiple bruises, scabs, abrasions to BUE and BLE Functional Improvement: Patient continues to work toward meeting short-term goals at this time. Patient receives dialysis 3x week as of now. Summary: Patient's care plan and superintendent terminal goals have been reviewed and revised as necessary. Please see the Rehabilitation Signature page for all necessary signatures.
[2019-10-17] MEDS: ACETAMINOPHEN 325 MG TABLET PO PRN ×2 (11:29→21:42)
[2019-10-17] MEDS: WARFARIN SODIUM 2.5 MG TAB PO SCH (17:00)
--- NOTE | 2019-10-17 20:48 | P.PN ---
Date of Service: 10/17/19 Vital Signs Temp Pulse Resp BP Pulse Ox 97.6 F 127 H 16 130/77 100 10/17/19 19:54 10/17/19 19:54 10/17/19 19:54 10/17/19 19:54 10/17/19 19:54 Medications Acetaminophen (Tylenol -Tablet) 650 mg PO Q6H PRN PRN Reason: Pain scale 2-4 (Mild) Stop: 11/07/19 21:56 Last Admin: 10/17/19 11:29 Dose: 650 mg Documented by: Albuterol Sulfate (Ventolin Inhaler) 2 puff IH Q6H PRN PRN Reason: SHORTNESS OF BREATH Stop: 11/07/19 21:01 Ascorbic Acid (Vitamin C) 500 mg PO Q12H [facility] Stop: 11/09/19 22:46 Last Admin: 10/17/19 09:41 Dose: 500 mg Documented by: Baclofen (Lioresal) 5 mg PO BEDTIME PRN PRN Reason: MUSCLE SPASMS Stop: 11/14/19 21:01 Last Admin: 10/16/19 20:27 Dose: 5 mg Documented by: Calcitriol (Rocaltrol) 0.5 mcg PO DAILY [facility] Stop: 11/10/19 08:01 Last Admin: 10/17/19 09:40 Dose: 0.5 mcg Documented by: Cholecalciferol (Vitamin D 5,000 Iu Cap) 5,000 unit PO DAILY [facility] Stop: 11/10/19 08:01 Last Admin: 10/17/19 09:40 Dose: 5,000 unit Documented by: Coenzyme Q10 (Coenzyme Q10) 200 mg PO DAILY [facility] Stop: 11/10/19 08:01 Last Admin: 10/17/19 09:42 Dose: 200 mg Documented by: Cyanocobalamin (Vitamin B-12) 500 mcg PO DAILY [facility] Stop: 11/08/19 08:01 Last Admin: 10/17/19 09:41 Dose: 500 mcg Documented by: Digoxin (Lanoxin) 0.125 mg PO DAILY [facility] Stop: 11/11/19 08:01 Last Admin: 10/17/19 09:40 Dose: 0.125 mg Documented by: Epoetin Michael (Retacrit) 4,000 unit SQ M,W,F@2000 [facility] Stop: 11/14/19 20:01 Last Admin: 10/16/19 11:44 Dose: 4,000 unit Documented by: Home Med (Breo Ellipta) 1 puff IH DAILY EPI Stop: 11/14/19 08:01 Last Admin: 10/17/19 08:00 Dose: 1 puff Documented by: Home Med (Incruse Ellipta) 1 puff IH DAILY EPI Stop: 11/14/19 08:01 Last Admin: 10/17/19 08:00 Dose: 1 puff Documented by: Albumin Human (Albumin 25%) 50 mls @ 100 mls/hr IV EVERY HD EPI Stop: 11/08/19 23:01 Last Admin: 10/16/19 10:46 Dose: 50 mls Documented by: Ipratropium [place] (Atrovent Neb) 0.5 mg NEB Q6HP PRN PRN Reason: sob Stop: 11/13/19 09:04 Latanoprost (Xalatan 0.005% Ophth Yasemin) 1 drops OPTH BEDTIME EPI Stop: 11/08/19 08:01 Last Admin: 10/16/19 20:50 Dose: Not Given Documented by: Levothyroxine Sodium (Synthroid) 0.025 mg PO DAILYAC EPI Stop: 11/08/19 06:31 Last Admin: 10/17/19 05:37 Dose: 0.025 mg Documented by: Lidocaine (Aspercreme 4% Patch) 2 patch TOP DAILY EPI Stop: 11/11/19 08:01 Last Admin: 10/17/19 09:42 Dose: 2 patch Documented by: Mannitol (Mannitol 12.5 Gm/50 Ml Vial) 12.5 gm IV EVERY HD PRN PRN Reason: Titrate to SBP (MUST DEFINE) Stop: 11/08/19 22:42 Last Admin: 10/13/19 20:48 Dose: 12.5 gm Documented by: Melatonin (Melatonin) 3 mg PO BEDTIME PRN PRN PRN Reason: INSOMNIA Stop: 11/07/19 21:09 Last Admin: 10/14/19 22:00 Dose: 3 mg Documented by: Metoprolol Tartrate (Lopressor) 25 mg PO BID EPI Stop: 11/08/19 08:01 Last Admin: 10/17/19 08:00 Dose: Not Given Documented by: Multivitamins/Iron (Hemocyte Plus) 1 tab PO DAILY WITH BREAKFAST EPI Stop: 11/17/19 08:01 Multivitamins/Minerals (Centrum Tablet) 1 tab PO DAILY EPI Stop: 11/08/19 08:01 Last Admin: 10/17/19 09:41 Dose: 1 tab Documented by: Nutritional Formula (Promod Liquid Protein) 30 ml PO BID EPI Stop: 11/08/19 20:01 Last Admin: 10/17/19 09:43 Dose: 30 ml Documented by: Nystatin (Mycostatin (Powder)) 1 appl TOP BID EPI Stop: 11/09/19 20:01 Last Admin: 10/17/19 08:00 Dose: 1 appl Documented by: Roflumilast (Daliresp) 500 mcg PO DAILY EPI Stop: 11/09/19 08:01 Last Admin: 10/17/19 09:41 Dose: 500 mcg Documented by: Senna/Docusate Sodium (Senokot-S) 2 tab PO BEDTIME PRN PRN Reason: CONSTIPATION Stop: 11/07/19 21:08 Last Admin: 10/10/19 20:46 Dose: 2 tab Documented by: Torsemide (Demadex) 20 mg PO BID [facility] Stop: 11/08/19 08:01 Last Admin: 10/17/19 08:00 Dose: Not Given Documented by: Tramadol HCl (Ultram) 50 mg PO Q4H PRN PRN Reason: Pain scale 5-7 (Moderate) Stop: 11/14/19 14:51 Last Admin: 10/16/19 08:03 Dose: 50 mg Documented by: Warfarin Sodium (Coumadin) 2.5 mg PO DAILY 5 PM EPI Stop: 11/08/19 17:01 Last Admin: 10/17/19 17:00 Dose: 2.5 mg Documented by: Lab Results (last 24 hrs) 10/17/19 06:01: Sodium 140, Potassium 3.9, Chloride 106, Carbon Dioxide 26, BUN 35 H D, Creatinine 3.38 H D, Estimated GFR 18 L, Glucose 91, Calcium 8.5, Total Bilirubin 0.9, AST 13 L, ALT 25, Alkaline Phosphatase 164 H, Serum Total Protein 6.1 L, Albumin 2.5 L, Globulin 3.6 H, Albumin/Globulin Ratio 0.7 L 10/17/19 06:01: PT 27.6 H, INR 2.38 Microbiology Results 10/16/19 07:05 Nasopharnyx Coronavirus COVID-19 PCR - Final 10/10/19 23:30 Blood - Blood Aerobic Blood Culture - Final No growth in 5 days. 10/10/19 23:30 Blood - Blood Anaerobic Blood Culture - Final No growth in 5 days. 10/10/19 14:35 Blood - Blood Aerobic Blood Culture - Final No growth in 5 days. 10/10/19 14:35 Blood - Blood Anaerobic Blood Culture - Final No growth in 5 days. Assessment/ Plan: Nephrology CPS stable without CP or SOB. +KENDRICK Feeling better. Edema improving without dialysis. No acute events overnight. Vitals, medications, blood work and imaging reviewed in the chart. General: In no apparent distress, Oriented x3, Cooperative HEENT: Atraumatic Neck: Supple Respiratory: Diminished Cardiovascular: Regular rate/rhythm Gastrointestinal: Soft and benign, Non-distended Musculoskeletal: No clubbing, No contractures Integumentary: No rashes, No cyanosis. +Ecchymoses Neurological: Normal speech Laboratory Data (last 24 hrs) 10/09/19 06:35: PT 23.0 H, INR 1.98 10/09/19 06:35: Sodium 140, Potassium 3.6, BUN 56 H, Creatinine 5.42 H*, Glucose 94, Magnesium 2.3 10/09/19 06:35: WBC 13.6 H, Hgb 11.0 L, Hct 33.8 L, Plt Count 126 L Imagings Data: EXAM DESCRIPTION: Ana Single View10/10/2019 3:50 pm CLINICAL HISTORY: Shortness breath COMPARISON: 1999 FINDINGS: Mild bilateral pulmonary opacities. . The heart is mildly enlarged. Pacemaker leads are in place. Postsurgical changes involve the chest IMPRESSION: These findings probably indicate mild CHF Conclusions/Impression: A/ ESRD on HD HTN with CKD/ CHF. Diastolic CHF, chronic. Anemia in chronic disease. Moderate malnutrition. ANGUS/ Secondary HyperPTH. Hypocalcemia. Gout P/ Continue current POC and Medications. HD TIW. Extra HD as tolerated. Continue Retacrit TIW. Start CoQ10. PT as tolerated. Encourage nutrition. Low sodium diet. No heparin due to allergy. No NSAIDS. AM labs. Daily weight.
[2019-10-17] MEDS: LATANOPROST 0.005% 2.5ML OPTH OPTH SCH (21:00)
[2019-10-17] MEDS: BACLOFEN 10 MG TAB PO PRN (21:41)
[2019-10-17] MEDS: EPOETIN 4,000 UNIT/ML VIAL SQ SCH (21:45)
[2019-10-18] MEDS: ACETAMINOPHEN 325 MG TABLET PO PRN (04:02)
[2019-10-18] MEDS: LEVOTHYROXINE SOD 0.025 MG TAB PO SCH (06:32)
[2019-10-18] MEDS: NYSTATIN PWDR 100000 UNIT/GM TOP SCH ×2 (06:33→20:00)
[2019-10-18 06:58] LABS: Absolute Lymphocytes (CBC) 0.4 K/uL (0.7-4.9); Basophils % 0.3 % (0-1.3); Hematocrit 27.1 % (39.6-49.0); Lymphocytes % 3.6 % (15.3-44.8); MPV 9.6 fL (7.6-11.3)
[2019-10-18 06:58] LABS: Protime INR 2.72
[2019-10-18] MEDS: LIDOCAINE 4% PATCH TOP SCH (07:24)
[2019-10-18] MEDS: METOPROLOL TAR 50 MG TAB PO SCH ×2 (08:00→21:28)
[2019-10-18] MEDS ORDERED: COENZYME Q10- 200 MG CAP PO SCH (08:00)
[2019-10-18] MEDS: COENZYME Q10- 200 MG CAP PO SCH (08:13)
[2019-10-18] MEDS: CALCITROL 0.25 MCG CAP PO SCH (08:14)
[2019-10-18] MEDS: CYANOCOBALAMIN 1,000 MCG TAB PO SCH (08:14)
[2019-10-18] MEDS: VITAMIN D 5,000 UNIT CAP PO SCH (08:14)
[2019-10-18] MEDS: DIGOXIN 0.125 MG TABLET PO SCH (08:14)
[2019-10-18] MEDS: FE SULF/FA/VIT B COMP & C TAB PO SCH (08:15)
[2019-10-18] MEDS: TORSEMIDE 20 MG TAB PO SCH ×2 (08:15→21:27)
[2019-10-18] MEDS: MULTIVITAMIN TAB PO SCH (08:15)
[2019-10-18] MEDS: ROFLUMILAST 500 MCG TABLET PO SCH (08:15)
[2019-10-18] MEDS: TRAMADOL HCL 50 MG TAB PO PRN (08:16)
[2019-10-18] MEDS: PROMOD 30 ML DOSE PO SCH ×2 (08:17→21:30)
[2019-10-18] MEDS: ASCORBIC ACID 500 MG TABLET PO SCH ×2 (10:08→21:28)
[2019-10-18 10:17] LABS: Blood Morphology Comment NOTED (NOT SEEN); Hypochromasia 1+; Platelet Estimate ADEQ; White Blood Cell Scan OK
[2019-10-18] MEDS: WARFARIN SODIUM 2.5 MG TAB PO SCH (16:01)
--- NOTE | 2019-10-18 16:18 | FAST ---
[employer] FORM SHIFT START DATE/TIME: 10/18/2019 07:00 (CDT) SHIFT END DATE/TIME: 10/18/2019 19:00 (CDT) NAME SHERWIN BANG DATE OF : 1945 DATE OF ADMISSION: 10/08/2019 18:46 (CDT) PHONE: AGE: 74 N# [id number] GENDER: Male ENCOUNTER PHYSICIAN: Dr. Miguel Angel Frazier M.D. ADMISSION DIAGNOSIS: - Cardiac 09 - Cardiac Disorders (09) CHRONIC A FIB,CHF,CAD,HTN,HLD,COPD,. EATING: EATING - STEP 1: Does the patient complete the activity by him/herself with no assistance (physical, verbal/nonverbal cueing, setup/clean-up)? No. EATING - STEP 2: Does the patient need only setup/clean-up assistance from one helper? Yes. 1. [id number] ADMISSION PERFORMANCE: Setup or clean-up assistance CODE: 05 ORAL HYGIENE: ORAL HYGIENE - STEP 1: Does the patient complete the activity by him/herself with no assistance (physical, verbal/nonverbal cueing, setup/clean-up)? No. ORAL HYGIENE - STEP 2: Does the patient need only setup/clean-up assistance from one helper? Yes. 1. [id number] ADMISSION PERFORMANCE: Setup or clean-up assistance CODE: 05 TOILETING HYGIENE: TOILETING HYGIENE - STEP 1: Does the patient complete the activity by him/herself with no assistance (physical, verbal/nonverbal cueing, setup/clean-up)? No. TOILETING HYGIENE - STEP 2: Does the patient need only setup/clean-up assistance from one helper? No. TOILETING HYGIENE - STEP 3: Does the patient need only verbal/nonverbal cueing or touching/steadying/contact guard assistance fro m one helper? No. TOILETING HYGIENE - STEP 4: Does the patient need physical assistance - for example lifting or trunk support from one helper - wi th the helper providing less than half of the effort? No. TOILETING HYGIENE - STEP 5: Does the patient need physical assistance - for example lifting or trunk support from one helper - wi th the helper providing more than half of the effort? Yes. 1. [id number] ADMISSION PERFORMANCE: Substantial/maximal assistance CODE: 02 BATHING: Not assessed/no information CODE: - DRESSING - UPPER BODY: DRESSING - UPPER BODY - STEP 1: Does the patient complete the activity by him/herself with no assistance (physical, verbal/nonverbal cueing, setup/clean-up)? No. DRESSING - UPPER BODY - STEP 2: Does the patient need only setup/clean-up assistance from one helper? No. DRESSING - UPPER BODY - STEP 3: Does the patient need only verbal/nonverbal cueing or touching/steadying/contact guard assistance fro m one helper? No. DRESSING - UPPER BODY - STEP 4: Does the patient need physical assistance - for example lifting or trunk support from one helper - wi th the helper providing less than half of the effort? No. DRESSING - UPPER BODY - STEP 5: Does the patient need physical assistance - for example lifting or trunk support from one helper - wi th the helper providing more than half of the effort? Yes. 1. [id number] ADMISSION PERFORMANCE: Substantial/maximal assistance CODE: 02 DRESSING - LOWER BODY: DRESSING - LOWER BODY - STEP 1: Does the patient complete the activity by him/herself with no assistance (physical, verbal/nonverbal cueing, setup/clean-up)? No. DRESSING - LOWER BODY - STEP 2: Does the patient need only setup/clean-up assistance from one helper? No. DRESSING - LOWER BODY - STEP 3: Does the patient need only verbal/nonverbal cueing or touching/steadying/contact guard assistance fro m one helper? No. DRESSING - LOWER BODY - STEP 4: Does the patient need physical assistance - for example lifting or trunk support from one helper - wi th the helper providing less than half of the effort? No. DRESSING - LOWER BODY - STEP 5: Does the patient need physical assistance - for example lifting or trunk support from one helper - wi th the helper providing more than half of the effort? Yes. 1. [id number] ADMISSION PERFORMANCE: Substantial/maximal assistance CODE: 02 PUTTING ON/TAKING OFF FOOTWEAR: FOOTWEAR - STEP 1: Does the patient complete the activity by him/herself with no assistance (physical, verbal/nonverbal cueing, setup/clean-up)? No. FOOTWEAR - STEP 2: Does the patient need only setup/clean-up assistance from one helper? No. FOOTWEAR - STEP 3: Does the patient need only verbal/nonverbal cueing or touching/steadying/contact guard assistance fro m one helper? No. FOOTWEAR - STEP 4: Does the patient need physical assistance - for example lifting or trunk support from one helper - wi th the helper providing less than half of the effort? No. FOOTWEAR - STEP 5: Does the patient need physical assistance - for example lifting or trunk support from one helper - wi th the helper providing more than half of the effort? Yes. 1. [id number] ADMISSION PERFORMANCE: Substantial/maximal assistance CODE: 02 TRANSFERS: CAR: Not assessed/no information CODE: - WALK 10 FEET: Not assessed/no information CODE: - 1 STEP (CURB): Not assessed/no information CODE: - PICKING UP OBJECT: Not assessed/no information CODE: - DOES THE PATIENT USE A WHEELCHAIR/SCOOTER? Q1. DOES THE PATIENT USE A WHEELCHAIR/SCOOTER?: Yes CODE: 1 WHEEL 50 FEET WITH TWO TURNS: WHEEL 50 FEET WITH TWO TURNS - STEP 1: Does the patient complete the activity by him/herself with no assistance (physical, verbal/nonverbal cueing, setup/clean-up)? No. WHEEL 50 FEET WITH TWO TURNS - STEP 2: Does the patient need only setup/clean-up assistance from one helper? No. WHEEL 50 FEET WITH TWO TURNS - STEP 3: Does the patient need only verbal/nonverbal cueing or touching/steadying/contact guard assistance fro m one helper? No. WHEEL 50 FEET WITH TWO TURNS - STEP 4: Does the patient need physical assistance - for example lifting or trunk support from one helper - wi th the helper providing less than half of the effort? Yes. 1. [id number] ADMISSION PERFORMANCE: Partial/moderate assistance CODE: 03 INDICATE THE TYPE OF WHEELCHAIR/SCOOTER USED: RR1. INDICATE THE TYPE OF WHEELCHAIR/SCOOTER USED.: Manual CODE: 1 WHEEL 150 FEET: Not assessed/no information CODE: - INDICATE THE TYPE OF WHEELCHAIR/SCOOTER USED: CODE: EXPR BLADDER AND BOWEL: H350. BLADDER CONTINENCE (3-DAY ASSESSMENT PERIOD): No urine output (e.g., renal failure) CODE: 5 H400. BOWEL CONTINENCE (3-DAY ASSESSMENT PERIOD): Always incontinent (no episodes of continent bowel movements) CODE: 3 SIGNATURE PANEL: The following modified sections: 1. [id number] Admission Performance, 1. [id number] Admission Performance, 1. [id number] Admission Performance, 1. [id number] Admission Performance, 1. YE4287s Admission Performance, 1. [id number] Admission Performance, 1. NW6464s Admission Performance, 1. [id number] Admission Performance , 1. [id number] Admission Performance, Q1. Does the patient use a wheelchair/scooter?, 1. [id number] Admiss ion Performance, RR1. Indicate the type of wheelchair/scooter used., Code, H350. Bladder Continence ( 3-day assessment period), H400. Bowel Continence (3-day assessment period) were [electronically] sign ed by Latonya Redding C.N.A. on SunOct 18 2019 16:16:41 GMT-0500 (Central Daylight Time)
--- NOTE | 2019-10-18 20:00 | PN ---
Date of Progress Note: 10/18/2019 Subjective: The patient is seen at the bedside. The patient did take part in physical therapy today . He was able to shower in the shower chair. He is not requiring any supplemental oxygen today. He also was eating almost all of his meals. Review of Systems: No fevers, chills, chest pain, shortness of breath, nausea, vomiting, or diarrhea. Objective: Vital Signs: Blood pressure is 136/71, pulse 90, afebrile. General: No acute distress. Heart: Regular rate and rhythm. No murmurs, rubs, or gallops. Lungs: Diminished air movement on all sides. However, no obvious crepitations were noted. Extremities: With 1+ edema, which is reported as improved. Laboratory Data: CBC; hemoglobin 8.9, hematocrit 27.1. Serum chemistry; sodium 140, potassium 3.9, chloride 106, CO2 of 26, BUN 35, creatinine 3.38, calcium 8.5. Current Medications: Reviewed. He is on vitamin D 5000. Also on digoxin. Received mannitol as nee ded with dialysis. Also on torsemide 20 mg p.o. b.i.d. and Coumadin. Impression: 1.End-stage renal disease, on hemodialysis. 2.Chronic diastolic congestive heart failure. 3.Hypertension. 4.Debility and weakness. 5.Anemia. Plan: We will continue the patient on routine dialysis. Continue the patient on renal diet. Encour age the patient to continue to progress well in physical therapy. Continue MARIA T for anemia management. Please ensure all medications are renally dosed and we will cont inue to follow. JAZLYN Voice ID: [id number] Report ID: [id number]
[2019-10-18] MEDS: LATANOPROST 0.005% 2.5ML OPTH OPTH SCH (21:00)
[2019-10-19] MEDS: LEVOTHYROXINE SOD 0.025 MG TAB PO SCH (05:10)
[2019-10-19 06:15] LABS: Protime INR 3.26
[2019-10-19] MEDS: NYSTATIN PWDR 100000 UNIT/GM TOP SCH ×2 (08:00→20:00)
[2019-10-19] MEDS: LIDOCAINE 4% PATCH TOP SCH (09:50)
[2019-10-19] MEDS: DIGOXIN 0.125 MG TABLET PO SCH (09:50)
[2019-10-19] MEDS: FE SULF/FA/VIT B COMP & C TAB PO SCH (09:51)
[2019-10-19] MEDS: VITAMIN D 5,000 UNIT CAP PO SCH (09:51)
[2019-10-19] MEDS: MULTIVITAMIN TAB PO SCH (09:51)
[2019-10-19] MEDS: CALCITROL 0.25 MCG CAP PO SCH (09:51)
[2019-10-19] MEDS: CYANOCOBALAMIN 1,000 MCG TAB PO SCH (09:52)
[2019-10-19] MEDS: TORSEMIDE 20 MG TAB PO SCH ×2 (09:52→20:05)
[2019-10-19] MEDS: ROFLUMILAST 500 MCG TABLET PO SCH (09:52)
[2019-10-19] MEDS: METOPROLOL TAR 50 MG TAB PO SCH ×2 (09:52→20:03)
[2019-10-19] MEDS: COENZYME Q10- 200 MG CAP PO SCH (09:53)
[2019-10-19] MEDS: PROMOD 30 ML DOSE PO SCH ×2 (10:20→20:05)
[2019-10-19] MEDS: ACETAMINOPHEN 325 MG TABLET PO PRN (13:21)
[2019-10-19] MEDS: WARFARIN SODIUM 2.5 MG TAB PO SCH (16:34)
[2019-10-19] MEDS: ASCORBIC ACID 500 MG TABLET PO SCH (20:03)
[2019-10-19] MEDS: LATANOPROST 0.005% 2.5ML OPTH OPTH SCH (20:05)
[2019-10-20] MEDS: LEVOTHYROXINE SOD 0.025 MG TAB PO SCH (06:18)
[2019-10-20] MEDS: PANTOPRAZOLE 40MG TABLET PO SCH (07:35)
[2019-10-20] MEDS: METOPROLOL TAR 50 MG TAB PO SCH ×2 (08:00→21:02)
[2019-10-20] MEDS: TRAMADOL HCL 50 MG TAB PO PRN (08:41)
[2019-10-20] MEDS: PROMOD 30 ML DOSE PO SCH ×2 (08:43→21:03)
[2019-10-20] MEDS: VITAMIN D 5,000 UNIT CAP PO SCH (08:43)
[2019-10-20] MEDS: TORSEMIDE 20 MG TAB PO SCH ×2 (08:43→21:01)
[2019-10-20] MEDS: COENZYME Q10- 200 MG CAP PO SCH (08:43)
[2019-10-20] MEDS: MULTIVITAMIN TAB PO SCH (08:43)
[2019-10-20] MEDS: DIGOXIN 0.125 MG TABLET PO SCH (08:44)
[2019-10-20] MEDS: CYANOCOBALAMIN 1,000 MCG TAB PO SCH (08:47)
[2019-10-20] MEDS: FE SULF/FA/VIT B COMP & C TAB PO SCH (08:47)
[2019-10-20] MEDS: ROFLUMILAST 500 MCG TABLET PO SCH (08:47)
[2019-10-20] MEDS: ASCORBIC ACID 500 MG TABLET PO SCH ×2 (08:47→21:02)
[2019-10-20] MEDS: CALCITROL 0.25 MCG CAP PO SCH (08:47)
[2019-10-20] MEDS: NYSTATIN PWDR 100000 UNIT/GM TOP SCH ×2 (09:14→20:00)
[2019-10-20] MEDS: LIDOCAINE 4% PATCH TOP SCH (09:14)
[2019-10-20] MEDS ORDERED: MIDODRINE HCL 5 MG TABLET PO PRN (10:11)
[2019-10-20] MEDS: ALBUMIN HUMAN 25% 50 ML IV SCH (11:36)
[2019-10-20 13:47] LABS: Protime INR 3.61
[2019-10-20] MEDS: WARFARIN SODIUM 2.5 MG TAB PO SCH (14:08)
--- NOTE | 2019-10-20 17:47 | R.PN ---
PROGRESS NOTES ENCOUNTER DATE AND TIME: 10/20/2019 17:43 (CDT) NAME SHERWIN BANG DATE OF : 1945 DATE OF ADMISSION: 10/08/2019 18:46 (CDT) CHRONIC A FIB,CHF,CAD,HTN,HLD,COPD,CHIEF COMPLAINT: Cardiac debility. SUBJECTIVE: Pt denied any Shortness of Breath. Pt denied any depression. WBC 12.2, Hgb 8.9, INR 3.61, Make Up Operator Helper 4.32, Ca 8.2, Digoxin level 0.1. Functional transfers done with maximum assistance. Bathing done with minimum assistance. He is on medical hold today due to early dialysis. VITAL SIGNS Temperature: 97.6 F SBP/DBP: 136/66 Pulse: 87 Resp: 16 MEDICATION ALLERGIES: No Known Drug Allergies (NKDA) ENVIRONMENTAL ALLERGIES: - Substance Allergies None Known - Other Allergies None Known NURSING: - Shower allowing shower ACTIVITIES OOB only with supervision THERAPIES: - Dietary and Nutrition Adequate Nutrition. Nutritional Education. Nutritional Supplements. PHYSICAL EXAM - Gen Alert and awake Lying in bed No apparent distress Oriented to: person, time, and place - Skin Bruising on the dorsal right and left hand and forearm No abnormalities - Eyes No abnormalities - ENMT No abnormalities - Neck No abnormalities No cervical adenopathy - CVS IRIR - Chest Mildly decreased breath sounds bilaterally. - Resp No wheezing - Abd Soft - GI Non distended Deferred - Does not produce urine, on hemodialysis - Ext Mild bilateral lower extremity edema. - MSK 4+/5 weakness in both lower extremities. - Neuro No focal deficits - Psych No abnormalities ASSESSMENT: Pt. is a 74 yo Right-handed male of unknown race.On 10/03/2019 he was admitted to [facility] with diagnosis CHRONIC A FIB,CHF,CAD,HTN,HLD,COPD,.His impairment category is Cardiac 09 - Cardiac D isorders (09).Pre-morbidly, Pt. was independent/mod-I in Locomotion, Transfers Control, Communication , and Sphincter Control; and he had good Social Cognition, Transfers Control, and Endurance.Currently , he has deficits of Locomotion, Safety Awareness, Transfers Control, Sphincter Control, Self-Care, C ommunication, and Endurance.Pt. is now referred to [facility] for acute in-pat ient rehabilitation in order to maximize patient's functional independence in activities of daily chapito ing, strength, ROM, and mobility.- Rehab Goal Patient has realistic goal of being discharged at assistance level 3-modA to reside at Home with Fam vanesa/Relatives. MDM/PLAN: - Physical Therapy Gait dysfunction - to improve, our physical therapists will perform initial evaluation of pt's statu s upon admission and devise an individualized program for Gait Training, and Wheel Chair mobility Inability to transfer - to improve, our physical therapists will perform initial evaluation of pt's status upon admission and devise an individualized program for Bed mobility Need for home safety evaluation - to improve, our physical therapists will perform initial evaluatio n of pt's status upon admission and devise an individualized program for Home Evaluation Need in caregiver upon discharge - to improve, our physical therapists will perform initial evaluati on of pt's status upon admission and devise an individualized program for Caregiver Training Edema - to improve, our physical therapists will perform initial evaluation of pt's status upon admi ssion and devise an individualized program for Elevation Training, and Lymphedema Therapy New precaution - to improve, our physical therapists will perform initial evaluation of pt's status upon admission and devise an individualized program for Patient precaution education Poor endurance - to improve, our physical therapists will perform initial evaluation of pt's status upon admission and devise an individualized program for Endurance Training Weakness - to improve, our physical therapists will perform initial evaluation of pt's status upon a dmission and devise an individualized program for Aquatic Therapy, Neuromuscular Reeducation, and Str engthening Achieving independence - to improve, our physical therapists will perform initial evaluation of pt's status upon admission and devise an individualized program for Community Reintegration Activities - Occupational Therapy ADL deficits - to improve, our occupation therapists will perform initial evaluation of pt's status upon admission and devise an individualized program for Bathing, Bed mobility, Community Reintegratio n, Cooking, Dressing, Eating, Fine Motor Skills, Grooming, Homemaking, Kitchen Mobility, Laundry, Pat ient Education, Safety Awareness, Splinting - Positioning, Transfers(Toilet, Tub, Shower), and Wheel Chair Management Need for insurance healthcare representative - to improve, our occupation therapists will perform initial evaluation of pt's status upon admission and devise an individualized program for Caregiver Training Weakness - to improve, our occupation therapists will perform initial evaluation of pt's status upon admission and devise an individualized program for Aquatic Therapy, Balance, Endurance, UE ROM, and UE strengthening - Other See attached MAR (Medication Administration Record) - Diet Type Continue Regular - Diet - Liquid Texture Continue Regular - Tube Feed Continue N/A - Diet - Solid Texture Continue Regular - Shower allowing shower FUNCTIONAL STATUS: UPDATED AT WEEKLY TEAM CONFERENCE - Bladder Same accident frequency: 7-Ind - No accidents in the past 7 days - Bowel Same accident frequency: 7-Ind - No accidents in the past 7 days - Walking Same score based on distance walked: 0(N/A) - Wheelchair Same score based on distance traveled: 0(N/A) FUNCTIONAL STATUS: - Self-Care A. Eating Ind B. Grooming Feliciano C. Bathing modA D. Dressing - Upper modA E. Dressing - Lower modA F. Toileting sup - Sphincter Control G. Bladder control Milo H. Bowel control Milo - Transfers Control I. Bed/Chair/Wheelchair Milo J. Toilet Milo K. Tub/Shower modA - Locomotion L. Walk/Wheelchair (B) modA M. Stairs maxA - Communication N. Comprehension (B) Feliciano O. Expression (B) Feliciano - Social Cognition P. Social Interaction Feliciano Q. Problem Solving Feliciano R. Memory Feliciano - Endurance Fair - Balance Poor - Safety Awareness Fair QI SCORES: - Self-Care A. Eating 03-Partial/moderate assistance B. Oral hygiene 03-Partial/moderate assistance C. Toileting hygiene 02-Substantial/maximal assistance E. Shower/bathe self 02-Substantial/maximal assistance F. Upper body dressing 03-Partial/moderate assistance G. Lower body dressing 03-Partial/moderate assistance H. Putting on/taking off footwear 88-Not attempted due to medical condition or safety concerns - Mobility A. Roll left and right 03-Partial/moderate assistance B. Sit to lying 03-Partial/moderate assistance C. Lying to sitting on side of bed 03-Partial/moderate assistance D. Sit to stand 02-Substantial/maximal assistance E. Chair/[id number] transfer 02-Substantial/maximal assistance F. Toilet transfer 02-Substantial/maximal assistance G. Car transfer 88-Not attempted due to medical condition or safety concerns I. Walk 10 feet 02-Substantial/maximal assistance J. Walk 50 feet with two turns 88-Not attempted due to medical condition or safety concerns K. Walk 150 feet 88-Not attempted due to medical condition or safety concerns L. Walking 10 feet on uneven surfaces 88-Not attempted due to medical condition or safety concerns M. 1 step (curb) 88-Not attempted due to medical condition or safety concerns N. 4 steps 88-Not attempted due to medical condition or safety concerns O. 12 steps 88-Not attempted due to medical condition or safety concerns P. Picking up object 88-Not attempted due to medical condition or safety concerns R. Wheel 50 feet with two turns 88-Not attempted due to medical condition or safety concerns S. Wheel 150 feet 88-Not attempted due to medical condition or safety concerns - Bladder and Bowel Bladder continence Bowel continence 0-Always continent - Endurance Poor - Balance Poor - Safety Awareness Poor CURRENT FUNC. DEFICITS: Balance, Safety Awareness, Mobility, Endurance, and Self-Care SIGNATURE PANEL: (CDT)
--- NOTE | 2019-10-20 20:18 | P.PN ---
Date of Service: 10/20/19 Vital Signs Temp Pulse Resp BP Pulse Ox 97.6 F 87 15 136/66 92 10/20/19 07:15 10/20/19 08:43 10/20/19 09:41 10/20/19 08:43 10/20/19 09:41 Medications Acetaminophen (Tylenol -Tablet) 650 mg PO Q6H PRN PRN Reason: Pain scale 2-4 (Mild) Stop: 11/07/19 21:56 Last Admin: 10/19/19 13:21 Dose: 650 mg Documented by: Albuterol Sulfate (Ventolin Inhaler) 2 puff IH Q6H PRN PRN Reason: SHORTNESS OF BREATH Stop: 11/07/19 21:01 Ascorbic Acid (Vitamin C) 500 mg PO BID [facility] Stop: 11/18/19 20:01 Last Admin: 10/20/19 08:47 Dose: 500 mg Documented by: Baclofen (Lioresal) 5 mg PO BEDTIME PRN PRN Reason: MUSCLE SPASMS Stop: 11/14/19 21:01 Last Admin: 10/17/19 21:41 Dose: 5 mg Documented by: Calcitriol (Rocaltrol) 0.5 mcg PO DAILY [facility] Stop: 11/10/19 08:01 Last Admin: 10/20/19 08:47 Dose: 0.5 mcg Documented by: Cholecalciferol (Vitamin D 5,000 Iu Cap) 5,000 unit PO DAILY [facility] Stop: 11/10/19 08:01 Last Admin: 10/20/19 08:43 Dose: 5,000 unit Documented by: Coenzyme Q10 (Coenzyme Q10) 200 mg PO DAILY [facility] Stop: 11/10/19 08:01 Last Admin: 10/20/19 08:43 Dose: 200 mg Documented by: Cyanocobalamin (Vitamin B-12) 500 mcg PO DAILY [facility] Stop: 11/08/19 08:01 Last Admin: 10/20/19 08:47 Dose: 500 mcg Documented by: Digoxin (Lanoxin) 0.125 mg PO DAILY [facility] Stop: 11/11/19 08:01 Last Admin: 10/20/19 08:44 Dose: 0.125 mg Documented by: Epoetin Michael (Retacrit) 4,000 unit SQ M,W,F@2000 [facility] Stop: 11/14/19 20:01 Last Admin: 10/17/19 21:45 Dose: 4,000 unit Documented by: Home Med (Breo Ellipta) 1 puff IH DAILY EPI Stop: 11/14/19 08:01 Last Admin: 10/20/19 06:20 Dose: Not Given Documented by: Home Med (Incruse Ellipta) 1 puff IH DAILY EPI Stop: 11/14/19 08:01 Last Admin: 10/20/19 06:18 Dose: 1 puff Documented by: Albumin Human (Albumin 25%) 50 mls @ 100 mls/hr IV EVERY HD EPI Stop: 11/08/19 23:01 Last Admin: 10/16/19 10:46 Dose: 50 mls Documented by: Ipratropium Roe (Atrovent Neb) 0.5 mg NEB Q6HP PRN PRN Reason: sob Stop: 11/13/19 09:04 Latanoprost (Xalatan 0.005% Ophth Yasemin) 1 drops OPTH BEDTIME EPI Stop: 11/08/19 08:01 Last Admin: 10/19/19 20:05 Dose: Not Given Documented by: Levothyroxine Sodium (Synthroid) 0.025 mg PO DAILYAC EPI Stop: 11/08/19 06:31 Last Admin: 10/20/19 06:18 Dose: 0.025 mg Documented by: Lidocaine (Aspercreme 4% Patch) 2 patch TOP DAILY EPI Stop: 11/11/19 08:01 Last Admin: 10/20/19 09:14 Dose: 2 patch Documented by: Mannitol (Mannitol 12.5 Gm/50 Ml Vial) 12.5 gm IV EVERY HD PRN PRN Reason: Titrate to SBP (MUST DEFINE) Stop: 11/08/19 22:42 Last Admin: 10/13/19 20:48 Dose: 12.5 gm Documented by: Melatonin (Melatonin) 3 mg PO BEDTIME PRN PRN PRN Reason: INSOMNIA Stop: 11/07/19 21:09 Last Admin: 10/14/19 22:00 Dose: 3 mg Documented by: Metoprolol Tartrate (Lopressor) 25 mg PO BID EPI Stop: 11/08/19 08:01 Last Admin: 10/20/19 08:00 Dose: Not Given Documented by: Midodrine (Proamatine) 10 mg PO EVERY HD PRN PRN Reason: Titrate to SBP (MUST DEFINE) Stop: 11/19/19 10:12 Multivitamins/Iron (Hemocyte Plus) 1 tab PO DAILY WITH BREAKFAST [facility] Stop: 11/17/19 08:01 Last Admin: 10/20/19 08:47 Dose: 1 tab Documented by: Multivitamins/Minerals (Centrum Tablet) 1 tab PO DAILY [facility] Stop: 11/08/19 08:01 Last Admin: 10/20/19 08:43 Dose: 1 tab Documented by: Nutritional Formula (Promod Liquid Protein) 30 ml PO BID [facility] Stop: 11/08/19 20:01 Last Admin: 10/20/19 08:43 Dose: 30 ml Documented by: Nystatin (Mycostatin (Powder)) 1 appl TOP BID [facility] Stop: 11/09/19 20:01 Last Admin: 10/20/19 09:14 Dose: 1 appl Documented by: Pantoprazole Sodium (Protonix Tab) 40 mg PO ACB [facility]; Protocol Stop: 11/19/19 07:31 Last Admin: 10/20/19 07:35 Dose: 40 mg Documented by: Roflumilast (Daliresp) 500 mcg PO DAILY [facility] Stop: 11/09/19 08:01 Last Admin: 10/20/19 08:47 Dose: 500 mcg Documented by: Senna/Docusate Sodium (Senokot-S) 2 tab PO BEDTIME PRN PRN Reason: CONSTIPATION Stop: 11/07/19 21:08 Last Admin: 10/10/19 20:46 Dose: 2 tab Documented by: Torsemide (Demadex) 20 mg PO BID [facility] Stop: 11/08/19 08:01 Last Admin: 10/20/19 08:43 Dose: 20 mg Documented by: Tramadol HCl (Ultram) 50 mg PO Q4H PRN PRN Reason: Pain scale 5-7 (Moderate) Stop: 11/14/19 14:51 Last Admin: 10/20/19 08:41 Dose: 50 mg Documented by: Warfarin Sodium (Coumadin) 2.5 mg PO DAILY 5 PM [facility] Stop: 11/08/19 17:01 Last Admin: 10/20/19 14:08 Dose: Not Given Documented by: Lab Results (last 24 hrs) 10/20/19 13:31: PT 41.5 H, INR 3.61 Microbiology Results 10/19/19 14:50 Stool Occult Blood - Final 10/16/19 07:05 Nasopharnyx Coronavirus COVID-19 PCR - Final 10/10/19 23:30 Blood - Blood Aerobic Blood Culture - Final No growth in 5 days. 10/10/19 23:30 Blood - Blood Anaerobic Blood Culture - Final No growth in 5 days. 10/10/19 14:35 Blood - Blood Aerobic Blood Culture - Final No growth in 5 days. 10/10/19 14:35 Blood - Blood Anaerobic Blood Culture - Final No growth in 5 days. Assessment/ Plan: Nephrology CPS stable without CP or SOB. +KENDRICK Feeling better. Edema improving with dialysis. No acute events overnight. Vitals, medications, blood work and imaging reviewed in the chart. General: In no apparent distress, Oriented x3, Cooperative HEENT: Atraumatic Neck: Supple Respiratory: Diminished Cardiovascular: Regular rate/rhythm Gastrointestinal: Soft and benign, Non-distended Musculoskeletal: No clubbing, No contractures Integumentary: No rashes, No cyanosis. +Ecchymoses Neurological: Normal speech Laboratory Data (last 24 hrs) 10/09/19 06:35: PT 23.0 H, INR 1.98 10/09/19 06:35: Sodium 140, Potassium 3.6, BUN 56 H, Creatinine 5.42 H*, Glucose 94, Magnesium 2.3 10/09/19 06:35: WBC 13.6 H, Hgb 11.0 L, Hct 33.8 L, Plt Count 126 L Imagings Data: [facility] CLINICAL HISTORY: Shortness breath COMPARISON: 1999 FINDINGS: Mild bilateral pulmonary opacities. . The heart is mildly enlarged. Pacemaker leads are in place. Postsurgical changes involve the chest IMPRESSION: These findings probably indicate mild CHF Conclusions/Impression: A/ ESRD on HD HTN with CKD/ CHF. Diastolic CHF, chronic. Anemia in chronic disease. Moderate malnutrition. ANGUS/ Secondary HyperPTH. Hypocalcemia. Gout P/ Continue current POC and Medications. HD TIW. Extra HD as tolerated. Seen and examined on HD. Continue Retacrit TIW. PT as tolerated. Encourage nutrition. Low sodium diet. No heparin due to allergy. No NSAIDS. AM labs. Daily weight.
[2019-10-20] MEDS: LATANOPROST 0.005% 2.5ML OPTH OPTH SCH (21:00)
[2019-10-20] MEDS: BACLOFEN 10 MG TAB PO PRN (21:02)
[2019-10-20] MEDS: EPOETIN 4,000 UNIT/ML VIAL SQ SCH (21:03)
[2019-10-21 06:48] LABS: Protime INR 2.91
[2019-10-21] MEDS: LEVOTHYROXINE SOD 0.025 MG TAB PO SCH (07:09)
[2019-10-21] MEDS: NYSTATIN PWDR 100000 UNIT/GM TOP SCH ×2 (08:00→20:00)
[2019-10-21] MEDS: PROMOD 30 ML DOSE PO SCH ×2 (08:00→21:19)
[2019-10-21] MEDS: LIDOCAINE 4% PATCH TOP SCH (09:19)
[2019-10-21] MEDS: VITAMIN D 5,000 UNIT CAP PO SCH (09:20)
[2019-10-21] MEDS: CALCITROL 0.25 MCG CAP PO SCH (09:20)
[2019-10-21] MEDS: DIGOXIN 0.125 MG TABLET PO SCH (09:20)
[2019-10-21] MEDS: FE SULF/FA/VIT B COMP & C TAB PO SCH (09:21)
[2019-10-21] MEDS: CYANOCOBALAMIN 1,000 MCG TAB PO SCH (09:21)
[2019-10-21] MEDS: PANTOPRAZOLE 40MG TABLET PO SCH (09:21)
[2019-10-21] MEDS: MULTIVITAMIN TAB PO SCH (09:22)
[2019-10-21] MEDS: ASCORBIC ACID 500 MG TABLET PO SCH ×2 (09:22→21:16)
[2019-10-21] MEDS: METOPROLOL TAR 50 MG TAB PO SCH ×2 (09:36→21:15)
[2019-10-21] MEDS: COENZYME Q10- 200 MG CAP PO SCH (09:36)
[2019-10-21] MEDS: TORSEMIDE 20 MG TAB PO SCH ×2 (09:36→21:15)
[2019-10-21] MEDS: ROFLUMILAST 500 MCG TABLET PO SCH (11:54)
[2019-10-21] MEDS: WARFARIN SODIUM 2.5 MG TAB PO SCH (16:24)
--- NOTE | 2019-10-21 17:04 | RAD REPORT ---
EXAM DESCRIPTION: RAD - Chest Single View - 10/21/2019 4:54 pm CLINICAL HISTORY: increase sob Chest pain. COMPARISON: Chest Single View dated 10/10/2019; CHEST SINGLE VIEW dated 04/16/2013; CHEST SINGLE VIEW dated 04/12/2013; CHEST SINGLE VIEW dated 03/23/2013 FINDINGS: Portable technique limits examination quality. There has been worsening in the bilateral pulmonary opacities since prior study, likely representing pulmonary edema. Small bilateral pleural effusions are present including probable fluid in the right fissure. The heart is mildly enlarged with multilead pacer/defibrillator device. Right-sided venous c atheter tip in SVC.Sternotomy wires noted. IMPRESSION: Mild worsening in CHF versus volume overload pattern since comparative study.
--- NOTE | 2019-10-21 17:40 | R.PN ---
PROGRESS NOTES ENCOUNTER DATE AND TIME: 10/21/2019 17:31 (CDT) NAME SHERWIN BANG DATE OF : 1945 DATE OF ADMISSION: 10/08/2019 18:46 (CDT) CHRONIC A FIB,CHF,CAD,HTN,HLD,COPD,CHIEF COMPLAINT: Cardiac debility. SUBJECTIVE: Pt denied any Shortness of Breath. Pt denied any depression. WBC 12.2, Hgb 8.9, INR 2.91, Business Systems Analyst 4.32, Ca 8.2, Digoxin level 0.1. Functional transfers done with maximum assistance. Bathing done with minimum assistance. Patient states that pain is under control. Chest x-ray show mild CHF pattern. His leg wound will be seen by wound care in the AM He is weaker overall today and will have repeat CBC with differential. He did therapeutic exercises t holly. VITAL SIGNS Temperature: 98.5 F SBP/DBP: 135/68 Pulse: 90 Resp: 16 MEDICATION ALLERGIES: No Known Drug Allergies (NKDA) ENVIRONMENTAL ALLERGIES: - Substance Allergies None Known - Other Allergies None Known NURSING: - Shower allowing shower ACTIVITIES OOB only with supervision THERAPIES: - Dietary and Nutrition Adequate Nutrition. Nutritional Education. Nutritional Supplements. PHYSICAL EXAM - Gen Alert and awake Lying in bed No apparent distress Oriented to: person, time, and place - Skin Bruising on the dorsal right and left hand and forearm No abnormalities - Eyes No abnormalities - ENMT No abnormalities - Neck No abnormalities No cervical adenopathy - CVS IRIR - Chest Mildly decreased breath sounds bilaterally. - Resp No wheezing - Abd Soft - GI Non distended Deferred - Does not produce urine, on hemodialysis - Ext Mild bilateral lower extremity edema. - MSK 4+/5 weakness in both lower extremities. - Neuro No focal deficits - Psych No abnormalities ASSESSMENT: Currently, he has deficits of Locomotion, Safety Awareness, Transfers Control, Sphincter Control, Stacy f-Care, Communication, and Endurance.On 10/03/2019 he was admitted to [facility] with diagnos is CHRONIC A FIB,CHF,CAD,HTN,HLD,COPD,.His impairment category is Cardiac 09 - Cardiac Disorders (09 ).Pre-morbidly, Pt. was independent/mod-I in Locomotion, Transfers Control, Communication, and Sphinc ter Control; and he had good Social Cognition, Transfers Control, and Endurance.Pt. is now referred [facility] for acute in-patient rehabilitation in order to maximize patient' s functional independence in activities of daily living, strength, ROM, and mobility.Pt. is a 74 yo R ight-handed male of unknown race.- Rehab Goal Patient has realistic goal of being discharged at assistance level 3-modA to reside at Home with Fam vanesa/Relatives. MDM/PLAN: - Physical Therapy Achieving independence - to improve, our physical therapists will perform initial evaluation of pt's status upon admission and devise an individualized program for Community Reintegration Activities Edema - to improve, our physical therapists will perform initial evaluation of pt's status upon admi ssion and devise an individualized program for Elevation Training, and Lymphedema Therapy Gait dysfunction - to improve, our physical therapists will perform initial evaluation of pt's statu s upon admission and devise an individualized program for Gait Training, and Wheel Chair mobility Inability to transfer - to improve, our physical therapists will perform initial evaluation of pt's status upon admission and devise an individualized program for Bed mobility Need for home safety evaluation - to improve, our physical therapists will perform initial evaluatio n of pt's status upon admission and devise an individualized program for Home Evaluation Need in caregiver upon discharge - to improve, our physical therapists will perform initial evaluati on of pt's status upon admission and devise an individualized program for Caregiver Training New precaution - to improve, our physical therapists will perform initial evaluation of pt's status upon admission and devise an individualized program for Patient precaution education Poor endurance - to improve, our physical therapists will perform initial evaluation of pt's status upon admission and devise an individualized program for Endurance Training Weakness - to improve, our physical therapists will perform initial evaluation of pt's status upon a dmission and devise an individualized program for Aquatic Therapy, Neuromuscular Reeducation, and Str engthening - Occupational Therapy ADL deficits - to improve, our occupation therapists will perform initial evaluation of pt's status upon admission and devise an individualized program for Bathing, Bed mobility, Community Reintegratio n, Cooking, Dressing, Eating, Fine Motor Skills, Grooming, Homemaking, Kitchen Mobility, Laundry, Pat ient Education, Safety Awareness, Splinting - Positioning, Transfers(Toilet, Tub, Shower), and Wheel Chair Management Need for healthcare interpreter - to improve, our occupation therapists will perform initial evaluation of pt's status upon admission and devise an individualized program for Caregiver Training Weakness - to improve, our occupation therapists will perform initial evaluation of pt's status upon admission and devise an individualized program for Aquatic Therapy, Balance, Endurance, UE ROM, and UE strengthening - Other See attached MAR (Medication Administration Record) - Diet Type Continue Regular - Diet - Liquid Texture Continue Regular - Tube Feed Continue N/A - Diet - Solid Texture Continue Regular - Shower allowing shower FUNCTIONAL STATUS: UPDATED AT WEEKLY TEAM CONFERENCE - Bladder Same accident frequency: 7-Ind - No accidents in the past 7 days - Bowel Same accident frequency: 7-Ind - No accidents in the past 7 days - Walking Same score based on distance walked: 0(N/A) - Wheelchair Same score based on distance traveled: 0(N/A) FUNCTIONAL STATUS: - Self-Care A. Eating Ind B. Grooming Feliciano C. Bathing modA D. Dressing - Upper modA E. Dressing - Lower modA F. Toileting sup - Sphincter Control G. Bladder control Milo H. Bowel control Milo - Transfers Control I. Bed/Chair/Wheelchair Milo J. Toilet Milo K. Tub/Shower modA - Locomotion L. Walk/Wheelchair (B) modA M. Stairs maxA - Communication N. Comprehension (B) Feliciano O. Expression (B) Feliciano - Social Cognition P. Social Interaction Feliciano Q. Problem Solving Feliciano R. Memory Feliciano - Endurance Fair - Balance Poor - Safety Awareness Fair QI SCORES: - Self-Care A. Eating 03-Partial/moderate assistance B. Oral hygiene 03-Partial/moderate assistance C. Toileting hygiene 02-Substantial/maximal assistance E. Shower/bathe self 02-Substantial/maximal assistance F. Upper body dressing 03-Partial/moderate assistance G. Lower body dressing 03-Partial/moderate assistance H. Putting on/taking off footwear 88-Not attempted due to medical condition or safety concerns - Mobility M. 1 step (curb) 88-Not attempted due to medical condition or safety concerns N. 4 steps 88-Not attempted due to medical condition or safety concerns O. 12 steps 88-Not attempted due to medical condition or safety concerns P. Picking up object 88-Not attempted due to medical condition or safety concerns R. Wheel 50 feet with two turns 88-Not attempted due to medical condition or safety concerns A. Roll left and right 03-Partial/moderate assistance B. Sit to lying 03-Partial/moderate assistance C. Lying to sitting on side of bed 03-Partial/moderate assistance D. Sit to stand 02-Substantial/maximal assistance E. Chair/[id number] transfer 02-Substantial/maximal assistance F. Toilet transfer 02-Substantial/maximal assistance G. Car transfer 88-Not attempted due to medical condition or safety concerns I. Walk 10 feet 02-Substantial/maximal assistance J. Walk 50 feet with two turns 88-Not attempted due to medical condition or safety concerns K. Walk 150 feet 88-Not attempted due to medical condition or safety concerns L. Walking 10 feet on uneven surfaces 88-Not attempted due to medical condition or safety concerns S. Wheel 150 feet 88-Not attempted due to medical condition or safety concerns - Bladder and Bowel Bladder continence Bowel continence 0-Always continent - Endurance Poor - Balance Poor - Safety Awareness Poor CURRENT FUNC. DEFICITS: Balance, Safety Awareness, Mobility, Endurance, and Self-Care SIGNATURE PANEL: (CDT)
[2019-10-21 17:55] LABS: Absolute Lymphocytes (CBC) 0.5 K/uL (0.7-4.9); Basophils % 0.4 % (0-1.3); Hematocrit 28.1 % (39.6-49.0); Lymphocytes % 5.1 % (15.3-44.8); MPV 8.6 fL (7.6-11.3); RBC Red Blood Cell Count 2.86 M/uL (4.33-5.43)
[2019-10-21 18:05] LABS: Potassium 4.3 mmol/L (3.5-5.1)
[2019-10-21] MEDS: LATANOPROST 0.005% 2.5ML OPTH OPTH SCH (21:00)
[2019-10-21] MEDS: ACETAMINOPHEN 325 MG TABLET PO PRN (21:16)
[2019-10-21] MEDS: BACLOFEN 10 MG TAB PO PRN (21:17)
[2019-10-22] MEDS: LEVOTHYROXINE SOD 0.025 MG TAB PO SCH (06:26)
[2019-10-22 06:34] LABS: Protime INR 2.86
[2019-10-22] MEDS: PANTOPRAZOLE 40MG TABLET PO SCH (07:15)
[2019-10-22] MEDS: NYSTATIN PWDR 100000 UNIT/GM TOP SCH ×2 (08:00→19:26)
[2019-10-22] MEDS: METOPROLOL TAR 50 MG TAB PO SCH ×2 (08:00→19:20)
[2019-10-22] MEDS: TORSEMIDE 20 MG TAB PO SCH ×2 (08:56→19:19)
[2019-10-22] MEDS: COENZYME Q10- 200 MG CAP PO SCH (08:57)
[2019-10-22] MEDS: FE SULF/FA/VIT B COMP & C TAB PO SCH (08:58)
[2019-10-22] MEDS: ROFLUMILAST 500 MCG TABLET PO SCH (08:58)
[2019-10-22] MEDS: VITAMIN D 5,000 UNIT CAP PO SCH (08:58)
[2019-10-22] MEDS: PROMOD 30 ML DOSE PO SCH ×2 (08:58→19:26)
[2019-10-22] MEDS: CALCITROL 0.25 MCG CAP PO SCH (08:58)
[2019-10-22] MEDS: ASCORBIC ACID 500 MG TABLET PO SCH ×2 (08:58→19:24)
[2019-10-22] MEDS: MULTIVITAMIN TAB PO SCH (08:58)
[2019-10-22] MEDS: DULOXETINE 20 MG CAP PO SCH (08:59)
[2019-10-22] MEDS: CYANOCOBALAMIN 1,000 MCG TAB PO SCH (08:59)
[2019-10-22] MEDS: DIGOXIN 0.125 MG TABLET PO SCH (08:59)
[2019-10-22] MEDS: LIDOCAINE 4% PATCH TOP SCH (09:01)
[2019-10-22] MEDS: WARFARIN SODIUM 2.5 MG TAB PO SCH (17:34)
--- NOTE | 2019-10-22 18:22 | R.PN ---
PROGRESS NOTES ENCOUNTER DATE AND TIME: 10/22/2019 18:17 (CDT) NAME SHERWIN BANG DATE OF : 1945 DATE OF ADMISSION: 10/08/2019 18:46 (CDT) CHRONIC A FIB,CHF,CAD,HTN,HLD,COPD,CHIEF COMPLAINT: Cardiac debility. SUBJECTIVE: Pt denied any Shortness of Breath. Pt denied any depression. WBC 10.5, Hgb 8.9, INR 2.86, Research Nutritionist 4.68, Ca 8.4, Digoxin level 0.1. Functional transfers done with moderate assistance. Bathing done with minimum assistance. Patient states that pain is under control. Chest x-ray show mild CHF pattern. His leg wound will be seen by wound care in the AM He is weaker overall today and will have repeat CBC with differential. He did therapeutic exercises t holly. VITAL SIGNS Temperature: 98.8 F SBP/DBP: 147/85 Pulse: 87 Resp: 15 MEDICATION ALLERGIES: No Known Drug Allergies (NKDA) ENVIRONMENTAL ALLERGIES: - Substance Allergies None Known - Other Allergies None Known NURSING: - Shower allowing shower ACTIVITIES OOB only with supervision THERAPIES: - Dietary and Nutrition Adequate Nutrition. Nutritional Education. Nutritional Supplements. PHYSICAL EXAM - Gen Alert and awake Lying in bed No apparent distress Oriented to: person, time, and place - Skin Bruising on the dorsal right and left hand and forearm No abnormalities - Eyes No abnormalities - ENMT No abnormalities - Neck No abnormalities No cervical adenopathy - CVS IRIR - Chest Mildly decreased breath sounds bilaterally. - Resp No wheezing - Abd Soft - GI Non distended Deferred - Does not produce urine, on hemodialysis - Ext Mild bilateral lower extremity edema. - MSK 4+/5 weakness in both lower extremities. - Neuro No focal deficits - Psych No abnormalities ASSESSMENT: Currently, he has deficits of Locomotion, Safety Awareness, Transfers Control, Sphincter Control, Stacy f-Care, Communication, and Endurance.On 10/03/2019 he was admitted to [facility] with diagnos is CHRONIC A FIB,CHF,CAD,HTN,HLD,COPD,.His impairment category is Cardiac 09 - Cardiac Disorders (09 ).Pt. is now referred to [facility] for acute in-patient rehabilitation in ord er to maximize patient's functional independence in activities of daily living, strength, ROM, and mo bility.Pre-morbidly, Pt. was independent/mod-I in Locomotion, Transfers Control, Communication, and S phincter Control; and he had good Social Cognition, Transfers Control, and Endurance.Pt. is a 74 yo R ight-handed male of unknown race.- Rehab Goal Patient has realistic goal of being discharged at assistance level 3-modA to reside at Home with Fam vanesa/Relatives. MDM/PLAN: - Physical Therapy Achieving independence - to improve, our physical therapists will perform initial evaluation of pt's status upon admission and devise an individualized program for Community Reintegration Activities Edema - to improve, our physical therapists will perform initial evaluation of pt's status upon admi ssion and devise an individualized program for Elevation Training, and Lymphedema Therapy Gait dysfunction - to improve, our physical therapists will perform initial evaluation of pt's statu s upon admission and devise an individualized program for Gait Training, and Wheel Chair mobility Inability to transfer - to improve, our physical therapists will perform initial evaluation of pt's status upon admission and devise an individualized program for Bed mobility Need for home safety evaluation - to improve, our physical therapists will perform initial evaluatio n of pt's status upon admission and devise an individualized program for Home Evaluation Need in caregiver upon discharge - to improve, our physical therapists will perform initial evaluati on of pt's status upon admission and devise an individualized program for Caregiver Training New precaution - to improve, our physical therapists will perform initial evaluation of pt's status upon admission and devise an individualized program for Patient precaution education Poor endurance - to improve, our physical therapists will perform initial evaluation of pt's status upon admission and devise an individualized program for Endurance Training Weakness - to improve, our physical therapists will perform initial evaluation of pt's status upon a dmission and devise an individualized program for Aquatic Therapy, Neuromuscular Reeducation, and Str engthening - Occupational Therapy ADL deficits - to improve, our occupation therapists will perform initial evaluation of pt's status upon admission and devise an individualized program for Bathing, Bed mobility, Community Reintegratio n, Cooking, Dressing, Eating, Fine Motor Skills, Grooming, Homemaking, Kitchen Mobility, Laundry, Pat ient Education, Safety Awareness, Splinting - Positioning, Transfers(Toilet, Tub, Shower), and Wheel Chair Management Need for resident care coordinator - to improve, our occupation therapists will perform initial evaluation of pt's status upon admission and devise an individualized program for Caregiver Training Weakness - to improve, our occupation therapists will perform initial evaluation of pt's status upon admission and devise an individualized program for Aquatic Therapy, Balance, Endurance, UE ROM, and UE strengthening - Other See attached MAR (Medication Administration Record) - Diet Type Continue Regular - Diet - Liquid Texture Continue Regular - Tube Feed Continue N/A - Diet - Solid Texture Continue Regular - Shower allowing shower FUNCTIONAL STATUS: UPDATED AT WEEKLY TEAM CONFERENCE - Bladder Same accident frequency: 7-Ind - No accidents in the past 7 days - Bowel Same accident frequency: 7-Ind - No accidents in the past 7 days - Walking Same score based on distance walked: 0(N/A) - Wheelchair Same score based on distance traveled: 0(N/A) FUNCTIONAL STATUS: - Self-Care A. Eating Ind B. Grooming Feliciano C. Bathing modA D. Dressing - Upper modA E. Dressing - Lower modA F. Toileting sup - Sphincter Control G. Bladder control Milo H. Bowel control Milo - Transfers Control I. Bed/Chair/Wheelchair Milo J. Toilet Milo K. Tub/Shower modA - Locomotion L. Walk/Wheelchair (B) modA M. Stairs maxA - Communication N. Comprehension (B) Feliciano O. Expression (B) Feliciano - Social Cognition P. Social Interaction Feliciano Q. Problem Solving Feliciano R. Memory Feliciano - Endurance Fair - Balance Poor - Safety Awareness Fair QI SCORES: - Self-Care A. Eating 03-Partial/moderate assistance B. Oral hygiene 03-Partial/moderate assistance C. Toileting hygiene 02-Substantial/maximal assistance E. Shower/bathe self 02-Substantial/maximal assistance F. Upper body dressing 03-Partial/moderate assistance G. Lower body dressing 03-Partial/moderate assistance H. Putting on/taking off footwear 88-Not attempted due to medical condition or safety concerns - Mobility M. 1 step (curb) 88-Not attempted due to medical condition or safety concerns N. 4 steps 88-Not attempted due to medical condition or safety concerns O. 12 steps 88-Not attempted due to medical condition or safety concerns P. Picking up object 88-Not attempted due to medical condition or safety concerns R. Wheel 50 feet with two turns 88-Not attempted due to medical condition or safety concerns A. Roll left and right 03-Partial/moderate assistance B. Sit to lying 03-Partial/moderate assistance C. Lying to sitting on side of bed 03-Partial/moderate assistance D. Sit to stand 02-Substantial/maximal assistance E. Chair/[id number] transfer 02-Substantial/maximal assistance F. Toilet transfer 02-Substantial/maximal assistance G. Car transfer 88-Not attempted due to medical condition or safety concerns I. Walk 10 feet 02-Substantial/maximal assistance J. Walk 50 feet with two turns 88-Not attempted due to medical condition or safety concerns K. Walk 150 feet 88-Not attempted due to medical condition or safety concerns L. Walking 10 feet on uneven surfaces 88-Not attempted due to medical condition or safety concerns S. Wheel 150 feet 88-Not attempted due to medical condition or safety concerns - Bladder and Bowel Bladder continence Bowel continence 0-Always continent - Endurance Poor - Balance Poor - Safety Awareness Poor CURRENT FUNC. DEFICITS: Balance, Safety Awareness, Mobility, Endurance, and Self-Care SIGNATURE PANEL: (CDT)
[2019-10-22] MEDS: BACLOFEN 10 MG TAB PO PRN (19:19)
[2019-10-22] MEDS: TRAMADOL HCL 50 MG TAB PO PRN (19:24)
[2019-10-22] MEDS: EPOETIN 4,000 UNIT/ML VIAL SQ SCH (19:28)
[2019-10-22] MEDS: MELATONIN 3 MG TABLET PO PRN (20:11)
[2019-10-22] MEDS: LATANOPROST 0.005% 2.5ML OPTH OPTH SCH (20:12)
--- NOTE | 2019-10-22 21:22 | P.PN ---
Date of Service: 10/22/19 Vital Signs Temp Pulse Resp BP Pulse Ox 99.1 F 87 18 135/61 95 10/22/19 20:00 10/22/19 20:00 10/22/19 20:00 10/22/19 20:00 10/22/19 20:00 Medications Acetaminophen (Tylenol -Tablet) 650 mg PO Q6H PRN PRN Reason: Pain scale 2-4 (Mild) Stop: 11/07/19 21:56 Last Admin: 10/21/19 21:16 Dose: 650 mg Documented by: Albuterol Sulfate (Ventolin Inhaler) 2 puff IH Q6H PRN PRN Reason: SHORTNESS OF BREATH Stop: 11/07/19 21:01 Ascorbic Acid (Vitamin C) 500 mg PO BID [facility] Stop: 11/18/19 20:01 Last Admin: 10/22/19 19:24 Dose: 500 mg Documented by: Baclofen (Lioresal) 5 mg PO BEDTIME PRN PRN Reason: MUSCLE SPASMS Stop: 11/14/19 21:01 Last Admin: 10/22/19 19:19 Dose: 5 mg Documented by: Calcitriol (Rocaltrol) 0.5 mcg PO DAILY [facility] Stop: 11/10/19 08:01 Last Admin: 10/22/19 08:58 Dose: 0.5 mcg Documented by: Cholecalciferol (Vitamin D 5,000 Iu Cap) 5,000 unit PO DAILY [facility] Stop: 11/10/19 08:01 Last Admin: 10/22/19 08:58 Dose: 5,000 unit Documented by: Coenzyme Q10 (Coenzyme Q10) 200 mg PO DAILY [facility] Stop: 11/10/19 08:01 Last Admin: 10/22/19 08:57 Dose: 200 mg Documented by: Cyanocobalamin (Vitamin B-12) 500 mcg PO DAILY [facility] Stop: 11/08/19 08:01 Last Admin: 10/22/19 08:59 Dose: 500 mcg Documented by: Digoxin (Lanoxin) 0.125 mg PO DAILY [facility] Stop: 11/11/19 08:01 Last Admin: 10/22/19 08:59 Dose: 0.125 mg Documented by: Duloxetine HCl (Cymbalta Delayed Release Pellets) 20 mg PO DAILY [facility] Stop: 11/21/19 08:01 Last Admin: 10/22/19 08:59 Dose: 20 mg Documented by: Epoetin Michael (Retacrit) 4,000 unit SQ M,W,F@2000 EPI Stop: 11/14/19 20:01 Last Admin: 10/22/19 19:28 Dose: 4,000 unit Documented by: Home Med (Breo Ellipta) 1 puff IH DAILY EPI Stop: 11/14/19 08:01 Last Admin: 10/22/19 06:28 Dose: Not Given Documented by: Home Med (Incruse Ellipta) 1 puff IH DAILY EPI Stop: 11/14/19 08:01 Last Admin: 10/22/19 06:27 Dose: 1 puff Documented by: Albumin Human (Albumin 25%) 50 mls @ 100 mls/hr IV EVERY HD EPI Stop: 11/08/19 23:01 Last Admin: 10/20/19 11:36 Dose: 50 mls Documented by: Ipratropium Gilson (Atrovent Neb) 0.5 mg NEB Q6HP PRN PRN Reason: sob Stop: 11/13/19 09:04 Latanoprost (Xalatan 0.005% Ophth Yasemin) 1 drops OPTH BEDTIME EPI Stop: 11/08/19 08:01 Last Admin: 10/22/19 20:12 Dose: Not Given Documented by: Levothyroxine Sodium (Synthroid) 0.025 mg PO DAILYAC EPI Stop: 11/08/19 06:31 Last Admin: 10/22/19 06:26 Dose: 0.025 mg Documented by: Lidocaine (Aspercreme 4% Patch) 2 patch TOP DAILY EPI Stop: 11/11/19 08:01 Last Admin: 10/22/19 09:01 Dose: 2 patch Documented by: Mannitol (Mannitol 12.5 Gm/50 Ml Vial) 12.5 gm IV EVERY HD PRN PRN Reason: Titrate to SBP (MUST DEFINE) Stop: 11/08/19 22:42 Last Admin: 10/13/19 20:48 Dose: 12.5 gm Documented by: Melatonin (Melatonin) 3 mg PO BEDTIME PRN PRN PRN Reason: INSOMNIA Stop: 11/07/19 21:09 Last Admin: 10/22/19 20:11 Dose: 3 mg Documented by: Metoprolol Tartrate (Lopressor) 25 mg PO BID EPI Stop: 11/08/19 08:01 Last Admin: 10/22/19 19:20 Dose: 25 mg Documented by: Midodrine (Proamatine) 10 mg PO EVERY HD PRN PRN Reason: Titrate to SBP (MUST DEFINE) Stop: 11/19/19 10:12 Multivitamins/Iron (Hemocyte Plus) 1 tab PO DAILY WITH BREAKFAST [facility] Stop: 11/17/19 08:01 Last Admin: 10/22/19 08:58 Dose: 1 tab Documented by: Multivitamins/Minerals (Centrum Tablet) 1 tab PO DAILY [facility] Stop: 11/08/19 08:01 Last Admin: 10/22/19 08:58 Dose: 1 tab Documented by: Nutritional Formula (Promod Liquid Protein) 30 ml PO BID [facility] Stop: 11/08/19 20:01 Last Admin: 10/22/19 19:26 Dose: 30 ml Documented by: Nystatin (Mycostatin (Powder)) 1 appl TOP BID [facility] Stop: 11/09/19 20:01 Last Admin: 10/22/19 19:26 Dose: 1 appl Documented by: Pantoprazole Sodium (Protonix Tab) 40 mg PO ACB [facility]; Protocol Stop: 11/19/19 07:31 Last Admin: 10/22/19 07:15 Dose: 40 mg Documented by: Roflumilast (Daliresp) 500 mcg PO DAILY [facility] Stop: 11/09/19 08:01 Last Admin: 10/22/19 08:58 Dose: 500 mcg Documented by: Senna/Docusate Sodium (Senokot-S) 2 tab PO BEDTIME PRN PRN Reason: CONSTIPATION Stop: 11/07/19 21:08 Last Admin: 10/10/19 20:46 Dose: 2 tab Documented by: Torsemide (Demadex) 40 mg PO BID [facility] Stop: 11/20/19 20:01 Last Admin: 10/22/19 19:19 Dose: 40 mg Documented by: Tramadol HCl (Ultram) 50 mg PO Q4H PRN PRN Reason: Pain scale 5-7 (Moderate) Stop: 11/14/19 14:51 Last Admin: 10/22/19 19:24 Dose: 50 mg Documented by: Warfarin Sodium (Coumadin) 2.5 mg PO DAILY 5 PM [facility] Stop: 11/08/19 17:01 Last Admin: 10/22/19 17:34 Dose: 2.5 mg Documented by: Lab Results (last 24 hrs) 10/22/19 06:03: PT 33.1 H, INR 2.86 Microbiology Results 10/19/19 14:50 Stool Occult Blood - Final 10/16/19 07:05 Nasopharnyx Coronavirus COVID-19 PCR - Final 10/10/19 23:30 Blood - Blood Aerobic Blood Culture - Final No growth in 5 days. 10/10/19 23:30 Blood - Blood Anaerobic Blood Culture - Final No growth in 5 days. 10/10/19 14:35 Blood - Blood Aerobic Blood Culture - Final No growth in 5 days. 10/10/19 14:35 Blood - Blood Anaerobic Blood Culture - Final No growth in 5 days. Assessment/ Plan: Nephrology CPS stable without CP or SOB. +KENDRICK Feeling better. Edema improving with dialysis. Dialysis nurse reports a change in status. No acute events overnight. Vitals, medications, blood work and imaging reviewed in the chart. General: In no apparent distress, Oriented x3, Cooperative HEENT: Atraumatic Neck: Supple Respiratory: Diminished Cardiovascular: Regular rate/rhythm Gastrointestinal: Soft and benign, Non-distended Musculoskeletal: No clubbing, No contractures Integumentary: No rashes, No cyanosis. +Ecchymoses Neurological: Normal speech Laboratory Data (last 24 hrs) 10/09/19 06:35: PT 23.0 H, INR 1.98 10/09/19 06:35: Sodium 140, Potassium 3.6, BUN 56 H, Creatinine 5.42 H*, Glucose 94, Magnesium 2.3 10/09/19 06:35: WBC 13.6 H, Hgb 11.0 L, Hct 33.8 L, Plt Count 126 L Imagings Data: EXAM DESCRIPTION: Ana Single View10/10/2019 3:50 pm CLINICAL HISTORY: Shortness breath COMPARISON: 1999 FINDINGS: Mild bilateral pulmonary opacities. . The heart is mildly enlarged. Pacemaker leads are in place. Postsurgical changes involve the chest IMPRESSION: These findings probably indicate mild CHF Conclusions/Impression: A/ ESRD on HD HTN with CKD/ CHF. Diastolic CHF, chronic. Anemia in chronic disease. Moderate malnutrition. ANGUS/ Secondary HyperPTH. Hypocalcemia. Gout P/ Continue current POC and Medications. HD TIW. Extra HD as tolerated. Continue Retacrit TIW. PT as tolerated. Encourage nutrition. Low sodium diet. No heparin due to allergy. No NSAIDS. AM labs. Daily weight.
[2019-10-23 06:22] LABS: Absolute Lymphocytes (CBC) 0.5 K/uL (0.7-4.9); Basophils % 0.8 % (0-1.3); Hematocrit 26.9 % (39.6-49.0); Lymphocytes % 4.6 % (15.3-44.8); MPV 7.9 fL (7.6-11.3); RBC Red Blood Cell Count 2.81 M/uL (4.33-5.43)
[2019-10-23 06:41] LABS: Albumin 2.2 g/dL (3.4-5.0); Potassium 4.2 mmol/L (3.5-5.1); Prealbumin 11.1 mg/dL (20-40)
[2019-10-23 06:45] LABS: Protime INR 2.69
[2019-10-23] MEDS: LEVOTHYROXINE SOD 0.025 MG TAB PO SCH (06:55)
[2019-10-23 07:31] LABS: Platelet Estimate ADEQ; White Blood Cell Scan OK (OK)
[2019-10-23 07:32] LABS: Blood Morphology Comment NOT SEEN (NOT SEEN)
[2019-10-23] MEDS: NYSTATIN PWDR 100000 UNIT/GM TOP SCH (08:00)
[2019-10-23 08:02] VITALS: BP 135/69; TEMP 99.2
[2019-10-23 09:25] VITALS: O2SAT 97
[2019-10-23] MEDS: COENZYME Q10- 200 MG CAP PO SCH (09:26)
[2019-10-23] MEDS: DIGOXIN 0.125 MG TABLET PO SCH (09:27)
[2019-10-23] MEDS: ROFLUMILAST 500 MCG TABLET PO SCH (09:27)
[2019-10-23] MEDS: CYANOCOBALAMIN 1,000 MCG TAB PO SCH (09:27)
[2019-10-23] MEDS: CALCITROL 0.25 MCG CAP PO SCH (09:27)
[2019-10-23] MEDS: PANTOPRAZOLE 40MG TABLET PO SCH (09:27)
[2019-10-23] MEDS: ASCORBIC ACID 500 MG TABLET PO SCH (09:27)
[2019-10-23] MEDS: DULOXETINE 20 MG CAP PO SCH (09:28)
[2019-10-23] MEDS: VITAMIN D 5,000 UNIT CAP PO SCH (09:28)
[2019-10-23] MEDS: TORSEMIDE 20 MG TAB PO SCH (09:28)
[2019-10-23] MEDS: FE SULF/FA/VIT B COMP & C TAB PO SCH (09:28)
[2019-10-23] MEDS: ACETAMINOPHEN 325 MG TABLET PO PRN (09:29)
[2019-10-23] MEDS: LIDOCAINE 4% PATCH TOP SCH (09:29)
[2019-10-23] MEDS: PROMOD 30 ML DOSE PO SCH (09:29)
[2019-10-23] MEDS: MULTIVITAMIN TAB PO SCH (09:31)
[2019-10-23] MEDS: METOPROLOL TAR 50 MG TAB PO SCH (09:31)
--- NOTE | 2019-10-24 13:47 | R.DS ---
DISCHARGE SUMMARY FACILITY [facility] MR# [id number] NAME SHERWIN BANG ADDRESS [address] [place]IP [address] PHONE DATE OF 1945 AGE 74 SSN# [id number] GENDER Male DEXTERITY Right-handed MARITAL STATUS RACE Unknown race ENCOUNTER PHYSICIAN Dr. Miguel Angel Frazier M.D. REFERRING DOCTOR REFERRING FACILITY [facility] PRIMARY CARE PHYSICIAN DISCHARGE DIAGNOSIS: - Cardiac 09 - Cardiac Disorders () CHRONIC A FIB,CHF,CAD,HTN,HLD,COPD,. DATE OF ADMISSION 10/08/2019 18:46 (CDT) MEDICATION ALLERGIES: Heparin ENVIRONMENTAL ALLERGIES: - Substance Allergies None Known - Other Allergies None Known DISCHARGE MEDICATIONS: Other- ContinueSee attached MAR (Medication Administration Record). NURSING: - Shower allowing shower ACTIVITIES OOB only with supervision THERAPIES: - Dietary and Nutrition Adequate Nutrition Nutritional Education Nutritional Supplements HISTORY OF PRESENT ILLNESS: Currently, he has deficits of Locomotion, Safety Awareness, Transfers Control, Sphincter Control, Stacy f-Care, Communication, and Endurance.On 10/03/2019 he was admitted to [facility] with diagnos is CHRONIC A FIB,CHF,CAD,HTN,HLD,COPD,.His impairment category is Cardiac 09 - Cardiac Disorders ( ).Pre-morbidly, Pt. was independent/mod-I in Locomotion, Transfers Control, Communication, and Sphinc ter Control; and he had good Social Cognition, Transfers Control, and Endurance.Pt. is now referred t [facility] for acute in-patient rehabilitation in order to maximize patient' s functional independence in activities of daily living, strength, ROM, and mobility.Pt. is a 74 yo R ight-handed white male.- Rehab Goal Patient has realistic goal of being discharged at assistance level 3-modA to reside at Home with Fam vanesa/Relatives. DIET - LIQUID TEXTURE: On 10/07/2019 Pt was upgraded to Regular Diet - Liquid Texture. DIET - SOLID TEXTURE: On 10/07/2019 Pt was upgraded to Regular Diet - Solid Texture. DIET TYPE: On 10/07/2019 Pt was upgraded to Regular Diet Type. TUBE FEED: On 10/07/2019 Pt was changed to N/A Tube Feed. Mr. Bang developed decreased responsiveness over the last 4 days of his admission. He did not p articipate in therapy except for mostly bed mobility exercises. He remained at maximum assistance for his ADLs, bed mobility, transfers and mobilization. His oxygen saturation remained greater than 96 o n 1.5 to 2 L of O2. His vital signs showed T-max of 99.2, BP 119-147/61-68, pulse 62-90. WBC 9.9, Hgb 9.0, INR 2.69, Repair Specialist 3.91 (He has ESRD and is on HD TIW). His chest x-ray on 10/21/19 showed mild worsen ing CHF pattern. His COVID-19 test on 10/23/19 is negative. His worsening condition was discussed with the patient and his by phone and a decision was made to pursue home hospice. However, his v oiced that she did not want to get rid of assets to qualify for hospice and she could not be persuade d otherwise. A decision was made to transfer him to SNF for continued care since he required maximum assistance for continued care. DISCHARGE PHYSICAL EXAM - Gen Alert and awake Lying in bed No apparent distress Oriented to: person, time, and place - Skin Bruising on the dorsal right and left hand and forearm No abnormalities - Eyes No abnormalities - ENMT No abnormalities - Neck No abnormalities No cervical adenopathy - CVS IRIR - Chest Mildly decreased breath sounds bilaterally. - Resp No wheezing - Abd Soft - GI Non distended Deferred - Does not produce urine, on hemodialysis - Ext Mild bilateral lower extremity edema. - MSK 4+/5 weakness in both lower extremities. - Neuro No focal deficits - Psych No abnormalities FUNCTIONAL STATUS: - Self-Care A. Eating 7-Ind B. Grooming 6-Feliciano C. Bathing 3-modA D. Dressing - Upper 3-modA E. Dressing - Lower 3-modA F. Toileting 5-sup - Sphincter Control G. Bladder control 4-Milo H. Bowel control 4-Milo - Transfers Control I. Bed/Chair/Wheelchair 4-Milo J. Toilet 4-Milo K. Tub/Shower 3-modA - Locomotion L. Walk/Wheelchair (B) 3-modA M. Stairs 2-maxA - Communication N. Comprehension (B) 6-Feliciano O. Expression (B) 6-Feliciano - Social Cognition P. Social Interaction 6-Feliciano Q. Problem Solving 6-Feliciano R. Memory 6-Feliciano - Endurance Fair - Balance Poor - Safety Awareness Fair QI SCORES: - Self-Care A. Eating 03-Partial/moderate assistance B. Oral hygiene 03-Partial/moderate assistance C. Toileting hygiene 02-Substantial/maximal assistance E. Shower/bathe self 02-Substantial/maximal assistance F. Upper body dressing 03-Partial/moderate assistance G. Lower body dressing 03-Partial/moderate assistance H. Putting on/taking off footwear 88-Not attempted due to medical condition or safety concerns - Mobility M. 1 step (curb) 88-Not attempted due to medical condition or safety concerns N. 4 steps 88-Not attempted due to medical condition or safety concerns O. 12 steps 88-Not attempted due to medical condition or safety concerns P. Picking up object 88-Not attempted due to medical condition or safety concerns R. Wheel 50 feet with two turns 88-Not attempted due to medical condition or safety concerns A. Roll left and right 03-Partial/moderate assistance B. Sit to lying 03-Partial/moderate assistance C. Lying to sitting on side of bed 03-Partial/moderate assistance D. Sit to stand 02-Substantial/maximal assistance E. Chair/[id number]-xy-[id number] transfer 02-Substantial/maximal assistance F. Toilet transfer 02-Substantial/maximal assistance G. Car transfer 88-Not attempted due to medical condition or safety concerns I. Walk 10 feet 02-Substantial/maximal assistance J. Walk 50 feet with two turns 88-Not attempted due to medical condition or safety concerns K. Walk 150 feet 88-Not attempted due to medical condition or safety concerns L. Walking 10 feet on uneven surfaces 88-Not attempted due to medical condition or safety concerns S. Wheel 150 feet 88-Not attempted due to medical condition or safety concerns - Bladder and Bowel Bladder continence Bowel continence 0-Always continent - Endurance Poor - Balance Poor - Safety Awareness Poor DISCHARGE INSTRUCTIONS: - Followup The patient will continue with INR daily. - N/A Coumadin 2.5 mg daily. DISCHARGE PLAN, FOLLOW UP CARE PROVISIONS: - Estimated Length of Stay (days) 10. - Consensus on plan Discharge plan has been discussed with primary caregiver. Patient/Family is in agreement with the nader n. Primary caregiver is in agreement with the plan. - Patient/Family Goals Return home independently. - Planned Living Setting Upon Discharge Home, to live with Family/Relatives. Transitional Living. SIGNATURE PANEL: (CDT)
== END 2019-10-23 13:15 | DRG 291 ==
LOC: 5TH 10-08 20:46
PROVIDERS: ADMIT Psychiatry & Neurology Neurology with Special Qualifications in Child Neurology; ATTEND Psychiatry & Neurology Neurology with Special Qualifications in Child Neurology
DX: I13.2 Hypertensive heart and chronic kidney disease with heart failure and with stage 5 chronic kidney disease, or end stage renal disease (principal); N18.6 End stage renal disease; I48.20 Chronic atrial fibrillation, unspecified; I50.32 Chronic diastolic (congestive) heart failure; E44.0 Moderate protein-calorie malnutrition; J96.10 Chronic respiratory failure, unspecified whether with hypoxia or hypercapnia; I25.10 Atherosclerotic heart disease of native coronary artery without angina pectoris; E78.5 Hyperlipidemia, unspecified; J44.9 Chronic obstructive pulmonary disease, unspecified; D63.8 Anemia in other chronic diseases classified elsewhere; E21.1 Secondary hyperparathyroidism, not elsewhere classified; N25.0 Renal osteodystrophy; M10.9 Gout, unspecified; R53.81 Other malaise; Z79.890 Hormone replacement therapy; Z79.01 Long term (current) use of anticoagulants; Z68.26 Body mass index [BMI] 26.0-26.9, adult; Z79.899 Other long term (current) drug therapy; Z90.49 Acquired absence of other specified parts of digestive tract; Z87.891 Personal history of nicotine dependence; Z88.8 Allergy status to other drugs, medicaments and biological substances; Z99.2 Dependence on renal dialysis; Z20.828 Contact with and (suspected) exposure to other viral communicable diseases
CPT/HCPCS: 36415; 71045; 80048; 80053; 80162; 82040; 82274; 83735; 83880; 84100; 84134; 84550; 85025; 85610; 86704; 86706; 87040; 87340; 90935; 92523; 97110; 97112; 97116; 97127; 97161; 97530; 97542; J2150; P9047; Q5105; U0002; U0003